=== PATIENT | female | born 1990 | race Caucasian/White ===

== ENCOUNTER 2016-09-23 11:33 | Outpatient (CLI) | payer MEDICAID ==
[~2016-09-23 11:33] MED LIST: AMOXICOT500 MG PO; ASPIRIN 81MG TA81 MG PO; CIPRO 500MG TA500 MG PO; COUMADIN7.5 MG PO; LORTAB 5/500 501 TAB PO; MEDROL 4MG. DOSE4 MG PO; NAPROSYN 375MG375 MG PO; PREMIERPRO SC; TESSALON PERLE100 MG PO; TYLENOL W/CODEI1 TAB PO; VICODIN 5/500 T1 TAB PO
[2016-09-26] MEDS ORDERED: COUMADIN2.5 MG PO (14:55)
[2016-12-08] MEDS ORDERED: PRENATAL PLUS1 TA1 PO (16:58)
[2016-12-08] MEDS ORDERED: TAMIFLU 75MG CA75 MG PO (17:23)
== END 2016-09-23 14:24 ==
LOC: ACC 11:33
DX: Z95.2 Presence of prosthetic heart valve (principal); Z79.01 Long term (current) use of anticoagulants; Z51.81 Encounter for therapeutic drug level monitoring
CPT/HCPCS: G0463

== ENCOUNTER 2016-11-06 18:20 | Emergency (ER) | payer MEDICAID ==
[~2016-11-06] VITALS: Ht 160 cm; Wt 85.7 kg
[~2016-11-06 18:20] MED LIST changes: +COUMADIN2.5 MG PO
[2016-11-06] MEDS ORDERED: IRON TABLETS325 MG PO (18:38)
[2016-11-06 19:05] VITALS: BP 121/69
--- NOTE | 2016-11-06 19:07 | Urgent Treatment Center Report ---
History of Present Issue Date/Time Seen by Provider 11/06/16 1845 Visit Reason Pt arrived:Walked Presenting Problem:c/o cough, congestion, runny nose, drained feeling x 4 days Location if Accident: Onset of symptoms date/time:/ or onset unknown for:MEDICAL HX UNKNOWN Have you (or family members/close friends) recently traveled outside the [place]? N If Yes, where/when: Have you had exposure to infectious disease within the past month? TB? Other? Specify: Patient states that she has been exposed to several people with the flu and other viruses states for 3-4 days she had had cough runny nose, nasal congestion and just feels tired. States that she was afraid she might have the flu so she came to get checked ALLERGIES Coded Allergies: Sulfa (Sulfonamide Antibiotics) (Mild, I-RASH 03/06/16) Home Medications Reported Medications ASPIRIN (Aspirin) 81 MG PO DAILY Warfarin Sodium (Coumadin) 2.5 MG PO DAILY Ferrous Sulfate (Iron Tablet) 325 MG PO DAILY History Medical History General CAD? Yes Angina: No ME: No Hypertension? No Hyperlipidemia? No CHF? No DVT? Yes PE? No COPD? No Asthma? No Anemia? No GERD? No Gastric ulcers? No GI Bleed? No Hernia? No Thyroid Problems? No Hypothyroidism? No CVA? No Seizures? No Diabetes? No Renal Insuffiency? No UTI? Yes Stones? No BPH? No GB Disease: No Nephritic Syndrome? No Asplenia? No Hepatitis? No Sickle Cell Disease? No Arthritis? No Migraines? No Cataracts? No Glaucoma? No MRSA? No HIV? No TB? No Anxiety? No Depression? No Cancer? No More? 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 Respiratory cough Physical Exam Vital Signs Vital Signs Date Time Temp Pulse Resp B/P Pulse O2 O2 Flow FiO2 Ox Delivery Rate 11/06 1835 97.9 95 24 121/69 98 General Appearance normal appearance Ear, Nose, Throat sinus pain/drainage, throat slightly red, irritated, Bilateral ears clear, TM landmarks easily visible Respiratory Status Yes: trachea midline, chest symmetrical, non tender chest. No: respiratory distress. Cardiovascular normal exam, no peripheral edema, no gallop, no JVD Neurologic alert, normal exam, no motor/sensory deficits Medical Decision Making LABS/Meds/Orders Pt receiving controlled substance in ED? No Results/Orders Laboratory Tests 11/06/161902: Influenza Type A Ag NOT DETECTED, Influenza Type B Ag NOT DETECTED Orders Procedure Date/time Status [facility] FLU A,B 11/06 1902 Complete Departure Departure Time of Disposition 1903 Disposition DC Home or Self Care(routine) Clinical Impression Primary Impression: Viral upper respiratory illness Condition STABLE Patient Instructions Common Cold, DI for Viral Upper Respiratory Infection-Child Additional Instructions Drink plenty of fluids Over the counter Motrin/Tylenol as needed for fever Return to [facility] if needed Follow up family doctor Discharge Counseling Counseled pt/family regarding diagnosis, test results, home care, follow up needs at 1906
--- NOTE | 2016-11-06 19:07 | Urgent Treatment Center Report ---
History of Present Issue Date/Time Seen by Provider 11/06/16 1845 Visit Reason Pt arrived:Walked Presenting Problem:c/o cough, congestion, runny nose, drained feeling x 4 days Location if Accident: Onset of symptoms date/time:/ or onset unknown for:MEDICAL HX UNKNOWN Have you (or family members/close friends) recently traveled outside the [place]? N If Yes, where/when: Have you had exposure to infectious disease within the past month? TB? Other? Specify: Patient states that she has been exposed to several people with the flu and other viruses states for 3-4 days she had had cough runny nose, nasal congestion and just feels tired. States that she was afraid she might have the flu so she came to get checked ALLERGIES Coded Allergies: Sulfa (Sulfonamide Antibiotics) (Mild, I-RASH 03/06/16) Home Medications Reported Medications ASPIRIN (Aspirin) 81 MG PO DAILY Warfarin Sodium (Coumadin) 2.5 MG PO DAILY Ferrous Sulfate (Iron Tablet) 325 MG PO DAILY History Medical History General CAD? Yes Angina: No GA: No Hypertension? No Hyperlipidemia? No CHF? No DVT? Yes PE? No COPD? No Asthma? No Anemia? No GERD? No Gastric ulcers? No GI Bleed? No Hernia? No Thyroid Problems? No Hypothyroidism? No CVA? No Seizures? No Diabetes? No Renal Insuffiency? No UTI? Yes Stones? No BPH? No GB Disease: No Nephritic Syndrome? No Asplenia? No Hepatitis? No Sickle Cell Disease? No Arthritis? No Migraines? No Cataracts? No Glaucoma? No MRSA? No HIV? No TB? No Anxiety? No Depression? No Cancer? No More? 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 Respiratory cough Physical Exam Vital Signs Vital Signs Date Time Temp Pulse Resp B/P Pulse O2 O2 Flow FiO2 Ox Delivery Rate 11/06 1835 97.9 95 24 121/69 98 General Appearance normal appearance Ear, Nose, Throat sinus pain/drainage, throat slightly red, irritated, Bilateral ears clear, TM landmarks easily visible Respiratory Status Yes: trachea midline, chest symmetrical, non tender chest. No: respiratory distress. Cardiovascular normal exam, no peripheral edema, no gallop, no JVD Neurologic alert, normal exam, no motor/sensory deficits Medical Decision Making LABS/Meds/Orders Pt receiving controlled substance in ED? No Results/Orders Laboratory Tests 11/06/161902: Influenza Type A Ag NOT DETECTED, Influenza Type B Ag NOT DETECTED Orders Procedure Date/time Status [facility] FLU A,B 11/06 1902 Complete Departure Departure Time of Disposition 1903 Disposition DC Home or Self Care(routine) Clinical Impression Primary Impression: Viral upper respiratory illness Condition STABLE Patient Instructions Common Cold, DI for Viral Upper Respiratory Infection-Child Additional Instructions Drink plenty of fluids Over the counter Motrin/Tylenol as needed for fever Return to [facility] if needed Follow up family doctor Discharge Counseling Counseled pt/family regarding diagnosis, test results, home care, follow up needs at 1906
[2016-12-08] MEDS ORDERED: PRENATAL PLUS1 TA1 PO (16:58)
[2016-12-08] MEDS ORDERED: TAMIFLU 75MG CA75 MG PO (17:23)
== END 2016-11-06 19:10 | disposition home or self-care (01) ==
LOC: UTC 18:20
DX: J06.9 Acute upper respiratory infection, unspecified (principal); I25.10 Atherosclerotic heart disease of native coronary artery without angina pectoris; Z72.0 Tobacco use

== ENCOUNTER 2017-01-11 01:52 | Inpatient (IN) | payer MEDICAID ==
[~2017-01-11] VITALS: Ht 160 cm; Wt 84.8 kg
[~2017-01-11 01:52] MED LIST changes: +IRON TABLETS325 MG PO; +PRENATAL PLUS1 TA1 PO; +TAMIFLU 75MG CA75 MG PO
[2017-01-11 04:31] VITALS: BP 113/76
[2017-01-11 05:13] LABS: HEMOGLOBIN 12.9 g/dL (12.2-16.2); LYMPH % 25.2 % (10-50.0)
[2017-01-11 06:39] LABS: ABO BLOOD TYPE B; RH BLOOD TYPE POSITIVE
--- NOTE | 2017-01-11 07:20 | LABOR NOTE ---
Laboring Subjective Subjective Date 01/11/17 Time 0719 Subjective: Pt is having regular contractions Laboring Objective Objective NST: Reactive Contractions: q 2-3 minutes Cervical dilation: 2 Effacement: 50% Station: -2 Membranes are: Artificially ruptured (with clear fluid) Fetus monitoring? Yes Type: Internal and External Comment: [facility] INSERTED Laboring Assessment Assessment Progressing? Yes Cephalopelvic disproportion? No Problem List: 1. Mechanical heart valve present Laboring Plan Plan Anethesia for epidural? No Continue to labor down? Yes Plan for ? No Continue to monitor? Yes Start pushing? No at 0720
--- NOTE | 2017-01-11 07:20 | LABOR NOTE ---
Laboring Subjective Subjective Date 01/11/17 Time 0719 Subjective: Pt is having regular contractions Laboring Objective Objective NST: Reactive Contractions: q 2-3 minutes Cervical dilation: 2 Effacement: 50% Station: -2 Membranes are: Artificially ruptured (with clear fluid) Fetus monitoring? Yes Type: Internal and External Comment: [facility] INSERTED Laboring Assessment Assessment Progressing? Yes Cephalopelvic disproportion? No Problem List: 1. Mechanical heart valve present Laboring Plan Plan Anethesia for epidural? No Continue to labor down? Yes Plan for ? No Continue to monitor? Yes Start pushing? No at 0720
[2017-01-11 08:06] VITALS: BP 106/60
--- NOTE | 2017-01-11 10:47 | LABOR NOTE ---
Laboring Subjective Subjective Date 01/11/17 Time 1046 Subjective: Pt is having regular contractions Laboring Objective Objective NST: Reactive Contractions: q 2-3 minutes Cervical dilation: 4 Effacement: 75% Station: -2 Membranes are: Artificially ruptured (with clear fluid) Fetus monitoring? Yes Type: Internal and External Laboring Assessment Assessment Progressing? Yes Cephalopelvic disproportion? No Problem List: 1. 2. Mechanical heart valve present Laboring Plan Plan Anethesia for epidural? Yes Continue to labor down? Yes Plan for ? No Continue to monitor? Yes Start pushing? No at 1049
[2017-01-11] MEDS ORDERED: ENOXAPARIN80 MG/0.8 SC (11:00)
--- NOTE | 2017-01-11 13:40 | LABOR NOTE ---
Laboring Subjective Subjective Date 01/11/17 Time 1339 Subjective: Pt is having regular contractions Laboring Objective Objective NST: Reactive Contractions: q 2-3 minutes Cervical dilation: 4-5 Effacement: 75% Station: -1 Membranes are: Artificially ruptured Fetus monitoring? Yes Type: Internal Laboring Assessment Assessment Progressing? Yes Cephalopelvic disproportion? No Problem List: 1. 2. Mechanical heart valve present Laboring Plan Plan Anethesia for epidural? Yes Continue to labor down? Yes Plan for ? No Continue to monitor? Yes Start pushing? No at 1340
--- NOTE | 2017-01-11 15:51 | LABOR NOTE ---
Laboring Subjective Subjective Date 01/11/17 Time 1550 Subjective: Pt is having regular contractions Laboring Objective Objective NST: Reactive Contractions: q 2-3 minutes Cervical dilation: 6 Effacement: 80% Station: -1 Membranes are: Artificially ruptured Fetus monitoring? Yes Type: Internal Laboring Assessment Assessment Progressing? Yes Cephalopelvic disproportion? No Problem List: 1. Mechanical heart valve present 2. Laboring Plan Plan Anethesia for epidural? Yes Continue to labor down? Yes Plan for ? No Continue to monitor? Yes Start pushing? No at 1551
--- NOTE | 2017-01-11 17:59 | Delivery Note ---
Delivery note Delivery date: 01/11/17 Delivery time: 1743 Anesthesia: Epidural, Lázaro Rooney Was labor medically induced? Yes Method for inducing labor: Oxytocin Gestational age in weeks: 38 weeks Delivery prior to 39 weeks? Yes Sex: female score at one minute: 8 at 5 minutes: 9 Type of suction: bulb AF: Clear fluid LAC or MLE: LAC (none) Delivery procedure: Normal Delivery Delivery of placenta: spontaneous Clinical note She is a 26-year-old 2 para 1 who is had a surgically placed a mechanical heart valve. She has been on Coumadin throughout the and more recently Lovenox. She has been in in consultation at [facility]. It was recommended that she deliver at 38 weeks and be off her Coumadin and Lovenox. As result of that we stop her Lovenox partially 3 days ago and elected to induce her labor today. She was started on IV oxytocin had her membranes ruptured. Under labor epidural she progressed to full dilation and delivered spontaneously a liveborn female child at 5:44 PM in the afternoon of January 11, 2017. On delivery the head it was noted that there was a loose nuchal cord which was easily reduced this was followed by the anterior shoulder and the rest of the 's body atraumatically. We allowed the cord to continue pulsating for about a minute. The baby cried spontaneously and was bulb suctioned. The cord was clamped and cut and the infant was then placed on the mother's abdomen for further care. The nurses assigned Apgars of 8 at 1 minute and 9 at 5 minutes. We then obtained cord blood as well as cord pH. The pH was 7.37. Using gentle traction on the cord and countertraction the fundus I was able to easily deliver the placenta intact. It had a normal three-vessel cord. The vagina was inspected and there were no perineal or vaginal lacerations. She has B positive blood, she is rubella immune and was group B streptococcus negative. She plans to bottlefeed. Her equipment operator is Dr. gonzalez. Estimated blood loss was approximately 400 mL. at 8628
[2017-01-11 19:54] VITALS: BP 123/73
[2017-01-12 07:20] VITALS: BP 103/66
[2017-01-12 07:24] LABS: HEMOGLOBIN 10.4 g/dL (12.2-16.2)
--- NOTE | 2017-01-12 10:41 | Anesthesia Record ---
Anesthesia Record Part I Total IV fluids: 1300 EBL (ml): 10 Urine Output: 0 Units of blood given: 0 B/P: 103/76 % SaO2: 94 Pulse: 76 Resps: 16 Temp: 98.3 Patient is: Drowsy, Nasal O2, Stable Stable to PACU at: 1035 at 1041
--- NOTE | 2017-01-12 10:41 | Operative Note ---
Procedure/Operative Record Procedure Date of procedure: 01/12/17 Pre-Op Dx: Desire for sterilization Post-Op Dx: Desire for sterilization Procedure performed: bilateral tubal ligation Surgeon: Dr. Rafael Lorenzana Polishing Machine Operator Helper(s): None Anesthesia: Judy Guzmán EBL (ml): 25 Clinical note: She is a 26-year-old 2 para 2 who was 24 hours postdelivery. She is breast desire for sterilization. The risks and benefits as well as the irreversibility of tubal ligation were discussed with the patient prior to surgery. Operative findings: She had a normal uterus. The tubes were visualized and followed to their fimbriated ends they appeared normal. The ovaries were not visualized. Operative note: She was taken the operating room where LMA anesthesia was found be adequate. She was prepped and draped in normal sterile fashion in supine position. I injected approximately 10 mL of 0.5 percent ropivacaine subcutaneously. A small subumbilical incision was made with knife and carried through to the underlying layer of fascia with cautery the fascia was opened midline with Metzenbaum scissors and extended superior and inferiorly. The peritoneum was identified tented up and entered sharply with Metzenbaum scissors. I then identified the RIGHT tube and grasped with a Brian. It was followed to its fimbriated end. I then applied 2 Filshie clips across each tube. This was performed on the patient's LEFT side. The peritoneum was then grasped with hemostats and closed using running 2-0 Vicryl suture. The fascia was closed with 0 Vicryl suture. The subcutaneous tissues were then closed in the opposite direction using running 2-0 Vicryl suture. The skin was closed with running subcu care 4-0 Monocryl suture. Sterile dressings were applied. The patient tolerated the procedure well and was taken to the recovery room in excellent condition. All sponge instrument and needle counts were correct. Estimate a blood loss was approximately 25 mL. Conplications: None Specimens: None at 6290
--- NOTE | 2017-01-12 10:42 | Anesthesia Record ---
Anesthesia Record Part II Discharge time: 1105 Destination: OB PACU nurse assessment review? Yes Patient is: Awake, Stable Anesthesia complications? Yes at 1047
--- NOTE | 2017-01-12 15:04 | ACUTE CARE PROGRESS NOTE (QUA) ---
Progress Notes Subjective Date 01/12/17 Time 1502 Note She is doing very well. She has a tubal plan for today. She is eating and drinking and ambulating. Her lochia is normal. Her pain is well-controlled. Patient/family reports: feeling better, no complaints Objective Findings Laboratory Tests 01/12/17 0610: Hgb 10.4 L, Hct 30.2 L 01/11/17 1754: Cord Blood pH 7.37 Last VS-Temp:98.3 B/P:103/76 Pulse:76 Resp:18 SaO2:94 Last weight lbs:187 oz:0 [id number].823 Method:Stated Exam General appearance: normal appearance, alert, awake, no acute distress Reviewed: vital signs, lab results Assessment/Plan Problem List 1. 2. Mechanical heart valve present Patient condition Improving, Stable Plan: continue current care This inpt stay is expected to cross 2 MNs from start of care Yes Comments: She is doing very well. We will plan to start her Lovenox again tomorrow. We will plan to send her home tomorrow. at 1503
[2017-01-12 19:52] VITALS: BP 98/63
--- NOTE | 2017-01-13 07:55 | ACUTE CARE PROGRESS NOTE (QUA) ---
Progress Notes Subjective Date 01/13/17 Time 0754 Note She is doing well this morning. She is eating and drinking and ambulating. She is bottlefeeding. Her lochia is normal. Her pain is reasonably well-controlled. Patient/family reports: feeling better, no complaints Objective Findings Last VS-Temp:97.9 B/P:98/63 Pulse:67 Resp:18 SaO2:94 Last weight lbs:187 oz:0 K.823 Method:Stated Laboratory Tests 01/12/17 0610: Hgb 10.4 L, Hct 30.2 L 01/11/17 1754: Cord Blood pH 7.37 01/11/17 0415: MCH 34.5 H 01/11/17 0415: PT 10.0, INR 0.93, APTT 28.7, WBC 12.0 H, RBC 3.75 L, Hgb 12.9, Hct 37.3, MCV 99.4 H, RDW 12.8, Plt Count 237, MPV 7.7, Gran % 68.8, Gran # 8.3 H, Lymphocytes % 25.2, Monocytes % 4.4, Eosinophils % 1.3, Basophils % 0.3, Lymphocytes # 3.0, Monocytes # 0.5, Eosinophils # 0.2, Basophils # 0.0, PUBS MCHC 34.7, Antibody Screen NEGATIVE, Miscellaneous Test POSITIVE Exam General appearance: normal appearance, alert, awake, no acute distress Reviewed: vital signs, lab results Assessment/Plan Problem List 1. 2. Mechanical heart valve present Patient condition Improving, Stable Plan: continue current care, initiate discharge plan This inpt stay is expected to cross 2 MNs from start of care Yes Comments: She is doing very well post surgery. We will plan to send her home this morning. at 0755
--- NOTE | 2017-01-13 07:59 | Discharge Summary ---
Discharge Summary Admission date: 01/11/17 Discharge date: 01/13/17 Discharge diagnoses: Term , maternal mechanical heart valve, desire for sterilization Clinical note: She is a 26-year-old 2 now para 2 who was 38 weeks gestational age. She has had a history of a cardiac mechanical heart valve replacement and was followed by both or and high-risk in [place]. They suggested that she stops her Lovenox a few days before admission and we deliver her at 38 weeks before she goes into labor. As result of that she stopped her Lovenox a couple of days before admission and was brought in for delivery. She also expressed desire for sterilization and she underwent a tubal ligation on her first postoperative day. Course in hospital: Laboratory Tests 01/12/17 0610: Hgb 10.4 L, Hct 30.2 L 01/11/17 1754: Cord Blood pH 7.37 01/11/17 0415: MCH 34.5 H 01/11/17 0415: PT 10.0, INR 0.93, APTT 28.7, WBC 12.0 H, RBC 3.75 L, Hgb 12.9, Hct 37.3, MCV 99.4 H, RDW 12.8, Plt Count 237, MPV 7.7, Gran % 68.8, Gran # 8.3 H, Lymphocytes % 25.2, Monocytes % 4.4, Eosinophils % 1.3, Basophils % 0.3, Lymphocytes # 3.0, Monocytes # 0.5, Eosinophils # 0.2, Basophils # 0.0, PUBS MCHC 34.7, Antibody Screen NEGATIVE, Miscellaneous Test POSITIVE She was started on IV oxytocin and had her membranes ruptured. Under labor epidural she progressed to full dilation and delivered spontaneously a liveborn female child at 5:44 PM in the afternoon of January 11, 2017. The baby was 7 lbs. 1 oz. and size 18 a half inches long and had Apgars of 8 at 1 minute and 9 at 5 minutes. There were no perineal or vaginal lacerations. She has done well and has remained afebrile throughout her hospitalization. She is eating and drinking and ambulating. She has B positive blood, she is rubella immune and was group B streptococcus negative. She is bottlefeeding. On her first day she underwent a tubal ligation through a small subumbilical incision. She is doing well post surgery. Plans for ongoing care: She is discharged home to follow-up with me in approximately 2 weeks' time. Discharge medications She'll continue with her vitamins and iron. She was given a prescription for Percocet 5/325, 30 tablets. DC/follow-up instructions She was given the usual instructions with respect to limiting her activity, driving and sexual activity. She was given instructions with respect to wound care. Condition at discharge Stable and improved at 8243
[2017-01-13 08:00] VITALS: BP 116/61
[2017-01-13] MEDS ORDERED: PERCOCET 5/3251 EACH PO (08:01)
== END 2017-01-13 10:15 | disposition home or self-care (01) | DRG 767 ==
LOC: OB 01:52
PROVIDERS: Nurse Practitioner Obstetrics & Gynecology
PROC: 10E0XZZ Delivery of Products of Conception, External Approach (ICD-10-PCS; principal; 2017-01-11)
PROC: 0UL70CZ Occlusion of Bilateral Fallopian Tubes with Extraluminal Device, Open Approach (ICD-10-PCS; 2017-01-11)
DX: O69.81X0 Labor and delivery complicated by cord around neck, without compression, not applicable or unspecified (principal); Z30.2 Encounter for sterilization; Z3A.38 38 weeks gestation of pregnancy; Z37.0 Single live birth; Z95.2 Presence of prosthetic heart valve; Z79.01 Long term (current) use of anticoagulants
CPT/HCPCS: J2405

== ENCOUNTER 2017-01-20 10:20 | Outpatient (CLI) | payer MEDICAID ==
[~2017-01-20 10:20] MED LIST changes: +ENOXAPARIN80 MG/0.8 SC; +PERCOCET 5/3251 EACH PO
== END 2017-01-20 13:47 ==
LOC: ACC 10:20
DX: Z95.2 Presence of prosthetic heart valve (principal); Z79.01 Long term (current) use of anticoagulants; Z51.81 Encounter for therapeutic drug level monitoring
CPT/HCPCS: G0463

== ENCOUNTER 2017-01-28 19:45 | Emergency (ER) | payer MEDICAID ==
[~2017-01-28] VITALS: Ht 160 cm; Wt 77.1 kg
[2017-01-28] MEDS ORDERED: WARFARIN SOD5 M1 PO (19:58)
--- NOTE | 2017-01-28 19:59 | Urgent Treatment Center Report ---
History of Present Issue Date/Time Seen by Provider 01/28/171957 Visit Reason Pt arrived: Presenting Problem: Location if Accident: Onset of symptoms date/time:/ or onset unknown for: Have you (or family members/close friends) recently traveled outside the [place]? If Yes, where/when: Have you had exposure to infectious disease within the past month? TB? Other? Specify: Source patient, RN notes reviewed, family Exam Limitations no limitations Comment Bilateral ear pain and fullness, sinus pressure, sore throat x 2 weeks. Patient is 3 weeks post and is breast feeding. Low -grade fever. Is on Coumadin for mechanical heart valve. ALLERGIES Coded Allergies: Sulfa (Sulfonamide Antibiotics) (Mild, I-RASH 01/12/17) Home Medications Active Scripts Oxycodone 5MG/[id number] (Oxycodone-Acetaminophen 5-325) 1-2 TAB PO Q4HP PRN MODERATE TO SEVERE PAIN #30 TAB Prov: 01/13/17 Reported Medications ASPIRIN (Aspirin) 81 MG PO DAILY Ferrous Sulfate (Iron Tablet) 325 MG PO DAILY MULTIVIT-MIN W/FE-FA ( Multivitamin Tablet) 1 TAB PO DAILY Warfarin Sodium 2.5 MG PO DAILY #30 History Medical History General CAD? Yes Angina: No MA: No Hypertension? No Hyperlipidemia? No CHF? No DVT? Yes PE? No COPD? No Asthma? No Anemia? No GERD? No Gastric ulcers? No GI Bleed? No Hernia? No Thyroid Problems? No Hypothyroidism? No CVA? No Seizures? No Diabetes? No Renal Insuffiency? No UTI? Yes Stones? No BPH? No GB Disease: No Nephritic Syndrome? No Asplenia? No Hepatitis? No Sickle Cell Disease? No Arthritis? No Migraines? No Cataracts? No Glaucoma? No MRSA? No HIV? No TB? No Anxiety? No Depression? No Cancer? No More? 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 Physical Exam Vital Signs Vital Signs Date Time Temp Pulse Resp B/P Pulse O2 O2 Flow FiO2 Ox Delivery Rate 01/28 1955 98.7 82 18 113/71 95 General Appearance normal appearance, no apparent distress Ear, Nose, Throat hearing grossly normal, abnormal TM (R), abnormal TM (L), sinus pain/drainage Respiratory Status No: respiratory distress, trachea midline, chest symmetrical. Lung Sounds bilateral: normal breath sounds, lungs clear. Cardiovascular normal exam, regular rate/rhythm, no peripheral edema, no gallop, no JVD, no murmur, no rub Extremities non-tender, normal range of motion, normal inspection, normal capillary refill Neurologic alert, normal exam, oriented x 3 Medical Decision Making LABS/Meds/Orders Pt receiving controlled substance in ED? No Departure Departure Time of Disposition 2009 Disposition DC Home or Self Care(routine) Clinical Impression Primary Impression: Sinusitis Qualifiers: Sinusitis location: maxillary Chronicity: acute Recurrence: recurrent Qualified Code: J01.01 - Acute recurrent maxillary sinusitis Condition STABLE Patient Instructions DI for Sinusitis Discharge Counseling Counseled pt/family regarding diagnosis, medications/RX, home care, follow up needs Prescriptions Current Visit Scripts AMOXICILLIN (Amoxicillin 875MG Tab) 875 MG PO BID #20 TAB Prednisone (Prednisone 20MG) 20 MG PO BID #10 TAB Fluticasone Propionate (Flonase 50 Mcg Nasal [place]) 1 SPRAY NA BID #1 BOT at 2015
--- NOTE | 2017-01-28 19:59 | [facility] Report ---
History of Present Issue Date/Time Seen by Provider 01/28/171957 Visit Reason Pt arrived: Presenting Problem: Location if Accident: Onset of symptoms date/time:/ or onset unknown for: Have you (or family members/close friends) recently traveled outside the [place]? If Yes, where/when: Have you had exposure to infectious disease within the past month? TB? Other? Specify: Source patient, RN notes reviewed, family Exam Limitations no limitations Comment Bilateral ear pain and fullness, sinus pressure, sore throat x 2 weeks. Patient is 3 weeks post and is breast feeding. Low -grade fever. Is on Coumadin for mechanical heart valve. ALLERGIES Coded Allergies: Sulfa (Sulfonamide Antibiotics) (Mild, I-RASH 01/12/17) Home Medications Active Scripts Oxycodone 5MG/[id number] (Oxycodone-Acetaminophen 5-325) 1-2 TAB PO Q4HP PRN MODERATE TO SEVERE PAIN #30 TAB Prov: 01/13/17 Reported Medications ASPIRIN (Aspirin) 81 MG PO DAILY Ferrous Sulfate (Iron Tablet) 325 MG PO DAILY MULTIVIT-MIN W/FE-FA ( Multivitamin Tablet) 1 TAB PO DAILY Warfarin Sodium 2.5 MG PO DAILY #30 History Medical History General CAD? Yes Angina: No [place]: No Hypertension? No Hyperlipidemia? No CHF? No DVT? Yes PE? No COPD? No Asthma? No Anemia? No GERD? No Gastric ulcers? No GI Bleed? No Hernia? No Thyroid Problems? No Hypothyroidism? No CVA? No Seizures? No Diabetes? No Renal Insuffiency? No UTI? Yes Stones? No BPH? No GB Disease: No Nephritic Syndrome? No Asplenia? No Hepatitis? No Sickle Cell Disease? No Arthritis? No Migraines? No Cataracts? No Glaucoma? No MRSA? No HIV? No TB? No Anxiety? No Depression? No Cancer? No More? 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 Physical Exam Vital Signs Vital Signs Date Time Temp Pulse Resp B/P Pulse O2 O2 Flow FiO2 Ox Delivery Rate 01/28 1955 98.7 82 18 113/71 95 General Appearance normal appearance, no apparent distress Ear, Nose, Throat hearing grossly normal, abnormal TM (R), abnormal TM (L), sinus pain/drainage Respiratory Status No: respiratory distress, trachea midline, chest symmetrical. Lung Sounds bilateral: normal breath sounds, lungs clear. Cardiovascular normal exam, regular rate/rhythm, no peripheral edema, no gallop, no JVD, no murmur, no rub Extremities non-tender, normal range of motion, normal inspection, normal capillary refill Neurologic alert, normal exam, oriented x 3 Medical Decision Making LABS/Meds/Orders Pt receiving controlled substance in ED? No Departure Departure Time of Disposition 2009 Disposition DC Home or Self Care(routine) Clinical Impression Primary Impression: Sinusitis Qualifiers: Sinusitis location: maxillary Chronicity: acute Recurrence: recurrent Qualified Code: J01.01 - Acute recurrent maxillary sinusitis Condition STABLE Patient Instructions DI for Sinusitis Discharge Counseling Counseled pt/family regarding diagnosis, medications/RX, home care, follow up needs Prescriptions Current Visit Scripts AMOXICILLIN (Amoxicillin 875MG Tab) 875 MG PO BID #20 TAB Prednisone (Prednisone 20MG) 20 MG PO BID #10 TAB Fluticasone Propionate (Flonase 50 Mcg Nasal [place]) 1 SPRAY NA BID #1 BOT at 2015
--- OUTSIDE RECORDS SUMMARY | 2017-01-28 20:00 | External Medical Summary Rpt ---
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 Name Role Phone PRUDENCE JEANETTE, PRUDENCE Unavailable Unavailable JEANETTE [facility] Unavailable Unavailable PHYSICIANS, [facility] KAROLINA BISHOP, Unavailable Unavailable KAROLINA BISHOP ARNOLD MAURICE, ARNOLD Unavailable Unavailable MAURICE ARNOLD MAURICE, ARNOLD Unavailable Unavailable MAURCIE MARIAM VIERA W, Unavailable Unavailable MARIAM VIERA W [facility] Unavailable Unavailable [facility] Unavailable Unavailable MEDICAL GROUP, [facility] Unavailable SERVICE, [facility] BESSON OLIVIER, BESSON Unavailable Unavailable OLIVIER [facility] Unavailable Unavailable [facility]ORATORIES, [facility] Unavailable Unavailable LABORATORIES, [facility] STANTON ALL, STANTON ALL Unavailable Unavailable BRENYO MAR, BRENYO Unavailable Unavailable MAR BARROSO JAM, BARROSO JAM Unavailable Unavailable BUCKHALTER ANS, Unavailable Unavailable BUCKHALTER ANS AN CAR, AN Unavailable Unavailable CAR NINA RAL, Unavailable Unavailable Natalio MANCUSO JR, V, Unavailable Unavailable Natalio HURT JR [facility] Unavailable Unavailable [facility], [facility] Unavailable Unavailable PHYSICIAN PRA, BRAEDEN [facility] PHYSICIAN PRA MEHDI HARDING Unavailable Unavailable MEHDI BARRON, MEDHI Unavailable Unavailable REVA DURON, Unavailable Unavailable [facility] Unavailable Un[facility], Unavailable Unavailable [facility] COLON-ALEJANDRO JAYJAY, Unavailable Unavailable COLON-ALEJANDRO JAYJAY [facility] Unavailable Unavailable LAB, [facility] RUBI STEVEN, Unavailable Unavailable RUBI STEVEN LAUROJanae CAMACHO, LAUROJanae CAMACHO Unavailable Unavailable [facility] Un[place] [place] CARMELO NIELSEN, Unavailable Unavailable CARMELO NIELSEN GRAY NAN, GRAY Unavailable Unavailable NAN ELIESER REG, ELIESER Unavailable Unavailable REG NICHO QUIANA, NICHO Unavailable Unavailable QUIANA NGUYEN TORRE, Unavailable Unavailable NICHO, NGUYEN S SIERRA MAURICE, SIERRA MAURICE Unavailable Unavailable DREW RHO, DREW Unavailable Unavailable RHO KRAMER ATU, KRAMER ATU Unavailable Unavailable HARPEL SHARMILA, HARPEL Unavailable Unavailable SHARMILA HARPEL, JOSH R, Unavailable Unavailable HARPEL, JOSH R SUTTON JEFF, SUTTON Unavailable Unavailable JEFF [facility] Unavailable Unavailable CENTER, [facility] Unavailable Unavailable INC, [facility] Unavailable [facility]available HOSPITAL P, [facility], [facility]available Unavailable [facility], [facility]available Unavailable [facility], [facility], [facility] MERARI AVELINA, MERARI AVELINA Unavailable Unavailable ATKINSON DOUG, ATKINSON D[facility] Unavailable Unavailable [facility] Unavailable [facility], [facility] LANDY BENITEZ, Unavailable Unavailable LANDY BENITEZ GREGORY C, Unavailable Unavailable ETHEL BROWN [facility] Unavailable Unavailable IMAGING ASS, [facility] Unavailable Unavailable MEDICAL G, [facility] KOSTELIC JENNIFER, Unavailable Unavailable KOSTELIC JENNIFER [facility] Un[facility] LEHNERT RAY, LEHNERT Unavailable Unavailable RAY PATRICIAOLAF BLANKENSHIPNDA L, Unavailable Unavailable OLAF PATRICIANDA L JOE JOHN, JOE JOHN Unavailable Unavailable JOE JR DWI, JOE Unavailable Unavailable JR DWI DIANE FAYETTE URBAN Unavailable Unavailable COGOVT, DIANE FAYETTE URBAN COGOVT [facility] Unavailable Unavailable LABORATORY, [facility] RULA OLIVIER, RULA OLIVIER Unavailable Unavailable [facility] Unavailable Unavailable SERVICES, [facility] ANDRE PRESLEY, Unavailable Unavailable SINA RIVERA JR Unavailable Unavailable Chano, SINA NEWMAN JR MERHAR GAR, MERHAR Unavailable Unavailable GAR HARVEY KYL, HARVEY Unavailable Unavailable KYL DELMA DELMA Unavailable Unavailable DELMA CHRISTIAN, Unavailable Unavailable DELMA CHRISTIAN JEFERSON CHAU, Unavailable Unavailable JEFERSON CHAU WILLIAM F, Unavailable Unavailable SINA CHRISTINA [facility] Unavailable Unavailable [facility], [facility] MASCORRO, MASCORRO Unavailable Unavailable MASCORRO AKSHAT, MASCORRO Unavailable Unavailable WALDO TRUONG, Unavailable Unavailable WALDO REYNA EDW, LEXIE Unavailable Unavailable EDW DELGADO NOW, DELGADO Unavailable Unavailable NOW [facility] Unavailable Unavailable [facility], [facility] Unavailable Unavailable [facility]SC, [facility] NICKELS CATRACHITO, NICKELS Unavailable Unavailable CATRACHITO O' REEL, O' REEL Unavailable Unavailable OVERALL PHI, OVERALL Unavailable Unavailable PHI GREG ANIRUDH, GREG ANIRUDH Unavailable Unavailable [facility], Unavailable Unavailable [facility], [facility] Unavailable Unavailable LAB, [facility] Unavailable Unavailable LAB, [facility] MARK GIMENEZ, Unavailable Unavailable MARK GIMENEZ FRANCISCO, III, LYN Unavailable Unavailable P, FRANCISCO, III, LYN P DAUGHERTY RODRIGO, DAUGHERTY Unavailable Unavailable RODRIGO RAINS ALL, RAINS ALL Unavailable Unavailable CONCHA, DILLAN, Unavailable Unavailable CONCHA, DILLAN RAVISANKAR PUN, Unavailable Unavailable RAVISANKAR PUN REKHRAJ MICHELET, REKHRAJ Unavailable Unavailable MICHELET RIDDLE MASHA, RIDDLE Unavailable Unavailable MASHA NATHAN DACIA, NATHAN DACIA Unavailable Unavailable [facility] Unavailable Unavailable [facility], [facility] Unavailable Unavailable ARINA SANTROCK JEANETTE, Unavailable Unavailable SANTROCK JEANETTE [facility] MAX[facility], Unavailable Unavailable [facility] MAX[facility] MAX[facility], Unavailable Unavailable [facility] CARITO ELENA, CARITO Unavailable Unavailable ELENA IVORY MICHELET, IVORY Unavailable Unavailable MICHELET [facility], [facility] Unavailable Unavailable EMERGENCY PHYSI, [facility] Unavailable Unavailable EMERGENCY SERV, [facility] Unavailable Unavailable MEDIC, [facility] Unavailable Unavailable RADIOLOG, [facility] Unavailable Unavailable EMERGENCY, [facility], Unavailable Unavailable [facility] Unavailable Unavailable [facility] Unavailable Unavailable TASHI GRIMM, Unavailable Unavailable TASHI MOROCHO III MASHA, Unavailable Unavailable JAMES III SHAHBAZ INTERIANO Unavailable Unavailable [facility], Unavailable Unavailable [facility] ANTONIA GUILLERMO CHA Unavailable Unavailable [facility] Unavailable Unavailable #[id number], [id number] Unavailable Unavailable #591, [facility] # Unavailable Unavailable [id number], [facility] # [id number] LARISSA NGUYENTMAN Unavailable Unavailable JENNIFER PHAM, W, VERO, W Unavailable Unavailable LOPEZ ROCKY, LOPEZ Unavailable Unavailable ROCKY [facility] Unavailable Unavailable DEPT [facility], [facility] DEPT [facility] Unavailable Unavailable DEPT [facility], [facility] DEPT [facility] Unavailable Unavailable [facility], [facility] Unavailable Unavailable MICHELLE IV ALL, Unavailable Unavailable MICHELEL IV ALL WILHELMUS MASHA, Unavailable Unavailable WILHELMUS MASHA DAILY OLIVIER, Unavailable Unavailable DAILY OLIVIER [facility] Unavailable Unavailable [facility], [facility] EVANGELINA, Li Sykes, HUTCHINSON, Unavailable Unavailable A C YOUNG JR JOHN, YOUNG Unavailable Unavailable JR JOHN GARSIA MAT, Unavailable Unavailable GARSIA MAT ANGELICA MAT, ANGELICA MAT Unavailable Unavailable Purpose Continuity of Care Document - 06-24-2008 through 2016 Problems Code Diagnosis DOS Provider Status Z3480 ENC 12-21-2016 [facility] SUPERVISION PHYSICIANS OTH NORMAL GROUP PREG UNS TRIMESTER O4703 FALSE LABOR 12-19-2016 [facility] BEFORE 37 PHYSICIANS CMPLETE GROUP WEEKS GEST 3RD TRI O6003 12-19-2016 [facility] LABOR [facility] WITHOUT INC DELIVERY THIRD TRIMESTER Z3A34 34 WEEKS 12-19-2016 [facility] GESTATION [facility] OF INC Z5181 ENCOUNTER 12-14-2016 [place] FOR [facility] THERAPEUTIC INC DRUG LEVEL MONITORING Z7901 ALF 12-14-2016 [place] CURRENT USE MEM HOSP OF INC ANTICOAGULA NTS Z952 PRESENCE OF 12-14-2016 [place] PROSTHETIC MEM [facility] HEART INC VALVE J09X2 INFLUENZA 12-08-2016 [facility] D/T ID [facility] H[facility] NOVEL FLU INC VIRUS OTH RESP MANIF Z3A33 33 WEEKS 12-08-2016 [facility] GESTATION [facility] OF INC [id number] MATERNAL 12-01-2016 [facility] HEALTH MEDICAL ABNORMALITY GROUP DAMGE NA/UNS G12350 DISEASES 12-01-2016 [facility] SYS COMP MEDICAL GROUP UNS TRI Q211 ATRIAL 12-01-2016 [facility] SEPTAL HEALTH DEFECT MEDICAL G 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 DEPT RESPIRATORY BLANK TUBERCULOSI S I2510 ASHD GRAYLING 11-06-2016 [place] CORONARY MEM H[facility] ARTERY W/O INC ANGINA PECTORIS J069 ACUTE UPPER 11-06-2016 [facility] HOSP RESPIRATORY INC INFECTION UNSPECIFIED Z720 TOBACCO USE 11-06-2016 [facility] HOSP INC S14497 ABNORMAL 10-24-2016 [facility] GLUCOSE PHYSICIANS COMPLICATIN GROUP G Z3A18 18 WEEKS 10-11-2016 [facility] GESTATION HEALTH OF MEDICAL G G17732 OTHER LONG 10-11-2016 [facility] TERM HEALTH CURRENT MEDICAL G DRUG THERAPY Z23 ENCOUNTER 09-30-2016 [facility] DEPT N BLANK [id number] DECREASED 09-26-2016 [place] [place] [facility] MOVEMENTS INC SECOND TRI NA/UNS Z3A22 22 WEEKS 09-26-2016 [facility] MEM HOSP OF INC B97236 SUPERVISION 09-22-2016 [facility] [place] HIGH HEALTH RISK PREG MEDICAL THIRD GROUP TRIMESTER [id number] MATERNAL 09-22-2016 [facility] HEREDITARY MEDICAL DISEASE IN GROUP FETUS NA/UNS Z8774 PERSONAL HX 09-22-2016 [facility] MALFORM MEDICAL HEART & GROUP CIRC SYSTEM O71899 SUPERVISION 08-25-2016 [facility] [place] H[facility] HEALTH RISK PREG MEDICAL SECOND GROUP TRIMESTER [id number] MATERNAL 08-25-2016 [facility] HEALTH [place] ABNORMALITY DAMAGE FET 1 O9989 OT DZ & 08-25-2016 [facility] COMP HEALTH PREG MEDICAL CHILDBIRTH GROUP PUERPERIUM O2692 08-12-2016 [facility], CONDITIONS PLLC UNS 2ND TRIMESTER R079 CHEST PAIN 08-12-2016 [facility] UNSPECIFIED PHYSICIANS, PLLC Z3A17 17 WEEKS 08-12-2016 [facility] P R5383 OTHER 07-11-2016 [facility] HEALTH MEDICAL G Z3A11 11 WEEKS 07-11-2016 [facility] GESTATION HEALTH OF MEDICAL G [id number] MATERNAL 06-30-2016 [facility] DAMAGE HEALTH TO FETUS MEDICAL BY DRUGS GROUP NA/UNS Z0379 ENCOUNTER 06-30-2016 [facility] [place] SUSPECT HEALTH MATRN [place] COND RULED OUT Z3A10 10 WEEKS 06-30-2016 [facility] OF MEDICAL GROUP O2311 INFECTIONS 06-10-2016 [facility] BLADDER IN [facility] INC FIRST TRIMESTER B40916 OTHER SPEC 06-10-2016 [facility] COND 1ST TRIMESTER R1032 LEFT LOWER 06-10-2016 [facility] ASS Z91316 UTERINE 06-08-2016 [facility] SIZE-DATE [facility] H[facility] DISCREPANCY INC FIRST TRIMESTER Z3491 ENC 06-08-2016 [facility] MEDICAL NORMAL IMAGING ASS UNS 1 TRIMESTER Z3A01 LESS THAN 8 06-08-2016 [place] [facility] MEDICAL GESTATION IMAGING ASS OF Z3201 ENCOUNTER 05-31-2016 [facility] GROUP TEST RESULT POSITIVE R002 PALPITATION 05-16-2016 [facility] P N8320 UNSPECIFIED 03-24-2016 [facility] OVARIAN N EMERGENCY CYSTS PHYSI R109 UNSPECIFIED 03-24-2016 [facility] ABDOMINAL [facility]Y PAIN N949 UNS COND 03-10-2016 [facility] ASSOC W/FE PHYSICIANS GENIT ORGN GROUP & MENSTRUAL CYCL R102 PELVIC AND 03-10-2016 [facility] PERINEAL PHYSICIANS PAIN GROUP B89261 ENCOUNTER 03-10-2016 [facility] WAREHOUSE INCENTIVE SELECTOR EXAM PHYSICIANS GENERAL RTN GROUP W/ABNORMAL FIND L56402 ENCOUNTER 03-10-2016 [facility] INCENTIVE SELECTOR EXAM REFERNCE GENERAL RTN LABORATORIE W/O S ABNORMAL FIND N8329 OTHER 03-06-2016 [facility]ANS, CYSTS PLLC R791 ABNORMAL 03-06-2016 [place] COAGULATION [facility] PROFILE INC K6389 OTHER 01-29-2016 [facility] [place] SPECIFIED RAD[facility]OLOGY DISEASES OF INTESTINE D12382 PAIN IN 01-29-2016 [facility] RIGHT LEG N EMERGENCY SERV R0602 SHORTNESS 01-20-2016 [facility] MEDICAL G P79203 PAIN IN 01-12-2016 [facility] [id number] FALL ON 01-12-2016 [place] [facility] FROM [facility]TH SERV [facility]IRS [facility] STEPS INITIAL ENCOUNTER J9811 ATELECTASIS 01-07-2016 [facility] M5412 RADICULOPAT 01-07-2016 [facility] HY CERVICAL N EMERGENCY REGION SERV R0789 OTHER CHEST 01-07-2016 [facility] PAIN N EMERGENCY SERV R200 ANESTHESIA 01-07-2016 [facility] [place] OF SKIN RADIOLOGY R202 PARESTHESIA 01-07-2016 [facility] OF SKIN N EMERGENCY SERV J40 BRONCHITIS 12-16-2015 [facility] SPECIFIED ACUTE OR CHRONIC E876 HYPOKALEMIA 12-09-2015 [facility] I498 OTHER 12-09-2015 [place] MEDICAL SPECIFIED SERV CARDIAC FOUNDATION ARRHYTHMIAS R072 PRECORDIAL 12-09-2015 [facility] M545 LOW BACK 11-16-2015 [facility] PAIN N EMERGENCY PHYSI M549 DORSALGIA 11-16-2015 [facility] R0781 PLEURODYNIA 11-16-2015 [facility] N EMERGENCY PHYSI B349 VIRAL 11-08-2015 [place]FE[place] U[facility]PECIFIED [facility]INIC PSC J029 ACUTE 11-08-2015 NEW PHARYNGITIS [place] [place] [facility] PSC UNSPECIFIED R05 COUGH 11-08-2015 [facility] [place] [facility] PSC R509 FEVER 11-08-2015 [facility] UNSPECIFIED [place] [facility] PSC K567 ILEUS 10-24-2015 [facility] R011 CARDIAC 10-22-2015 [facility] UNSPECIFIED MEDICAL G K5900 CONSTIPATIO 10-16-2015 [facility] [place] N [facility] UNSPECIFIED R1031 RIGHT LOWER 10-15-2015 [facility] PA[facility] PHYSICIANS N280 ISCHEMIA 10-06-2015 [facility] AND HEALTH INFARCTION MEDICAL G OF KIDNEY Z9114 PATIENTS 10-06-2015 [facility] NONCOMPLIAN MEDICAL G CE W/MEDICATIO N REGIMEN 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 [place] [facility] C PULMONARY SERV VALVE FOUNDATION INSUFFICIEN CY Z049 ENCOUNTER 10-05-2015 [place] [facility] EXAMINATION SERV &OBSERVATIO FOUNDATION N FOR UNS REASON F10344 PAIN IN 10-03-2015 [place] [facility] LEFT LEG SERV [facility]OUNDATION N289 DISORDER OF 10-03-2015 [place] [facility] [place] [facility] SERV URETER FOUNDATION UNSPECIFIED 85611 CHEST PAIN 06-12-2015 [facility] [place] UNSPECIFIED RADIOLOGY 4279 UNSPECIFIED 06-11-2015 NEW CARDIAC [place] [facility]THMIA [facility]INIC PSC 4660 ACUTE 06-11-2015 [facility] BRONCHITIS N EMERGENCY PHYS 7336 TIETZES 06-11-2015 [facility] DISEASE N EMERGENCY PHYS 48710 PRECORDIAL 06-11-2015 [facility] PAIN N EMERGENCY PHYS 31899 OTHER CHEST 06-08-2015 [facility] PAIN HEALTH MEDICAL G V433 HEART VALVE 06-08-2015 [facility] REPLACED HEALTH BY OTHER MEDICAL G MEANS V5861 LONG-TERM 06-08-2015 [facility] (CURRENT) HEALTH USE OF MEDICAL G ANTICOAGULA NTS V5883 ENCOUNTER 06-08-2015 [facility] THERAPEUTIC MEDICAL G DRUG MONITORING 5531 UMB HERNIA 02-22-2015 [place] [facility] WITHOUT SERV MENTION FOUNDATION OBSTRUCTION /GANGRENE 51996 ABDOMINAL 02-22-2015 [facility] RIGHT [facility]OSPITAL LOWER [facility] 36783 ATRIAL 02-16-2015 [facility] FIBRILLATIO REGIONAL N MEDIC 0340 STREPTOCOCC 12-06-2014 [facility] HAINES SORE REGIONAL THROAT PHYSICIAN PRA 35739 FEVER 12-06-2014 [facility] UNSPECIFIED REGIONAL PHYSICIAN PRA 7862 COUGH 11-23-2014 [facility] [place] [facility] 490 BRONCHITIS 11-22-2014 [facility] NOT N EMERGENCY SPECIFIED PHYS ACUTE OR CHRONIC 95428 SHORTNESS 11-22-2014 [facility] OF BREATH N EMERGENCY PHYS 26698 PAINFUL 11-20-2014 [facility] RESPIRATION N EMERGENCY PHYS 4611 ACUTE 11-19-2014 [facility] FRONTAL CLINIC, SINUSITIS PLLC 486 PNEUMONIA, 11-19-2014 [facility] ORGANISM CLINIC, UNSPECIFIED PLLC 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 09-18-2014 [facility] AORTOCORONA DAVID RY BYPASS STATUS V5789 OTHER 09-18-2014 [facility] REHABILITAT DAVID ION PROCEDURE OTHER 53835 OTHER 08-21-2014 [facility] SPECIFIED REGIONAL CONGENITAL MEDICAL ANOMALY CENTE HEART OTHER 5119 UNSPECIFIED 07-18-2014 [facility] [place] PLEURAL RADIOLOGY EFFUSION 5180 PULMONARY 07-18-2014 [facility] [place] COLLAPSE RADIOLOGY 05589 OTHER 07-16-2014 [facility] [place] NONSPECIFIC RADIOLOGY ABNORMAL FINDING OF LUNG FIELD 2875 UNSPECIFIED 07-14-2014 [facility] THROMBOCYTO PENIA 4241 AORTIC 07-14-2014 [facility] [place] DISORDERS [facility]INIC PSC 4280 CONGESTIVE 07-14-2014 [facility] HEART [facility] FAILURE UNSPECIFIED 82060 CHRONIC 07-14-2014 [facility] HEART FAILURE 4429 OTHER 07-14-2014 [facility] ASSOC[facility]ATES UNSPECIFIED SITE 7454 VENTRICULAR 07-14-2014 [facility] SEPTAL [facility] DEFECT 7850 UNSPECIFIED 07-14-2014 [facility] TACHYCARDIA [facility]OC[facility] 28838 OTHER 07-14-2014 [facility] RESPIRATORY [facility] [address] COR 07-11-2014 [facility] [place] ATHEROSLERO RADIOLOGY UNSPEC TYPE VESSEL GRAYLING/YVON T V140 PERSONAL 07-10-2014 [facility] [place] [facility] PENICILLIN V142 PERSONAL 07-10-2014 [facility] [place] [facility] SULFONAMIDE S V145 PERSONAL 07-10-2014 [facility] [place] [facility] NARCOTIC AGENT V5869 LONG-TERM 07-10-2014 [facility] (CURRENT[facility] [place] USE OF DAVID OTHER MEDICATIONS 29770 OTH 07-01-2014 [facility] PULMONARY MEDICAL G ART PULMONARY CIRC 7852 UNDIAGNOSED 06-24-2014 [facility] CARDIAC REGIONAL [place] MEDIC 90158 OTHER 06-24-2014 [facility] DYSPNEA AND REGIONAL MEDIC RESPIRATORY ABNORMALITI ES V452 PRESENCE OF 06-24-2014 [facility] CEREBROSPIN MEDIC AL FLUID DRAINAGE DEVICE 19087 ENDOCARDITI 06-23-2014 [facility] S VALVE REGIONAL UNSPECIFIED EMERGENCY UNSPECIFIED CAUSE 7821 RASH AND 06-23-2014 [facility] OTHER MEDICAL NONSPECIFIC SPECIALISTS SKIN ERUPTION 0539 HERPES 06-20-2014 [facility] ZOSTER REGIONAL WITHOUT EMERGENCY MENTION OF COMPLICATIO N 4168 OTHER 06-20-2014 [facility] CHRONIC MEDICAL PULMONARY SPECIALISTS HEART DISEASES 4293 CARDIOMEGAL 06-20-2014 [facility] Y REGIONAL RADIOLOG 514 PULMONARY 06-20-2014 [facility] CONGESTION REGIONAL AND RADIOLOG HYPOSTASIS 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 08021 PULMONARY 06-20-2014 [facility] ARTERY REGIONAL COARCTATION EMERGENCY AND ATRESIA 6160 CERVICITIS 06-18-2014 [facility] AND REGIONAL ENDOCERVICI MEDIC TIS V4551 PRESENCE OF 06-18-[facility] INTRAUTERIN MEDIC E CONTRACEPTI VE DEVICE 5990 URINARY 08-20-2010 [facility] SITE NOT SPECIFIED 7048 OTHER 07-05-2010 [facility] MAURICE SPECIFIED DISEASE OF HAIR&HAIR FOLLICLES 7242 LUMBAGO 06-24-2010 MAXIMILIANO MAURICE V7231 ROUTINE 05-05-2010 [facility] CLIN[facility] OF EXAMINATION ALIYAH V745 SCREENING 05-05-2010 PATHOLOGY & EXAMINATION CYTOLOGY FOR LAB VENEREAL DISEASE 64748 CLOSED 05-01-2010 MAXIMILIANO RICHARDS FRACTURE UNSPEC PHALANX/PHA LANGES HAND 83527 VOMITING 04-01-2010 [facility] MAXIMINO 14966 DIARRHEA 04-01-2010 [facility] MAXIMINO 5409 ACUTE 03-27-2010 [facility]ENDIC[facility] WITHOUT INC MENTION PERITONITIS 541 APPENDICITI 03-27-2010 Home VIERA RICHARD W UNQUALIFIED 32866 ABDOMINAL 03-24-2010 [facility], [facility] 5258 OTHER SPEC 02-16-2010 THE IMPLANT DISORDERS & ORAL TEETH&[facility] STRUCTURES 5206 DISTURBANCE 01-05-2010 THE IMPLANT S IN TOOTH & ORAL [facility]ION [facility] 3829 UNSPECIFIED 12-07-2009 [facility] MEDIA 7880 RENAL COLIC 12-07-2009 MARIAM VIERA 85818 CALCU 11-03-2009 [place] [facility] W/OTH LABORATORY CHOLECYST W/O MENTION OBST 55100 CALCU 11-03-2009 [facility] [place] W/O MENTION CLINIC PSC CHOLECYST/O BST 71097 CHOLECYSTIT 11-03-2009 ANESTHESIA IS, RADHA, UNSPECIFIED PSC 24809 ABDOMINAL 10-05-2009 [facility] RIGHT EMERGENCY UPPER SERVICES [facility] 7851 PALPITATION 04-14-2009 [facility] PROF SERV V251 ENCOUNTER 04-07-2009 [facility] INSERT/[facility] VE DEVICE [facility] V242 ROUTINE 03-31-2009 [facility] 591 HYDRONEPHRO 03-10-2009 [facility] UROLOG[facility] PSC 650 NORMAL 02-11-2009 WOMEN'S DELIVERY [facility]ALTH CLIN[facility] 70785 FIRST-DEGRE 02-11-2009 WOMEN'S E PERINEAL HEALTH L[facility]ATION CLINIC OF WITH [place] DELIVERY [facility] V270 OUTCOME OF 02-11-2009 WOMEN'S DELIVERY [facility]ALTH [facility] V3000 SINGLE 02-11-2009 [facility] W/O 61368 OTHER 02-06-2009 WOMEN'S THREATENED HEALTH LABOR, [facility] V220 SUPERVISION 02-06-2009 WOMEN'S OF NORMAL HEALTH [facility] 28606 OTHER 02-02-2009 [facility] SPECIFED [facility] COMPLICATIO INC N ANTEPARTUM 51304 THREATENED 01-18-2009 WOMEN'S PREMATURE HEALTH LABOR CLINIC OF [facility] 63810 HEMATURIA 01-06-2009 [facility] UNSPECIFIED [facility] INC 4720 CHRONIC 12-15-2008 [facility] RHINITIS JR, J V 4739 UNSPECIFIED 12-15-2008 [facility] SINUSITIS JR, J V V741 SCREENING 12-04-2008 [facility] EXAMINATION [facility] ACCT TUBERCULOSI S 79763 DECR 12-02-2008 [facility]S [facility] MGMT MOTH INC ANTPRTM COND/COMP 34092 ABN MAT 11-28-2008 [facility] GLUCOSE [facility] TOLERANCE INC COMPL PG CB/PP UNS EOC V221 SUPERVISION 11-21-2008 [facility] 5920 CALCULUS OF 11-11-2008 [facility] 5921 CALCULUS OF 11-11-2008 [facility] [place] [facility] [address] OT CURRENT 11-11-2008 [facility] CLASS[facility] E ELSW ANTPRTM 7245 UNSPECIFIED 11-04-2008 [facility] PSC V283 ENCOUNTER 10-23-2008 [facility] [place] [facility] ULTRASONIC 11990 OTHER 10-20-2008 [place] SPECIFIED [facility] V222 10-20-2008 [facility] 6259 UNSPEC 08-28-2008 [facility] W/[facility] ORGANS 85401 TOB USE D/O 08-28-2008 [facility] /[facility] V7242 06-24-2008 [facility]/CO EXAMINATION HEALTH OR TEST CENTRAL POSITIVE BANK ACCT RESULT Medications Na ND Rx Da Fi Fi Am Da Di Ph RX Ph St me C No te ll ll ou ys ag ar # ys at rm s nt no ma ic us Or Da si cy ia de te s n re d OS 47 03 04 10 5 00 CL Ac EL 78 -2 -2 .0 00 IN ti TA 10 3- 8- 00 00 IC ve ND 47 20 20 42 01 17 17 61 PH R 3 55 AR PH MA OS CY 75 MG CA PS UL E PN 44 03 04 30 30 00 CL Ac V 94 -2 -2 .0 00 IN ti GA 61 0- 1- 00 00 IC ve EN 04 20 20 41 AT 50 17 17 78 PH AL [address] CY US MU LT IV IT TA B FE 57 03 04 30 30 00 CL Ac RR 66 -2 -2 .0 00 IN ti OU 40 0- 1- 00 00 IC ve S 07 20 20 41 ROBERTSON 11 17 17 78 PH LF 0 98 AR AT REBEKA E CY 32 5 MG TA BL ET WA 00 03 04 30 30 00 CL Ac RF 09 -2 -2 .0 00 IN ti AR 31 0- 1- 00 00 IC ve IN 72 20 20 41 10 17 17 57 PH SO 1 63 AR DI MA UM CY 5 MG TA BL ET FE 57 02 03 30 30 00 CL Ac RR 66 -0 -1 .0 00 IN ti OU 40 2- 0- 00 00 IC ve S 07 20 20 41 ROBERTSON 11 17 17 78 PH LF 0 98 AR AT REBEKA E CY 32 5 MG TA BL ET PN 44 02 03 30 30 00 CL Ac V 94 -0 -1 .0 00 IN ti GA 61 2- 0- 00 00 IC ve EN 04 20 20 41 AT 50 17 17 78 PH AL [address] CY US MU LT IV IT TA B 01 02 30 30 00 CL Ac RF 09 -2 -2 .0 00 IN ti AR 31 5- 4- 00 00 IC ve IN 72 20 20 41 10 17 17 57 PH SO 1 63 AR DI MA UM CY 5 MG TA BL ET FE 57 01 02 30 30 00 CL Ac RR 66 -0 -0 .0 00 IN ti OU 40 3- 3- 00 00 IC ve S 07 20 20 41 ROBERTSON 11 17 17 78 PH LF 0 98 AR AT REBEKA E CY 32 5 MG TA BL ET PN 44 01 02 30 30 00 CL Ac V 94 -0 -0 .0 00 IN ti GA 61 3- 3- 00 00 IC ve EN 04 20 20 41 AT 50 17 17 78 PH AL [address] CY US MU LT IV IT TA B 12 01 30 30 00 CL Ac RF 09 -0 -1 .0 00 IN ti AR 31 8- 3- 00 00 IC ve IN 72 20 20 41 10 16 17 57 PH SO 1 63 AR DI MA UM CY 5 MG TA BL ET CI 00 12 12 0 14 7 WA 70 GA Ac GA 37 -0 -0 .0 L- 97 IN ti OF 87 8- 8- 00 MA 62 EY ve LO 09 20 20 RT 6 XA 80 10 10 ND CI 1 PH CH N AR AE HC MA L L CY S 50 # 0 MG 10 05 TA 91 B CE 68 10 10 1 30 8 WA 70 AR Ac PH 18 -1 -1 .0 L- 90 NO ti AL 00 8- 8- 00 MA 75 LD ve EX 12 20 20 RT 6 IN 20 10 10 RI 1 PH CH 50 AR AR 0 MA D MG CY W # CA PS 10 UL 05 E 91 00 10 10 1 40 10 WA 70 AR Ac 55 -0 -0 .0 L- 89 NO ti 50 7- 7- 00 MA 39 LD ve 58 20 20 RT 5 50 10 10 RI 2 PH CH AR AR MA D CY W # 10 05 91 IB 68 08 08 5 10 25 WA 70 AR Ac UP 64 -1 -1 0. L- 82 NO ti RO 50 4- 4- 00 MA 14 LD ve FE 22 20 20 0 RT 9 N 15 10 10 RI 60 9 PH CH 0 AR AR MG MA D CY W TA # BL ET 10 05 91 OX 00 06 06 0 30 2 WA 22 PE Ac YC 40 -0 -0 .0 L- 18 TE ti OD 60 1- 1- 00 MA 04 RS ve ON 51 20 20 RT 4 ON E- 20 10 10 , AC 1 PH II ET AR I AM MA GI IN CY LM OP # AN HE P N 10 5- 05 32 91 5 IB 68 06 06 0 30 7 WA 70 PE Ac UP 64 -0 -0 .0 L- 72 TE ti RO 50 1- 1- 00 MA 78 RS ve FE 22 20 20 RT 1 ON N 15 10 10 , 60 9 PH II 0 AR I MG MA GI CY LM TA # AN BL P ET 10 05 91 OX 00 04 04 0 40 5 WA 22 PE Ac YC 40 -2 -2 .0 L- 17 TE ti OD 60 3- 3- 00 MA 81 RS ve ON 51 20 20 RT 6 ON E- 20 10 10 , AC 1 PH II ET AR I AM MA GI IN CY LM OP # AN HE P N 10 5- 05 32 91 5 AM 00 04 04 0 21 7 WA 70 PE Ac OX 78 -2 -2 .0 L- 67 TE ti IC 12 3- 3- 00 MA 85 RS ve IL 61 20 20 RT 7 ON LI 30 10 10 , N 5 PH II 50 AR I 0 MA GI MG CY LM # AN CA P PS 10 UL 05 E 91 IB 68 04 04 0 30 7 WA 70 PE Ac UP 64 -2 -2 .0 L- 67 TE ti RO 50 0- 0- 00 MA 38 RS ve FE 22 20 20 RT 5 ON N 15 10 10 , 60 9 PH II 0 AR I MG MA GI CY LM TA # AN BL P ET 10 05 91 00 01 02 00 30 7 EA 16 MO Ac 40 -2 -[address] 15 SE ti 62 8- 1- 00 SI 24 S ve [address] 11 10 10 EP 0 PH HE AR N MA A CY OF CY NT HI AN A NA 00 07 07 00 60 30 WA 70 CL Ac GA 09 -2 -3 .0 L- 29 AR ti OX 30 1- 0- 00 MA 25 KE ve EN 14 20 20 RT 5 91 09 09 DE 50 0 PH RE 0 AR K MG MA J CY TA BL #5 ET 91 53 05 07 01 40 6 WA 70 CL Ac 74 -3 -0 .0 L- 22 AR ti 60 0- 2- 00 MA 58 KE ve 13 20 20 RT 5 10 09 09 DE 5 PH RE AR K MA J CY #5 91 NI 00 06 07 00 14 7 WA 70 AD Ac TR 37 -2 -0 .0 L- 25 KI ti OF 83 3- 2- 00 MA 74 NS ve UR 42 20 20 RT 1 AN 20 09 09 TI TO 1 PH MO IN AR TH MA Y MO CY D NO -M #5 CR 91 10 0 MG 00 06 07 00 15 3 WA 44 RU Ac 40 -1 -0 .0 L- 77 SH ti 60 5- 2- 00 MA 45 ve 35 20 20 RT 1 NE 70 09 09 IL 5 PH C AR MA CY #5 91 ND 59 06 06 00 20 5 WA 70 CL Ac SO 76 -0 -1 .0 L- 22 AR ti GA 25 2- 8- 00 MA 99 KE ve OS 00 20 20 RT 6 TO 70 09 09 DE L 1 PH RE 10 AR K 0 MA J MC CY G TA #5 BL 91 ET 53 05 06 00 40 6 WA 70 CL Ac 74 -3 -1 .0 L- 22 AR ti 60 0- 8- 00 MA 58 KE ve 13 20 20 RT 5 10 09 09 DE 5 PH RE AR K MA J CY #5 91 00 05 05 00 20 5 CL 19 CL Ac 59 -0 -2 .0 IN 30 AR ti 10 4- 1- 00 IC 63 KE ve 38 20 20 50 09 09 PH DE 5 AR RE MA K CY J 00 04 05 01 12 5 WA 44 CL Ac 47 -0 -0 0. L- 75 AR ti 21 6- 7- 00 MA 69 KE ve 62 20 20 0 RT 8 71 09 09 DE 6 PH RE AR K REBEKA Lance CY #5 91 00 04 05 00 20 5 WA 44 CL Ac 40 -2 -0 .0 L- 76 AR ti 60 7- 7- 00 MA 22 KE ve 35 20 20 RT 2 80 09 09 DE 1 PH RE AR K REBEKA Lance CY #5 91 00 04 05 00 20 5 WA 44 CL Ac 40 -2 -0 .0 L- 76 AR ti 60 0- 7- 00 MA 05 KE ve 35 20 20 RT 0 80 09 09 DE 1 PH RE AR K REBEKA Lance CY #5 91 NI 00 04 05 00 30 30 WA 70 CL Ac TR 37 -2 -0 .0 L- 18 AR ti OF 83 7- 7- 00 MA 13 KE ve UR 42 20 20 RT 1 AN 20 09 09 DE TO 1 PH RE IN AR K REBEKA CRUMP CY NO -M #5 CR 91 10 0 MG NI 00 04 04 00 20 10 WA 70 CL Ac TR 37 -0 -2 .0 L- 15 AR ti OF 83 6- 3- 00 MA 26 KE ve UR 42 20 20 RT 2 AN 20 09 09 DE TO 1 PH RE IN AR K REBEKA CRUMP CY NO -M #5 CR 91 10 0 MG 00 04 04 00 20 5 WA 44 CL Ac 40 -0 -2 .0 L- 75 AR ti 60 9- 3- 00 MA 80 KE ve 35 20 20 RT 2 80 09 09 DE 1 PH RE AR K REBEKA Lance CY #5 91 00 04 04 00 12 5 WA 44 CL Ac 47 -0 -2 0. L- 75 AR ti 21 6- 3- 00 MA 69 KE ve 62 20 20 0 RT 8 71 09 09 DE 6 PH RE AR K REBEKA Lance CY #5 91 00 04 04 01 20 5 WA 44 CL Ac 40 -0 -2 .0 L- 75 AR ti 60 9- 3- 00 MA 80 KE ve 35 20 20 RT 2 80 09 09 DE 1 PH RE AR K REBEKA Lance CY #5 91 AM 00 04 04 00 20 5 WA 70 ALVAREZ Ac PI 78 -0 -2 .0 L- 15 RP ti CI 12 5- 3- 00 MA 17 EL ve LL 14 20 20 RT 0 IN 50 09 09 GE 1 PH RA 50 AR LD 0 MA R MG CY CA #5 PS 91 UL E PH 65 04 04 00 30 30 WA 70 CL Ac EN 16 -0 -2 .0 L- 15 AR ti AZ 20 8- 3- 00 MA 59 KE ve OP 51 20 20 RT 5 YR 71 09 09 DE ID 0 PH RE IN AR K E MA J 10 CY 0 MG #5 91 TA B 00 04 04 00 20 2 WA 44 ALVAREZ Ac 40 -0 -2 .0 L- 75 RP ti 60 5- 3- 00 MA 67 EL ve 35 20 20 RT 8 70 09 09 GE 5 PH RA AR LD MA R CY #5 91 NA 00 03 04 00 17 30 WA 70 CA Ac SO 08 -3 -0 .0 L- 14 ST ti NE 51 0- 9- 00 MA 50 IL ve X 28 20 20 RT 2 LO 50 80 09 09 1 PH JR MC AR J G MA V NA CY SA L #5 SP 91 RA Y 59 11 12 00 30 30 WA 70 CL Ac 63 -1 -0 .0 L- 84 AR ti 00 8- 4- 00 MA 23 KE ve 41 20 20 RT 5 43 08 08 DE 5 PH RE AR K MA J CY #1 14 0 Immunization Name Date Route CVX Reacti Commen Provid Is Given on t er Refuse d IIV4 [facility] No VACC [address] VIRUS HLTH 0.5 ML DEPT DOS BLANK FOR IM USE Results Labs Lab Lab Date Result Refere Interp Status Commen Order Detail nces retati t Range on UPT (06-23-2014 23:25) UPT NEGATIV NEGATIV complet 014 E E ed 23:25 D-DIMER (06-23-2014 21:40) D-DIMER 320 0-500 complet 014 ng/mLFE ed 21:40 U BASIC METABOLIC PANEL (06-23-2014 21:20) Anion 13 8-16 complet Gap 014 ed 21:20 Carbon 23 22-29 complet Dioxide 014 mmol/L ed Level 21:20 Potassi 4.3 3.5-5.1 complet um 014 mmol/L ed Level 21:20 Sodium 137 136-145 complet Level 014 mmol/L ed 21:20 Chlorid 101.3 98-107 complet e Level 014 mmol/L ed 21:20 Calcium 9.1 8.4-10. complet Level 014 mg/dL 2 ed 21:20 Calcula 275 275-295 complet bert 014 mOsm/L ed Osmolal 21:20 ity Glucose 83 70-100 complet Level 014 mg/dL ed 21:20 BUN/Cre 24.9 7.0-25. complet atinine 014 0 ed Ratio 21:20 Creatin >*59 complet ine w 014 mL/min/ ed Estimat 21:20 1 ed GFR Comment: An eGFR of <60 mL/min/1.73 m2 for three months or more is Comment: indicative of chronic kidney disease. Patients with eGFR Comment: values > or = 60 mL/min/1.73 m2 may have chronic kidney Comment: disease if evidence of persistent proteinuria is present. Comment: Reference: [email or web address] Comment: *Units are mL/min/1.73m2 Creatin 0.8 0.5-0.9 complet ine 014 mg/dL ed 21:20 Blood 19.9 6-20 complet Urea 014 mg/dL ed Nitroge 21:20 n Troponin I (06-23-2014 21:20) Troponi <*0.30 0.00-0. complet n I 014 ng/mL 30 ed 21:20 Comment: TNI Interpretive Text: <=0.3ng/mL is considered negative for Comment: Acute Myocardial Infarction (AMI). CBC WITH AUTO DIFF REFLEX (06-23-2014 21:20) Basophi 0.0 X 0.0-0.2 complet ls # 014 10 3 ed (Auto) 21:20 Comment: If a manual differential is indicated, submit order within Comment: 48 hours" Hemoglo 13.5 12.0-16 complet bin 014 g/dL .0 ed 21:20 Red 3.92 X 4.20-5. complet Blood 014 10 6 40 ed Count 21:20 White 7.8 X 4.8-10. complet Blood 014 10 3 8 ed Count 21:20 Mean 34.5 pg 27-31 complet Corpusc 014 ed ular 21:20 Hemoglo bin Mean 99.5 fL 81-99 complet Corpusc 014 ed ular 21:20 Volume Neutrop 06-23-2 61.6 % 43.1-74 complet hils 014 .8 ed (%) 21:20 (Auto) Eosinop --2 0.2 X 0.0-0.5 complet hils # 014 10 3 ed (Auto) 21:20 Monocyt 06-23-2 0.6 X 0.3-0.9 complet es # 014 10 3 ed (Auto) 21:20 Mean 7.6 fL 6.0-10. complet Platele 014 0 ed t 21:20 Volume Platele 203 x10 130-400 complet t Count 014 3 ed 21:20 Red 12.6 % 11.5-14 complet Cell 014 .5 ed Distrib 21:20 ution Width Mean 34.7 32-36 complet Corpusc 014 g/dL ed ular 21:20 Hemoglo bin Concent Lymphoc 25.9 % 17.6-40 complet ytes 014 .8 ed (%) 21:20 (Auto) Lymphoc 06-23-2 2.0 X 1.0-3.3 complet ytes # 014 10 3 ed (Auto) 21:20 Hematoc 06-23-2 39.0 % 37.0-47 complet rit 014 .0 ed 21:20 Neutrop 06-23-2 4.8 X 1.8-7.0 complet hils # 014 10 3 ed (Auto) 21:20 Basophi 2 0.4 % 0-1.6 complet ls (%) 014 ed (Auto) 21:20 Eosinop 06-23-2 2.3 % 0.0-5.8 complet hils 014 ed (%) 21:20 (Auto) Monocyt 06-23-2 7.9 % 4.4-11. complet es (%) 014 0 ed (Auto) 21:20 BLOOD CULTURE (06-23-2014 11:45) Comment: Source Name: BLOOD\\E\\.br\\E\\ Comment: RIGHT AC BLOOD NO complet CULTURE 014 GROWTH ed 11:45 AFTER 5 DAYS CBC WITH AUTO DIFF REFLEX (06-20-2014 23:32) Monocyt 10-03-2 7.2 % 4.4-11. complet es (%) 014 0 ed (Auto) 23:32 Lymphoc 10-03-2 25.0 % 17.6-40 complet ytes 014 .8 ed (%) 23:32 (Auto) Neutrop 10-03-2 63.8 % 43.1-74 complet hils 014 .8 ed (%) 23:32 (Auto) Mean 10-03-2 7.2 fL 6.0-10. complet Platele 014 0 ed t 23:32 Volume Platele 10-03-2 211 x10 130-400 complet t Count 014 3 ed 23:32 Red 10-03-2 12.6 % 11.5-14 complet Cell 014 .5 ed Distrib 23:32 ution Width Mean 03-2 33.8 32-36 complet Corpusc 014 g/dL ed ular 23:32 Hemoglo bin Concent Mean 06-20-2 33.1 pg 27-31 complet Corpusc 014 ed ular 23:32 Hemoglo bin Mean 03-2 98.1 fL 81-99 complet Corpusc 014 ed ular 23:32 Volume Hematoc 1003-2 38.8 % 37.0-47 complet rit 014 .0 ed 23:32 Hemoglo -03-2 13.1 12.0-16 complet bin 014 g/dL .0 ed 23:32 Red 10-03-2 3.96 X 4.20-5. complet Blood 014 10 6 40 ed Count 23:32 White 10-03-2 8.4 X 4.8-10. complet Blood 014 10 3 8 ed Count 23:32 Basophi 10-03-2 0.0 X 0.0-0.2 complet ls # 014 10 3 ed (Auto) 23:32 Comment: If a manual differential is indicated, submit order within Comment: 48 hours" Eosinop 10-03-2 0.1 X 0.0-0.5 complet hils # 014 10 3 ed (Auto) 23:32 Monocyt 10-03-2 0.6 X 0.3-0.9 complet es # 014 10 3 ed (Auto) 23:32 Lymphoc 10-03-2 2.1 X 1.0-3.3 complet ytes # 014 10 3 ed (Auto) 23:32 Basophi 06-20-2 0.3 % 0-1.6 complet ls (%) 014 ed (Auto) 23:32 Eosinop -03-2 1.5 % 0.0-5.8 complet hils 014 ed (%) 23:32 (Auto) Neutrop 03-2 5.4 X 1.8-7.0 complet hils # 014 10 3 ed (Auto) 23:32 Comprehensive Metabolic Panel (06-20-2014 23:32) Alkalin 50 IU/L 35-105 complet e 014 ed Phospha 23:32 tase Albumin 1.5 1.1-1.8 complet /Globul 014 ed in 23:32 Ratio Globuli 06-20-2 3.1 1.5-3.8 complet n 014 gm/dL ed 23:32 Albumin 4.6 3.5-5.2 complet 014 g/dL ed 23:32 Total 7.7 6.4-8.3 complet Protein 014 g/dL ed 23:32 Alanine 15 IU/L 0-33 complet 014 ed Aminotr 23:32 ansfera se (ALT/SG PT) Asparta 19 IU/L 0-32 complet te 014 ed Amino 23:32 Transf (AST/SG OT) Total 0.4 0.0-1.2 complet Bilirub 014 mg/dL ed in 23:32 Calcium 10.0 8.4-10. complet Level 014 mg/dL 2 ed 23:32 Calcula 285 275-295 complet bert 014 mOsm/L ed Osmolal 23:32 ity Glucose 97 70-100 complet Level 014 mg/dL ed 23:32 BUN/Cre 20.3 7.0-25. complet atinine 014 0 ed Ratio 23:32 Creatin >*59 complet ine w 014 mL/min/ ed Estimat 23:32 1 ed GFR Comment: An eGFR of <60 mL/min/1.73 m2 for three months or more is Comment: indicative of chronic kidney disease. Patients with eGFR Comment: values > or = 60 mL/min/1.73 m2 may have chronic kidney Comment: disease if evidence of persistent proteinuria is present. Comment: Reference: [email or web address] Comment: *Units are mL/min/1.73m2 Creatin 1.0 0.5-0.9 complet ine 014 mg/dL ed 23:32 Blood 19.3 6-20 complet Urea 014 mg/dL ed Nitroge 23:32 n Anion 15 8-16 complet Gap 014 ed 23:32 Carbon 24 22-29 complet Dioxide 014 mmol/L ed Level 23:32 Chlorid 103.5 98-107 complet e Level 014 mmol/L ed 23:32 Potassi 4.1 3.5-5.1 complet um 014 mmol/L ed Level 23:32 Sodium 142 136-145 complet Level 014 mmol/L ed 23:32 Procedures Procedure DOS Code Location Performer Comment HANDLG&/O [id number] [facility] MEHDI R CONVEY 7 PHYSICIAN OF SPEC S GROUP FOR TR OFFICE TO LAB PARTICLE 98546 MARCIA KENNEDY AGGLUTINA 7 [facility] TION INC INC SCREEN EACH ANTIBODY PARTICLE 94021 MARCIA KENNEDY AGGLUTINA 7 [facility] [place] [address] MARCIA KENNEDY INFUSION 7 [facility] THERAPY/P INC INC ROPHYLAXI S /DX 1ST TO 1 HR [address] [facility] MEHDI NONSTRESS 7 PHYSICIAN TEST S GROUP DRUG TEST 76150 MARCIA KENNEDY PRSMV 7 [facility] QUAL DIR INC INC OPTICAL OBS PER DAY FTL 82960 MARCIA KENNEDY FIBRONECT 7 [facility] IN INC INC CERVICOVA G SECRETION S SEMI-DELMA PROTHROMB 27982 MARCIA KENNEDY IN TIME 7 [facility] INC INC IAADIADOO 27603 MARCIA KENNEDY 7 [facility] INFLUENZA INC INC ECG 93178 [facility] ROUTINE 7 [place] [facility] ECG MEDICAL W/LEAST G 12 LDS W/I&R US PREG 67344 YARSANISM YARSANISM UTERUS 7 [facility] REAL TIME [facility] F/U TRNSABDL PER FETUS PROTHROMB 32194 MARCIA KENNEDY IN TIME 7 [facility] INC INC IAADIADOO 24440 MARCIA KENNEDY 7 [facility] INFLUENZA INC INC COLLECTIO 50382 [facility] HARDING N 7 PHYSICIAN CAPILLARY S GROUP BLOOD SPECIMEN GLUCOSE 09533 [facility] 7 PHYSICIAN PHYSICIAN GLUCOSE S GROUP S GROUP DOSE PROTHROMB 53657 MARCIA KENNEDY IN TIME 7 [facility] INC INC ECG 84235 [facility] ROUTINE 7 [facility] ECG MEDICAL W/LEAST G 12 LDS W/I&R IIV4 VACC 13345 [facility] S[facility] VIRUS 0.5 HLTH DEPT HLTH DEPT ML DOS BLANK BLANK FOR IM USE 15680 [facility] HARDING NONSTRESS 7 PHYSICIAN TEST S GROUP PROTHROMB 64519 MARCIA KENNEDY IN TIME 7 [facility] INC INC US PREG 66998 YARSANISM DELMA UTERUS 7 HEALTH REAL TIME MEDICAL F/U GROUP TRNSABDL PER FETUS ECHO 04829 YARSANISMJune NGUYỄN 7 [facility] CARDIOVAS MEDICAL C W/WO GROUP M-MODE RECORDING DOP 74170 VINNY NGUYỄN ECHOCARD 7 [facility] COLOR MEDICAL FLOW GROUP VELOCITY MAPPING PROTHROMB 92191 MARCIA KENNEDY IN TIME 6 [facility] INC INC PROTHROMB 13910 MARCIA KENNEDY IN TIME 6 [facility] INC INC COLLECTIO 29049 MARCIA KENNEDY N VENOUS 6 [facility] BLOOD INC INC VENIPUNCT URE PROTHROMB 05751 MARCIA KENNEDY IN TIME 6 [facility] INC INC PROTHROMB 70405 MARCIA KENNEDY IN TIME 6 [facility] INC INC US PREG 40904 YARSANISM YARSANISM UTERUS 6 [facility] W/DETAIL [facility] UNRULY 1ST GESTATION ECG 75188 DESMOND MASCORRO ROUTINE 6 [facility] AKSHAT ECG MEDICAL W/LEAST G 12 LDS W/I&R ECG 04340 MARCIA MARCIA ROUTINE 6 [facility] ECG INC INC W/LEAST 12 LDS TRCG ONLY W/O I&R RADIOLOGI 63193 MARCIA KENNEDY C EXAM 6 [facility] CHEST 2 INC INC VIEWS FRONTAL&L ATERAL ECG 51994 MARCIA DIAZ JR ROUTINE 6 [facility] ECG HOSPITAL W/LEAST P 12 LDS I&R ONLY CREATINE 34038 MARCIA KENNEDY KINASE 6 [facility] TOTAL INC INC BLOOD 36980 MARCIA KENNEDY COUNT 6 [facility] COMPLETE INC INC AUTO&[place] [address] MARCIA KENNEDY TROPONIN 6 [facility] QUANTITAT INC INC WAYNE CREATINE 51489 MARCIA KENNEDY KINASE MB 6 [facility] FRACTION INC INC ONLY COMPREHEN 00758 MARCIA KENNEDY SIVE 6 [facility] METABOLIC INC INC PANEL ECG 56879 DESMOND MASCORRO ROUTINE 6 [facility] ECG MEDICAL W/LEAST G 12 LDS W/I&[place] [address] YARSANISM YARSANISM 6 [facility] UTERUS 14 [facility] TRANSABDL GESTAT CULTURE 07906 MARCIA KENNEDY BACTERIAL 6 [facility] INC INC QUANTTATI VE COLONY COUNT URINE BLOOD 08876 MARCIA KENNEDY COUNT 6 [facility] COMPLETE INC INC AUTO&[place] [address] [place] [facility] TRANSVAGI 6 MEDICAL NAL IMAGING ASS GONADOTRO 05221 MARCIA KENNEDY PIN 6 [facility] CHORIONIC INC INC QUANTITAT WAYNE COMPREHEN 05708 MARCIA KENNEDY SIVE 6 [facility] METABOLIC INC INC PANEL URINE 73892 MARCIA KENNEDY 6 [facility] TEST INC INC VISUAL COLOR CMPRSN METHS URNLS DIP 53332 MARCIA KENNEDY 6 [facility] STICK/TAB INC INC LET REAGENT AUTO MICROSCOP [place] PREG 90951 MARCIA KENNEDY UTERUS 6 [facility] REAL TIME INC INC W/IMAGE DCMTN TRANSVAG DRUG TST G0477 [facility] PRESUMP;C 6 PHYSICIAN ANDERSON PBL BEING S GROUP READ DC OPT OBV ONLY URINE 64760 [facility] MEHDI 6 PHYSICIAN ANDERSON TEST S GROUP VISUAL COLOR CMPRSN METHS XTRNL ECG 25857 MARCIA ARAIZASON 6 [facility] S RHYTHM P W/I&R UP TO 48 HRS XTRNL ECG 12326 MARCIA KENNEDY & 48 HR 6 [facility] RECORDING INC INC EXTERNAL 36025 MARCIA KENNEDY ECG 6 [facility] SCANNING INC INC ANALYSIS REPORT PROTHROMB 34767 MARCIA KENNEDY IN TIME 6 [facility] INC INC PROTHROMB 34782 MARCIA KENNEDY IN TIME 6 [facility] INC INC PROTHROMB 00174 MARCIA KENNEDY IN TIME 6 [facility] INC INC COLLECTIO 10964 MARCIA KENNEDY N VENOUS 6 [facility] [place] [address] [place] EUCEDA TRANSVAGI 6 RADIOLOGY RAY NAL THERAPEUT 01395 [facility] HARPEL IC 6 PHYSICIAN SHARMILA PROPHYLAC S GROUP TIC/DX INJECTION SUBQ/IM CULTURE 52252 [facility] CHLAMYDIA 6 PHYSICIAN SHARMILA ANY S GROUP SOURCE IADNA 89681 BIO BIO TRICHOMON 6 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 VAGINALIS IES IES AMPLIFIED PROBE TECH COLLECTIO 61286 MARCIA KENNEDY N VENOUS 6 [facility] BLOOD INC INC VENIPUNCT URE CYTP C/V 79557 BIO BIO AUTO THIN 6 REFERNCE REFERNCE LYR LABORATOR LABORATOR PREPJ SCR IES IES MNL RESCR PHYS IMMUNOASS 76784 MARCIA KENNEDY AY TUMOR 6 [facility] ANTIGEN INC INC QUANTITAT WAYNE IADNA 40867 [facility] HAR[facility] NEISSERIA 6 PHYSICIAN SHARMILA S GROUP GONORRHOE AE DIRECT PROBE TQ IADNA 29042 BIO BIO NEISSERIA 6 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 GONORRHOE IES IES AE AMPLIFIED PROBE TQ IADNA NOS 88009 BIO BIO 6 REFERNCE REFERNCE AMPLIFIED LABORATOR LABORATOR PROBE TQ IES IES EACH ORGANISM INJECTION J2675 [facility] HMH 6 PHYSICIAN PHYSICIAN PROGESTER S GROUP S GROUP ONE PER 50 MG URINLS 91919 [facility] HARPEL DIP 6 PHYSICIAN SHARMILA STICK/TAB S GROUP LET REAGNT NON-AUTO MICRSCPY IADNA 77964 BIO BIO CHLAMYDIA 6 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 TRACHOMAT IES [place] [address] MARCIA KENNEDY LIPASE 6 [facility] INC INC THROMBOPL 32361 MARCIA KENNEDY ASTIN 6 [facility] TIME INC INC PARTIAL PLASMA/WH OLE BLOOD PROTHROMB 16574 MARCIA KENNEDY IN TIME 6 [facility] INC INC BLOOD 94910 MARCIA KENNEDY COUNT 6 [facility] COMPLETE INC INC AUTO&[place] [address] MARCIA KENNEDY TRANSVAGI 6 [place] [address] MARCIA KENNEDY ABDOMEN & 6 [facility] PELVIS [place] [address] MARCIA [facility]ENNEDY INFUSION 6 [facility] THERAPY/P INC INC ROPHYLAXI S /DX 1ST TO 1 HR THERAPEUT 73025 MARCIA [facility]ENNED[facility] IC 6 [facility] INJECTION INC INC IV PUSH EACH NEW DRUG COMPREHEN 92670 MARCIA KENNEDY SIVE 6 [facility] [place] [address] MARCIA [facility] AMYLASE 6 [facility] INC INC URINE 92599 MARCIA KENNEDY 6 [facility] TEST INC INC VISUAL COLOR CMPRSN METHS URNLS DIP 55007 MARCIA [facility] 6 [facility] STICK/TAB INC INC LET REAGENT AUTO MICROSCOP Y CT ANGIO 56820 [facility] [place] ABD&PLVIS 6 RADIOLOGY JEANETTE [facility]TRL W/WO [facility] IMG PROTHROMB 70753 DESMOND MANTILLA IN TIME 6 [facility] L4350 [facility] CONTROL 6 [facility] STIRRUP STYL RIGID PREFAB RADEX 92979 [facility] ANKLE 6 Y Y [facility]TE [facility]ITAL MINIMUM 3 VIEWS RADEX 18515 [facility] FOOT 6 Y Y COMPLETE [facility] [place] [place] [address] [facility] JAI COMER CERVICAL 6 RADIOLOGY SPINE W/O CONTRAST MATERIAL ECG 34045 [facility] ROUTINE 6 [facility] CLINIC W/LEAST PSC 12 LDS [place] [address] [facility] JAI COMER HEAD/BRAI 6 RADIOLOGY N W/O CONTRAST MATERIAL RADIOLOGI 26411 [facility] [place] C 6 RADIOLOGY JEANETTE EXAMINATI ON CHEST SINGLE VIEW FRONTAL PROTHROMB 92477 D[facility] IVORY IN TIME 6 [facility] PROTHROMB 38714 [facility] IN TIME 6 [place] [address] [facility] TROPONIN 6 Y Y QUANTITAT [facility] WAYNE BLOOD 62082 [facility] COUNT 6 Y Y COMPLETE HOSPITAL [facility] AUTOMATED PREDNISON J7512 [facility] RLSE/HERO YED RLSE ORAL 1 MG BASIC 25954 [facility] METABOLIC 6 Y Y PANEL [facility]OSP[facility] CALCIUM TOTAL THROMBOPL 14700 [facility] ASTIN 6 Y Y TIME HOSPITAL HOSPITAL PARTIAL PLASMA/WH OLE BLOOD ECG 94773 JAI GRAY ROUTINE 6 MEDICAL NAN ECG SERV W/LEAST FOUNDATIO 12 LDS N I&R ONLY RADIOLOGI 95231 [facility] EX[facility] 6 Y Y CHEST 2 [facility] VIEWS FRONTAL&L ATERAL ECG 42327 [facility] ROUTINE 6 Y Y ECG HOSPITAL HOSPITAL W/LEAST 12 LDS TRCG ONLY W/O I&R ECG 47298 JAI QUAN ROUTINE 6 MEDICAL ECG SERV W/LEAST FOUNDATIO 12 LDS N I&R ONLY AMB [id number] DIANE DIANE SERVICE 6 [facility] COGOVT TRANSPORT LEVEL 1 ECG 98218 [facility] ROUTINE 6 Y Y ECG HOSPITAL HOSPITAL W/LEAST 12 LDS TRCG ONLY W/O I&R THROMBOPL 85397 [facility] ASTIN 6 Y Y TIME HOSPITAL HOSPITAL PARTIAL PLASMA/WH OLE BLOOD RADIOLOGI 74836 JAI GARZA ANIRUDH C 6 MEDICAL EXAMINATI SERV ON CHEST FOUNDATIO SINGLE N VIEW FRONTAL THER 74452 [facility] PROPH/DX 6 Y Y NJX IV HOSPITAL HOSPITAL PUSH SINGLE/1S T SBST/[place] [address] [facility] TROPONIN 6 Y Y QUANTITAT [facility] WAYNE GROUND [id number] DIANE DIANE MILEAGE 6 FAYETTE FAYETTE PER URBAN URBAN STATUTE COGOVT COGOVT MILE BLOOD 58127 [facility] UNIVERS COUNT 6 Y Y COMPLETE HOSPITAL HOSPITAL AUTOMATED PROTHROMB 63141 [facility] IN TIME 6 Y Y HOSPITAL HOSPITAL FIBRIN 65746 [facility] 6 Y Y PRODUCTS HOSPITAL HOSPITAL D-DIMER QUANTITAT WAYNE NATRIURET 14746 [facility] IC 6 Y [facility] COMPREHEN 80080 [facility] 6 Y Y METABOLIC HOSPITAL HOSPITAL PANEL INJECTION J1650 [facility] 6 Y Y ENOXAPARI [facility] N SODIUM 10 MG URNLS DIP 30627 [facility] 6 Y Y STICK/TAB HOSPITAL HOSPITAL LET REAGENT AUTO MICROSCOP Y PROTHROMB 53828 [facility] IN TIME 6 Y Y HOSPITAL HOSPITAL FIBRIN 62563 [facility] 6 Y Y PRODUCTS HOSPITAL HOSPITAL D-DIMER QUANTITAT WAYNE BLOOD 34461 [facility] UNIVERS COUNT 6 Y Y COMPLETE [place] [address] [facility] TROPONIN 6 Y Y QUANTITAT [facility] WAYNE THERAPEUT 65556 [facility] IC 6 Y Y PROPHYLAC HOSPITAL [facility] TIC/DX INJECTION SUBQ/IM BASIC 00727 [facility] METABOLIC 6 Y Y PANEL [facility] CALCIUM TOTAL THROMBOPL 63700 [facility] ASTIN 6 Y Y TIME HOSPITAL [facility] PARTIAL PLASMA/WH OLE BLOOD ECG 84519 JAI JESUS CHI ROUTINE 6 MEDICAL ECG SERV W/LEAST FOUNDATIO 12 LDS N I&R ONLY RADIOLOGI 63841 JAI GUILLERMO C EXAM 6 MEDICAL MOOSE CHEST 2 SERV VIEWS FOUNDATIO FRONTAL&L N ATERAL ECG 01510 [facility] ROUTINE 6 Y Y ECG [facility] W/LEAST 12 LDS TRCG ONLY W/O I&R SVC PRV 38655 [facility] OFFICE 6 [facility] CLINIC CLINIC SCHEDD PSC PSC EVN WKEND/HOL IDAY HRS BLOOD 15338 [facility] COUNT 6 Y Y COMPLETE [facility] AUTOMATED THER 38718 [facility] PROPH/DX 6 Y Y NJX IV [facility] HOSPITAL PUSH SINGLE/1S T SBST/DRUG THERAPEUT 99207 [facility] IC 6 Y Y INJECTION [facility] [place] [address] JAI GUILLERMO ABDOMEN & 6 MEDICAL MOOSE PELVIS SERV W/CONTRAS FOUNDATIO T N MATERIAL PROTHROMB 44521 [facility] IN TIME 6 [place] [address] [facility] LIPASE 6 Y Y HOSPITAL HOSPITAL INFUSION J7030 [facility] NORMAL 6 Y Y SALINE [facility] SOLUTION 1000 CC URNLS DIP 77571 [facility] 6 Y Y STICK/TAB [facility] LET REAGENT AUTO MICROSCOP Y INJECTION J2405 [facility] 6 [facility] H[facility] PER 1 MG COMPREHEN 32235 [facility] SIVE 6 Y Y METABOLIC [facility] PANEL URINE 64363 [facility] 6 Y Y TEST [facility] VISUAL COLOR CMPRSN METHS LOCM Q9967 [facility] [id number] 6 Y Y MG/ML HOSPITAL HOSPITAL IODINE CONCENTRA TION PER ML PROTHROMB 07810 DESMOND RAMIREZ IN TIME [facility] [place] [address] [place] ABDOMEN & 6 RADIOLOGY JEANETTE PELVIS W/CONTRAS T MATERIAL PROTHROMB 77009 DESMOND RAMIREZ IN TIME 6 [facility] III [facility] G ECG 56301 DESMOND RAMIREZ ROUTINE 6 [facility] III [facility] ECG MEDICAL W/LEAST G 12 LDS W/I&R ECG 50249 [place] NATHAN DACIA ROUTINE 6 MEDICAL ECG SERV W/LEAST FOUNDATIO 12 LDS N I&R ONLY INITIAL 42148 S CARITO INPATIENT 6 NURSE ELENA CONSULT PRACTITIO NEW/ESTAB NER GR PT 55 MIN ECHO 64400 JAI LEANA GRE TTHRC R-T 6 MEDICAL 2D SERV W/WOM-MOD FOUNDATIO E COMPL N SPEC&COLR D DUP-SCAN 11615 JAI SIERRA MAURICE XTR VEINS 6 MEDICAL SERV UNILATERA FOUNDATIO L/[place] [address] [place] FLORES ABDOMEN & 6 MEDICAL PERNELL PELVIS SERV [place] [address] JAI ANTONIA JOINER RETROPERI 6 MEDICAL MOOSE TONEAL SERV REAL TIME FOUNDATIO W/IMAGE N COMPLETE PROTHROMB 32736 DESMOND HORTA OLIVIER IN TIME 5 [facility] MEDICAL G ECHO 53614 DESMOND HORTA OLIVIER TTHRC R-T 5 [facility] 2D W/WO MEDICAL M-MODE G COMPLETE REST&ST RADIOLOGI 47092 [facility] [place] C 5 RADIOLOGY JEFF EXAMINATI ON CHEST SINGLE VIEW FRONTAL RADIOLOGI 89589 [facility] ATKINSON DOUG C 5 NALLELY EXAMINATI EMERGENCY ON CHEST PHYS SINGLE VIEW FRONTAL ECG 06343 JERMAN ANDREWSGARSIA ROUTINE 5 [facility] ECG CLINIC W/LEAST PSC 12 LDS I&R ONLY ECG 89036 DESMOND RAMIREZ ROUTINE 5 [facility] III [facility] ECG MEDICAL W/LEAST G 12 LDS W/I&R PROTHROMB 45586 DESMOND RAMIREZ IN TIME 5 [facility] III [facility] G PROTHROMB 34587 DESMOND MANTILLA IN TIME [address] [place] [address] [place] MERHAR ABDOMEN & 5 MEDICAL GAR PELVIS SERV [place] [address] [place] NICKEL[place] TRANSVAGI 5 MEDICAL CATRACHITO NAL SERV FOUNDATIO N DUP-SCAN 36550 [place] NICKEL[place] ARTL YONNY 5 MEDICAL CATRACHITO ABDL/PEL/ SERV SCROT&/RP FOUNDATIO R ORGN N COM PROTHROMB [address] [facility] IN TIME 5 [facility] MEDIC PROTHROMB [address] [facility] IN TIME 5 [facility]IC MEDIC PROTHROMB [address] [facility]RI[facility] IN TIME 5 [facility] REGIONAL MEDIC MEDIC IAADIADOO 85424 [facility] STREPTOCO PHYSICIAN CCUS PRA GROUP A PROTHROMB [address] ADRIA IN TIME 5 [facility] MEDIC MEDIC RADIOLOGI 87305 [place] KOSTELIC C EXAM 5 RADIOLOGY JENNIFER CHEST 2 VIEWS FRONTAL&L ATERAL RADIOLOGI 94114 [place] DREW C EXAM 5 RADIOLOGY RHO CHEST 2 VIEWS FRONTAL&L ATERAL ECG 02233 [facility] ROUTINE 5 NALLELY REG ECG EMERGENCY W/LEAST PHYS 12 LDS I&R ONLY OUTPATIEN [address] FLAQUITA T CARDIAC 5 [facility] W/CONT ECG MONITORIN G OUTPATIEN [address] FLAQUITA T CARDIAC 5 [facility] W/CONT ECG MONITORIN G ECHO 65879 MYLES DELGADO TTHRC R-T 5 MEDICAL NOW 2D SPECIALIS W/WOM-MOD TS E COMPL SPEC&COLR D PROTHROMB [address] [facility]RI[facility] IN TIME 5 [facility]IC MEDIC PROTHROMB [address] [facility] IN TIME 5 [facility] MEDIC PROTHROMB [address] [facility] IN TIME 4 [facility]IC MEDIC PROTHROMB [address] [facility] IN TIME 4 REG[facility] MEDIC MEDIC PROTHROMB 85045 BRAEDEN DERAS IN TIME 4 [facility] [place] [address] [facility] TROPONIN 4 REGIONAL REGIONAL QUANTITAT MEDICAL MEDICAL WAY[facility]ENT[facility] CENTE THER 09398 [facility] D[facility] PROPH/DX 4 REGIONAL REGIONAL NJX IV MEDICAL MEDICAL PUSH CENTE CENTE SINGLE/1S T SBST/DRUG THROMBOPL 82537 [facility] ASTIN 4 REGIONAL REGIONAL TIME MEDICAL MEDICAL PARTIAL CENTE CENTE PLASMA/WH OLE BLOOD RADIOLOGI 60422 FOUNDATIO KRAMER ATU C EXAM 4 N CHEST 2 RADIOLOGY VIEWS GROUP P FRONTAL&L ATERAL ECG 08764 [facility] ROUTINE 4 NALLELY ECG EMERGENCY W/LEAST PHYS 12 LDS I&R ONLY ECG 38514 [facility] DERAS ROUTINE 4 REGIONAL REGIONAL ECG MEDICAL MEDICAL W/LEAST CENTE CENTE 12 LDS TRCG ONLY W/O I&R BASIC 21614 [facility] DER[facility] METABOLIC 4 REGIONAL REGIONAL PANEL MEDICAL MEDICAL [place] [address] [facility] D[facility] TROPONIN 4 REGIONAL REGIONAL QUANTITAT MEDICAL MEDICAL WAYNE CENTE CENTE BLOOD 28498 [facility]RAEDEN DERAS COUNT 4 REGIONAL REGIONAL COMPLETE MEDICAL MEDICAL AUTO&AUTO CENTE CENTE DIFRNTL WBC PROTHROMB 45965 [facility] IN TIME 4 [facility] RADIOLOGI 69412 [place] KOSTELIC C EXAM 4 RADIOLOGY JENNIFER CHEST 2 VIEWS FRONTAL&L ATERAL PROTHROMB 87106 [facility] IN TIME 4 [facility] PROTHROMB 46312 [facility] IN TIME 4 [facility] PROTHROMB 14009 [facility] IN TIME 4 [facility] RADIOLOGI 70306 [facility] KOSTELIC C 4 RADIOLOGY JENNIFER EXAMINATI ON CHEST SINGLE VIEW FRONTAL RADIOLOGI 90615 [facility] [place] WESTERFI[place] C 4 RADIOLOGY LD IV ALL EXAMINATI ON CHEST SINGLE VIEW FRONTAL RADIOLOGI 43403 [place] [place] WESTER[place] C 4 RADIOLOGY LD IV ALL EXAMINATI ON CHEST SINGLE VIEW FRONTAL RADIOLOGI 14436 [facility] KOSTELIC C 4 RADIOLOGY JENNIFER EXAMINATI ON CHEST SINGLE VIEW FRONTAL RADIOLOGI 51827 [facility] [place] WESTER[place] C 4 RADIOLOGY LD IV ALL EXAMINATI ON CHEST SINGLE VIEW FRONTAL RADIOLOGI 94266 [facility] WESTER[place] C 4 RADIOLOGY LD IV ALL EXAMINATI ON CHEST SINGLE VIEW FRONTAL RADIOLOGI 06338 [place] AN C 4 RADIOLOGY CAR EXAMINATI ON CHEST SINGLE VIEW FRONTAL DOPPLER 77784 ANESTHESI [facility] ECHOCARD 4 A JEANETTE PULSE ASSOCIATE WAVE S PSC W/SPECTRA L DISPLAY INSERTION 47343 [facility] FLOW 4 [facility] DIRECTED MEDICAL MEDICAL CATHETER G G FOR MONITORIN G RADIOLOGI 68399 [facility] [place] KOSTELIC C 4 RADIOLOGY JENNIFER EXAMINATI ON CHEST SINGLE VIEW FRONTAL ECHO 32420 ANESTHESI [facility] TRANSESOP 4 A JEANETTE HAG ASSOCIATE CONGEN S PSC PROBE PLCMT IMGNG I&R ANES HRT 91644 ANESTHESI [facility] PERICRD 4 A JEANETTE SAC&GRT ASSOCIATE VSLS S PSC W/GRAPHIC ARTS INSTRUCTOR OXTJ >1MO PO DOP 49944 ANESTHESI [facility] ECHOCARD 4 A EJANETTE COLOR ASSOCIATE FLOW S PSC VELOCITY MAPPING ECG 66685 [facility] ROUTINE 4 MEDICINE RAL ECG ASSOCIATE W/LEAST S 12 LDS I&R ONLY RPLCMT 62046 [facility] PROST 4 NE [facility] ARINA AORTIC MEDICAL VALVE G OPEN XCP HOMOGRF/S TENT LEVEL III 09972 [facility] WILHELMUS SURG 4 [facility] PATHOLOGY CLINIC PSC GROSS&[place] [address] [facility] WILHELM[place] SURG [address] [place] [address] PATHOLOGY CLINIC PSC GROSS&QUIANA ROSCOPIC EXAM INSJ 08418 ANESTHESI [facility] NON-TUNNE 4 A JEANETTE LED ASSOCIATE CENTRAL S PSC VENOUS CATH AGE 3 YR/> ARTL 89947 [facility] CATHJ/CAN 4 [facility] MEDICAL MNTR/CASTANO G G SFUSION SPX PRQ RPR SINUS 74120 [facility] EVELYN VALSALVA 4 [facility] ARINA FISTULA MEDICAL W/RPR G V-SEPTAL DEFECT OPEN AND 3522 [facility] OTHER [address] [place] [address] REPLACEME NT OF AORTIC VALVE PULMONARY 8964 [facility] ARTERY [address] [place] [address] WEDGE MONITORIN G EXCISION 3732 [facility] OF [address] [place] [address] ANEURYSM OF HEART ARTERIAL 3891 [facility] CATHETERI [address] [place] [address] ZATION OTHER&UNS [address] REPAIR VENTRICUL AR SEPTAL DEFECT SPMTRY 20614 [facility] COLON-CAR W/VC 4 [facility]ALTH RERAS JAYJAY EXPIRATOR MEDICAL Y YONNY G W/WO MXML VOL VNTJ RADIOLOGI 11671 [place] ANGELICA [facility] C EXAM 4 RADIOLOGY CHEST 2 VIEWS FRONTAL&L ATERAL ECG 73660 [facility] ROUTINE 4 NALLELY EDW ECG EMERGENCY W/LEAST PHYS 12 LDS I&R ONLY ECG 28917 [facility] ROUTINE 4 [place] ECG DAVID DAVID W/LEAST 12 LDS TRCG ONLY W/O I&R CREATINE 03800 [facility] KINASE 4 [place] TOTAL DAVID DAVID CRITICAL 67769 [facility] CARE 4 NALLELY EDW ILL/INJUR EMERGENCY ED PHYS PATIENT INIT 30-74 MIN URINE 11214 [facility] 4 [place] TEST DAVID DAVID VISUAL COLOR CMPRSN METHS RADIOLOGI 61382 [facility] C 4 [place] EXAMINATI DAVID DAVID ON CHEST SINGLE VIEW FRONTAL BLOOD 46592 [facility] COUNT 4 [place] COMPLETE DAVID DAVID AUTO&[place] [address] [facility] TROPONIN 4 [place] QUANTITAT DAVID DAVID WAYNE THER 55077 [facility] PROPH/DX 4 [facility] NJX IV DAVID DAVID PUSH SINGLE/1S T SBST/DRUG COMPREHEN 75550 [facility] SIVE 4 [facility] METABOLIC DAVID DAVID PANEL INJECTION J2270 [facility] MORPHINE 4 [facility] SULFATE DAVID DAVID UP TO 10 MG URNLS DIP 71095 [facility] 4 [facility] STICK/TAB DAVID DAVID LET REAGENT AUTO MICROSCOP Y CREATINE 15844 [facility] KINASE MB 4 [facility] FRACTION DAVID DAVID ONLY ECHO 88158 MYLES DELGADO TRANSESOP 4 MEDICAL NOW HAG R-T SPECIALIS 2D W/PRB TS IMG ACQUISJ I&R AMB A0427 BATH CO BATH CO SERVICE 4 AMBULANCE AMBULANCE ALS SERVICE SERVICE EMERGENCY TRANSPORT LEVEL 1 RADIOLOGI 07288 ADRIA LOPEZ C EXAM 4 REGIONAL CHEST 2 RADIOLOG VIEWS FRONTAL&L ATERAL ALS A0398 BATH CO BATH CO ROUTINE 4 AMBULANCE AMBULANCE DISPOSABL SERVICE SERVICE E SUPPLIES GROUND A0425 BATH CO BATH CO MILEAGE 4 AMBULANCE AMBULANCE PER SERVICE SERVICE STATUTE MILE RADIOLOGI 74214 ST ADRIA Sykes EXAM 4 REGIONAL OLIVIER CHEST 2 RADIOLOG VIEWS FRONTAL&L ATERAL ECHO 08964 MYLES DELGADO TTHRC R-T 4 MEDICAL NOW 2D SPECIALIS W/WOM-MOD TS E COMPL SPEC&COLR D SCR G0123 [facility] CYTOPATH 4 REGIONAL REGIONAL CERV/VAG MEDIC MEDIC SCR CYTOTECH UND PHYS SUPV BASIC 03635 MARCIA KENNEDY METABOLIC 0 [facility] PANEL INC INC CALCIUM TOTAL CULTURE 00388 MARCIA KENNEDY BACTERIAL 0 [facility] INC INC QUANTTATI VE COLONY COUNT URINE CULTURE 44590 MARCIA KENNEDY BCT 0 [facility] ISOL&PRSM INC INC PTV ID ISOLATE EA URINE BLOOD 84704 MARCIA KENNEDY COUNT 0 [facility]OS[facility] COMPLETE INC INC AUTO&AUTO DIFRNTL WBC SUSCEPTIB 40046 MARCIA KENNEDY LTY STDY 0 [facility] ANTIMICRB INC INC IAL MICRO/AGA R DILUTJ URINE 96816 MARCIA KENNEDY 0 [facility] TEST INC INC VISUAL COLOR CMPRSN METHS URNLS DIP 36334 MARCIA FERREIRAON 0 [facility] STICK/TAB INC INC LET REAGENT AUTO MICROSCOP Y IADNA 54460 PATHOLOGY PATHOLOGY CHLAMYDIA 0 & & CYTOLOGY CYTOLOGY TRACHOMAT LAB LAB IS AMPLIFIED PROBE TQ CYTP C/V 38794 PATHOLOGY PATHOLOGY AUTO THIN 0 & & LYR CYTOLOGY CYTOLOGY PREPJ SCR LAB LAB MNL RESCR PHYS IADNA 46882 PATHOLOGY PATHOLOGY NEISSERIA 0 & & CYTOLOGY CYTOLOGY GONORRHOE LAB LAB AE AMPLIFIED PROBE TQ BLOOD 49105 MARCIA KENNEDY COUNT 0 MEM [facility]OS[facility] COMPLETE INC INC AUTO&AUTO DIFRNTL WBC BLOOD 11168 MARCIA KENNEDY COUNT 0 [facility]OS[facility] COMPLETE INC INC AUTO&AUTO DIFRNTL WBC 3D 95861 DESMOND STEVEN, RENDERING 0 MEDICAL RUBI IMAGING W/INTERP& ASSOCIATE POSTPROC S DIFF WORK STATION SUSCEPTIB 67407 MARCIA KENNEDY LTY STDY 0 [facility] ANTIMICRB INC INC IAL MICRO/[place] [address] MARCIA KENNEDY ABDOMEN 0 [facility] W/O INC INC CONTRAST MATERIAL URINE 06458 MARCIA MARCIA 0 [facility] TEST INC INC VISUAL COLOR CMPRSN METHS CT PELVIS 26291 DESMOND STEVEN, W/O 0 MEDICAL RUBI CONTRAST IMAGING MATERIAL ASSOCIATE S CULTURE 82918 MARCIA KENNEDY BCT 0 [facility] ISOL&PRSM INC INC PTV ID ISOLATE EA URINE CULTURE 62620 MARCIA KENNEDY BACTERIAL 0 [facility] INC INC QUANTTATI VE COLONY COUNT URINE URNLS DIP 39486 MARCIA KENNEDY 0 [facility] STICK/TAB INC INC LET REAGENT AUTO MICROSCOP Y COMPREHEN 06668 MARCIA MARCIA SIVE 0 [facility] METABOLIC INC INC PANEL DEEP D9220 THE FR[facility], SEDATION/ 0 IMPLANT & III, GENERAL ORAL LYN P ANESTHESI SURGERY A-1ST 30 CENTER MINUTES [facility] ALVEOLECT 56364 THE [facility] ISRRAEL 0 IMPLANT & III, W/CURTG ORAL LYN P OSTEITIS/ SURGERY SEQUESTRE CENTER [employer] DEEP D9220 [facility] SEDATION/ 0 IMPLANT & III, GENERAL ORAL LYN P ANESTHESI SURGERY A-1ST 30 CENTER MINUTES [facility] ORTHOPANT 59312 THE [facility] OGRAM 0 IMPLANT & III, ORAL LYN P SURGERY CENTER [facility] ANES 21236 ANESTHESI ELI, INTRAPERI 0 A LANDY Lance TONEAL ASSOCIATE UPPER S, PSC ABDOMEN W/LAPS NOS LEVEL III 44770 [facility] SURG 0 CLINIC CLINIC PATHOLOGY LABORATOR LABORATOR Y Y GROSS&QUIANA ROSCOPIC EXAM LAPS SURG 32833 [facility] PHAM, W 0 [place] CHOLECYST CLINIC ECTOMY [facility] W/CHOLANG IOGRAPHY [facility] 20919 [facility] BAILEE XTRNL MID 0 ANESTH TASHI A & INNER OF THE EAR W/BX BLUEGRASS TYMPANOTO MY ECHO 78428 MARCIA KENNEDY TTHRC R-T 9 [facility] 2D INC INC W/WOM-MOD E COMPL SPEC&COLR D INSERTION 53652 [facility], 9 [facility] INTRAUTER CLINIC OF INE DEVICE [place] IUD PLLC URINE 76564 [facility], 9 [facility] TEST CLINIC OF VISUAL COLOR [place] CMPRSN PLLC METHS LEVONORGE J7302 [facility], STREL-RLS 9 [facility] E CLINIC OF INTRAUTER N [place] CNTRACPT PLLC 52 MG CYTP C/V 72576 PATHOLOGY PATHOLOGY AUTO THIN 9 & & LYR CYTOLOGY CYTOLOGY PREPJ SCR LAB LAB MNL RESCR PHYS CYSTO 25902 MARCIA KENNEDY W/SIMPLE 9 [facility] REMOVAL INC INC STONE & STENT REMOVAL 9762 MARCIA KENNEDY OF 9 [facility] URETEROST INC INC [place]EL TUBE&[facility]T [facility] 48847 FAMILY MULBERRY, DISCHARGE 9 CARE WALDO T DAY ASSOCIATE MANAGEMEN S T 30 MIN/< SUBQ 25121 [facility] 9 CARE WALDO T CARE PER ASSOCIATE DAY E/M S NORMAL SUBQ 94489 [facility] 9 CARE WALDO T CARE PER ASSOCIATE DAY E/M S NORMAL NEURAXIAL 19707 [facility] PATRICIA, LABOR 9 ANESTH SHIRIN L ANALG/ANE OF THE S PLND [place] VAGINAL DELIVERY VAGINAL 03254 [facility], DELIVERY 9 [facility] W/POSTPAR [facility]ON[facility] 1ST 70665 [facility], HOSP/MANASA 9 CARE [facility] ASSOCIATE CENTER S CARE PER DAY NML NB REPAIR OF 7569 MARCIA KENNEDY OTHER 9 [facility] CURRENT INC INC OBSTETRIC LACERATIO N 24863 [facility], NONSTRESS 9 [facility] TEST CLINIC OF [facility] 84403 MARCIA KENNEDY NONSTRESS 9 [facility] TEST INC INC CUL BACT 66785 COMBINED COMBINED XCPT 9 PHYSICIAN PHYSICIAN URINE S LAB S LAB BLOOD/STO OL AEROBIC ISOL 63435 [facility], NONSTRESS 9 [facility] TEST [facility] 31590 MARCIA KENNEDY NONSTRESS 9 [facility] TEST INC INC THERAPEUT 33370 MARCIA KENNEDY IC 9 [facility] PROPHYLAC INC INC TIC/DX INJECTION SUBQ/IM CULTURE 32854 MARCIA KENNEDY BACTERIAL 9 [facility] INC INC QUANTTATI VE COLONY COUNT URINE URNLS DIP 99264 MARCIA KENNEDY 9 [facility] STICK/TAB INC INC LET REAGENT AUTO MICROSCOP Y 43579 [facility], NONSTRESS 9 [facility] TEST [facility] 12259 MARCIA MARCIA NONSTRESS 9 [facility] TEST INC INC OBSERVATI 58734 JOSH ALFARO, ON/INPATI 9 ANGELINA Joseph [facility]ITAL CARE 55 MINUTES CULTURE 92280 MARCIA KENNEDY BACTERIAL 9 [facility] INC INC QUANTTATI VE COLONY COUNT URINE URNLS DIP 14775 MARCIA MARCIA 9 [facility] STICK/TAB INC INC LET REAGENT AUTO MICROSCOP Y FTL 58428 MARCIA KENNEDY FIBRONECT 9 [facility] IN INC INC [place] [address] [place] MIGEL CHAUI 9 MEDICAL JEFERSON [place] TONEAL IMAGING REAL TIME ASSOCIATE W/IMAGE S COMPLETE 00315 [facility], NONSTRESS 9 [facility] TEST [facility] 79035 MARCIA KENNEDY NONSTRESS 9 [facility] TEST INC INC OBSERVATI 49816 JOSH ALFARO, ON/INPATI 9 ANGELINA YOON [facility] HOSPITAL CARE 55 MINUTES BLOOD 16950 MARCIA KENNEDY COUNT 9 [facility] COMPLETE INC INC AUTO&AUTO DIFRNTL WBC CULTURE 15110 MARCIA KENNEDY BACTERIAL 9 [facility] INC INC QUANTTATI VE COLONY COUNT URINE FTL 88703 MARCIA KENNEDY FIBRONECT 9 [facility] IN INC INC CERVICOVA G SECRETION S SEMI-DELMA URNLS DIP 19219 MARCIA FERREIRAON 9 [facility] STICK/TAB INC INC LET REAGENT AUTO MICROSCOP Y 08804 WOMEN'S HARDING, NONSTRESS 9 [facility] SKIN TEST 51877 DHS/CO MARCIA 9 [facility] SIS BANK ACCT INTRADERM AL GLUCOSE 57391 MARCIA KENNEDY TOLERANCE 9 [facility] TEST GTT INC INC 3 SPECIMENS GLUCOSE 21892 MARCIA FERREIRAON TOLERANCE 9 [facility] EA ADDL INC INC BEYOND 3 SPECIMENS URNLS DIP 95263 MARCIA MARCIA 9 [facility] STICK/TAB INC INC LET RGNT NON-AUTO W/O MICRSCP GLUCOSE 52588 WOMEN'S HARDING, POST 9 [facility] GLUCOSE CLINIC OF DOSE [facility] GLUCOSE 12818 WOMEN'S MEHDI, TOLERANCE 9 [facility] TEST GTT CLINIC OF 3 SPECIMENS [facility] CULTURE 30207 COMBINED COMBINED BACTERIAL 9 PHYSICIAN PHYSICIAN S LAB S LAB QUANTTATI VE COLONY COUNT URINE COLLECTIO 50585 WOMEN'S MEHDI, N 9 [facility] CAPILLARY CLINIC OF BLOOD SPECIMEN [facility] INTRO 26364 MARCIA KENNEDY URETERAL 9 [facility] CATH/STEN INC INC T PRQ RS&I ANES 25876 [facility] JAIR CHRISTINAURET 9 ANESTH SINA SKY OF THE W/[facility]THRO [facility] CYSTOSCOP Y NOS CYSTO 13605 MARCIA KENNEDY W/URTROSC 9 [facility] OPY&/PYEL INC INC OSCOPY DX URETEROSC 5631 MARCIA KENNEDY OPY 9 [facility] INC INC URETERAL 598 MARCIA KENNEDY CATHETERI 9 [facility] ZATION INC INC CULTURE 09703 COMBINED COMBINED BACTERIAL 9 PHYSICIAN PHYSICIAN S LAB S LAB QUANTTATI VE [place] COUNT URINE [place] PREG 48321 WOMEN'S MEHDI, UTERUS 9 [facility] AFTER 1ST CLINIC OF [facility] [place] [facility] UROGRAPHY [address]6435 [facility] ACOSTATENISHA, IV W/WO 9 MEDICAL RUBI KUB W/WO [place] [address] [place] [facility], RETROPERI 9 MEDICAL JEFERSON [place] TONEAL IMAGING REAL TIME ASSOCIATE W/IMAGE S COMPLETE SUSCEPTIB 47879 MARCIA KENNEDY LTY STDY 9 [facility] ANTIMICRB INC INC IAL MICRO/AGA R DILUTJ 53206 WOMEN'S MEHDI, NONSTRESS 9 [facility] TEST CLIN[facility] OF [facility] CULTURE 40956 MARCIA KENNEDY BACTERIAL 9 [facility] INC INC QUANTTATI VE COLONY COUNT URINE CULTURE 24289 MARCIA KENNEDY BCT 9 [facility] ISOL&PRSM INC INC PTV ID ISOLATE EA URINE URNLS DIP 84916 MARCIA MARCIA 9 [facility] STICK/TAB INC INC LET REAGENT [place] PREG 16920 CONCHA CONCHA, UTERUS 9 AND DILLAN W/DETAIL DAILY PSC UNRULY 1ST GESTATION BLOOD [phone] COMPLETE [facility] AUTO&AUTO [facility] WBC GONADOTRO 07033 [facility] PIN 8 [facility] WAYNE COLLECTIO 88957 [facility] N VENOUS 8 [facility] BLOOD [facility] U[facility] D[facility] [address] STICK/TAB [facility] LET [facility] [place] P[place] 42324 WOMEN'S HARDING, UTERUS 8 HEALTH REVA J REAL TIME CLINIC OF W/IMAGE [facility] [place] [facility] ANTIBODY 62604 COMBINED COMBINED CHLAMYDIA 8 PHYSICIAN PHYSICIAN S LAB S LAB CUL BACT 62982 COMBINED COMBINED XCPT 8 PHYSICIAN PHYSICIAN URINE S LAB S LAB BLOOD/STO OL AEROBIC ISOL URINE 84775 DHS/CO MARCIA 8 HEALTH CO HEALTH TEST [facility] V[facility] ACCT COLOR CMPRSN METHS Encounters Encounter Start End Date Code Location Performer Type Date OFFICE 76615 [facility] MEHDI SILVA 7 7 PHYSICIAN T VISIT S GROUP 15 MINUTES [facility] MARCIA - 7 7 [facility] MARCIA - 7 7 [facility]IEN INC T OFFICE 64785 [facility] SILVA 7 7 [facility] T VISIT 5 INC MINUTES [facility] - 7 7 [facility]PATIEN INC T OFFICE 46159 [facility] MEHDI SILVA 7 7 PHYSICIAN T VISIT S GROUP 15 MINUTES [facility] - 7 7 [facility]IEN INC T OFFICE 82938 [facility] OUTPATIEN 7 7 [facility] T VISIT 5 INC MINUTES [facility] YARSANISM - 7 7 [facility]ALTH OUTPATIEN [place] T OFFICE 00368 DESMOND MASCORRO OUTPATIEN 7 7 [facility] T VISIT MEDICAL 15 G MINUTES OFFICE 73451 [facility] HARDING OUTPATIEN 7 7 PHYSICIAN T VISIT S GROUP 15 MINUTES OFFICE 69079 [facility] OUTPATIEN 7 7 PHYSICIAN T VISIT S GROUP 15 MINUTES OFFICE 41017 [facility] OUTPATIEN 7 7 [facility] T VISIT 5 INC MINUTES [facility] - 7 7 [facility] T OFFICE 72217 [facility] 7 7 [facility] T [facility] 20 HLTH DEPT HL DEPT MINUTES [facility] OFFICE 13968 MARCIA OUTPATIEN 7 7 [facility] T VISIT 5 INC MINUTES [facility]OSPITAL MARCIA - 7 7 [facility] OUTPATIEN INC T OFFICE 03989 [facility] OUTPATIEN 7 7 PHYSICIAN T VISIT S GROUP 15 MINUTES OFFICE 94589 [facility] OUTPATIEN 7 7 PHYSICIAN T VISIT S GROUP 15 MINUTES [facility]OSPITAL [facility] - 7 7 [facility] OUTPATIEN INC T OFFICE 95354 [facility] OUTPATIEN 7 7 [facility] T VISIT 5 INC MINUTES OFFICE 41699 DESMOND MASCORRO OUTPATIEN 7 7 [facility] T VISIT MEDICAL 15 G MINUTES [facility]OSP[facility] - 7 7 [facility] OUTPATIEN INC T OFFICE 39606 [facility] OUTPATIEN 7 7 [facility] T VISIT 5 INC MINUTES [facility]OSPITAL MARC[facility] - 7 7 [facility] OUTPATIEN INC T OFFICE 30664 [facility] OUTPATIEN 7 7 PHYSICIAN T VISIT S GROUP 15 MINUTES HOSPITAL [facility] - 6 6 [facility] OUTPATIEN INC T OFFICE 09366 [facility] OUTPATIEN 6 6 [facility] T VISIT 5 INC MINUTES [facility]OSPITAL MARCIA - 6 6 [facility]PATIEN INC T [facility]OSPITAL MARCIA - 6 6 [facility] OUTPATIEN INC T OFFICE 48711 [facility] OUTPATIEN 6 6 [facility] T VISIT 5 INC MINUTES OFFICE 41565 [facility] OUTPATIEN 6 6 [facility] T VISIT 5 INC MINUTES [facility] MARCIA - 6 6 [facility] OUTPATIEN INC T OFFICE 09713 [facility] OUTPATIEN 6 6 [facility] AKSHAT T VISIT MEDICAL 25 G MINUTES HOSPITAL YARSANISM - 6 6 HEALTH OUTPATIEN [place] T OFFICE 37042 [facility] OUTPATIEN 6 6 PHYSICIAN T VISIT S GROUP 15 MINUTES HOSPITAL MARCIA - 6 6 [facility] OUTPATIEN INC T EMERGENCY 77374 MAGGI TORRE DEPT 6 6 PHYSICIAN QUIANA VISIT S, PLLC HIGH SEVERITY& THREAT FUNJ EMERGENCY 17476 [facility]ARCIA 6 6 [facility] DEPARTMEN INC T VISIT LOW/MODER SEVERITY OFFICE 79947 [facility] OUTPATIEN 6 6 PHYSICIAN ANDERSON T VISIT S GROUP 15 MINUTES OFFICE 49930 DESMOND CORDOBAON OUTPATIEN 6 6 NE [facility]ALTH AKSHAT T VISIT MEDICAL 25 G MINUTES OFFICE 41183 [facility] OUTPATIEN 6 6 PHYSICIAN ANDERSON T VISIT S GROUP 15 MINUTES OFFICE 13023 VINNY NGUYỄN CONSULTAT 6 6 HEALTH CHRISTIAN ION MEDICAL NEW/ESTAB GROUP PATIENT 15 MIN HOSPITAL YARSANISM - 6 6 HEALTH OUTPATIEN [place] T EMERGENCY 74452 MARCIA 6 6 [facility] DEPARTMEN INC T VISIT LOW/MODER SEVERITY HOSPITAL MARCIA - 6 6 [facility] OUTPATIEN [facility] T HOSPITAL MARCIA - 6 6 [facility] OUTPATIEN [facility] OFFICE 54814 [facility]ARD[facility] OUTPATIEN 6 6 PHYSICIAN ANDERSON T NEW 45 S GROUP [facility] MARCIA [facility] 6 6 [facility] OUTPATIEN [facility] OFFICE 60262 MARCIA OUTPATIEN 6 6 [facility] T VISIT 5 INC [facility] MARCIA - 6 6 [facility]PATIEN [facility] OFFICE 41619 MARCIA OUTPATIEN 6 6 [facility] T VISIT 5 [facility] MARCIA - 6 6 [facility] OUTPATIEN [facility] T EMERGENCY 22989 [facility] LOPEZ DEPT 6 6 NALLELY [place] VISIT EMERGENCY HIGH PHYSI SEVERITY& THREAT FUNCJ INITIAL 88109 [facility] HARPEL PREVENTIV 6 6 PHYSICIAN [facility] E [facility] MEDICINE NEW PT AGE 18-39YRS [facility] MARCIA - 6 6 [facility] OUTPATIEN [facility] HOSPITAL MARCIA - 6 6 [facility] OUTPATIEN [facility] T EMERGENCY 15263 MARCIA 6 6 [facility] T VISIT MODERATE SEVERITY EMERGENCY 02779 MAGGI TORRE 6 6 PHYSICIAN [facility] T VISIT HIGH/URGE NT SEVERITY EMERGENCY 92745 [facility] JUAN JOSE 6 6 NALLELY [facility] EMERGENCY T VISIT SERV HIGH/URGE NT SEVERITY EMERGENCY 69980 UNIVERSIT 6 6 Y DEPARTMEN HOSPITAL T VISIT HIGH/URGE NT SEVERITY HOSPITAL UNIVERSIT - 6 6 Y IRA [facility] HOSPITAL T EMERGENCY 67108 [place] 6 6 MEDICAL DEPARTMEN SERV T VISIT FOUNDATIO MODERATE N SEVERITY EMERGENCY 29494 [facility] 6 6 NALLELY R ANS VISIT EMERGENCY HIGH SERV SEVERITY& THREAT [facility] UNIVERSIT - 6 6 Y IRA [facility] HOSPITAL T EMERGENCY 02028 UNIVERSIT 6 6 Y [facility] T VISIT HIGH/URGE NT SEVERITY EMERGENCY 52686 [place] RAINS ALL 6 6 MEDICAL [facility] SERV T VISIT FOUNDATIO HIGH/URGE N NT SEVERITY HOSPITAL UNIVERSIT - 6 6 Y [facility] T EMERGENCY 78291 UNIVERSIT 6 6 Y [facility] T VISIT HIGH/URGE NT SEVERITY EMERGENCY 80135 [facility] DEPT 6 6 NALLELY MASHA VISIT EMERGENCY HIGH PHYSI SEVERITY& THREAT [facility] UNIVERSIT - 6 6 Y [facility] T EMERGENCY 36859 UNIVERSIT 6 6 Y [facility] T VISIT HIGH/URGE NT SEVERITY EMERGENCY 17438 [facility] Tom' RANDY DEPT 6 6 NALLELY VISIT EMERGENCY HIGH SERVI SEVERITY& THREAT [facility] UNIVERSIT - 6 6 Y [facility] T EMERGENCY 63067 [facility] DEPT 6 6 [facility]IMARY [facility] VISIT CARE HIGH PHYSICIAN SEVERITY& S THREAT [facility] OFFICE 71615 DESMOND RAMIREZ IRA [facility] 6 6 [facility] III [facility] T VISIT MEDICAL 15 G MINUTES EMERGENCY 75181 JAI BUCIO JR DEPT 6 6 MEDICAL JOHN VISIT SERV HIGH FOUNDATIO SEVERITY& N THREAT FUN EMERGENCY 79293 [facility] 5 5 NALLELY VISIT EMERGENCY HIGH PHYS SEVERITY& THREAT FUNJ OFFICE 73950 DESMOND RAMIREZ OUTPATIEN 5 5 [facility] III MASHA T NEW 45 MEDICAL MINUTES G EMERGENCY 60141 UNIVERSIT 5 5 Y DEPARTMEN HOSPITAL T VISIT HIGH/URGE NT SEVERITY HOSPITAL UNIVERSIT - 5 5 Y OUTPATIEN HOSPITAL T OFFICE 66160 [facility] OUTPATIEN 5 5 URGENT FERNANDEZ T VISIT CARE [address] [facility] 5 5 [facility] OUTPATIEN MEDIC T OFFICE [facility]3260 [facility] 5 5 REGIONAL T VISIT [address] [facility] - 5 5 [facility] OUTPATIEN MEDIC T OFFICE 07046 [facility] 5 5 REGIONAL T VISIT 5 MEDIC MINUTES OFFICE 66453 [facility] 5 5 REGIONAL T VISIT [address] [facility] - 5 5 REGIONAL OUTPATIEN MEDIC T OFFICE 44186 [facility] OUTPATIEN 5 5 REGIONAL T NEW 20 PHYSICIAN MINUTES PRA OFFICE 34609 [facility] 5 5 REGIONAL T VISIT [address] [facility] - 5 5 REGIONAL OUTPATIEN MEDIC T EMERGENCY 63125 [facility] 5 5 NALLELY KYL DEPARTMEN EMERGENCY T VISIT PHYS HIGH/URGE NT SEVERITY EMERGENCY 94417 [facility] 5 5 NALLELY REG DEPARTMEN EMERGENCY T VISIT PHYS HIGH/URGE NT SEVERITY OFFICE 67911 [facility] OUTPATIEN 5 5 FAMILY RODRIGO T NEW CLINIC, MINUTES [facility] - 5 5 REGIONAL OUTPATIEN MEDIC T OFFICE [facility]19 [facility] 5 5 REGIONAL T VISIT 5 MEDIC MINUTES OFFICE 81710 [facility] 5 5 REGIONAL T VISIT 5 MEDIC [facility] 5 5 [facility] - 5 5 [facility] OFF[facility] [facility] 4 4 REGIONAL T VISIT [address] [facility] - 4 4 REGIONAL OUTPATI MEDIC T OFFICE 02146 [facility] 4 4 REGIONAL T VISIT [address] [facility] - 4 4 [facility]ER[facility] 41778 [facility] DEPT 4 4 NALLELY VISIT EMERGENCY HIGH PHYS SEVERITY& THREAT [facility] BRAEDEN - 4 [address] [facility] [address] FLAQU[facility] 4 4 [facility] - 4 4 [facility] - 4 4 [facility] - 4 4 [facility] - 4 4 [facility] - 4 4 HOSPITAL INPATIENT EMERGENCY 19020 [facility] DEPT 4 4 [facility] VISIT BOURG HIGH SEVERITY& THREAT [facility] ST F[facility]QU[facility] - 4 4 [facility] OFFICE 48702 [facility] 4 4 [place] [address] [facility] - 4 4 [facility] T OFFICE [facility] 4 4 REGIONAL T VISIT 5 MEDIC MINUTES OFFICE 40965 MYLES GUAJARDOA OUTPATIEN 4 4 MEDICAL NOW T VISIT SPECIALIS 25 TS MINUTES EMERGENCY 45449 [facility] SHAHBAZ DEPT 4 4 REGIONAL CATRACHITO VISIT HIGH EMERGENCY SEVERITY& THREAT FUNCJ OFFICE 98250 MYLES GUAJARDOA OUTPATIEN 4 4 MEDICAL NOW T NEW 45 SPECIALIS MINUTES TS EMERGENCY 77775 [facility] OVERALL DEPT 4 4 REGIONAL PHI VISIT HIGH EMERGENCY SEVERITY& THREAT FUNCJ EMERGENCY 97041 [facility] RAVISAN 4 4 REGIONAL R PUN DEPARTMEN T VISIT EMERGENCY HIGH/URGE NT SEVERITY [facility]OSPITAL [facility] - 4 4 REGIONAL OUTPATIEN MEDIC T EMERGENCY 36487 MRACIA 0 0 [facility] DEPARTMEN INC T VISIT MODERATE SEVERITY EMERGENCY 57690 DU TORRE 0 0 EMERGENCY QUIANA DEPARTMEN SERVICES T VISIT HIGH/URGE NT SEVERITY HOSPITAL MARCIA - 0 0 [facility] OUTPATIEN INC T OFFICE 52424 MAXIMILIANO GIBBONSPATIEN 0 0 MAURICE MAURICE T VISIT 15 MINUTES OFFICE 51983 MAXIMILIANO VIERA OUTPATIEN 0 0 MAURICE MAURICE T VISIT 15 MINUTES [facility] 59095 [facility] 0 0 HEALTH ANDERSON E MED EST CLINIC OF PATIENT ALIYAH 18-39 YRS OFFICE 65828 MAXIMILIANO GIBBONSPATIEN 0 0 MAURICE MAURICE T VISIT 15 MINUTES OFFICE 51304 GABY GRIFFIN CONSULTAT 0 0 MAXIMINO MAXIMINO ION NEW/ESTAB PATIENT 60 MIN HOSPITAL [facility] - 0 0 [facility] OUTPATIEN INC T OFFICE 97327 MAXIMILIANO VIERA OUTPATIEN 0 0 MARIAM Blair T VISIT 15 MINUTES HOSPITAL [facility]IA - 0 0 [facility] OUTPATIEN INC T EMERGENCY 63110 DU TORRE, DEPT 0 0 EMERGENCY NGUYEN S VISIT SERVICES HIGH SEVERITY& ASSOCIATE THREAT S [facility] 60660 MARCIA 0 0 [facility] DEPARTMEN INC T VISIT MODERATE SEVERITY OFFICE 67168 MAXIMILIANO VIERA, OUTPATIEN 0 0 MARIAM Blair T VISIT 15 MINUTES OFFICE 20866 JERMAN VERO Johnnie OUTPATIEN 0 0 HILARY T NEW 30 CLINIC MINUTES PSC OFFICE 57198 Li BOYLE OUTPATIEN 0 0 EVANGELINA Sykes T VISIT PSC 25 MINUTES EMERGENCY 94483 DU TORRE, DEPT 0 0 EMERGENCY NGUYEN S VISIT SERVICES HIGH SEVERITY& ASSOCIATE THREAT S [facility] MARCIA - 9 9 [facility] OUTPATIEN INC T OFFICE 72774 [facility] CESARIOULORI, CONSULTMARCUS 9 9 PHYSICIAN CARMELO Bhat GROUP NEW/ESTAB PATIENT 60 MIN OFFICE 58488 [facility], [facility] 9 9 HEALTH REVA J T VISIT CLINIC OF 25 MINUTES [facility] MARCIA - 9 9 [facility] OUTPATIEN INC T OFFICE 87132 LIZA BISHOP OUTPATIEN 9 9 [facility] KAROLINA Rodríguez T VISIT UROLOGY 15 PSC MINUTES OFFICE 17423 [facility] OUT[facility]EN 9 9 HEALTH REVA J T VISIT CLINIC OF 15 MINUTES [facility] MARCIA - 9 9 [facility] INPATIENT INC OFFICE 16359 [facility], OUT[facility] 9 9 HEALTH REVA J T VISIT CLINIC OF 15 MINUTES [facility] OFFICE 20654 [facility], OUT[facility]EN 9 9 HEALTH REVA J T VISIT CLINIC OF 15 MINUTES [facility] MARCIA - 9 9 [facility] OUTPATIEN [facility] OFFICE 18382 [facility], OUT[facility]EN 9 9 HEALTH REVA J T VISIT CLINIC OF 15 MINUTES [facility] OFFICE 08060 [facility], OUTPATIEN 9 9 HEALTH REVA J T VISIT CLINIC OF 15 MINUTES [facility] MARCIA - 9 9 [facility] OUTPATIEN [facility] T OFFICE 27028 [facility], OUT[facility]EN 9 9 HEALTH REVA J T VISIT CLINIC OF 15 MINUTES [facility] MARCIA - 9 9 [facility] OUTPATIEN [facility] HOSPITAL MARCIA - 9 9 [facility] OUTPATIEN [facility] T OFFICE 37532 [facility], OUT[facility]EN 9 9 HEALTH REVA J T VISIT CLINIC OF 15 MINUTES [facility] OFFICE 18272 [facility], OUTPATIEN 9 9 HEALTH REVA J T VISIT CLINIC OF 15 MINUTES [facility] MARCIA - 9 9 [facility] OUTPATIEN [facility] T OFFICE 40667 LIZA BISHOP, OUTPATIEN 9 9 [facility] KAROLINA Rodríguez T VISIT UROLOGY 15 PSC MINUTES OFFICE 78964 [facility] OUTPATIEN 9 9 JR, J V JR, J V T VISIT 15 MINUTES OFFICE 33528 [facility], [facility]EN 9 9 HEALTH REVA J T VISIT CLINIC OF 15 MINUTES [facility] OFFICE 39193 [facility] OUTPATIEN 9 9 [facility]ALTH [facility] T VISIT 5 [facility] MINUTES [facility] ACCT OFFICE 93029 [facility] MARCIA OUTPATIEN 9 9 HEALTH [facility] T VISIT [facility] 10 BANK ACCT MINUTES OFFICE 35225 [facility], OUT[facility]EN 9 9 HEALTH REVA J T VISIT CLINIC OF 15 MINUTES [facility] MARCIA - 9 9 [facility] OUTPATIEN [facility] HOSPITAL MARCIA - 9 9 [facility] OUTPATIEN [facility] OFFICE 20124 [facility] OUT[facility]EN 9 9 HEALTH REVA J T VISIT CLINIC OF 15 MINUTES [facility] OFFICE 47385 [facility], OUTPATIEN 9 9 HEALTH REVA J T VISIT 5 CLINIC OF MINUTES [facility] OFFICE 17546 [facility], OUT[facility]IEN 9 9 HEALTH REVA J T VISIT CLINIC OF 15 MINUTES [facility] MARCIA - 9 9 [facility] OUTPATIEN [facility] OFFICE 22678 COMMONWEA BISHOP, OUTPATIEN 9 9 [facility] KAROLINA D T VISIT UROLOGY 25 PSC MINUTES OFFICE 49074 [facility], OUT[facility]EN 9 9 HEALTH REVA J T VISIT CLINIC OF 15 MINUTES [facility] OFFICE 81084 LIZA BISHOP, CONSULTAT 9 9 [facility] KAROLINA D ION UROLOGY NEW/ESTAB PSC PATIENT 40 MIN OFFICE 99061 [facility], OUT[facility]EN 9 9 HEALTH REVA J T VISIT CLINIC OF 15 MINUTES [facility] OFFICE 61270 [facility], OUTPATIEN 9 9 HEALTH REVA J T VISIT CLINIC OF 15 MINUTES [facility] MARCIA - 9 9 [facility] OUTPATIEN [facility] T OFFICE 45129 [facility] OUTPAT[facility]EN 9 9 HEALTH REVA J T VISIT CLINIC OF 15 MINUTES [facility] MARCIA - 9 9 [facility] OUTPATIEN [facility] HOSPITAL MARCIA - 9 9 [facility] OUTPATIEN [facility] 8 8 [facility] EMERGENCY 81364 [facility] 8 8 [facility] VISIT BOURG LOW/MODER HOSPITAL SEVERITY EMERGENCY 99172 LILIAN BROWN, 8 8 NALLELY Sykes [facility] T VISIT [facility] INC HIGH/URGE NT SEVERITY OFFICE 44169 SHIRA ORELLANA 8 8 AND DILLAN June STOLL 30 DAILY MINUTES [facility] OFFICE 04040 [facility] 8 8 HEALTH REVA J T VISIT CLINIC OF 15 MINUT[facility] OFFICE 13500 [facility] MARCIA SILVA 8 8 HEALTH CO HEALTH T VISIT [facility] 15 BANK ACCT MINUTES
--- OUTSIDE RECORDS SUMMARY | 2017-01-28 20:00 | External Medical Summary Rpt ---
Author Author , Organization [employer] Address Unknown Phone Unavailable Care Team Providers Care Marketing Project Coordinator Name Role Phone PRUDENCE JEANETTE, PRUDENCE Unavailable Unavailable JEANETTE [facility] Unavailable Unavailable PH[facility]ICIANS, [facility] KAROLINA BISHOP, Unavailable Unavailable KAROLINA BISHOP ARNOLD MAURICE, ARNOLD Unavailable Unavailable MAURICE ARNOLD MAURICE, ARNOLD Unavailable Unavailable MAURICE MARIAM VIERA W, Unavailable Unavailable MARIAM VIERA W [facility] Unavailable Unavailable [facility] Unavailable Unavailable [facility] GROUP, [facility] Unavailable Unavailable [...] JR, V, Unavailable Unavailable Natalio HURT JR [facility] Unavailable Unavailable [facility], [facility] Unavailable Unavailable PHYSICIAN PRA, BRAEDEN [facility] PHYSICIAN PRA MEHDI HARDING Unavailable Unavailable MEHDI BARRON, MEHDI Unavailable Unavailable REVA DURON, Unavailable Unavailable REVA HARDING [facility], Unavailable Unavailable [facility] COLON-ALEJANDRO JAYJAY, Unavailable Unavailable [facility] Unavailable Unavailable LAB, [facility] RUBI STEVEN, Unavailable Unavailable RUBI STEVEN LAUROJanae CAMACHO, LAUROJanae CAMACHO Unavailable Unavailable [facility] [place] [place] CARMELO NIELSEN, Unavailable Unavailable CARMELO [...] R SUTTON JEFF, SUTTON Unavailable Unavailable JEFF [facility] Unavailable Unavailable [facility], [facility] Unavailable Unavailable INC, [facility] Unavailable Unavailable HOSPITAL P, [facility], Unavailable Unavailable [facility], [facility]available Unavailable [facility], [facility], [facility] MERARI AVELINA, MERARI AVELINA Unavailable Unavailable ATKINSON DOUG, ATKINSON DOUG Unavailable Unavailable [facility]available [facility], [facility] LANDY BENITEZ, Unavailable Unavailable LANDY BENITEZ GREGORY C, Unavailable Unavailable ETHEL BROWN [facility] Unavailable Unavailable IMAGING ASS, [facility] Unavailable Unavailable MEDICAL G, [facility] KOSTELIC JENNIFER, Unavailable Unavailable KOSTELIC JENNIFER [facility] Un[facility] LEHNERT RAY, LEHNERT Unavailable Unavailable RAY PATRICIAOLAF BLANKENSHIPNDA L, Unavailable Unavailable OLAF PATRICIANDA L JOE JOHN, JOE JOHN Unavailable Unavailable JOE JR DWI, JOE Unavailable Unavailable JR DWI DIANE FAYETTE URBAN Unavailable Unavailable COGOVT, DIANE FAYETTE URBAN COGOVT [facility] Unavailable Unavailable LABORATORY, [facility] RULA OLIVIER, RULA OLIVIER Unavailable Unavailable [facility] Unavailable Unavailable SERVICES, [facility] ANDRE PRESLEY, Unavailable Unavailable SINA RIVERA JR Unavailable Unavailable Chano, SINA NEWMAN JR MERHAR GAR, MERHAR Unavailable Unavailable GAR HARVEY KYL, HARVEY Unavailable Unavailable KYL DELMA DELMA Unavailable Unavailable DELMA CHRISTIAN, Unavailable Unavailable DELMA CHRISTIAN JEFERSON CHAU, Unavailable Unavailable JEFERSON CHAU WILLIAM F, Unavailable Unavailable SINA CHRISTINA [facility] Unavailable Unavailable [facility], [facility] MASCORRO, MASCORRO Unavailable Unavailable MASCORRO AKSHAT, MASCORRO Unavailable Unavailable WALDO TRUONG, Unavailable Unavailable WALDO REYNA EDW, LEXIE Unavailable Unavailable EDW DELGADO NOW, DELGADO Unavailable Unavailable [facility] Unavailable Unavailable [facility] Unavailable Unavailable [facility], [facility] NICKELS CATRACHITO, NICKELS Unavailable Unavailable [...] MASHA NATHAN DACIA, NATHAN DACIA Unavailable Unavailable [facility] Unavailable Unavailable [facility], [facility] EVELYN SANTA EVELYN Unavailable Unavailable ARINA SANTROCK JEANETTE, Unavailable Unavailable [facility]TR[facility] JEANETTE [facility], Unavailable Unavailable [facility], Unavailable Unavailable [facility] CARITO ELENA, CARITO Unavailable Unavailable ELENA IVORY MICHELET, IVORY Unavailable Unavailable [facility], [facility] Unavailable Unavailable [facility]GENCY [facility], [facility] Unavailable Unavailable [facility]GENCY SERV, [facility] Unavailable Unavailable MEDIC, [facility] Unavailable Unavailable RADIOLOG, [facility] Unavailable Unavailable EMERGENCY, [facility], Unavailable Unavailable [facility] Unavailable Unavailable [facility] EUCEDA ALEXANDRIA [facility] Unavailable Unavailable TASHI GRIMM, Unavailable Unavailable TASHI MOROCHO III MASHA, Unavailable Unavailable JAMES III SHAHBAZ INTERIANO Unavailable Unavailable [facility], Unavailable Unavailable [facility] ANTONIA GUILLERMO CHA Unavailable Unavailable [facility] Unavailable Unavailable #[id number], [facility] Unavailable Unavailable #591, [facility] # Unavailable Unavailable [id number], [facility] # [id number] LARISSA NGUYENTMAN Unavailable Unavailable JENNIFER PHAM, W, VERO, W Unavailable Unavailable LOPEZ ROCKY, LOPEZ Unavailable Unavailable [facility] Unavailable Unavailable DE[facility], [facility] Unavailable Unavailable [facility], [facility], [facility] Unavailable Unavailable [facility] DAMI[facility], [facility] Unavailable Unavailable MICHELLE IV ALL, Unavailable Unavailable MICHELLE IV ALL WILHELMUS MASHA, Unavailable Unavailable WILHELMUS [...] Diagnosis DOS Provider Status [id number] ENC 12-21-2016 [facility] SUPERVISION PHYSICIANS OTH NORMAL GROUP PREG UNS TRIMESTER O4703 FALSE LABOR 12-19-2016 [facility] BEFORE 37 PHYSICIANS CMPLETE GROUP WEEKS GEST 3RD TRI O6003 12-19-2016 [facility] LABOR [facility] WITHOUT INC DELIVERY THIRD TRIMESTER Z3A34 34 WEEKS 12-19-2016 [facility] GESTATION [facility] OF INC Z5181 ENCOUNTER 12-14-2016 [facility] THERAPEUTIC INC DRUG LEVEL MONITORING Z7901 [facility] 12-14-2016 [facility] CURRENT USE [facility] OF INC ANTICOAGULA NTS Z952 PRESENCE OF 12-14-2016 [facility] PROSTHETIC [facility] HEART INC VALVE J09X2 INFLUENZA 12-08-2016 [facility] D/T ID [facility] NOVEL FLU INC VIRUS OTH RESP MANIF Z3A33 33 WEEKS 12-08-2016 [facility] GESTATION [facility] OF INC [id number] MATERNAL 12-01-2016 [facility] HEALTH MEDICAL ABNORMALITY GROUP DAMGE NA/UNS [id number] DISEASES 12-01-2016 [facility] COMP MEDICAL GROUP UNS TRI Q211 ATRIAL 12-01-2016 [facility] SEPTAL HEALTH DEFECT MEDICAL G 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 12-01-2016 [facility] INCIDENTAL MEDICAL G Z3A32 32 WEEKS 12-01-2016 [facility] GESTATION HEALTH OF MEDICAL G Z111 ENCOUNTER 11-09-2016 [facility] DEPT RESPIRATORY BLANK TUBERCULOSI S I2510 [facility]SHD [place] 11-06-2016 [facility] CORONARY [facility] ARTERY W/O INC ANGINA PECTORIS J069 ACUTE UPPER 11-06-2016 [facility] HOSP RESPIRATORY INC INFECTION UNSPECIFIED Z720 TOBACCO USE 11-06-2016 [facility] HOSP INC [id number] ABNORMAL 10-24-2016 [facility] GLUCOSE PHYSICIANS COMPLICATIN GROUP G Z3A18 18 WEEKS 10-11-2016 [facility] GE[facility]ATION HEALTH OF MEDICAL G [id number] OTHER LONG 10-11-2016 [facility] TERM HEALTH CURRENT MEDICAL G DRUG THERAPY Z23 ENCOUNTER 09-30-2016 [facility]MMUN[facility]ATIO [facility] DEPT N BLANK [id number] DECREASED 09-26-2016 [facility] MOVEMENTS INC SECOND TRI NA/UNS Z3A22 22 WEEKS 09-26-2016 [facility]OS[facility] OF INC N75821 SUPERVISION 09-22-2016 [facility] HIGH HEALTH RISK PREG MEDICAL THIRD GROUP TRIMESTER [id number] MATERNAL 09-22-2016 [facility] HEREDITARY MEDICAL DISEASE IN GROUP FETUS NA/UNS Z8774 PERSONAL HX 09-22-2016 [facility] MALFORM MEDICAL HEART & GROUP CIRC SYSTEM [id number] SUPERVISION 08-25-2016 [facility] HIGH HEALTH RISK PREG MEDICAL SECOND GROUP TRIMESTER [id number] MATERNAL 08-25-2016 [facility]ALTH [place] ABNORMALITY DAMAGE FET 1 O9989 OT DZ & 08-25-2016 [facility] COND COMP HEALTH PREG MEDICAL CHILDBIRTH GROUP PUERPERIUM O2692 08-12-2016 [facility], CONDITIONS PLLC UNS 2ND TRIMESTER R079 CHEST PAIN 08-12-2016 [facility] UNSPECIFIED PHYSICIANS, PLLC Z3A17 17 WEEKS 08-12-2016 [facility] P R5383 OTHER 07-11-2016 [facility] MEDICAL G Z3A11 11 WEEKS 07-11-2016 [facility] GESTATION HEALTH OF MEDICAL G [id number] MATERNAL 06-30-2016 [facility] DAMAGE HEALTH TO FETUS MEDICAL BY DRUGS GROUP NA/UNS Z0379 ENCOUNTER 06-30-2016 [facility] SUSPECT HEALTH MATRN [place] COND RULED OUT Z3A10 10 WEEKS 06-30-2016 [facility] OF MEDICAL GROUP O2311 INFECTIONS 06-10-2016 [facility] BLADDER IN [facility] INC FIRST TRIMESTER D70387 OTHER SPEC 06-10-2016 [facility] COND 1ST TRIMESTER R1032 LEFT LOWER 06-10-2016 [facility]IN IM[facility]ING ASS U00081 UTERINE 06-08-2016 [facility] SIZE-DATE [facility] DISCREPANCY INC FIRST TRIMESTER Z3491 ENC 06-08-2016 [facility] MEDICAL NORMAL IMAGING ASS UNS 1 TRIMESTER Z3A01 LESS THAN 8 06-08-2016 [facility] W[facility]KS MEDICAL GESTATION IMAGING ASS OF Z3201 ENCOUNTER 05-31-2016 [facility] FOR PH[facility]IANS GROUP TEST RESULT POSITIVE R002 PALPITATION 05-16-2016 [facility] P N8320 UNSPECIFIED 03-24-2016 [facility] OVARIAN N EMERGENCY CYSTS PHYSI R109 UNSPECIFIED 03-24-2016 [facility] [place] ABDOMINAL [facility]Y PAIN N949 UNS COND 03-10-2016 [facility] ASSOC W/FE PHYSICIANS GENIT ORGN GROUP & MENSTRUAL CYCL R102 PELVIC AND 03-10-2016 [facility] PERINEAL PHYSICIANS PAIN GROUP E35542 ENCOUNTER 03-10-2016 [facility] POWER HAIR CLIPPER EXAM PHYSICIANS GENERAL RTN GROUP W/ABNORMAL FIND W03966 ENCOUNTER 03-10-2016 [facility] CLIPPER EXAM REFERNCE GENERAL RTN LABORATORIE W/O S ABNORMAL FIND N8329 OTHER 03-06-2016 [facility] O[facility]IAN PHYSICIANS, CYSTS PLLC R791 ABNORMAL 03-06-2016 [facility] COAGULATION [facility] PROFILE INC K6389 OTHER 01-29-2016 [facility] [place] SPECIFIED RADIOLOGY DISEASES OF INTESTINE P46438 PAIN IN 01-29-2016 [facility] RIGHT LEG N EMERGENCY SERV R0602 SHORTNESS 01-20-2016 [facility] MEDICAL G W24616 PAIN IN 01-12-2016 [facility] [id number] FALL ON 01-12-2016 [place] [facility] FROM OTH SERV STAIRS [facility] STEPS INITIAL ENCOUNTER J9811 ATELECTASIS 01-07-2016 [facility] M5412 RADICULOPAT 01-07-2016 [facility] HY CERVICAL N EMERGENCY REGION SERV R0789 OTHER CHEST 01-07-2016 [facility] PAIN N EMERGENCY SERV R200 ANESTHESIA 01-07-2016 [facility] [place] OF SKIN RADIOLOGY R202 PARESTHESIA 01-07-2016 [facility] OF SKIN N EMERGENCY SERV J40 BRONCHITIS 12-16-2015 [facility] SPECIFIED ACUTE OR CHRONIC E876 HYPOKALEMIA 12-09-2015 [facility] I498 OTHER 12-09-2015 [facility] SPECIFIED SERV CARDIAC FOUNDATION ARRHYTHMIAS R072 PRECORDIAL 12-09-2015 [facility] M545 LOW BACK 11-16-2015 [facility] PAIN N EMERGENCY PHYSI M549 DORSALGIA 11-16-2015 [facility] R0781 PLEURODYNIA 11-16-2015 [facility] N EMERGENCY PHYSI B349 VIRAL 11-08-2015 [facility] INFE[facility] U[facility]PECIFIED [facility]INIC PSC J029 ACUTE 11-08-2015 NEW PHARYNGITIS [facility] PSC UNSPECIFIED R05 COUGH 11-08-2015 [facility] P[facility] R509 FEVER 11-08-2015 [facility] UNSPECIFIED [facility] PSC K567 ILEUS 10-24-2015 [facility] R011 CARDIAC 10-22-2015 [facility] UNSPECIFIED MEDICAL G K5900 CONSTIPATIO 10-16-2015 [facility] [place] [facility] UNSPECIFIED R1031 RIGHT LOWER 10-15-2015 [facility] PAIN PHYSICIANS N280 ISCHEMIA 10-06-2015 [facility] INFARCTION MEDICAL G OF KIDNEY Z9114 PATIENTS 10-06-2015 [facility] NONCOMPLIAN MEDICAL G CE W/MEDICATIO N REGIMEN 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 CY Z049 ENCOUNTER 10-05-2015 [facility] EXAMINATION SERV &OBSERVATIO FOUNDATION N FOR UNS REASON L23774 PAIN IN 10-03-2015 [facility] LEFT LEG SERV FOUNDATION N289 DISORDER OF 10-03-2015 [facility] AND SERV URETER FOUNDATION UNSPECIFIED 51018 CHEST PAIN 06-12-2015 [facility] [place] UNSPECIFIED RADIOLOGY 4279 UNSPECIFIED 06-11-2015 NEW CARDIAC [facility] DYSRHYTHMIA CLINIC PSC 4660 ACUTE 06-11-2015 [facility] BRONCHITIS N EMERGENCY PHYS 7336 TIETZES 06-11-2015 [facility] DISEASE N EMERGENCY PHYS 13331 PRECORDIAL 06-11-2015 [facility] PAIN N EMERGENCY PHYS 09205 OTHER CHEST 06-08-2015 [facility] PAIN HEALTH MEDICAL G V433 HEART VALVE 06-08-2015 [facility] REPLACED HEALTH BY OTHER MEDICAL G MEANS V5861 LONG-TERM 06-08-2015 [facility] (CURRENT) HEALTH USE OF MEDICAL G ANTICOAGULA NTS V5883 ENCOUNTER 06-08-2015 [facility] THERAPEUTIC MEDICAL G DRUG MONITORING 5531 UMB HERNIA 02-22-2015 [place] [facility] WITHOUT SERV MENTION FOUNDATION OBSTRUCTION /GANGRENE 52422 ABDOMINAL 02-22-2015 [facility] RIGHT HOSPITAL LOWER [facility] 92327 ATRIAL 02-16-2015 [facility] FIBRILLATIO REGIONAL N MEDIC 0340 STREPTOCOCC 12-06-2014 [facility] HAINES SORE REGIONAL THROAT PHYSICIAN PRA 98115 FEVER 12-06-2014 [facility] UNSPECIFIED REGIONAL PHYSICIAN PRA 7862 COUGH 11-23-2014 [facility] 490 BRONCHITIS 11-22-2014 [facility] NOT N EMERGENCY SPECIFIED PHYS ACUTE OR CHRONIC 78030 SHORTNESS 11-22-2014 [facility] OF BREATH N EMERGENCY PHYS 80238 PAINFUL 11-20-2014 [facility] RESPIRATION N EMERGENCY PHYS 4611 ACUTE 11-19-2014 [facility] FRONTAL CLINIC, SINUSITIS PLLC 486 PNEUMONIA, 11-19-2014 [facility] ORGANISM CLINIC, UNSPECIFIED PLLC 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 AORTA OTHER 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 09-18-2014 [facility] AORTOCORONA DAVID RY BYPASS STATUS V5789 OTHER 09-18-2014 [facility] DAV[facility] ION PROCEDURE OTHER 77430 OTHER 08-21-2014 [facility] SPECIFIED REGIONAL CONGENITAL MEDICAL ANOMALY CENTE HEART OTHER 5119 UNSPECIFIED 07-18-2014 [facility] PLEURAL RADIOLOGY EFFUSION 5180 PULMONARY 07-18-2014 [facility] [place] COLLAPSE RADIOLOGY 23917 OTHER 07-16-2014 [facility] [place] NONSPECIFIC RADIOLOGY ABNORMAL FINDING OF LUNG FIELD 2875 UNSPECIFIED 07-14-2014 [facility] THROMBOCYTO PENIA 4241 AORTIC 07-14-2014 [facility] [place] DISORDERS CLINIC PSC 4280 CONGESTIVE 07-14-2014 [facility] HEART [facility] FAILURE UNSPECIFIED 87449 CHRONIC 07-14-2014 [facility] HEART FAILURE 4429 OTHER 07-14-2014 [facility]IC[facility] ASSOC[facility] UNSPECIFIED SITE 7454 VENTRICULAR 07-14-2014 [facility] SEPTAL [facility] DEFECT 7850 UNSPECIFIED 07-14-2014 [facility] TACHYCARDIA [facility]OCI[facility] 29733 OTHER 07-14-2014 [facility] RESPIRATORY [place] [address] COR 07-11-2014 [facility] [place] ATHEROSLERO RADIOLOGY UNSPEC TYPE VESSEL [place]/YVON T V140 PERSONAL 07-10-2014 [facility] [place] [place] TO DAVID PENICILLIN V142 PERSONAL 07-10-2014 [facility] SULFONAMIDE S V145 PERSONAL 07-10-2014 [facility] NARCOTIC AGENT V5869 LONG-TERM 07-10-2014 [facility] (CURRENT[facility] USE OF DAVID OTHER MEDICATIONS 12479 OTH 07-01-2014 [facility] PULMONARY MEDICAL G ART PULMONARY CIRC 7852 UNDIAGNOSED 06-24-2014 [facility] CARDIAC REGIONAL [place] MEDIC 75412 OTHER 06-24-2014 [facility] DYSPNEA AND REGIONAL MEDIC RESPIRATORY ABNORMALITI ES V452 PRESENCE OF 06-24-2014 [facility]IONAL CEREBROSPIN MEDIC AL FLUID DRAINAGE DEVICE 62193 ENDOCARDITI 06-23-2014 [facility] S VALVE REGIONAL UNSPECIFIED EMERGENCY UNSPECIFIED CAUSE 7821 RASH AND 06-23-2014 [facility] OTHER MEDICAL NONSPECIFIC SPECIALISTS SKIN ERUPTION 0539 HERPES 06-20-2014 [facility] ZOSTER REGIONAL WITHOUT EMERGENCY MENTION OF COMPLICATIO N 4168 OTHER 06-20-2014 [facility] CHRONIC MEDICAL PULMONARY SPECIALISTS HEART DISEASES 4293 CARDIOMEGAL 06-20-2014 [facility] Y REGIONAL RADIOLOG 514 PULMONARY 06-20-2014 [facility] CONGESTION REGIONAL AND RADIOLOG HYPOSTASIS 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 94112 PULMONARY 06-20-2014 [facility] ARTERY REGIONAL COARCTATION EMERGENCY AND ATRESIA 6160 CERVICITIS 06-18-2014 [facility] AND REGIONAL ENDOCERVICI MEDIC TIS V4551 PRESENCE OF 06-18-2014 [facility]IONAL INTRAUTERIN MEDIC E CONTRACEPTI VE DEVICE 5990 URINARY 08-20-2010 [facility] INFECTION SERVICES SITE NOT SPECIFIED 7048 OTHER 07-05-2010 MAXIMILIANO MAURICE SPECIFIED DISEASE OF HAIR&HAIR FOLLICLES 7242 LUMBAGO 06-24-2010 MAXIMIL[facility]O MAURICE V7231 ROUTINE 05-05-2010 [facility] GYNECOLOGIC HE[facility] AL CLINIC OF EXAMINATION ALIYAH V745 SCREENING 05-05-2010 PATHOLOGY & EXAMINATION CYTOLOGY FOR LAB VENEREAL DISEASE 69128 CLOSED 05-01-2010 MAXIMILIANO RICHARDS FRACTURE UNSPEC PHALANX/PHA LANGES HAND 56295 VOMITING 04-01-2010 [facility] MAXIMINO 85604 DIARRHEA 04-01-2010 [facility] MAX[facility]INO 5409 ACUTE 03-27-2010 [facility] APPENDICITI [facility] WITHOUT INC MENTION PERITONITIS 541 APPENDICITI 03-27-2010 Home VIERA RICHARD W UNQUALIFIED 73433 ABDOMINAL 03-24-2010 [facility], [facility]Y [facility] 5258 OTHER SPEC 02-16-2010 THE IMPLANT DISORDERS & ORAL TEETH&[facility] STRUCTURES 5206 DISTURBANCE 01-05-2010 THE IMPLANT S IN TOOTH & ORAL ERUPTION [facility] 3829 UNSPECIFIED 12-07-2009 [facility] MEDIA 7880 RENAL COLIC 12-07-2009 MARIAM VIERA 57356 CALCU 11-03-2009 [facility] W/OTH LABORATORY CHOLECYST W/O MENTION OBST 10568 CALCU 11-03-2009 [facility] [place] W/O MENTION CLINIC PSC CHOLECYST/O BST 65088 CHOLECYSTIT 11-03-2009 ANESTHESIA IS, RADHA, UNSPECIFIED PSC 11373 ABDOMINAL 10-05-2009 [facility] RIGHT EMERGENCY UPPER SERVICES [facility] 7851 PALPITATION 04-14-2009 [facility] PROF SERV V251 ENCOUNTER 04-07-2009 [facility] INSERT/[facility] IU CLINIC OF CONTRACEPTI ALIYAHHARLEY VE DEVICE [facility] V242 ROUTINE 03-31-2009 WOMEN'S HEALTH FOLLOW-UP CLINIC [facility] 591 HYDRONEPHRO 03-10-2009 [facility]END[facility] TO [facility]SC 650 NORMAL 02-11-2009 WOMEN'S DELIVERY HEALTH CLINIC [facility] 80543 FIRST-DEGRE 02-11-2009 WOMEN'S E PERINEAL HEALTH LACERATION CLINIC OF WITH [place] DELIVERY [facility] V270 OUTCOME OF 02-11-2009 WOMEN'S DELIVERY HEALTH SINGLE CLINIC OF [facility] V3000 SINGLE 02-11-2009 [facility] W/O 33676 OTHER 02-06-2009 WOMEN'S THREATENED HEALTH LABOR, CLINIC OF ANTEPARTUM [facility] V220 SUPERVISION 02-06-2009 WOMEN'S OF NORMAL HEALTH FIRST CLINIC OF [facility] 69217 OTHER 02-02-2009 [facility] SPECIFED [facility] HOS[facility] COMPLICATIO INC N ANTEPARTUM 94358 THREATENED 01-18-2009 WOMEN'S PREMATURE HEALTH LABOR CLINIC OF ANTEPARTUM [facility] 35853 HEMATURIA 01-06-2009 [facility] UNSPECIFIED [facility] INC 4720 CHRONIC 12-15-2008 [facility] RHINITIS JR, J V 4739 UNSPECIFIED 12-15-2008 [facility] SINUSITIS JR, J V V741 SCREENING 12-04-2008 [facility] EXAMINATION HEALTH FOR CENTRAL PULMONARY BANK ACCT TUBERCULOSI S 72618 DECR 12-02-2008 [facility] MOVMNTS [facility] MGMT MOTH INC ANTPRTM COND/COMP 61824 ABN MAT 11-28-2008 [facility] GLUCOSE [facility] TOLERANCE INC COMPL PG CB/PP UNS EOC V221 SUPERVISION 11-21-2008 [facility]OMEN'S OF OTHER HEALTH NORMAL [facility]INIC OF [place] PLL[facility] 5920 CALCULUS OF 11-11-2008 [facility] 5921 CALCULUS OF 11-11-2008 [facility] URETER ANESTH OF [facility] 54019 OT CURRENT 11-11-2008 [facility] MAT CONDS [facility] H[facility] CLASSIFIABL INC E ELSW ANTPRTM 7245 UNSPECIFIED 11-04-2008 [facility] PSC V283 ENCOUNTER 10-23-2008 WOMEN'S ROUTINE HEALTH SCREEN CLINIC OF MALFORMATIO [place] N PLLC ULTRASONIC 34214 OTHER 10-20-2008 [facility] SPECIFIED MEDICAL DISORDER OF IMAGING [facility] URETER V222 10-20-2008 [facility] 6259 UNSPEC 08-28-2008 [facility] W/[facility] ORGANS 93201 TOB USE D/O 08-28-2008 [facility] /PP [facility] [id number] 06-24-2008 [facility]/CO EXAMINATION HEALTH OR [...] 10 3- 8- 00 00 IC ve MN 47 20 20 42 01 17 17 61 PH R 3 55 AR PH MA OS CY 75 MG CA PS UL E PN 44 03 04 30 30 00 CL Ac V 94 -2 -2 .0 00 IN ti CO 61 0- 1- 00 00 IC ve [...] 94 -0 -1 .0 00 IN ti CO 61 2- 0- 00 00 IC ve [...] 94 -0 -0 .0 00 IN ti CO 61 3- 3- 00 00 IC ve [...] 0 14 7 WA 70 GA Ac CO 37 -0 -0 .0 L- 97 IN ti OF 87 8- 8- 00 MA 62 EY ve LO 09 20 20 RT 6 XA 80 10 10 MN CI 1 PH CH N AR AE [...] 00 60 30 WA 70 CL Ac CO 09 -2 -3 .0 L- 29 AR [...] PH C AR MA CY #5 91 MN 59 06 06 00 20 5 WA 70 CL Ac SO 76 -0 -1 .0 L- 22 AR ti CO 25 2- 8- 00 MA 99 KE [...] Procedure DOS Code Location Performer Comment HANDLG&/O 84995 [facility] MEHDI R CONVEY 7 PHYSICIAN OF SPEC S GROUP FOR TR OFFICE TO LAB PARTICLE 70665 MARCIA KENNEDY AGGLUTINA 7 [facility] TION INC INC SCREEN EACH ANTIBODY PARTICLE 34603 MARCIA KENNEDY AGGLUTINA 7 [facility] [place] [place] [address] MARCIA KENNEDY INFUSION 7 [facility] THERAPY/P INC INC ROPHYLAXI S /DX 1ST TO 1 [place] [address] [facility] MEHDI NONSTRESS 7 PHYSICIAN TEST S GROUP DRUG TEST 09779 MARCIA KENNEDY PRSMV 7 [facility] QUAL DIR INC INC OPTICAL OBS PER DAY FTL 84152 MARCIA KENNEDY FIBRONECT 7 [facility] IN INC INC CERVICOVA G SECRETION S SEMI-DELMA PROTHROMB 41443 MARCIA KENNEDY IN TIME 7 [facility] INC INC IAADIADOO 12338 MARCIA KENNEDY 7 [facility] INFLUENZA INC INC ECG 24249 [facility] ROUTINE 7 [facility] ECG MEDICAL W/LEAST G 12 LDS W/I&R US PREG 30456 BUDDHISM BUDDHISM UTERUS 7 [facility] REAL TIME [facility] F/U TRNSABDL PER FETUS PROTHROMB 60069 MARCIA KENNEDY IN TIME 7 [facility] INC INC IAADIADOO 18429 MARCIA KENNEDY 7 [facility] INFLUENZA INC INC COLLECTIO 76004 [facility] HARDING N 7 PHYSICIAN CAPILLARY S GROUP BLOOD SPECIMEN GLUCOSE 46912 [facility] POST 7 PHYSICIAN PHYSICIAN GLUCOSE S GROUP S GROUP DOSE PROTHROMB 72554 MARCIA KENNEDY IN TIME 7 [facility] INC ECG 04628 [facility] ROUTINE 7 [facility] ECG MEDICAL W/LEAST G 12 LDS W/I&R IIV4 VACC 48595 [facility] SPLIT 7 [facility] DISTRICT VIRUS 0.5 HLTH DEPT HLTH DEPT ML DOS BLANK BLANK FOR IM USE 39223 [facility] HARDING NONSTRESS 7 PHYSICIAN TEST S GROUP PROTHROMB 13950 MARCIA KENNEDY IN TIME 7 [facility] INC US PREG 24771 BUD[facility]ISM DELMA UTERUS 7 HEALTH REAL TIME MEDICAL F/U GROUP TRNSABDL PER FETUS ECHO 87098 BUDDHISMJune NGUYỄN 7 [facility] CARDIOVAS MEDICAL C W/WO GROUP M-MODE RECORDING DOP 64828 VINNY NGUYỄN ECHOCARD 7 [facility] COLOR MEDICAL FLOW GROUP VELOCITY MAPPING PROTHROMB 85308 MARCIA KENNEDY IN TIME 6 [facility] INC PROTHROMB 32357 MARCIA KENNEDY IN TIME 6 [facility] INC INC COLLECTIO 48164 MARCIA KENNEDY N VENOUS 6 [facility] BLOOD INC INC VENIPUNCT URE PROTHROMB 82236 MARCIA KENNEDY IN TIME 6 [facility] INC INC PROTHROMB 85024 MARCIA KENNEDY IN TIME 6 [facility] INC INC US PREG 12532 BUDDHISM BUDDHISM UTERUS 6 [facility]ALTH W/DETAIL [facility] 1ST GESTATION ECG 03745 DESMOND MASCORRO ROUTINE 6 [facility] AKSHAT ECG MEDICAL W/LEAST G 12 LDS W/I&R ECG 18604 MARCIA MARCIA ROUTINE 6 [facility] ECG INC INC W/LEAST 12 LDS TRCG ONLY W/O I&R RADIOLOGI 53355 MARCIA KENNEDY C EXAM 6 [facility] CHEST 2 INC INC VIEWS FRONTAL&L ATERAL ECG 00414 MARCIA DIAZ JR ROUTINE 6 [facility] ECG HOSPITAL W/LEAST P 12 LDS I&R ONLY CREATINE 28562 MARCIA KENNEDY KINASE 6 [facility] TOTAL INC INC BLOOD 05567 MARCIA KENNEDY COUNT 6 [facility] COMPLETE INC INC AUTO&[place] [address] MARCIA KENNEDY TROPONIN 6 [facility] QUANTITAT INC INC WAYNE CREATINE 95494 MARCIA KENNEDY KINASE MB 6 [facility] FRACTION INC INC ONLY COMPREHEN 92769 MARCIA KENNEDY SIVE 6 [facility] METABOLIC INC INC PANEL ECG 43007 DESMOND MASCORRO ROUTINE 6 [facility] ECG MEDICAL W/LEAST G 12 LDS W/[place] [address] BUDDHISM BUDDHISM 6 [facility] UTERUS 14 [facility] TRANSABDL GESTAT CULTURE 18696 MARCIA KENNEDY BACTERIAL 6 [facility] INC INC QUANTTATI VE COLONY COUNT URINE BLOOD 27087 MARCIA KENNEDY COUNT 6 [facility] COMPLETE INC INC AUTO&[place] [address] [facility] ALL TRANSVAGI 6 MEDICAL NAL IMAGING ASS GONADOTRO 81359 MARCIA KENNEDY PIN 6 [facility] CHORIONIC INC INC QUANTITAT WAYNE COMPREHEN 23158 MARCIA KENNEDY SIVE 6 [facility] METABOLIC INC INC PANEL URINE 00011 MARCIA KENNEDY 6 [facility] TEST INC INC VISUAL COLOR CMPRSN METHS URNLS DIP 92064 MARCIA KENNEDY 6 [facility] STICK/TAB INC INC LET REAGENT AUTO MICROSCOP Y US PREG 73705 MARCIA KENNEDY UTERUS 6 [facility] REAL TIME INC INC W/IMAGE DCMTN TRANSVAG DRUG TST G0477 [facility] MEHDI PRESUMP;C 6 PHYSICIAN ANDERSON PBL BEING S GROUP READ DC OPT OBV ONLY URINE 52391 [facility] MEHDI 6 PHYSICIAN ANDERSON TEST S GROUP VISUAL COLOR CMPRSN METHS XTRNL ECG 86030 MARCIA ARAIZASON 6 [facility] S RHYTHM P W/I&R UP TO 48 HRS XTRNL ECG 50741 MARCIA KENNEDY & 48 HR 6 [facility] RECORDING INC INC EXTERNAL 95547 MARCIA KENNEDY ECG 6 [facility] SCANNING INC INC ANALYSIS REPORT PROTHROMB 70955 MARCIA KENNEDY IN TIME 6 [facility] INC INC PROTHROMB 26760 MARCIA KENNEDY IN TIME 6 [facility] INC INC PROTHROMB 88425 MARCIA KENNEDY IN TIME 6 [facility] INC INC COLLECTIO 65345 MARCIA KENNEDY N VENOUS 6 [facility] [place] [address] [place] EUCEDA TRANSVAGI 6 RADIOLOGY RAY NAL THERAPEUT 95194 [facility] HARPEL IC 6 PHYSICIAN SHARMILA PROPHYLAC S GROUP TIC/DX INJECTION SUBQ/IM CULTURE 02730 [facility] HARPEL CHLAMYDIA 6 PHYSICIAN SHARMILA ANY S GROUP SOURCE IADNA 87473 BIO BIO TRICHOMON 6 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 VAGINALIS IES IES AMPLIFIED PROBE TECH COLLECTIO 06420 MARCIA KENENDY N VENOUS 6 [facility] BLOOD INC INC VENIPUNCT URE CYTP C/V 62725 BIO BIO AUTO THIN 6 REFERNCE REFERNCE LYR LABORATOR LABORATOR PREPJ SCR IES IES MNL RESCR PHYS IMMUNOASS 83595 MARCIA KENNEDY AY TUMOR 6 [facility] ANTIGEN INC INC QUANTITAT WAYNE IADNA 48743 [facility] HARPEL NEISSERIA 6 PHYSICIAN SHARMILA S GROUP GONORRHOE AE DIRECT PROBE TQ IADNA 45016 BIO BIO NEISSERIA 6 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 GONORRHOE IES IES AE AMPLIFIED PROBE TQ IADNA NOS 21430 BIO BIO 6 REFERNCE REFERNCE AMPLIFIED LABORATOR LABORATOR PROBE TQ IES IES EACH ORGANISM INJECTION J2675 [facility] HMH 6 PHYSICIAN PHYSICIAN PROGESTER S GROUP S GROUP ONE PER 50 MG URINLS 84322 [facility] HARPEL DIP 6 PHYSICIAN SHARMILA STICK/TAB S GROUP LET REAGNT NON-AUTO MICRSCPY IADNA 68494 BIO BIO CHLAMYDIA 6 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 TRACHOMAT IES [place] [address] MARCIA KENNEDY LIPASE 6 [facility] INC INC THROMBOPL 00674 MARCIA KENNEDY ASTIN 6 [facility] TIME INC INC PARTIAL PLASMA/WH OLE BLOOD PROTHROMB 75536 MARCIA KENNEDY IN TIME 6 [facility] INC INC BLOOD 63654 MARCIA KENNEDY COUNT 6 [facility] COMPLETE INC INC AUTO&[place] [address] MARCIA KENNEDY TRANSVAGI 6 [place] [address] MARCIA KENNEDY ABDOMEN & 6 [facility] PELVIS [place] [address] MARCIA KENNEDY INFUSION 6 [facility] THERAPY/P INC INC ROPHYLAXI S /DX 1ST TO 1 HR THERAPEUT 52512 MARCIA KENNEDY IC 6 [facility] INJECTION INC INC IV PUSH EACH NEW DRUG COMPREHEN 45404 MARCIA KENNEDY SIVE 6 [facility] [place] [address] MARCIA KENNEDY AMYLASE 6 [facility] INC INC URINE 89667 MARCIA KENNEDY 6 [facility] TEST INC INC VISUAL COLOR CMPRSN METHS URNLS DIP 00254 MARCIA KENNEDY 6 [facility] STICK/TAB INC INC LET REAGENT AUTO MICROSCOP Y CT ANGIO 80591 [place] ABD&PLVIS 6 RADIOLOGY JEANETTE CNTRST MTRL W/WO CNTRST IMG PROTHROMB 72288 DESMOND MANTILLA IN TIME 6 [facility] JENNIFER MEDICAL G ANKLE L4350 [facility] CONTROL 6 [facility] STIRRUP STYL RIGID PREFAB RADEX 77210 [facility] ANKLE 6 Y Y COMPLETE HOSPITAL HOSPITAL MINIMUM 3 VIEWS RADEX 37519 [facility] FOOT 6 Y Y COMPLETE [facility] MIN[address] [place] [address] [facility] JAI OCMER CERVICAL 6 RADIOLOGY SPINE W/O CONTRAST MATERIAL ECG 32499 [facility] ROUTINE 6 [facility] CLINIC W/LEAST PSC 12 LDS I&[place] [address] [facility] JAI COMER HEAD/BRAI 6 RADIOLOGY N W/O CONTRAST MATERIAL RADIOLOGI 68135 [place] [place] C 6 RADIOLOGY JEANETTE EXAMINATI ON CHEST SINGLE VIEW FRONTAL PROTHROMB 43323 DESMOND IVORY IN TIME 6 [facility] MEDICAL G PROTHROMB 00436 [facility] IN TIME 6 [place] [address] [facility] TROPONIN 6 Y Y QUANTITAT [facility] HOSPITAL WAYNE BLOOD 47766 [facility] COUNT 6 Y Y COMPLETE HOSPITAL [facility] AUTOMATED PREDNISON J7512 [facility] 6 Y [facility] HOSPITAL RLSE/HERO YED RLSE ORAL 1 MG BASIC 02987 [facility] METABOLIC 6 Y Y PANEL HOSPITAL [facility] CALCIUM TOTAL THROMBOPL 64529 [facility] ASTIN 6 Y Y TIME HOSPITAL HOSPITAL PARTIAL PLASMA/WH OLE BLOOD ECG 48042 JAI GRAY ROUTINE 6 MEDICAL NAN ECG SERV W/LEAST FOUNDATIO 12 LDS N I&R ONLY RADIOLOGI 90808 [facility] EX[facility] 6 Y Y CHEST 2 [facility] VIEWS FRONTAL&L ATERAL ECG 60209 [facility] ROUTINE 6 Y Y ECG HOSPITAL HOSPITAL W/LEAST 12 LDS TRCG ONLY W/O I&R ECG 45191 JAI QUAN ROUTINE 6 MEDICAL ECG SERV W/LEAST FOUNDATIO 12 LDS N I&R ONLY AMB A0427 DIANE DIANE SERVICE 6 FAYETTE FAYETTE ALS [facility] COGOVT COGOVT TRANSPORT LEVEL 1 ECG 45659 [facility] ROUTINE 6 Y Y ECG HOSPITAL HOSPITAL W/LEAST 12 LDS TRCG ONLY W/O I&R THROMBOPL 20874 [facility] ASTIN 6 Y Y TIME HOSPITAL HOSPITAL PARTIAL PLASMA/WH OLE BLOOD RADIOLOGI 64033 JAI GARZA ANIRUDH C 6 MEDICAL EXAMINATI SERV ON CHEST FOUNDATIO SINGLE N VIEW FRONTAL THER 00283 [facility] PROPH/DX 6 Y Y NJX IV HOSPITAL HOSPITAL PUSH SINGLE/1S T SBST/[place] [address] [facility] TROPONIN 6 Y Y QUANTITAT [facility] WAYNE GROUND A0425 DIANE DIANE MILEAGE 6 FAYETTE FAYETTE PER URBAN URBAN STATUTE COGOVT COGOVT MILE BLOOD 68283 [facility] COUNT 6 Y Y COMPLETE HOSPITAL HOSPITAL AUTOMATED PROTHROMB 17901 [facility] IN TIME 6 Y Y HOSPITAL HOSPITAL FIBRIN 71492 [facility] 6 Y Y PRODUCTS HOSPITAL HOSPITAL D-DIMER QUANTITAT WAYNE NATRIURET 17225 [facility] IC 6 Y Y PEPTIDE HOSPITAL HOSPITAL COMPREHEN 79066 [facility] 6 Y Y METABOLIC HOSPITAL HOSPITAL PANEL INJECTION J1650 [facility] 6 Y Y ENOXAPARI [facility] N SODIUM 10 MG URNLS DIP 86954 [facility] 6 Y Y STICK/TAB HOSPITAL HOSPITAL LET REAGENT AUTO MICROSCOP Y PROTHROMB 80491 [facility] IN TIME 6 Y Y HOSPITAL HOSPITAL FIBRIN 26443 [facility] 6 Y Y PRODUCTS HOSPITAL HOSPITAL D-DIMER QUANTITAT WAYNE BLOOD 21304 [facility] COUNT 6 Y Y COMPLETE [place] [address] [facility] 6 Y Y QUANTITAT [facility] WAYNE THERAPEUT 57788 [facility] IC 6 Y Y PROPHYLAC HOSPITAL [facility] TIC/DX INJECTION SUBQ/IM BASIC 56216 [facility] METABOLIC 6 Y Y PANEL [facility] CALCIUM TOTAL THROMBOPL 51271 [facility] ASTIN 6 Y Y TIME HOSPITAL [facility] PARTIAL PLASMA/WH OLE BLOOD ECG 58493 JAI JESUS CHI ROUTINE 6 MEDICAL ECG SERV W/LEAST FOUNDATIO 12 LDS N I&R ONLY RADIOLOGI 62999 JAI GUILLERMO C EXAM 6 MEDICAL MOOSE CHEST 2 SERV VIEWS FOUNDATIO FRONTAL&L N ATERAL ECG 94733 [facility] ROUTINE 6 Y Y ECG [facility] W/LEAST 12 LDS TRCG ONLY W/O I&R SVC PRV 79901 [facility] OFFICE 6 [facility] CLINIC CLINIC SCHEDD PSC PSC EVN WKEND/HOL IDAY HRS BLOOD 36329 [facility] COUNT 6 Y Y COMPLETE [facility] AUTOMATED THER 90311 [facility] PROPH/DX 6 Y Y NJX IV [facility] HOSPITAL PUSH SINGLE/1S T SBST/DRUG THERAPEUT 55425 [facility] IC 6 Y Y INJECTION [facility] [place] [address] JAI GUILLERMO ABDOMEN & 6 MEDICAL MOOSE PELVIS SERV W/CONTRAS FOUNDATIO T N MATERIAL PROTHROMB 21395 [facility] IN TIME 6 [place] [address] [facility] LIPASE 6 Y Y HOSPITAL HOSPITAL INFUSION J7030 [facility] NORMAL 6 Y Y SALINE [facility] SOLUTION 1000 CC URNLS DIP 15856 [facility] 6 Y Y STICK/TAB [facility] LET REAGENT AUTO MICROSCOP Y INJECTION J2405 [facility] 6 Y Y [facility] [place] ON HCL PER 1 MG COMPREHEN 21213 [facility] SIVE 6 Y Y METABOLIC [facility] PANEL URINE 85925 [facility] 6 Y Y TEST [facility] VISUAL COLOR CMPRSN METHS LOCM Q9967 [facility] 300399 6 Y Y MG/ML HOSPITAL HOSPITAL IODINE CONCENTRA TION PER ML PROTHROMB 42650 DESMOND RAMIREZ IN TIME 6 [place] [address] [place] ABDOMEN & 6 RADIOLOGY JEANETTE PELVIS W/CONTRAS T MATERIAL PROTHROMB 95325 DESMOND RAMIREZ IN TIME 6 [facility] III [facility]ICAL G ECG 34468 DESMOND RAMIREZ ROUTINE 6 [facility] III [facility] ECG MEDICAL W/LEAST G 12 LDS W/I&R ECG 56146 [place] NATHAN DACIA ROUTINE 6 MEDICAL ECG SERV W/LEAST FOUNDATIO 12 LDS N I&R ONLY INITIAL 50146 S CARITO INPATIENT 6 NURSE ELENA CONSULT PRACTITIO NEW/ESTAB NER GR PT 55 MIN ECHO 95630 JAI LEANA GRE TTHRC R-T 6 MEDICAL 2D SERV W/WOM-MOD FOUNDATIO E COMPL N SPEC&COLR D DUP-SCAN 54334 JAI SIERRA MAURICE XTR VEINS 6 MEDICAL SERV UNILATERA FOUNDATIO L/[place] [address] [place] FLORES ABDOMEN & 6 MEDICAL PERNELL PELVIS SERV [place] [address] JAI ANTONIA JOINER RETROPERI 6 MEDICAL MOOSE TONEAL SERV REAL TIME FOUNDATIO W/IMAGE N COMPLETE PROTHROMB 51643 DESMOND HORTA OLIVIER IN TIME 5 [facility] MEDICAL G ECHO 43985 DESMOND HORTA OLIVIER TTHRC R-T 5 [facility] 2D W/WO MEDICAL M-MODE G COMPLETE REST&ST RADIOLOGI 45619 [facility] [place] SUTTON C 5 RADIOLOGY JEFF EXAMINATI ON CHEST SINGLE VIEW FRONTAL RADIOLOGI 08377 [facility] C 5 NALLELY EXAMINATI EMERGENCY ON CHEST PHYS SINGLE VIEW FRONTAL ECG 67695 JERMAN ANDREWSGARSIA ROUTINE 5 [facility] ECG CLINIC W/LEAST PSC 12 LDS I&R ONLY ECG 87092 DESMOND RAMIREZ ROUTINE 5 [facility] III [facility] ECG MEDICAL W/LEAST G 12 LDS W/I&R PROTHROMB 81385 DESMOND RAMIREZ IN TIME 5 [facility] III [facility] MEDICAL G PROTHROMB 87447 DESMOND MANTILLA IN TIME [facility] [place] [address] [place] MERHAR ABDOMEN & 5 MEDICAL GAR PELVIS SERV [place] [address] [place] NICKEL[place] TRANSVAGI 5 MEDICAL CATRACHITO NAL SERV FOUNDATIO N DUP-SCAN 65256 [place] NICKELS ARTL YONNY 5 MEDICAL CATRACHITO ABDL/PEL/ SERV SCROT&/RP FOUNDATIO R ORGN N COM PROTHROMB [address] [facility] IN TIME 5 [facility] PROTHROMB [address] [facility] IN TIME 5 [facility] PROTHROMB [address] [facility] IN TIME 5 [facility] REGIONAL MEDIC MEDIC IAADIADOO 88670 [facility] STREPTOCO PHYSICIAN CCUS PRA GROUP A PROTHROMB [address] [facility]RI[facility] IN TIME 5 [facility]IC RADIOLOGI 70470 [place] KOSTELIC C EXAM 5 RADIOLOGY JENNIFER CHEST 2 VIEWS FRONTAL&L ATERAL RADIOLOGI 58366 [place] [place] DREW C EXAM 5 RADIOLOGY RHO CHEST 2 VIEWS FRONTAL&L ATERAL ECG 13604 [facility] [place] ROUTINE 5 NALLELY REG ECG EMERGENCY W/LEAST PHYS 12 LDS I&R ONLY OUTPATIEN [address] [facility] T CARDIAC 5 [facility] W/CONT ECG MONITORIN G OUTPATIEN [address] FLAQUITA T CARDIAC 5 [facility] W/CONT ECG MONITORIN G ECHO 47858 MYLES DELGADO TTHRC R-T 5 MEDICAL NOW 2D SPECIALIS W/WOM-MOD TS E COMPL SPEC&COLR D PROTHROMB [address] [facility] IN TIME 5 [facility] PROTHROMB [address] [facility] IN TIME 5 [facility] PROTHROMB [address] [facility] IN TIME 4 [facility] PROTHROMB [address] [facility] IN TIME 4 [facility] MEDIC PROTHROMB 53255 BRAEDEN DERAS IN TIME 4 [facility] [place] [address] [facility]RAED[facility] DERAS TROPONIN 4 REG[facility] QUANTITAT MEDICAL MEDICAL WAYNE CENTE CENTE THER 19942 BRAED[facility] DERAS PROPH/DX 4 REG[facility]AL REGIONAL NJX IV MEDICAL MEDICAL PUSH CENTE CENTE SINGLE/1S T SBST/DRUG THROMBOPL 24329 BRAED[facility] DERAS ASTIN 4 [facility] REGIONAL TIME MEDICAL MEDICAL PARTIAL CENTE CENTE PLASMA/WH OLE BLOOD RADIOLOGI 88688 FOUNDATIO KRAMER ATU C EXAM 4 N CHEST 2 RADIOLOGY VIEWS GROUP P FRONTAL&L ATERAL [facility] ROUTINE 4 NALLELY ECG EMERGENCY W/LEAST PHYS 12 LDS I&R ONLY ECG 25154 BRAEDEN DERAS ROUTINE 4 [facility] ECG MEDICAL MEDICAL W/LEAST CENTE CENTE 12 LDS TRCG ONLY W/O I&R BASIC 42054 BRAEDEN DERAS METABOLIC 4 [facility] PANEL MEDICAL MEDICAL [place] [address] [facility] DER[facility] TROPONIN 4 REGIONAL REGIONAL QUANTITAT MEDICAL MEDICAL WAYNE CENTE CENTE BLOOD 45728 BRAEDEN DERSA COUNT 4 REG[facility]AL [facility]AL COMPLETE MEDICAL MEDICAL AUTO&AUTO CENTE CENTE DIFRNTL WBC PROTHROMB 48676 [facility] IN TIME 4 [facility] RADIOLOGI 78835 [place] KOSTELIC C EXAM 4 RADIOLOGY JENNIFER CHEST 2 VIEWS FRONTAL&L ATERAL PROTHROMB 38826 [facility] IN TIME 4 [facility] PROTHROMB 83989 [facility] IN TIME 4 [facility] PROTHROMB 30056 [facility] IN TIME 4 [facility] RADIOLOGI 06382 [place] KOSTELIC C 4 RADIOLOGY JENNIFER EXAMINATI ON CHEST SINGLE VIEW FRONTAL RADIOLOGI 15320 [facility] [place] WESTERFIE C 4 RADIOLOGY LD IV ALL EXAMINATI ON CHEST SINGLE VIEW FRONTAL RADIOLOGI 58577 [facility] [place] WESTERFIE C 4 RADIOLOGY LD IV ALL EXAMINATI ON CHEST SINGLE VIEW FRONTAL RADIOLOGI 02693 [facility] [place] KOSTELIC C 4 RADIOLOGY JENNIFER EXAMINATI ON CHEST SINGLE VIEW FRONTAL RADIOLOGI 80514 [facility] WESTERFIE C 4 RADIOLOGY LD IV ALL EXAMINATI ON CHEST SINGLE VIEW FRONTAL RADIOLOGI 56384 [facility] WESTERFIE C 4 RADIOLOGY LD IV ALL EXAMINATI ON CHEST SINGLE VIEW FRONTAL RADIOLOGI 00993 [place] AN C 4 RADIOLOGY CAR EXAMINATI ON CHEST SINGLE VIEW FRONTAL DOPPLER 60795 [facility]HESI [facility] ECHOCARD 4 A JEANETTE PULSE ASSOCIATE WAVE S PSC W/SPECTRA L DISPLAY INSERTION 30795 [facility] FLOW 4 [facility] NE [facility] DIRECTED MEDICAL MEDICAL CATHETER G G FOR MONITORIN G RADIOLOGI 26808 [facility] [place] KOSTELIC C 4 RADIOLOGY JENNIFER EXAMINATI ON CHEST SINGLE VIEW FRONTAL ECHO 41723 ANESTHESI [facility] TRANSESOP 4 A JEANETTE HAG ASSOCIATE CONGEN S PSC PROBE PLCMT IMGNG I&R ANES HRT 40219 [facility] PERICRD 4 A JEANETTE SAC&GRT ASSOCIATE VSLS S PSC W/ASSEMBLY MACHINE TOOL SETTER OXTJ >1MO PO DOP 40933 [facility] ECHOCARD 4 A JEANETTE COLOR ASSOCIATE FLOW S PSC VELOCITY MAPPING ECG 38413 [facility] ROUTINE 4 MEDICINE RAL ECG ASSOCIATE W/LEAST S 12 LDS I&R ONLY RPLCMT 46248 [facility] PROST 4 [facility] ARINA AORTIC MEDICAL VALVE G OPEN XCP HOMOGRF/S TENT LEVEL III 46274 [facility] SURG 4 [facility] PATHOLOGY CLINIC PSC GROSS&[place] [address] [facility] SURG [address] [place] [address] PATHOLOGY CLINIC PSC GROSS&QUIANA ROSCOPIC EXAM INSJ 53179 ANESTHESI [facility] NON-TUNNE 4 A JEANETTE LED ASSOCIATE CENTRAL S PSC VENOUS CATH AGE 3 YR/> ARTL 57447 [facility] CATHJ/CAN 4 [facility]ALTH NULJ MEDICAL MEDICAL MNTR/CASTANO G G SFUSION SPX PRQ RPR SINUS 00616 [facility] EVELYN VALSALVA 4 [facility] ARINA FISTULA MEDICAL W/RPR G V-SEPTAL DEFECT OPEN AND 3522 [facility] OTHER [address] [place] [address] REPLACEME NT OF AORTIC VALVE PULMONARY 8964 [facility] ARTERY [address] [place] [address] WEDGE MONITORIN G EXCISION 3732 [facility] OF [address] [place] [address] ANEURYSM OF HEART ARTERIAL 389[address] [facility] CATHETERI [address] [place] [address] ZATION OTHER&UNS [address] REPAIR VENTRICUL AR SEPTAL DEFECT SPMTRY 92330 [facility] COLON-CAR W/VC 4 [facility] RERAS JAYJAY EXPIRATOR MEDICAL Y YONNY G W/WO MXML VOL VNTJ RADIOLOGI [address]3024 [facility] [place] [facility] C EXAM 4 RADIOLOGY CHEST 2 VIEWS FRONTAL&L ATERAL ECG 50565 [facility] ROUTINE 4 NALLELY EDW ECG EMERGENCY W/LEAST PHYS 12 LDS I&R ONLY ECG 56135 [facility] ROUTINE 4 [place] ECG DAVID DAVID W/LEAST 12 LDS TRCG ONLY W/O I&R CREATINE 82693 [facility] KINASE 4 [place] TOTAL DAVID DAVID CRITICAL 72230 [facility] CARE 4 NALLELY EDW ILL/INJUR EMERGENCY ED PHYS PATIENT INIT 30-[address] [facility] 4 [place] TEST DAVID DAVID VISUAL COLOR CMPRSN METHS RADIOLOGI 10055 [facility] C 4 [place] EXAMINATI DAVID DAVID ON CHEST SINGLE VIEW FRONTAL BLOOD 64796 [facility] COUNT 4 [place] COMPLETE DAVID DAVID AUTO&[place] [address] [facility] TROPONIN 4 [place] QUANTITAT DAVID DAVID WAYNE THER 82510 [facility] PROPH/DX 4 [facility] NJX IV DAVID DAVID PUSH SINGLE/1S T SBST/DRUG COMPREHEN 20271 [facility] SIVE 4 [facility] METABOLIC DAVID DAVID PANEL INJECTION [id number] [facility] MORPHINE 4 [facility] SULFATE DAVID DAVID UP TO [address] D[address] [facility] 4 [facility] STICK/TAB DAVID DAVID LET REAGENT AUTO MICROSCOP Y CREATINE 28058 [facility] KINASE MB 4 [facility] FRACTION DAVID DAVID ONLY ECHO 53486 MYLES DELGADO TRANSESOP 4 MEDICAL NOW HAG R-T SPECIALIS 2D W/PRB TS IMG ACQUISJ I&R AMB A0427 BATH CO BATH CO SERVICE 4 [facility] ALS SERVICE SERVICE EMERGENCY TRANSPORT LEVEL 1 RADIOLOGI 16832 ADRIA LOPEZ C EXAM 4 REGIONAL CHEST 2 RADIOLOG VIEWS FRONTAL&L ATERAL ALS [id number] BATH CO BATH CO ROUTINE 4 AMBULANCE AMBULANCE DISPOSABL SERVICE SERVICE E SUPPLIES GROUND A0425 BATH CO BATH CO MILEAGE 4 [facility] AMBULANCE PER SERVICE SERVICE STATUTE MILE RADIOLOGI 82685 ST ADRIA Sykes EXAM 4 REGIONAL OLIVIER CHEST 2 RADIOLOG VIEWS FRONTAL&L ATERAL ECHO 90945 MYLES DELGADO TTHRC R-T 4 MEDICAL NOW 2D SPECIALIS W/WOM-MOD TS E COMPL SPEC&COLR D SCR G0123 [facility] CYTOPATH 4 REGIONAL REGIONAL CERV/VAG MEDIC MEDIC SCR CYTOTECH UND PHYS SUPV BASIC 88550 MARC[facility] KENNEDY METABOLIC 0 [facility] PANEL INC INC CALCIUM TOTAL CULTURE 35384 [facility] BACTERIAL 0 [facility] INC INC QUANTTATI VE COLONY COUNT URINE CULTURE 37075 [facility]ENN[facility] BCT 0 [facility] ISOL&PRSM INC INC PTV ID ISOLATE EA URINE BLOOD 92241 [facility]ENN[facility] COUNT 0 [facility] COMPLETE INC INC AUTO&AUTO DIFRNTL WBC SUSCEPTIB 79862 [facility]ENN[facility] LTY STDY 0 [facility] ANTIMICRB INC INC IAL MICRO/AGA R DILUTJ URINE 24923 [facility] 0 [facility] TEST INC INC VISUAL COLOR CMPRSN METHS URNLS DIP 60679 [facility] FERREIRAON 0 [facility] STICK/TAB INC INC LET REAGENT AUTO MICROSCOP Y IADNA 27202 PATHOLOGY PATHOLOGY CHLAMYDIA 0 & & CYTOLOGY CYTOLOGY TRACHOMAT LAB LAB IS AMPLIFIED PROBE TQ CYTP C/V 69305 PATHOLOGY PATHOLOGY AUTO THIN 0 & & LYR CYTOLOGY CYTOLOGY PREPJ SCR LAB LAB MNL RESCR PHYS IADNA 21528 PATHOLOGY PATHOLOGY NEISSERIA 0 & & CYTOLOGY CYTOLOGY GONORRHOE LAB LAB AE AMPLIFIED PROBE TQ BLOOD 10175 [facility] KENNED[facility] COUNT 0 [facility] COMPLETE INC INC AUTO&AUTO DIFRNTL WBC BLOOD 13839 [facility] KENNEDY COUNT 0 [facility] COMPLETE INC INC AUTO&AUTO DIFRNTL WBC 3D 95986 DESMOND STEVEN, RENDERING 0 MEDICAL RUIB IMAGING W/INTERP& ASSOCIATE POSTPROC S DIFF WORK STATION SUSCEPTIB 09646 M[facility] KENNEDY LTY STDY 0 [facility] ANTIMICRB INC INC IAL MICRO/[place] [address] [facility] KENN[facility] ABDOMEN 0 [facility] W/O INC INC CONTRAST MATERIAL URINE 06238 [facility]IA MARCIA 0 [facility] TEST INC INC VISUAL COLOR CMPRSN METHS CT PELVIS 43824 DESMOND STEVEN, W/O 0 MEDICAL RUBI CONTRAST IMAGING MATERIAL ASSOCIATE S CULTURE 88523 MARCIA KENNEDY BCT 0 [facility] ISOL&PRSM INC INC PTV ID ISOLATE EA URINE CULTURE 31323 MARCIA KENNEDY BACTERIAL 0 [facility] INC INC QUANTTATI VE COLONY COUNT URINE URNLS DIP 29143 MARCIA KENNEDY 0 [facility] STICK/TAB INC INC LET REAGENT AUTO MICROSCOP Y COMPREHEN 38154 MARCIA MARCIA SIVE 0 [facility] METABOLIC INC INC PANEL DEEP D9220 THE FRANCISCO, SEDATION/ 0 IMPLANT & III, GENERAL ORAL LYN P ANESTHESI SURGERY A-1ST 30 CENTER MINUTES [facility] ALVEOLECT 53360 THE NOLAN ISRRAEL 0 IMPLANT & III, W/CURTG ORAL LYN P OSTEITIS/ SURGERY SEQUESTRE CENTER [employer] DEEP D9220 THE NOLAN SEDATION/ 0 IMPLANT & III, GENERAL ORAL LYN P ANESTHESI SURGERY A-1ST 30 CENTER MINUTES [facility] ORTHOPANT 18355 THE [facility]AN OGRAM 0 IMPLANT & III, ORAL LYN P SURGERY CENTER [facility] ANES 88736 ANESTHESI ELI, INTRAPERI 0 A LANDY Lance TONEAL ASSOCIATE UPPER S, PSC ABDOMEN W/LAPS NOS LEVEL III 71716 [facility] SURG 0 CLINIC CLINIC PATHOLOGY LABORATOR LABORATOR Y Y GROSS&QUIANA ROSCOPIC EXAM LAPS SURG 86647 [facility] PHAM, W 0 SEANOR CHOLECYST CLINIC ECTOMY [facility] W/CHOLANG IOGRAPHY [facility] 89069 [facility] BAILEE XTRNL MID 0 ANESTH TASHI A & INNER OF THE EAR W/BX BLUEGRASS TYMPANOTO MY ECHO 00848 MARCIA KENNEDY TTHRC R-T 9 [facility] 2D INC INC W/WOM-MOD E COMPL SPEC&COLR D INSERTION 82796 [facility], 9 [facility] INTRAUTER CLINIC OF INE DEVICE [place] IUD PLLC URINE 70004 [facility], 9 [facility] TEST CLINIC OF VISUAL COLOR [place] CMPRSN PLLC METHS LEVONORGE J7302 [facility], STREL-RLS 9 [facility] E CLINIC OF INTRAUTER N [place] CNTRACPT PLLC 52 MG CYTP C/V 44570 PATHOLOGY PATHOLOGY AUTO THIN 9 & & LYR CYTOLOGY CYTOLOGY PREPJ SCR LAB LAB MNL RESCR PHYS CYSTO 10151 MARCIA KENNEDY W/SIMPLE 9 [facility] REMOVAL INC INC STONE & STENT REMOVAL 9762 MARCIA KENNEDY OF 9 [facility] URETEROST INC INC ISRRAEL TUBE&URET [facility] 10384 FAMILY MULBERRY, DISCHARGE 9 CARE WALDO T DAY ASSOCIATE MANAGEMEN S T 30 MIN/< SUBQ 48068 [facility] 9 CARE WALDO T CARE PER ASSOCIATE DAY E/M S NORMAL SUBQ 13450 [facility] 9 CARE WALDO T CARE PER ASSOCIATE DAY E/M S NORMAL NEURAXIAL 26591 [facility] PATRICIA, LABOR 9 ANESTH SHIRIN L ANALG/ANE OF THE S PLND BLUEGRASS VAGINAL DELIVERY VAGINAL 03533 [facility], DELIVERY 9 [facility] CLINIC OF W/POSTPAR PONCHO CARE [facility] 1ST 90004 [facility], HOSP/MANASA 9 [facility] ASSOCIATE CENTER S CARE PER DAY NML NB REPAIR OF 7569 MARCIA KENNEDY OTHER 9 [facility] CURRENT INC INC OBSTETRIC LACERATIO N 95110 [facility], NONSTRESS 9 [facility] TEST CLINIC OF [facility] 39236 MARCIA KENNEDY NONSTRESS 9 [facility] TEST INC INC CUL BACT 44057 COMBINED COMBINED XCPT 9 PHYSICIAN PHYSICIAN URINE S LAB S LAB BLOOD/STO OL AEROBIC ISOL 13185 [facility], NONSTRESS 9 [facility] TEST [facility]IN[facility] OF [facility] 65162 MARCIA KENNEDY NONSTRESS 9 [facility] TEST INC INC THERAPEUT 44356 MARCIA KENNEDY IC 9 [facility] PROPHYLAC INC INC TIC/DX INJECTION SUBQ/IM CULTURE 85868 MARCIA KENNEDY BACTERIAL 9 [facility] INC INC QUANTTATI VE COLONY COUNT URINE URNLS DIP 08424 MARCIA KENNEDY 9 [facility] STICK/TAB INC INC LET REAGENT AUTO MICROSCOP Y 75169 [facility], NONSTRESS 9 [facility] TEST [facility]IN[facility] OF [facility] 75760 MARCIA MARCIA NONSTRESS 9 [facility] TEST INC INC OBSERVATI 31241 JOSH ALFARO, ON/INPATI 9 ANGELINA [facility] C[facility] 55 MINUTES CULTURE 72444 MARCIA KENNEDY BACTERIAL 9 [facility] INC INC QUANTTATI VE COLONY COUNT URINE URNLS DIP 74623 MARCIA MARCIA 9 [facility] STICK/TAB INC INC LET REAGENT AUTO MICROSCOP Y FTL 59356 MARCIA KENNEDY FIBRONECT 9 [facility] IN INC INC [place]ERV[place] [address] [place] MIGEL CHAUI 9 MEDICAL JEFERSON [place] TONEAL IMAGING REAL TIME ASSOCIATE W/IMAGE S COMPLETE 12470 [facility], NONSTRESS 9 [facility] TEST [facility] 28872 MARCIA KENNEDY NONSTRESS 9 [facility] TEST INC INC OBSERVATI 75017 JOSH ALFARO, ON/INPATI 9 ANGELINA YOON [facility] CARE 55 MINUTES BLOOD 67549 MARCIA KENNEDY COUNT 9 [facility] COMPLETE INC INC AUTO&AUTO DIFRNTL WBC CULTURE 10741 MARCIA KENNEDY BACTERIAL 9 [facility] INC INC QUANTTATI VE COLONY COUNT URINE FTL 39673 MARCIA KENNEDY FIBRONECT 9 [facility] IN INC INC CERVICOVA G SECRETION S SEMI-DELMA URNLS DIP 79294 MARCIA FERREIRAON 9 [facility] STICK/TAB INC INC LET REAGENT AUTO MICROSCOP Y 74053 [facility], NONSTRESS 9 [facility] TEST [facility] SKIN TEST 99362 DHS/CO MARCIA 9 [facility] SIS BANK ACCT INTRADERM AL GLUCOSE 11073 MARCIA KENNEDY TOLERANCE 9 [facility] TEST GTT INC INC 3 SPECIMENS GLUCOSE 34546 MARCIA FERREIRAON TOLERANCE 9 [facility] EA ADDL INC INC BEYOND 3 SPECIMENS URNLS DIP 99742 MARCIA MARCIA 9 [facility] STICK/TAB INC INC LET RGNT NON-AUTO W/O MICRSCP GLUCOSE 04433 [facility], POST 9 [facility] GLUCOSE CLINIC OF DOSE [facility] GLUCOSE 47555 [facility], TOLERANCE 9 [facility] TEST GTT CLINIC OF 3 SPECIMENS [facility] CULTURE 78274 COMBINED COMBINED BACTERIAL 9 PHYSICIAN PHYSICIAN S LAB S LAB QUANTTATI VE COLONY COUNT URINE COLLECTIO 26032 [facility], N 9 [facility] CAPILLARY CLINIC OF BLOOD SPECIMEN [facility] INTRO 99760 MARCIA KENNEDY URETERAL 9 [facility] CATH/STEN INC INC T PRQ RS&I ANES 25241 [facility] JAIR CHRISTINAURET 9 ANESTH SINA SKY OF THE W/URETHRO [facility] CYSTOSCOP Y NOS CYSTO 21588 MARCIA KENNEDY W/URTROSC 9 [facility] OPY&/PYEL INC INC OSCOPY DX URETEROSC 5631 MARCIA KENNEDY OPY 9 [facility] INC INC URETERAL 598 MARCIA KENNEDY CATHETERI 9 [facility] ZATION INC INC CULTURE 39298 COMBINED COMBINED BACTERIAL 9 PHYSICIAN PHYSICIAN S LAB S LAB QUANTTATI VE COLONY COUNT URINE US PREG 01425 [facility], UTERUS 9 [facility] AFTER 1ST CLINIC OF TRIMEST [place] GESTATION [facility] UROGRAPHY 83598 [facility] ACOSTATENISHA, IV W/WO 9 MEDICAL RUBI KUB W/[place] [address] [place] ISAC, RETROPERI 9 MEDICAL JEFERSON [place] TONEAL IMAGING REAL TIME ASSOCIATE W/IMAGE S COMPLETE SUSCEPTIB 96079 MARCIA KENNEDY LTY STDY 9 [facility] ANTIMICRB INC INC IAL MICRO/AGA R DILUTJ 00813 [facility], NONSTRESS 9 [facility] TEST CLINIC OF [facility] CULTURE 98721 MARCIA KENNEDY BACTERIAL 9 [facility] INC INC QUANTTATI VE COLONY COUNT URINE CULTURE 75759 MARCIA KENNEDY BCT 9 [facility] ISOL&PRSM INC INC PTV ID ISOLATE EA URINE URNLS DIP 82554 MARCIA MARCIA 9 [facility] STICK/TAB INC INC LET REAGENT [place] PREG 14892 CONCHA CONCHA, UTERUS 9 AND DILLAN W/DETAIL DAILY PSC UNRULY 1ST GESTATION BLOOD [address] COMPLETE [facility] AUTO&AUTO [facility] WBC GONADOTRO 79584 [facility] PIN 8 [facility] CHORIONIC [facility] SHREVE[facility] WAYNE COLLECTIO 49187 [facility] N VENOUS 8 [facility] BLOOD [facility] URNLS DIP [address] STICK/TAB [facility] LET [facility] AUT[place] P[place] 18256 [facility], UTERUS 8 HEALTH REVA J REAL TIME CLINIC OF W/IMAGE DCMTN [place] TRANSVAG PLL[facility] ANTIBODY 08084 COMBINED COMBINED CHLAMYDIA 8 PHYSICIAN PHYSICIAN S LAB S LAB CUL BACT 96922 COMBINED COMBINED XCPT 8 PHYSICIAN PHYSICIAN URINE S LAB S LAB BLOOD/STO OL AEROBIC ISOL URINE 63465 DHS/CO MARCIA 8 HEALTH CO [facility]ALTH TEST [facility]EN[facility] VISUAL BANK ACCT COLOR CMPRSN METHS Encounters Encounter Start End Date Code Location Performer Type Date OFFICE 13454 [facility] MEHDI SILVA 7 7 PHYSICIAN T VISIT S GROUP 15 MINUTES [facility] MARCIA - 7 7 [facility] OUTPATIEN INC [facility] MARCIA - 7 7 [facility] OUTPATIEN INC T OFFICE 52026 MARCIA SILVA 7 7 [facility] T VISIT 5 INC MINUTES HOSPITAL MARCIA - 7 7 [facility] OUTPATIEN INC T OFFICE 53476 [facility] MEHDI SILVA 7 7 PHYSICIAN T VISIT S GROUP 15 MINUTES HOSPITAL MARCIA - 7 7 [facility] OUTPATIEN INC T OFFICE 60076 MARCIA OUTPATIEN 7 7 [facility] T VISIT 5 INC MINUTES [facility]OSPITAL BUDDHISM - 7 7 HEALTH OUTPATIEN SEANOR T OFFICE 41794 DESMOND MASCORRO OUTPATIEN 7 7 [facility] T VISIT MEDICAL 15 G MINUTES OFFICE 24537 [facility] HARDING OUTPATIEN 7 7 PHYSICIAN T VISIT S GROUP 15 MINUTES OFFICE 56642 [facility] HARDING OUTPATIEN 7 7 PHYSICIAN T VISIT S GROUP 15 MINUTES OFFICE 21854 MARCIA OUTPATIEN 7 7 [facility] T VISIT 5 INC MINUTES HOSPITAL MARCIA - 7 7 [facility] OUTPATIEN INC T OFFICE 91468 [facility] 7 7 [facility] T [facility] 20 HLTH DEPT HL DEPT MINUTES [facility] OFFICE 60691 MARCIA OUTPATIEN 7 7 [facility] T VISIT 5 INC MINUTES HOSPITAL MARCIA - 7 7 [facility] OUTPATIEN INC T OFFICE 09884 [facility] HARDING OUTPATIEN 7 7 PHYSICIAN T VISIT S GROUP 15 MINUTES OFFICE 58755 [facility] HARD[facility] OUTPATIEN 7 7 PHYSICIAN T VISIT S GROUP 15 MINUTES HOSPITAL MARCIA - 7 7 [facility] OUTPATIEN INC T OFFICE 22003 MARCIA OUTPATIEN 7 7 [facility] T VISIT 5 INC MINUTES OFFICE 03034 DESMOND MASCORRO OUTPATIEN 7 7 [facility] T VISIT MEDICAL 15 G MINUTES HOSPITAL MARCIA - 7 7 [facility] OUTPATIEN INC T OFFICE 89009 MARCIA OUTPATIEN 7 7 [facility] T VISIT 5 INC MINUTES HOSPITAL MARCIA - 7 7 [facility] OUTPATIEN INC T OFFICE 21992 [facility] HARDING OUTPATIEN 7 7 PHYSICIAN T VISIT S GROUP 15 MINUTES HOSPITAL MARCIA - 6 6 [facility] OUTPATIEN INC T OFFICE 17644 MARCIA OUTPATIEN 6 6 [facility] T VISIT 5 INC MINUTES HOSPITAL MARCIA - 6 6 [facility] OUTPATIEN INC T HOSPITAL MARCIA - 6 6 [facility] OUTPATIEN INC T OFFICE 13660 MARCIA OUTPATIEN 6 6 [facility] T VISIT 5 INC MINUTES OFFICE 18567 MARCIA OUTPATIEN 6 6 [facility] T VISIT 5 INC MINUTES [facility] MARCIA - 6 6 [facility] OUTPATIEN INC T OFFICE 42585 [facility] OUTPATIEN 6 6 NE [facility]ALTH AKSHAT T VISIT MEDICAL 25 G MINUTES HOSPITAL BUDDHISM - 6 6 HEALTH OUTPATIEN SEANOR T OFFICE 47077 [facility] HARDING OUTPATIEN 6 6 PHYSICIAN T VISIT S GROUP 15 MINUTES HOSPITAL MARCIA - 6 6 [facility] OUTPATIEN INC T EMERGENCY 17363 MAGGI TORRE DEPT 6 6 PHYSICIAN QUIANA VISIT S, PLLC HIGH SEVERITY& THREAT FUNJ EMERGENCY 24588 MARCIA 6 6 [facility] DEPARTMEN INC T VISIT LOW/MODER SEVERITY OFFICE 65159 [facility] HARDING OUTPATIEN 6 6 PHYSICIAN ANDERSON T VISIT S GROUP 15 MINUTES OFFICE 53100 DESMOND CORDOBAON OUTPATIEN 6 6 NE HEALTH AKSHAT T VISIT MEDICAL 25 G MINUTES OFFICE 08025 [facility] HARDING OUTPATIEN 6 6 PHYSICIAN ANDERSON T VISIT S GROUP 15 MINUTES OFFICE 82626 VINNY NGUYỄN CONSULTAT 6 6 HEALTH CHRISTIAN ION MEDICAL NEW/ESTAB GROUP PATIENT 15 MIN HOSPITAL BUDDHISM - 6 6 HEALTH OUTPATIEN [place] T EMERGENCY 10163 MARCIA 6 6 [facility] DEPARTMEN INC T VISIT LOW/MODER SEVERITY HOSPITAL MARCIA - 6 6 [facility] OUTPATIEN [facility] T HOSPITAL MARCIA - 6 6 [facility]PATIEN [facility] OFFICE 93326 [facility] HARDING OUTPATIEN 6 6 PHYSICIAN ANDERSON T NEW 45 S GROUP [facility] MARCIA - 6 6 [facility]PATI[facility] OFFICE 11387 MARCIA OUTPATIEN 6 6 [facility] T VISIT 5 INC [facility] MARCIA - 6 6 [facility]PATI[facility] OFFICE 32545 MARCIA OUTPATIEN 6 6 [facility] T VISIT 5 [facility] MARCIA - 6 6 [facility] OUTPATIEN [facility] T EMERGENCY 41089 [facility] LOPE[facility] DEPT 6 6 NALLELY ROCKY VISIT EMERGENCY HIGH PHYSI SEVERITY& THREAT FUNCJ INITIAL 10524 [facility] HARPEL PREVENTIV 6 6 PHYSICIAN SHARMILA E S [facility] MEDICINE NEW PT AGE 18-39YRS [facility] MARCIA - 6 6 [facility] OUTPATIEN [facility] MARCIA - 6 6 [facility] OUTPATIEN [facility] T EMERGENCY 95044 MARCIA 6 6 [facility] T VISIT MODERATE SEVERITY EMERGENCY 66180 MAGGI TORRE 6 6 PHYSICIAN [facility] T VISIT HIGH/URGE NT SEVERITY EMERGENCY 05002 [facility] JUAN JOSE 6 6 NALLELY MAR [facility] EMERGENCY T VISIT SERV HIGH/URGE NT SEVERITY EMERGENCY 30811 UNIVERSIT 6 6 Y DEPARTMEN HOSPITAL T VISIT HIGH/URGE NT SEVERITY HOSPITAL UNIVERSIT - 6 6 Y [facility] T EMERGENCY 91079 [place] 6 6 MEDICAL DEPARTMEN SERV T VISIT FOUNDATIO MODERATE N SEVERITY EMERGENCY 65833 [facility] DEPT 6 6 NALLELY R ANS VISIT EMERGENCY HIGH SERV SEVERITY& THREAT [facility] UNIVERSIT - 6 6 Y [facility] T EMERGENCY 90371 UNIVERSIT 6 6 Y [facility] T VISIT HIGH/URGE NT SEVERITY EMERGENCY 54969 [place] RAINS ALL 6 6 MEDICAL [facility] SERV T VISIT FOUNDATIO HIGH/URGE N NT SEVERITY HOSPITAL UNIVERSIT - 6 6 Y [facility] T EMERGENCY 54115 UNIVERSIT 6 6 Y [facility] T VISIT HIGH/URGE NT SEVERITY EMERGENCY 70733 [facility] DEPT 6 6 NALLELY MASHA VISIT EMERGENCY HIGH PHYSI SEVERITY& THREAT [facility] UNIVERSIT - 6 6 Y [facility] T EMERGENCY 26578 UNIVERSIT 6 6 Y [facility] T VISIT HIGH/URGE NT SEVERITY EMERGENCY 89961 [facility] Tom' RANDY DEPT 6 6 NALLELY VISIT EMERGENCY HIGH SERVI SEVERITY& THREAT [facility] UNIVERSIT - 6 6 Y [facility] T EMERGENCY 53175 [facility] DEPT 6 6 [facility] VISIT CARE HIGH PHYSICIAN SEVERITY& S THREAT [facility] OFFICE 26368 DESMOND RAMIREZ [facility] 6 6 [facility] T VISIT MEDICAL 15 G MINUTES EMERGENCY 40199 JAI BUCIO JR DEPT 6 6 MEDICAL JOHN VISIT SERV HIGH FOUNDATIO SEVERITY& N THREAT FUN EMERGENCY 57451 [facility] 5 NALLELY VISIT EMERGENCY HIGH PHYS SEVERITY& THREAT FUNJ OFFICE 42595 DESMOND RAMIREZ OUTPATIEN 5 5 [facility] III MASHA T NEW 45 MEDICAL MINUTES G EMERGENCY 40106 UNIVERSIT 5 5 Y [facility]PARTMEN [facility]PITAL T VISIT HIGH/URGE NT SEVERITY HOSPITAL UNIVERSIT - 5 5 Y OUTPATIEN HOSPITAL T OFFICE 51674 [facility] OUTPATIEN 5 5 URGENT FERNANDEZ T VISIT CARE [address] [facility] - 5 5 REGIONAL OUTPATIEN MEDIC T OFFICE [address] [facility]PATIEN 5 5 REGIONAL T VISIT [address] [facility] - 5 5 REGIONAL OUTPATIEN MEDIC T OFFICE 78217 [facility] 5 5 REGIONAL T VISIT 5 MEDIC MINUTES OFFICE [facility] [facility] 5 5 REGIONAL T VISIT [address] [facility] - 5 5 REGIONAL OUTPATIEN MEDIC T OFFICE 21696 [facility] OUT[facility] 5 5 REGIONAL T NEW 20 PHYSICIAN MINUTES PRA OFFICE [address] [facility] OUTPATIEN 5 5 REGIONAL T VISIT [address] [facility] - 5 5 REGIONAL OUTPATIEN MEDIC T EMERGENCY 20772 [facility] 5 5 NALLELY KYL DEPARTMEN EMERGENCY T VISIT PHYS HIGH/URGE NT SEVERITY EMERGENCY 52713 [facility] [place] 5 5 NALLELY REG DEPARTMEN EMERGENCY T VISIT PHYS HIGH/URGE NT SEVERITY OFFICE 56091 [facility] OUTPATIEN 5 5 FAMILY RODRIGO T NEW CLINIC, MINUTES [facility] - 5 5 REGIONAL OUTPATIEN MEDIC T OFFICE [facility] [facility] 5 5 REGIONAL T VISIT 5 MEDIC MINUTES OFFICE [facility]72 [facility] OUTPAT[facility]EN 5 5 REGIONAL T VISIT 5 MEDIC [facility] - 5 5 [facility] OUT[facility] FLAQUITA - 5 5 [facility] [address] [facility] OUTPAT[facility] 4 4 REGIONAL T VISIT [address] [facility] - 4 4 REGIONAL OUTPATI MEDIC T OFFICE 91801 [facility] 4 4 REGIONAL T VISIT [address] [facility] - 4 4 [facility] EMERGENC[facility] 68393 [facility] DEPT 4 4 NALLELY VISIT EMERGENCY HIGH PHYS SEVERITY& THREAT [facility] - 4 [address] [facility] [address] [facility] [address] [facility] - 4 [address] [facility] - 4 [address] [facility] - 4 [address] [facility] - [address] [facility] [address] [facility] - 4 4 HOSPITAL INPATIENT EMERGENCY 79217 [facility] DEPT 4 4 [facility] VISIT [place] HIGH SEVERITY& THREAT [facility] ST FLAQU[facility] - 4 4 [facility] OFFICE 11410 [facility] 4 4 [place] [address] MEDICAL [facility] - 4 4 [facility] T OFFICE [facility]240 [facility] OUTPATIEN 4 4 REGIONAL T VISIT 5 MEDIC MINUTES OFFICE 07253 MYLES GUAJARDOA OUTPATIEN 4 4 MEDICAL NOW T VISIT SPECIALIS 25 TS MINUTES EMERGENCY 50549 [facility] SHAHBAZ DEPT 4 4 REGIONAL CATRACHITO VISIT HIGH EMERGENCY SEVERITY& THREAT FUNCJ OFFICE 15125 MYLES GUAJARDOA OUTPATIEN 4 4 MEDICAL NOW T NEW 45 SPECIALIS MINUTES TS EMERGENCY 04031 [facility] OVERALL DEPT 4 4 REGIONAL PHI VISIT HIGH EMERGENCY SEVERITY& THREAT FUNCJ EMERGENCY 89460 [facility] RAVISAN 4 4 REGIONAL R PUN DEPARTMEN T VISIT EMERGENCY HIGH/URGE NT SEVERITY HOSPITAL [facility] - 4 4 REGIONAL OUTPATIEN MEDIC T EMERGENCY 67501 MARCIA 0 0 [facility] DEPARTMEN INC T VISIT MODERATE SEVERITY EMERGENCY 77938 DU TORRE 0 0 EMERGENCY QUIANA DEPARTMEN SERVICES T VISIT HIGH/URGE NT SEVERITY HOSPITAL MARCIA - 0 0 [facility] OUTPATIEN INC T OFFICE 14266 MAXIMILIANO GIBBONSPATIEN 0 0 MAURICE MAURICE T VISIT 15 MINUTES OFFICE 63457 MAXIMILIANO VIERA OUTPATIEN 0 0 MAURICE MAURICE T VISIT 15 MINUTES [facility] 94798 [facility] PREVENTIV 0 0 HEALTH ANDERSON E MED EST CLINIC OF PATIENT ALIYAH 18-39 YRS OFFICE 45825 MAXIMILIANO GIBBONSPATIEN 0 0 MAURICE MAURICE T VISIT 15 MINUTES OFFICE 68313 GABY GRIFFIN CONSULTAT 0 0 MAXIMINO MAXIMINO ION NEW/ESTAB PATIENT 60 MIN HOSPITAL MARCIA - 0 0 [facility] OUTPATIEN INC T OFFICE 59266 MAXIMILIANO VIERA OUTPATIEN 0 0 MARIAM Blair T VISIT 15 MINUTES HOSPITAL MARCIA - 0 0 [facility] OUTPATIEN INC T EMERGENCY 95084 DU TORRE, DEPT 0 0 EMERGENCY NGUYEN S VISIT SERVICES HIGH SEVERITY& ASSOCIATE THREAT S [facility] EMERGENCY 40059 MARCIA 0 0 [facility] DEPARTMEN INC T VISIT MODERATE SEVERITY OFFICE 53685 MAXIMILIANO VIERA, OUTPATIEN 0 0 MARIAM Blair T VISIT 15 MINUTES OFFICE 86444 JERMAN VERO Johnnie OUTPATIEN 0 0 HILARY T NEW 30 CLINIC MINUTES PSC OFFICE 73857 Li BOYLE OUTPATIEN 0 0 EVANGELINA Sykes T VISIT PSC 25 MINUTES EMERGENCY 05598 [facility] T[facility]RE, DEPT 0 0 EMERGENCY NGUYEN S VISIT SERVICES HIGH SEVERITY& ASSOCIATE THREAT S [facility] MARCIA - 9 9 [facility] OUTPATIEN INC T OFFICE 33297 [facility] CESARIOULORI, CONSULTMARCUS 9 9 PHYSICIAN CARMELO Bhat GROUP NEW/ESTAB PATIENT 60 MIN OFFICE 13211 [facility], OUTPATIEN 9 9 HEALTH REVA J T VISIT CLINIC OF 25 MINUTES [facility] MARCIA - 9 9 [facility] OUTPATIEN INC T OFFICE 57976 LIZA BISHOP OUTPATIEN 9 9 [facility] KAROLINA Rodríguez T VISIT UROLOGY 15 PSC MINUTES OFFICE 88438 [facility], OUTPATIEN 9 9 HEALTH REVA J T VISIT CLINIC OF 15 MINUTES [facility] MARCIA - 9 9 [facility] INPATIENT INC OFFICE 71931 [facility], OUTPATIEN 9 9 HEALTH REVA J T VISIT CLINIC OF 15 MINUTES [facility] OFFICE 90720 [facility], OUTPATIEN 9 9 HEALTH REVA J T VISIT CLINIC OF 15 MINUTES [facility] MARCIA - 9 9 [facility] OUTPATIEN [facility] OFFICE 93639 [facility], OUTPATIEN 9 9 HEALTH REVA J T VISIT CLINIC OF 15 MINUTES [facility] OFFICE 48709 [facility], OUTPATIEN 9 9 HEALTH REVA J T VISIT CLINIC OF 15 MINUTES [facility] MARCIA - 9 9 [facility] OUTPATIEN [facility] T OFFICE 11514 [facility], OUTPATIEN 9 9 HEALTH REVA J T VISIT CLINIC OF 15 MINUTES [facility] MARCIA - 9 9 [facility]EN [facility] MARCIA - 9 9 [facility] T OFFICE 12562 [facility], OUTPATIEN 9 9 HEALTH REVA J T VISIT CLINIC OF 15 MINUTES [facility] OFFICE 72023 [facility], OUTPATIEN 9 9 HEALTH REVA J T VISIT CLINIC OF 15 MINUTES [facility] MARCIA - 9 9 [facility] OUTPATIEN [facility] T OFFICE 85180 LIZA BISHOP, OUTPATIEN 9 9 [facility] KAROLINA Rodríguez T VISIT UROLOGY 15 PSC MINUTES OFFICE 64130 [facility] OUTPATIEN 9 9 JR, J V JR, J V T VISIT 15 MINUTES OFFICE 29452 [facility], OUTPATIEN 9 9 HEALTH REVA J T VISIT CLINIC OF 15 MINUTES [facility] OFFICE 80950 [facility] MARC[facility] OUTPATIEN 9 9 [facility] T VISIT [facility] MINUTES [facility] ACCT OFFICE 16909 [facility] OUTPATIEN 9 9 [facility] T VISIT [facility] 10 BANK ACCT MINUTES OFFICE 72164 [facility], OUTPATIEN 9 9 HEALTH REVA J T VISIT CLINIC OF 15 MINUTES [facility] MARCIA - 9 9 [facility] MARCIA - 9 9 [facility] OFFICE 66998 [facility], OUTPATIEN 9 9 HEALTH REVA J T VISIT CLINIC OF 15 MINUTES [facility] OFFICE 69284 [facility], OUTPATIEN 9 9 HEALTH REVA J T VISIT 5 CLINIC OF MINUTES [facility] OFFICE 25716 [facility], OUTPATIEN 9 9 HEALTH REVA J T VISIT CLINIC OF 15 MINUTES [facility] MARCIA - 9 9 [facility] OFFICE 53321 COMMONWEA BISHOP[facility] OUTPATIEN 9 9 [facility] KAROLINA D T VISIT UROLOGY 25 PSC MINUTES OFFICE 33409 [facility], OUTPATIEN 9 9 HEALTH REVA J T VISIT CLINIC OF 15 MINUTES [facility] OFFICE 70880 LIZA BISHOP, CONSULTAT 9 9 [facility] KAROLINA D ION UROLOGY NEW/ESTAB PSC PATIENT 40 MIN OFFICE 30589 [facility], OUTPATIEN 9 9 HEALTH REVA J T VISIT CLINIC OF 15 MINUTES [facility] OFFICE 49451 [facility], OUTPATIEN 9 9 HEALTH REVA J T VISIT CLINIC OF 15 MINUTES [facility] MARCIA - 9 9 [facility] T OFFICE 04357 [facility], OUTPATIEN 9 9 HEALTH REVA J T VISIT CLINIC OF 15 MINUTES [facility] MARCIA - 9 9 [facility] 9 9 [facility] OUT[facility]EN [facility] - 8 8 [facility] EMERGENCY [id number] [facility] 8 8 [place] [facility] SEVERITY EMERGENCY [id number] LILIAN BROWN, 8 8 NALLELY Sykes [facility] T VISIT [facility] HIGH/URGE NT SEVERITY OFFICE [id number] SHIRA ORELLANA 8 8 AND DILLAN June STOLL 30 DAILY MINUTES [facility] OFFICE [id number] [facility] 8 8 HEALTH [facility] J T VISIT CLINIC OF 15 MINUT[facility] OFFICE 83341 [facility] MARCIA SILVA 8 8 HEALTH CO [facility]ALTH T VISIT [facility] 15 BANK ACCT MINUTES
--- OUTSIDE RECORDS SUMMARY | 2017-01-28 20:09 | External Medical Summary Rpt ---
Author Author , Organization [employer] Address Unknown Phone Unavailable Care Team Providers Care Cdl [employer] Driver Name Role Phone PRUDENCE JEANETTE, PRUDENCE Unavailable Unavailable JEANETTE [facility] Unavailable Unavailable [facility], [facility] KAROLINA BISHOP, Unavailable Unavailable KAROLINA BISHOP ARNOLD MAURICE, ARNOLD Unavailable Unavailable MAURICE ARNOLD MAURICE, ARNOLD Unavailable Unavailable MAURICE MAXIMILIANO, MARIAM W, Unavailable Unavailable ARNOLD, MARIAM W [facility] Unavailable Unavailable [facility] Unavailable Unavailable MEDICAL GROUP, [facility] Unavailable SERVICE, [facility] BESSON OLIVIER, BESSON Unavailable Unavailable OLIVIER [facility] Unavailable Unavailable [facility]ATOR[facility], [facility] Unavailable Unavailable [facility]ATORIES, [facility] STANTON ALL, STANTON ALL Unavailable Unavailable BRENYO MAR, BRENYO Unavailable Unavailable MAR DAYDAY JENNIFER, DAYDAY Unavailable Unavailable JENNIFER BARROSO JAM, BARROSO JAM Unavailable Unavailable BUCKHALTER ANS, Unavailable Unavailable BUCKHALTER ANS AN CAR, AN Unavailable Unavailable CAR NINA RAL, Unavailable Unavailable Natalio MANCUSO JR, V, Unavailable Unavailable Natalio HURT JR [facility] Unavailable Unavailable [facility], [facility] Unavailable Unavailable PHYSICIAN PRA, BRAEDEN [facility] PHYSICIAN PRA MEHDI HARDING Unavailable Unavailable MEHDI BARRON, MEHDI Unavailable Unavailable REVA DURON, Unavailable Unavailable REVA HARDING [facility]available [facility], Unavailable Unavailable [facility] COLON-ALEJANDRO JAYJAY, Unavailable Unavailable COLON-ALEJANDRO JAYJAY [facility] Unavailable Unavailable LAB, [facility] RUBI STEVEN, Unavailable Unavailable RUBI STEVEN LAUROJanae CAMACHO, LAURO CAMACHO Unavailable Unavailable [facility] Un[facility] CARMELO NIELSEN, Unavailable Unavailable CARMELO NIELSEN GRAY NAN, GRAY Unavailable Unavailable NAN [facility] REG, ELIESER Unavailable Unavailable REG NICHO QUIANA, NICHO Unavailable Unavailable QUIANA NICHO, NGUYEN S, Unavailable Unavailable NGUYEN TORRE SIERRA MAURICE, SIERRA MAURICE Unavailable Unavailable DREW RHO, DREW Unavailable Unavailable RHO KRAMER ATU, KRAMER ATU Unavailable Unavailable HARPEL SHARMILA, HARPEL Unavailable Unavailable SHARMILA HARPEL, JOSH R, Unavailable Unavailable HARPEL, JOSH R SUTTON JEFF, SUTTON Unavailable Unavailable JEFF [facility] Unavailable Unavailable CENTER, [facility] Unavailable Unavailable INC, [facility] Un[facility] HOSPITAL P, [facility], Unavailable Unavailable [facility], Unavailable Unavailable PLLC, [facility], [facility] MERARI AVELINA, MERARI AVELINA Unavailable Unavailable ATKINSON DOUG, ATKINSON DOUG Unavailable Unavailable [facility] Unavailable [facility], [facility] LANDY BENITEZ, Unavailable Unavailable LANDY BENITEZ GREGORY C, Unavailable Unavailable [facility] Unavailable Unavailable [facility] Unavailable Unavailable MEDICAL G, [facility] KOSTELIC JENNIFER, Unavailable Unavailable KOSTELIC JENNIFER [facility] Un[facility] LEHNERT RAY, LEHNERT Unavailable Unavailable RAY PATRICIASHIRIN BLANKENSHIP L, Unavailable Unavailable OLAF PATRICIANDA L JOE JOHN, JOE JOHN Unavailable Unavailable JOE JR DWI, JOE Unavailable Unavailable JR DWI DIANE FAYETTE URBAN Unavailable Unavailable COGOVT, IDANE FAYETTE URBAN COGOVT [facility] Unavailable Unavailable LABORATORY, [facility] RULA OLIVIER, RULA OLIVIER Unavailable Unavailable [facility] Unavailable Unavailable SERVICES, [facility] ANDRE PRESLEY, Unavailable Unavailable SINA RIVERA JR Unavailable Unavailable Chano, SINA NEWMAN JR MERHAR GAR, MERHAR Unavailable Unavailable GAR HARVEY KYL, HARVEY Unavailable Unavailable KYL DELMA DELMA Unavailable Unavailable DELMA CHRISTIAN, Unavailable Unavailable DELMA CHRISTIAN JEFERSON CHAU, Unavailable Unavailable JEFERSON CHAU WILLIAM F, Unavailable Unavailable SINA CHRISTINA [facility] Unavailable Unavailable [facility], [facility] MASCORRO, MASCORRO Unavailable Unavailable MASCORRO AKSHAT, MASCORRO Unavailable Unavailable WALDO TRUONG, Unavailable Unavailable WALDO REYNA EDW, LEXIE Unavailable Unavailable EDW DELGADO NOW, DELGADO Unavailable Unavailable NOW [facility] Unavailable Unavailable [facility], [facility] Unavailable Unavailable [facility], [facility] NICKELS CATRACHITO, NICKELS Unavailable Unavailable CATRACHITO O' REEL, O' REEL Unavailable Unavailable OVERALL PHI, OVERALL Unavailable Unavailable PHI GREG ANIRUDH, GREG ANIRUDH Unavailable Unavailable [facility], Unavailable Unavailable PLL[facility], [facility] Unavailable Unavailable LAB, [facility] Unavailable Unavailable LAB, [facility] MARK GIMENZE, Unavailable Unavailable FLORESANU GIMENEZ FRANCISCO, III, LYN Unavailable Unavailable P, FRANCISCO, III, LYN P DAUGHERTY RODRIGO, DAUGHERTY Unavailable Unavailable RODRIGO CONCHA, DILLAN, Unavailable Unavailable CONCHA, DILLAN RAVISANKAR PUN, Unavailable Unavailable RAVISANKAR PUN REKHRAJ MICHELET, REKHRAJ Unavailable Unavailable MICHELET RIDDLE MASHA, RIDDLE Unavailable Unavailable MASHA NATHAN DACIA, NATHAN DACIA Unavailable Unavailable [facility] Unavailable Unavailable [facility], [facility] EVELYN LAZCANO Unavailable Unavailable ARINA SANT JEANETTE, Unavailable Unavailable SANTROCK JEANETTE [facility] MAXIMINO, Unavailable Unavailable [facility] MAXIMINO [facility] MAXIMINO, Unavailable Unavailable [facility] MAXIMINO CARITO ELENA, CARITO Unavailable Unavailable ELENA IVORY MICHELET, IVORY Unavailable Unavailable MICHELET [facility] Unavailable Unavailable [facility]GENCY PH[facility]SI, [facility] Unavailable Unavailable EMERGENCY SERV, [facility] EMERGENCY SERV [facility] Unavailable Unavailable MEDIC, [facility] Unavailable Unavailable RADIOLOG, [facility] RADIOLOG [facility] Unavailable Unavailable EMERGENCY, [facility], Unavailable Unavailable [facility] Unavailable Unavailable [facility] IBRAHIM EUC[facility]A Unavailable Unavailable TASHI GRIMM, Unavailable Unavailable TASHI MOROCHO III MASHA, Unavailable Unavailable JAMES III SHAHBAZ INTERIANO Unavailable Unavailable [facility], Unavailable Unavailable [facility] ANTONIA GUILLERMO CHA Unavailable Unavailable [facility] Unavailable Unavailable #[id number], [id number] Unavailable Unavailable #591, [facility] # Unavailable Unavailable [id number], [facility] # [id number] JOSE RAFAEL NGUYEN Unavailable Unavailable Johnnie ALCALA VERO, W Unavailable Unavailable LOPEZ ROCKY, LOPEZ Unavailable Unavailable [facility] Unavailable Unavailable DEPT [facility] DE[facility] Unavailable Unavailable DEPT [facility] Unavailable Unavailable [facility]LL[facility] DAMIEN, [facility] Unavailable Unavailable MICHELLE IV ALL, Unavailable Unavailable MICHELLE IV ALL WILHELMUS MASHA, Unavailable Unavailable WILHELMUS MASHA DAILY OLIVIER, Unavailable Unavailable DAILY OLIVIER [facility] Unavailable Unavailable [facility], [facility] EVANGELINA, Li Sykes, EVANGELINA, Unavailable Unavailable A C YOUNG JR JOHN, YOUNG Unavailable Unavailable JR JOHN ANGELICA MAT, ANGELICA MAT Unavailable Unavailable Purpose Continuity of Care Document - 06-24-2008 through 2016 Problems Code Diagnosis DOS Provider Status Z3480 ENC 12-21-2016 [facility] SUPERVISION PHYSICIANS OTH NORMAL GROUP PREG UNS TRIMESTER O4703 FALSE LABOR 12-19-2016 [facility] BEFORE 37 PHYSICIANS CMPLETE GROUP WEEKS GEST 3RD TRI O6003 12-19-2016 [facility] WITHOUT INC DELIVERY THIRD TRIMESTER Z3A34 34 WEEKS 12-19-2016 [facility] GESTATION [facility] OF INC Z5181 ENCOUNTER 12-14-2016 [facility] FOR [facility] THERAPEUTIC INC DRUG LEVEL MONITORING 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 [facility] OF INC ANTICOAGULA NTS Z952 PRESENCE OF 12-14-2016 [facility] PROSTHETIC [facility] HEART INC VALVE J09X2 INFLUENZA 12-08-2016 [facility] D/T ID [facility] HOS[facility] NOVEL FLU INC VIRUS OT RESP MANIF Z3A33 33 WEEKS 12-08-2016 [facility]ATION [facility] INC [id number] MATERNAL 12-01-2016 [facility] HEALTH MEDICAL ABNORMALITY GROUP DAMGE NA/UNS U43738 DISEASES 12-01-2016 [facility] CIRCULATORY HEALTH SYS COMP MEDICAL GROUP UNS TRI Q211 ATRIAL 12-01-2016 [facility] SEPTAL HEALTH DEFECT MEDICAL G 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 [facility] N OF HEART MEDICAL UNSPECIFIED GROUP Z331 12-01-2016 [facility] INCIDENTAL MEDICAL G Z3A32 32 WEEKS 12-01-2016 [facility] GESTATION HEALTH OF MEDICAL G Z111 ENCOUNTER 11-09-2016 [facility] DEPT RESPIRATORY BLANK TUBERCULOSI S 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 J069 ACUTE UPPER 11-06-2016 [facility] RESPIRATORY INC INFECTION UNSPECIFIED Z720 TOBACCO USE 11-06-2016 [facility] INC H02092 ABNORMAL 10-24-2016 [facility] GLUCOSE PHYSICIANS COMPLICATIN GROUP G Z3A18 18 WEEKS 10-11-2016 [facility] GESTATION HEALTH OF MEDICAL G Z22311 OTHER LONG 10-11-2016 [facility] TERM HEALTH CURRENT MEDICAL G DRUG THERAPY Z23 ENCOUNTER 09-30-2016 [facility] DEPT N BLANK [id number] DECREASED 09-26-2016 [facility] MOVEMENTS INC SECOND TRI NA/UNS Z3A22 22 WEEKS 09-26-2016 [facility] GESTATION [facility] OF INC Z17163 SUPERVISION 09-22-2016 [facility] HIGH HEALTH RISK PREG MEDICAL THIRD GROUP TRIMESTER U551HR5 MATERNAL 09-22-2016 [facility] HEREDITARY MEDICAL DISEASE IN GROUP FETUS NA/UNS Z8774 PERSONAL HX 09-22-2016 [facility] & GROUP CIRC SYSTEM V90126 SUPERVISION 08-25-2016 [facility] HIGH HEALTH RISK PREG MEDICAL SECOND GROUP TRIMESTER I119DX3 MATERNAL 08-25-2016 [facility] [place] ABNORMALITY DAMAGE FET 1 O9989 [facility] DZ & 08-25-2016 [facility] COMP HEALTH PREG MEDICAL CHILDBIRTH GROUP PUERPERIUM O2692 08-12-2016 [facility] UNS 2ND TRIMESTER R079 CHEST PAIN 08-12-2016 [facility] UNSPECIFIED PHYSICIANS, PLLC Z3A17 17 WEEKS 08-12-2016 [facility] GESTATION [facility] P R5383 OTHER 07-11-2016 [facility] MEDICAL G Z3A11 11 WEEKS 07-11-2016 [facility] GESTATION HEALTH OF MEDICAL G P215WL3 MATERNAL 06-30-2016 [facility] CARE DAMAGE HEALTH TO FETUS MEDICAL BY DRUGS GROUP NA/UNS Z0379 ENCOUNTER 06-30-2016 [facility] SUSPECT HEALTH MATRN [place] COND RULED OUT Z3A10 10 WEEKS 06-30-2016 [facility]STATION HEALTH OF MEDICAL GROUP O2311 INFECTIONS 06-10-2016 [facility] BLADDER IN [facility] HOS[facility] INC FIRST TRIMESTER E46677 OTHER SPEC 06-10-2016 [facility] [place] [facility] ASS COND 1ST TRIMESTER R1032 LEFT LOWER 06-10-2016 [place] [facility] PAIN IMAGING ASS C00938 UTERINE 06-08-2016 [facility] SIZE-DATE MEM HOSP DISCREPANCY INC FIRST TRIMESTER Z3491 ENC 06-08-2016 [facility] NORMAL IMAGING ASS UNS 1 TRIMESTER Z3A01 LESS THAN 8 06-08-2016 [place] WEEKS MEDICAL GESTATION IMAGING ASS OF Z3201 ENCOUNTER 05-31-2016 [facility] FOR PHYSICIANS GROUP TEST RESULT POSITIVE R002 PALPITATION 05-16-2016 [facility] P N8320 UNSPECIFIED 03-24-2016 [facility] OVARIAN N EMERGENCY CYSTS PHYSI R109 UNSPECIFIED 03-24-2016 [facility] ABDOMINAL RADIOLOGY PAIN N949 UNS COND 03-10-2016 [facility] ASSOC W/FE PHYSICIANS GENIT ORGN GROUP & MENSTRUAL CYCL R102 PELVIC AND 03-10-2016 [facility] PERINEAL PHYSICIANS PAIN GROUP T82921 ENCOUNTER 03-10-2016 [facility] 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 EXAM PHYSICIANS GENERAL RTN GROUP W/ABNORMAL FIND F08414 ENCOUNTER 03-10-2016 [facility] 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 MANAGER EXAM REFERNCE GENERAL RTN LABORATORIE W/O S ABNORMAL FIND N8329 OTHER 03-06-2016 [facility]YS[facility]ANS, CYSTS PLLC R791 ABNORMAL 03-06-2016 [facility] COAGULATION [facility]OS[facility] PROFILE INC K6389 OTHER 01-29-2016 [facility] SPECIFIED RADIOLOGY DISEASES OF INTESTINE E55586 PAIN IN 01-29-2016 [facility] RIGHT LEG N EMERGENCY SERV R0602 SHORTNESS 01-20-2016 [facility] MEDICAL G X24156 PAIN IN 01-12-2016 [facility] X010UTE FALL ON 01-12-2016 [place] [facility] FROM OT SERV [facility]IRS [facility] STEPS INITIAL ENCOUNTER J9811 ATELECTASIS 01-07-2016 [facility] M5412 RADICULOPAT 01-07-2016 [facility] HY CERVICAL N EMERGENCY REGION SERV R0789 OTHER CHEST 01-07-2016 [facility] PAIN N EMERGENCY SERV R200 ANESTHESIA 01-07-2016 [facility] [place] OF SKIN RADIOLOGY R202 PARESTHESIA 01-07-2016 [facility] OF SKIN N EMERGENCY SERV J40 BRONCHITIS 12-16-2015 [facility] SPECIFIED ACUTE OR CHRONIC E876 HYPOKALEMIA 12-09-2015 [facility] I498 OTHER 12-09-2015 [place] [facility] SPECIFIED SERV CARDIAC FOUNDATION ARRHYTHMIAS R072 PRECORDIAL 12-09-2015 [facility] M545 LOW BACK 11-16-2015 [facility] PAIN N EMERGENCY PHYSI M549 DORSALGIA 11-16-2015 [facility] R0781 PLEURODYNIA 11-16-2015 [facility] N EMERGENCY PHYSI B349 VIRAL 11-08-2015 NEW INFE[facility] UNSPECIFIED CLINIC PSC J029 ACUTE 11-08-2015 NEW PHARYNGITIS [facility] UNSPECIFIED R05 COUGH 11-08-2015 [facility] R509 FEVER 11-08-2015 NEW UNSPECIFIED [facility] P[facility] K567 ILEUS 10-24-2015 [facility] R011 CARDIAC 10-22-2015 [facility] UNSPECIFIED MEDICAL G K5900 CONSTIPATIO 10-16-2015 [facility] [place] [facility] UNSPECIFIED R1031 RIGHT LOWER 10-15-2015 [facility] PA[facility] PHYSICIANS N280 ISCHEMIA 10-06-2015 [facility] AND HEALTH INFARCTION MEDICAL G OF KIDNEY Z9114 PATIENTS 10-06-2015 [facility] NONCOMPLIAN MEDICAL G CE W/MEDICATIO N REGIMEN 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 Z049 ENCOUNTER 10-05-2015 [facility] EXAMINATION SERV &OBSERVATIO FOUNDATION N FOR UNS REASON T81468 PAIN IN 10-03-2015 [facility] LEFT LEG SERV FOUNDATION N289 DISORDER OF 10-03-2015 [facility] KIDNEY AND SERV URETER FOUNDATION UNSPECIFIED 71307 CHEST PAIN 06-12-2015 [facility] UNSPECIFIED RADIOLOGY 4279 UNSPECIFIED 06-11-2015 NEW CARDIAC [facility] DYSRHYTHMIA CLINIC PSC 4660 ACUTE 06-11-2015 [facility] BRONCHITIS N EMERGENCY PHYS 7336 TIETZES 06-11-2015 [facility] DISEASE N EMERGENCY PHYS 82794 PRECORDIAL 06-11-2015 [facility] PAIN N EMERGENCY PHYS 25865 OTHER CHEST 06-08-2015 [facility] PAIN HEALTH MEDICAL G V433 HEART VALVE 06-08-2015 [facility] REPLACED HEALTH BY OTHER MEDICAL G MEANS V5861 LONG-TERM 06-08-2015 [facility] (CURRENT) HEALTH USE OF MEDICAL G ANTICOAGULA NTS V5883 ENCOUNTER 06-08-2015 [facility] THERAPEUTIC MEDICAL G DRUG MONITORING 5531 [facility] HERNIA 02-22-2015 [place] [facility] WITHOUT SERV MENTION FOUNDATION OBSTRUCTION /GANGRENE 42077 ABDOMINAL 02-22-2015 [facility] L[facility] 89119 ATRIAL 02-16-2015 [facility] FIBRILLATIO REGIONAL N MEDIC 0340 STREPTOCOCC 12-06-2014 [facility] HAINES SORE REGIONAL THROAT PHYSICIAN PRA 47515 FEVER 12-06-2014 [facility] UNSPECIFIED REGIONAL PHYSICIAN PRA 7862 COUGH 11-23-2014 [facility] 490 BRONCHITIS 11-22-2014 [facility] NOT N EMERGENCY SPECIFIED PHYS ACUTE OR CHRONIC 61067 SHORTNESS 11-22-2014 [facility] OF BREATH N EMERGENCY PHYS 92771 PAINFUL 11-20-2014 [facility] RESPIRATION N EMERGENCY PHYS 4611 ACUTE 11-19-2014 [facility] FRONTAL CLINIC, SINUSITIS PLLC 486 PNEUMONIA, 11-19-2014 [facility] ORGANISM CLINIC, UNSPECIFIED PLLC 3970 DISEASES OF 10-14-2014 [facility] TRICUS[facility] REGIONAL VALVE MEDIC 4240 MITRAL 10-14-2014 [place] [facility] DIS[facility] 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 09-18-2014 [facility] AORTOCORONA DAVID RY BYPASS STATUS V5789 OTHER 09-18-2014 [facility] SPECIFIED [facility] REHABILITAT DAVID ION PROCEDURE OTHER 72945 OTHER 08-21-2014 [facility] SPECIFIED REGIONAL CONGENITAL MEDICAL ANOMALY CENTE HEART OTHER 5119 UNSPECIFIED 07-18-2014 [facility] PLEURAL RADIOLOGY EFFUSION 5180 PULMONARY 07-18-2014 [facility] COLLAPSE RADIOLOGY 91476 OTHER 07-16-2014 [facility] [place] NONSPECIFIC RADIOLOGY ABNORMAL FINDING OF LUNG FIELD 2875 UNSPECIFIED 07-14-2014 [facility] THROMBOCYTO PENIA 4241 AORTIC 07-14-2014 [facility] [place] DISORDERS [facility]INIC PSC 4280 CONGESTIVE 07-14-2014 [facility] FAILURE UNSPECIFIED 03207 CHRONIC 07-14-2014 [facility] HEART FAILURE 4429 OTHER 07-14-2014 [facility]URYSM [facility] MEDICINE ASSOCIATES UNSPECIFIED SITE 7454 VENTRICULAR 07-14-2014 [facility] SEPTAL [facility] DEFECT 7850 UNSPECIFIED 07-14-2014 [facility]IC[facility] TACHYCARDIA ASSOCIATES 20458 OTHER 07-14-2014 [facility] RESPIRATORY [place] [place] [address] COR 07-11-2014 [facility] [place] ATHEROSLERO RADIOLOGY UNSPEC TYPE VESSEL [place]/YVON T V140 PERSONAL 07-10-2014 [facility] HISTORY OF [place] TO DAVID PENICILLIN V142 PERSONAL 07-10-2014 [facility] [place] [facility] TO DAVID SULFONAMIDE S V145 PERSONAL 07-10-2014 [facility] HISTORY OF [place] [facility] TO DAVID NARCOTIC AGENT V5869 LONG-TERM 07-10-2014 [facility] (CURRENT[facility] USE OF DAVID OTHER MEDICATIONS 82770 OTH 07-01-2014 [facility] PULMONARY MEDICAL G ART PULMONARY CIRC 7852 UNDIAGNOSED 06-24-2014 [facility] CARDIAC REGIONAL [place] MEDIC 10979 OTHER 06-24-2014 [facility] DYSPNEA AND REGIONAL MEDIC RESPIRATORY ABNORMALITI ES V452 PRESENCE OF 06-24-2014 [facility] CEREBROSPIN MEDIC AL FLUID DRAINAGE DEVICE 37036 ENDOCARDITI 06-23-2014 [facility] S VALVE REGIONAL UNSPECIFIED EMERGENCY UNSPECIFIED CAUSE 7821 RASH AND 06-23-2014 [facility] OTHER MEDICAL NONSPECIFIC SPECIALISTS SKIN ERUPTION 0539 HERPES 06-20-2014 [facility] ZOSTER REGIONAL WITHOUT EMERGENCY MENTION OF COMPLICATIO N 4168 OTHER 06-20-2014 [facility] CHRONIC MEDICAL PULMONARY SPECIALISTS HEART DISEASES 4293 CARDIOMEGAL 06-20-[facility] Y REGIONAL RADIOLOG 514 PULMONARY 06-20-2014 [facility] CONGESTION REGIONAL AND RADIOLOG HYPOSTASIS 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 12052 PULMONARY 06-20-2014 [facility] ARTERY REGIONAL COARCTATION EMERGENCY AND ATRESIA 6160 CERVICITIS 06-18-2014 [facility] AND REGIONAL ENDOCERVICI MEDIC TIS V4551 PRESENCE OF 06-18-2014 [facility] INTRAUTERIN MEDIC E CONTRACEPTI VE DEVICE 5990 URINARY 08-20-2010 [facility] INFECTION SERVICES SITE NOT SPECIFIED 7048 OTHER 07-05-2010 MAXIM[facility]O RICHARDS SPECIFIED DISEASE OF HAIR&HAIR FOLLICLES 7242 LUMBAGO 06-24-2010 MAXIMILIANO RICHARDS V7231 ROUTINE 05-05-2010 [facility] AL CLINIC OF EXAMINATION ALIYAH V745 SCREENING 05-05-2010 PATHOLOGY & EXAMINATION CYTOLOGY FOR LAB VENEREAL DISEASE 11640 CLOSED 05-01-2010 MAXIMILIANO RICHARDS FRACTURE UNSPEC PHALANX/PHA LANGES HAND 46635 VOMITING 04-01-2010 [facility] ALONE MAXIMINO 59775 DIARRHEA 04-01-2010 [facility] MAXIMINO 5409 ACUTE 03-27-2010 [facility] WITHOUT INC MENTION PERITONITIS 541 APPENDICITI 03-27-2010 Home VIERA RICHARD W UNQUALIFIED 92936 ABDOMINAL 03-24-2010 [facility], EMERGENCY [facility] 5258 OTHER SPEC 02-16-2010 THE IMPLANT DISORDERS & ORAL TEETH&[facility] STRUCTURES 5206 DISTURBANCE 01-05-2010 THE IMPLANT S IN TOOTH & ORAL ER[facility]PTION [facility] 3829 UNSPECIFIED 12-07-2009 [facility] MEDIA 7880 RENAL COLIC 12-07-2009 MAR[facility] 41493 CALCU 11-03-2009 [place] [facility] W/OTH LABORATORY CHOLECYST W/O M[place]ION OBST 90671 CALCU 11-03-2009 [facility] [place] W/O MENTION CLINIC PSC CHOLECYST/O BST 81484 CHOLECYSTIT 11-03-2009 ANESTHESIA IS, ASSOCIATES, UNSPECIFIED PSC 56931 ABDOMINAL 10-05-2009 [facility] RIGHT EMERGENCY UPPER SERVICES [facility] 7851 PALPITATION 04-14-2009 [facility] PROF SERV V251 ENCOUNTER 04-07-2009 [facility] INSERT/[facility] VE DEVICE [facility] V242 ROUTINE 03-31-2009 [facility] 591 HYDRONEPHRO 03-10-2009 [facility] UROLOGY PSC 650 NORMAL 02-11-2009 [facility] DELIV[facility] 74942 FIRST-DEGRE 02-11-2009 WOMEN'S E PER[facility] DELIV[facility] V270 OUTCOME OF 02-11-2009 WOMEN'S DELIVERY [facility] [facility] V3000 SINGLE 02-11-2009 [facility] W/O 95596 OTHER 02-06-2009 WOMEN'S THREATENED HEALTH LABOR, CLINIC [facility] ANTEPARTUM [facility] V220 SUPERVISION 02-06-2009 WOMEN'S OF NORMAL HEALTH [facility] [place] [facility] 52045 OTHER 02-02-2009 [facility] SPECIFED [facility] COMPLICATIO INC N ANTEPARTUM 05421 THREATENED 01-18-2009 [facility] PREMATURE HEALTH [facility] 17907 HEMATURIA 01-06-2009 [facility] UNSPECIFIED [facility] INC 4720 CHRONIC 12-15-2008 [facility] RHINITIS JR, J V 4739 UNSPECIFIED 12-15-2008 [facility]URT SINUSITIS JR, J V V741 SCREENING 12-04-2008 [facility] EXAM[facility]ATION [facility] ACCT TUBERCULOSI S 30308 DECR 12-02-2008 [facility] MOVMNTS [facility] MGMT MOTH INC ANTPRTM COND/COMP 94061 ABN MAT 11-28-2008 [facility] GLUCOSE [facility] TOLERANCE INC COMPL PG CB/PP UNS EOC V221 SUPERVISION 11-21-2008 [facility] 5920 CALCULUS OF 11-11-2008 [facility] 5921 CALCULUS OF 11-11-2008 [facility] 47128 OT CURRENT 11-11-2008 [facility] MAT CONDS [facility] CLASSIFIABL INC E ELSW ANTPRTM 7245 UNSPECIFIED 11-04-2008 [facility] BACKACHE H UROLOGY PSC V283 ENCOUNTER 10-23-2008 [facility] [place] [facility] ULTRASONIC 54811 OTHER 10-20-2008 [place] SPEC[facility]IED [facility] DIS[facility] URETER V222 10-20-2008 [facility] 6259 UNSPEC 08-28-2008 [facility] ORGANS 01266 TOB USE D/O 08-28-2008 [facility]PP [facility] V7242 06-24-2008 DHS/CO EXAMINATION HEALTH OR TEST [...] 10 3- 8- 00 00 IC ve GA 47 20 20 42 01 17 17 61 PH R 3 55 AR PH MA OS CY 75 MG CA PS UL E WA 00 03 04 30 30 00 CL Ac RF 09 -2 -2 .0 00 IN ti AR 31 0- 1- 00 00 IC ve IN 72 20 20 41 10 17 17 57 PH SO 1 63 AR DI MA UM CY 5 MG TA BL ET PN 44 03 04 30 30 00 CL Ac V 94 -2 -2 .0 00 IN ti WY 61 0- 1- 00 00 IC ve [...] 78 PH LF 0 98 AR AT MA E CY 32 5 MG TA BL ET FE 57 02 03 30 30 00 CL Ac RR 66 -0 -1 .0 00 IN ti OU 40 2- 0- 00 00 IC ve S 07 20 20 41 ROBERTSON 11 17 17 78 PH LF 0 98 AR AT MA E CY 32 5 MG TA BL ET PN 44 02 03 30 30 00 CL Ac V 94 -0 -1 .0 00 IN ti WY 61 2- 0- 00 00 IC ve EN 04 20 20 41 AT 50 17 17 78 PH AL [address] CY US MU LT IV IT TA B WA 00 01 02 30 30 00 CL Ac [...] 78 PH LF 0 98 AR AT MA E CY 32 5 MG TA BL ET PN 44 01 02 30 30 00 CL Ac V 94 -0 -0 .0 00 IN ti WY 61 3- 3- 00 00 IC ve EN 04 20 20 41 AT 50 17 17 78 PH AL [address] CY US MU LT IV IT TA B WA 00 12 01 30 30 00 CL Ac RF 09 -0 -1 .0 00 IN ti AR 31 8- 3- 00 00 IC ve IN 72 20 20 41 10 16 17 57 PH SO 1 63 AR DI MA UM CY 5 MG TA BL ET CI 00 12 12 0 14 7 70 GA Ac WY 37 -0 -0 .0 L- 97 IN ti OF 87 8- 8- 00 MA 62 EY ve LO 09 20 20 RT 6 XA 80 10 10 GA CI 1 PH CH N AR AE HC MA L L CY S 50 # 0 MG 10 05 TA 91 B CE 68 10 10 1 30 8 70 AR Ac PH 18 -1 -1 [...] 00 60 30 WA 70 CL Ac WY 09 -2 -3 .0 L- 29 AR ti OX 30 1- 0- 00 MA 25 KE ve EN 14 20 20 RT 5 91 09 09 DE 50 0 PH RE 0 AR K MG MA J CY TA BL #5 ET 91 00 06 07 00 15 3 WA 44 RU Ac 40 -1 -0 .0 L- 77 SH ti 60 5- 2- 00 MA 45 ve 35 20 20 RT 1 NE 70 09 09 IL 5 PH C AR MA CY #5 91 53 05 07 01 40 6 [...] -M #5 CR 91 10 0 MG 53 05 06 00 40 6 WA 70 CL Ac 74 -3 -1 .0 L- 22 AR ti 60 0- 8- 00 MA 58 KE ve 13 20 20 RT 5 10 09 09 DE 5 PH RE AR K MA J CY #5 91 GA 59 06 06 00 20 5 WA 70 CL Ac SO 76 -0 -1 .0 L- 22 AR ti WY 25 2- 8- 00 MA 99 KE ve OS 00 20 20 RT 6 TO 70 09 09 DE L 1 PH RE 10 AR K 0 MA J MC CY G TA #5 BL 91 ET 00 05 05 00 20 5 CL 19 CL Ac 59 -0 -2 .0 IN 30 AR ti 10 4- 1- 00 IC 63 KE ve 38 20 20 50 09 09 PH DE 5 AR RE MA K CY J 00 04 05 00 20 5 WA [...] Lance CY #5 91 00 04 05 01 12 5 WA [...] CY #5 91 00 04 04 00 20 2 WA 44 ALVAREZ Ac 40 -0 -2 .0 L- 75 RP ti 60 5- 3- 00 MA 67 EL ve 35 20 20 RT 8 70 09 09 GE 5 PH RA AR LD MA R CY #5 91 NI 00 04 04 00 20 10 WA 70 CL Ac TR 37 -0 -2 .0 L- 15 AR ti OF 83 6- 3- 00 MA 26 KE ve UR 42 20 20 RT 2 AN 20 09 09 DE TO 1 PH RE IN AR K REBEKA CRUMP CY NO -M #5 CR 91 10 0 MG AM 00 04 04 00 20 5 WA 70 ALVAREZ Ac PI 78 -0 -2 .0 L- 15 RP ti CI 12 5- 3- 00 MA 17 EL ve LL 14 20 20 RT 0 IN 50 09 09 GE 1 PH RA 50 AR LD 0 MA R MG CY CA #5 PS 91 UL E 00 04 04 00 12 5 WA 44 CL Ac 47 -0 -2 0. L- 75 AR ti 21 6- 3- 00 MA 69 KE ve 62 20 20 0 RT 8 71 09 09 DE 6 PH RE AR K MA J CY #5 91 PH 65 04 04 00 30 30 WA 70 CL Ac EN 16 -0 -2 .0 L- 15 AR ti AZ 20 8- 3- 00 MA 59 KE ve OP 51 20 20 RT 5 YR 71 09 09 DE ID 0 PH RE IN AR K E MA J 10 CY 0 MG #5 91 TA B NA 00 03 04 00 17 30 [...] ML DEPT DOS BLANK FOR IM USE Procedures Procedure DOS Code Location Performer Comment HANDLG&/O 77424 [facility] MEHDI R CONVEY 7 PHYSICIAN OF SPEC S GROUP FOR TR OFFICE TO LAB PARTICLE 42302 MARCIA KENNEDY AGGLUTINA 7 [facility] TION INC INC SCREEN EACH ANTIBODY FTL 64315 MARCIA KENNEDY FIBRONECT 7 [facility] IN INC INC CERVICOVA G SECRETION S SEMI-DELMA PARTICLE 82910 MARCIA KENNEDY AGGLUTINA 7 [facility] TION INC INC SCREEN EACH ANTIBODY DRUG TEST 01845 MARCIA KENNEDY PRSMV 7 [facility] QUAL DIR INC INC OPTICAL OBS PER DAY 55436 [facility] MEHDI NONSTRESS 7 [place] [address] MARCIA KENNEDY INFUSION 7 [facility] THERAPY/P INC INC ROPHYLAXI S /DX 1ST TO 1 HR PROTHROMB 46349 MARCIA KENNEDY IN TIME 7 [facility] INC INC IAADIADOO 82988 MARCIA KENNEDY 7 [facility] INFLUENZA INC INC US PREG 79327 SIKHISM SIKHISM UTERUS 7 HEALTH HEALTH REAL TIME [facility] F/U TRNSABDL PER FETUS ECG 70535 [facility] MASCORRO ROUTINE 7 NE [facility]ALTH ECG MEDICAL W/LEAST G 12 LDS W/I&R PROTHROMB 63754 MARCIA KENNEDY IN TIME 7 [facility] INC INC IAADIADOO 77990 MARCIA KENNEDY 7 [facility] H[facility] INFLUENZA INC INC GLUCOSE 55693 [facility] POST 7 PHYSICIAN PHYSICIAN GLUCOSE S GROUP S GROUP DOSE COLLECTIO 22571 [facility] HARDING N 7 PHYSICIAN CAPILLARY S GROUP BLOOD SPECIMEN PROTHROMB 45689 MARCIA KENNEDY IN TIME 7 [facility] INC INC ECG 38827 [facility] ROUTINE 7 NE HEALTH ECG MEDICAL W/LEAST G 12 LDS W/I&R IIV4 VACC 78899 [facility] SPLIT 7 [facility] DISTRICT VIRUS 0.5 HLTH DEPT HLTH DEPT ML DOS BLANK BLANK FOR IM USE 54359 MARCIA KENNEDY NONSTRESS 7 [facility] TEST INC INC PROTHROMB 94180 MARCIA KENNEDY IN TIME 7 [facility] INC INC ECHO 06957 VINNY NGUYỄN 7 [facility] CARDIOVAS MEDICAL C W/WO GROUP M-MODE RECORDING DOP 41780 VINNY NGUYỄN ECHOCARD 7 [facility] COLOR MEDICAL FLOW GROUP VELOCITY [place] PREG 26032 VINNY NGUYỄN UTERUS 7 HEALTH REAL TIME MEDICAL F/U GROUP TRNSABDL PER FETUS PROTHROMB 12211 MARCIA KENNEDY IN TIME 6 [facility] INC INC PROTHROMB 56253 MARCIA KENNEDY IN TIME 6 [facility] INC INC COLLECTIO 64177 MARCIA KENNEDY N VENOUS 6 [facility] BLOOD INC INC VENIPUNCT URE PROTHROMB 38453 MARCIA KENNEDY IN TIME 6 [facility] INC INC PROTHROMB 37152 MARCIA KENNEDY IN TIME 6 [facility] INC INC US PREG 45691 SIKHISM SIKHISM UTERUS 6 [facility] W/DETAIL [facility] UNRULY 1ST GESTATION ECG 75931 DESMOND MASCORRO ROUTINE 6 [facility] ECG MEDICAL W/LEAST G 12 LDS W/I&R ECG 71665 MARCIA KENNEDY ROUTINE 6 [facility] ECG INC INC W/LEAST 12 LDS TRCG ONLY W/O I&[place] [address] MARCIA KENNEDY TROPONIN 6 [facility] QUANTITAT INC INC WAYNE ECG 37635 MARCIA DIAZ JR ROUTINE 6 [facility] W/LEAST P 12 LDS I&R ONLY RADIOLOGI 23788 MARCIA KENNEDY C EXAM 6 [facility] CHEST 2 INC INC VIEWS FRONTAL&L ATERAL CREATINE 25787 MARCIA KENNEDY KINASE MB 6 [facility] FRACTION INC INC ONLY COMPREHEN 39618 MARCIA KENNEDY SIVE 6 [facility] METABOLIC INC INC PANEL BLOOD 11437 MARCIA KENNEDY COUNT 6 [facility] COMPLETE INC INC AUTO&AUTO DIFRNTL WBC CREATINE 43747 MARCIA KENNEDY KINASE 6 [facility] TOTAL INC INC ECG 03552 [facility]RO ROUTINE 6 [facility] ECG MEDICAL W/LEAST G 12 LDS W/I&[place] [address] SIKHISM SIKHISM 6 [facility] UTERUS 14 [facility] WK TRANSABDL GESTAT BLOOD 08844 MARCIA KENNEDY COUNT 6 [facility] COMPLETE INC INC AUTO&[place] [address] [place] [facility] TRANSVAGI 6 MEDICAL NAL IMAGING ASS CULTURE 48050 MARCIA KENNEDY BACTERIAL 6 [facility] INC INC QUANTTATI VE COLONY COUNT URINE COMPREHEN 71378 MARCIA KENNEDY SIVE 6 MEM HOS[facility] HOSP METABOLIC INC INC PANEL GONADOTRO 31723 MARCIA KENNEDY PIN 6 [facility] CHORIONIC INC INC QUANTITAT WAYNE URINE 99095 MARCIA KENNDEY 6 [facility] TEST INC INC VISUAL COLOR CMPRSN METHS URNLS DIP 29735 MARCIA FERREIRAON 6 [facility] STICK/TAB INC INC LET REAGENT AUTO MICROSCOP Y US PREG 29318 MARCIA KENNEDY UTERUS 6 [facility] HOSP REAL TIME INC INC W/IMAGE DCMTN TRANSVAG URINE 36639 [facility] HARDING 6 PHYSICIAN ANDESRON TEST S GROUP VISUAL COLOR CMPRSN METHS DRUG TST G0477 [facility] HARDING PRESUMP;C 6 PHYSICIAN ANDERSON PBL BEING S GROUP READ DC OPT OBV ONLY PROTHROMB 36811 MARCIA KENNEDY IN TIME 6 [facility] INC INC XTRNL ECG 73717 MARCIA SEGURA 6 [facility] S RHYTHM P W/I&R UP TO 48 HRS XTRNL ECG 04681 MARCIA KENNEDY & 48 HR 6 [facility]OSP RECORDING INC INC EXTERNAL 64901 MARCIA KENNEDY ECG 6 [facility] SCANNING INC INC ANALYSIS REPORT PROTHROMB 45252 MARCIA KENNEDY IN TIME 6 [facility]OS[facility] INC INC PROTHROMB 17579 MARCIA KENNEDY IN TIME 6 [facility] INC INC COLLECTIO 03776 MARCIA KENNEDY N VENOUS 6 [facility] [place] [address] [place] EUCEDA TRANSVAGI 6 RADIOLOGY RAY NAL THERAPEUT 85913 [facility] HARPEL IC 6 PHYSICIAN SHARMILA PROPHYLAC S GROUP TIC/DX INJECTION SUBQ/IM IADNA 22551 BIO BIO TRICHOMON 6 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 VAGINALIS IES IES AMPLIFIED PROBE TECH URINLS 31140 [facility] HARPEL DIP 6 PHYSICIAN SHARMILA STICK/TAB S GROUP LET REAGNT NON-AUTO MICRSCPY IADNA 90672 BIO BIO CHLAMYDIA 6 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 TRACHOMAT IES IES IS AMPLIFIED PROBE TQ IADNA 95155 BIO BIO NEISSERIA 6 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 GONORRHOE IES IES AE AMPLIFIED PROBE TQ IADNA NOS 86994 BIO BIO 6 REFERNCE REFERNCE AMPLIFIED LABORATOR LABORATOR PROBE TQ IES IES EACH ORGANISM IADNA 73546 [facility] HARPEL NEISSERIA 6 PHYSICIAN SHARMILA S GROUP GONORRHOE AE DIRECT PROBE TQ IMMUNOASS 78993 MARCIA KENNEDY AY TUMOR 6 [facility] ANTIGEN INC INC QUANTITAT WAYNE INJECTION J2675 [facility] 6 PHYSICIAN PHYSICIAN PROGESTER S GROUP S GROUP ONE PER 50 MG COLLECTIO 71814 MARCIA KENNEDY N VENOUS 6 [facility] BLOOD INC INC VENIPUNCT URE CULTURE 16824 [facility] HARPEL CHLAMYDIA 6 PHYSICIAN SHARMILA ANY S GROUP SOURCE CYTP C/V 99994 BIO BIO AUTO THIN 6 REFERNCE REFERNCE LYR LABORATOR LABORATOR PREPJ [place] [address] MARCIA KENNEDY LIPASE 6 [facility] INC INC PROTHROMB 10155 MARCIA KENNEDY IN TIME 6 [facility] INC INC BLOOD 54411 MARCIA KENNEDY COUNT 6 [facility] COMPLETE INC INC AUTO&[place] [address] MARCIA KENNEDY ABDOMEN & 6 [facility] PELVIS [place] [address] MARCIA KENNEDY INFUSION 6 [facility] THERAPY/P INC INC ROPHYLAXI S /DX 1ST TO 1 HR THERAPEUT 45895 MARCIA KENNEDY IC 6 [facility] INJECTION INC INC IV PUSH EACH NEW DRUG URNLS DIP 28745 MARCIA KENNEDY 6 [facility] STICK/TAB INC INC LET REAGENT AUTO MICROSCOP Y URINE 24489 MARCIA KENNEDY 6 [facility] TEST INC INC VISUAL COLOR CMPRSN METHS COMPREHEN 74812 MARCIA KENNEDY SIVE 6 [facility] [address] MARCIA KENNEDY AMYLASE 6 [facility] [place] [address] MARCIA KENNEDY TRANSVAGI 6 [facility] NAL INC INC THROMBOPL 86255 MARCIA KENNEDY ASTIN 6 [facility] TIME INC INC PARTIAL PLASMA/WH OLE BLOOD CT ANGIO 89485 [place] ABD&PLVIS 6 RADIOLOGY JEANETTE CNTRST MTRL W/WO CNTRST IMG PROTHROMB 93239 DESMOND MANTILLA IN TIME 6 [facility] JENNIFER MEDICAL G ANKLE L4350 [facility] CONTROL 6 Y Y ORTHOSIS [facility] STYL RIGID PREFAB RADEX 40748 [facility] ANKLE 6 Y Y COMPLETE [facility] MINIMUM 3 VIEWS RADEX 38126 [facility] FOOT 6 Y Y COMPLETE [facility] [place] [address] [place] [address] [place] CHIO COMER CERVICAL 6 RADIOLOGY SPINE W/O CONTRAST MATERIAL ECG 73061 [facility] ROUTINE 6 LORANGER [place] ECG CLINIC W/LEAST PSC 12 LDS I&[place] [address] [place] CH[place] COM[place] HEAD/BRAI 6 RADIOLOGY N W/O CONTRAST MATERIAL RADIOLOGI 21242 [place] PRUD[place] C 6 RADIOLOGY JEANETTE EXAMINATI ON CHEST SINGLE VIEW FRONTAL PROTHROMB 24397 DESMOND IVORY IN TIME 6 [facility] [place] MEDICAL G PROTHROMB 49255 [facility] IN TIME 6 Y Y HOSPITAL HOSPITAL RADIOLOGI 54450 [facility] C EXAM 6 Y Y CHEST 2 [facility] VIEWS FRONTAL&L ATERAL ECG 74037 [place] ROUTINE 6 MEDICAL NAN ECG SERV W/LEAST FOUNDATIO 12 LDS N I&R ONLY PREDNISON J7512 [facility] E 6 Y Y [facility] RLSE/HERO BOX RLSE ORAL 1 [place] [address] [facility] TROPONIN 6 Y Y QUANTITAT HOSPITAL HOSPITAL WAYNE ECG 63782 [facility] ROUTINE 6 Y Y ECG HOSPITAL HOSPITAL W/LEAST 12 LDS TRCG ONLY W/O I&R THROMBOPL 23038 [facility] ASTIN 6 Y Y TIME HOSPITAL HOSPITAL PARTIAL PLASMA/WH OLE BLOOD BASIC 83283 [facility] METABOLIC 6 Y Y PANEL HOSPITAL HOSPITAL CALCIUM TOTAL BLOOD 93240 [facility] UNIVERS COUNT 6 Y Y COMPLETE HOSPITAL HOSPITAL AUTOMATED BLOOD 14890 [facility] COUNT 6 Y Y COMPLETE HOSPITAL HOSPITAL AUTOMATED THROMBOPL 98564 [facility] ASTHI 6 Y Y TIME HOSPITAL HOSPITAL PARTIAL PLASMA/WH OLE BLOOD AMB A0427 DIANE DIANE SERVICE 6 [place] ALS [facility]ERG[facility] COGOVT COGOVT TRANSPORT LEVEL 1 THER 42821 [facility] PROPH/DX 6 Y Y NJX IV HOSPITAL HOSPITAL PUSH SINGLE/1S T SBST/DRUG COMPREHEN 26471 [facility] 6 Y Y METABOLIC HOSPITAL HOSPITAL PANEL FIBRIN 58416 [facility] DGRADJ 6 Y Y PRODUCTS HOSPITAL HOSPITAL D-DIMER QUANTITAT WAYNE NATRIURET 51471 [facility] IC 6 Y Y PEPTIDE HOSPITAL HOSPITAL ECG 93990 [facility] UNIVERS ROUTINE 6 Y Y ECG HOSPITAL HOSPITAL W/LEAST 12 LDS TRCG ONLY W/O I&[place] [address] [facility] TROPONIN 6 Y Y QUANTITAT [facility] WAYNE GROUND A0425 DIANE DIANE MILEAGE 6 [place]AY[place] FAY[place] PER URBAN URBAN STATUTE COGOVT COGOVT MILE ECG 95693 JAI QUAN ROUTINE 6 MEDICAL ECG SERV W/LEAST FOUNDATIO 12 LDS N I&R ONLY RADIOLOGI 50101 [place] GREG MINS C 6 MEDICAL EXAMINATI SERV ON CHEST FOUNDATIO SINGLE N VIEW FRONTAL PROTHROMB 87924 [facility] IN TIME 6 Y Y HOSPITAL HOSPITAL PROTHROMB 14582 [facility] IN TIME 6 Y Y HOSPITAL HOSPITAL RADIOLOGI 88069 [facility] C EXAM 6 Y Y CHEST 2 HOSPITAL HOSPITAL VIEWS FRONTAL&L ATERAL ECG 17305 JAI LEE CHI ROUTINE 6 MEDICAL ECG SERV W/LEAST FOUNDATIO 12 LDS N I&R ONLY INJECTION J1650 [facility] 6 Y Y ENOXAPARI [facility] N SODIUM [address] [place] [address] [facility] TROPONIN 6 Y Y QUANTITAT [facility] WAYNE ECG 33820 [facility] ROUTINE 6 Y Y ECG [facility] W/LEAST 12 LDS TRCG ONLY W/O I&R URNLS DIP 71846 [facility] 6 Y Y STICK/TAB [facility] LET REAGENT AUTO MICROSCOP Y FIBRIN 65827 [facility] DGRADJ 6 Y Y PRODUCTS [facility] D-DIMER QUANTITAT WAY[place] THERAPEUT 52379 [facility] 6 Y Y PROPHYLAC [facility] TIC/DX INJECTION SUBQ/IM THROMBOPL 91604 [facility] ASTIN 6 Y Y TIME [facility] PARTIAL PLASMA/WH OLE BLOOD BLOOD 89595 [facility] COUNT 6 Y Y COMPLETE [facility] AUTOMATED BASIC 15087 [facility] METABOLIC 6 Y Y PANEL [facility] CALCIUM TOTAL SVC PRV 96640 NEW NEW OFFICE 6 [facility] CL[facility] SCHEDD PSC PSC EVN WKEND/[place] [address] [facility] ABDOMEN & 6 Y Y PELVIS [facility] W/CONTRAS T MATERIAL INFUSION J7030 [facility] NORMAL 6 Y Y SALINE [facility] SOLUTION 1000 CC THERAPEUT 25240 [facility] IC 6 Y Y INJECTION [facility] IV PUSH EACH NEW DRUG INJECTION J2405 [facility] 6 [facility] PER 1 MG BLOOD 59273 [facility] UNIVERS COUNT 6 Y Y COMPLETE [facility] AUTOMATED THER 92774 [facility] PROPH/DX 6 Y Y NJX IV HOSPITAL HOSPITAL PUSH SINGLE/1S T SBST/DRUG COMPREHEN 63333 [facility] SIVE 6 Y Y [facility]ABOLIC HOSPITAL [facility] PANEL URNLS DIP 62638 [facility] UNIVERS 6 Y Y STICK/TAB [facility] LET REAGENT AUTO MICROSCOP Y LOCM Q9967 [facility] [phone] 6 Y Y MG/ML HOSPITAL HOSPITAL IODINE CONCENTRA TION PER ML URINE 65943 [facility] 6 Y Y TEST HOSPITAL HOSPITAL VISUAL COLOR CMPRSN METHS PROTHROMB 63761 [facility] IN TIME 6 [place] [address] [facility] LIPASE 6 Y Y HOSPITAL HOSPITAL PROTHROMB 57495 DESMOND RAMIREZ IN TIME 6 [place] [address] [place] ABDOMEN & 6 RADIOLOGY JEANETTE PELVIS W/CONTRAS T MATERIAL PROTHROMB 21382 DESMOND RAMIREZ IN TIME 6 [facility] III [facility] MEDICAL G ECG 97106 DESMOND RAMIREZ ROUTINE 6 [facility] III [facility] ECG MEDICAL W/LEAST G 12 LDS W/I&R ECHO 20975 JAI DUEÑAS MELO TTHRC R-T 6 MEDICAL 2D SERV W/WOM-MOD FOUNDATIO E COMPL N SPEC&COLR D ECG 39417 JAI NATHAN DACIA ROUTINE 6 MEDICAL ECG SERV W/LEAST FOUNDATIO 12 LDS N I&R ONLY INITIAL 96828 S CARITO INPATIENT 6 NURSE ELENA CONSULT PRACTITIO NEW/ESTAB NER GR [place] [address] [place] [address] [place] ABDOMEN & 6 MEDICAL PERNELL PELVIS SERV W/CONTRAS FOUNDATIO T N MATERIAL DUP-SCAN 67650 JAI SIERRA MAURICE XTR VEINS 6 MEDICAL SERV UNILATERA FOUNDATIO L/LIMITED N STUDY 72264 JAI ANTONIA JOINER RETROPERI 6 MEDICAL MOOSE TONEAL SERV REAL TIME FOUNDATIO W/IMAGE N COMPLETE PROTHROMB 27601 DESMOND HORTA OLIVIER IN TIME 5 [facility] MEDICAL G ECHO 67565 DESMOND HORTA OLIVIER TTHRC R-T 5 [facility] 2D W/WO MEDICAL M-MODE G COMPLETE REST&ST RADIOLOGI 66758 [facility] JAI SUTTON C 5 RADIOLOGY JEFF EXAMINATI ON CHEST SINGLE VIEW FRONTAL RADIOLOGI 47443 [facility] NALLELY EXAMINATI EMERGENCY ON CHEST PHYS SINGLE VIEW FRONTAL ECG [address] [facility] ROUTINE 5 NALLELY ECG EMERGENCY W/LEAST PHYS 12 LDS I&R ONLY ECG 74136 DESMOND RAMIREZ ROUTINE 5 [facility] III [place] ECG MEDICAL W/LEAST G 12 LDS W/I&R PROTHROMB 04153 DESMOND RAMIREZ IN TIME 5 [facility] III [place] MEDICAL G PROTHROMB 77559 DESMOND MANTILLA IN TIME 5 [place] [address] [place] MERHAR ABDOMEN & 5 MEDICAL GAR PELVIS SERV W/CONTRAS FOUNDATIO T N MATERIAL DUP-SCAN 08777 [place]ICK[place] ARTL YONNY 5 MEDICAL CATRACHITO ABDL/PEL/ SERV SCROT&/[place] [address] [place] TRANSVAGI 5 MEDICAL CATRACHITO NAL SERV FOUNDATIO N PROTHROMB [address] [facility] IN TIME 5 [facility] PROTHROMB [address] [facility] IN TIME 5 [facility] PROTHROMB [address] [facility] IN TIME 5 [facility] MEDIC IAADIADOO 83058 [facility] DUEÑAS DAMIEN 5 REGIONAL STREPTOCO PHYSICIAN CCUS PRA GROUP A PROTHROMB [address] [facility] IN TIME 5 [facility]IC RADIOLOGI 49725 [facility] [place] C EXAM 5 RADIOLOGY JENNIFER CHEST 2 VIEWS FRONTAL&L ATERAL RADIOLOGI 09158 [facility] [place] D[place] C EXAM 5 RADIOLOGY RHO CHEST 2 VIEWS FRONTAL&L ATERAL ECG [address] [facility] ROUTINE 5 NALLELY REG ECG EMERGENCY W/LEAST PHYS 12 LDS I&R ONLY OUTPATIEN [address] [facility] [address] [facility] T CARDIAC 5 [facility] W/CONT ECG MONITORIN G OUTPATIEN 72007 [facility] T CARDIAC 5 [facility] W/CONT ECG MONITORIN G ECHO [address] [facility] TTHR R-T 5 REGIONAL REGIONAL 2D MEDIC MEDIC W/WOM-MOD E COMPL SPEC&COLR D PROTHROMB [address] [facility] IN TIME 5 [facility] MEDIC PROTHROMB [address] [facility] IN TIME 5 [facility]IC PROTHROMB [address] [facility] IN TIME 4 [facility]IC MEDIC PROTHROMB [address] [facility] IN TIME 4 [facility]AL [facility]AL MEDIC MEDIC PROTHROMB 84961 [facility] IN TIME 4 [facility]AL [facility] MEDICAL MEDICAL CENTE CENTE RADIOLOGI 53364 F[facility] KRAMER ATU C EXAM 4 N CHEST 2 RADIOLOGY VIEWS GROUP P FRONTAL&[place] [address] [facility] TROPONIN 4 REGIONAL REGIONAL QUANTITAT MEDICAL MEDICAL [place] CENTE THER 79982 [facility] D[facility] PROPH/DX 4 REGIONAL REGIONAL NJX IV MEDICAL MEDICAL PUSH CENTE CENTE SINGLE/1S T SBST/DRUG THROMBOPL 02368 [facility] ASTIN 4 REGIONAL REGIONAL TIME MEDICAL MEDICAL PARTIAL CENTE CENTE PLASMA/WH OLE BLOOD BASIC 80250 [facility] METABOLIC 4 REGIONAL REGIONAL PANEL MEDICAL MEDICAL [place] [address] [facility] D[facility] TROPONIN 4 REGIONAL REGIONAL QUANTITAT MEDICAL MEDICAL WAYNE CENTE CENTE BLOOD 18888 [facility] COUNT 4 REGIONAL REGIONAL COMPLETE MEDICAL MEDICAL AUTO&AUTO CENTE CENTE DIFRNTL WBC ECG 66355 [facility] ROUTINE 4 REGIONAL REGIONAL ECG MEDICAL MEDICAL W/LEAST CENTE CENTE 12 LDS TRCG ONLY W/O I&R ECG 75780 [facility] ROUTINE 4 NALLELY ECG EMERGENCY W/LEAST PHYS 12 LDS I&R ONLY PROTHROMB 66797 ST [facility]QU[facility] FAN IN TIME 4 [facility] RADIOLOGI 57501 [facility] [place] C EXAM 4 RADIOLOGY JENNIFER CHEST 2 VIEWS FRONTAL&L ATERAL PROTHROMB [address] [facility] IN TIME 4 [facility] PROTHROMB [address] [facility] IN TIME 4 [facility] PROTHROMB 90366 [facility] IN TIME 4 [facility] RADIOLOGI 54803 [facility] [place] [facility] C 4 RADIOLOGY JENNIFER EXAMINATI ON CHEST SINGLE VIEW FRONTAL RADIOLOGI 44812 [facility] [place] WESTERFI[place] C 4 RADIOLOGY LD IV ALL EXAMINATI ON CHEST SINGLE VIEW FRONTAL RADIOLOGI 72749 [facility] [place] C 4 RADIOLOGY LD IV ALL EXAMINATI ON CHEST SINGLE VIEW FRONTAL RADIOLOGI 58655 [facility] [place] C 4 RADIOLOGY JENNIFER EXAMINATI ON CHEST SINGLE VIEW FRONTAL RADIOLOGI 33883 [facility] [place] C 4 RADIOLOGY LD IV ALL EXAMINATI ON CHEST SINGLE VIEW FRONTAL RADIOLOGI 31477 [facility] [place] WE[place] C 4 RADIOLOGY LD IV ALL EXAMINATI ON CHEST SINGLE VIEW FRONTAL RADIOLOGI 10755 [facility] [place] AN C 4 RADIOLOGY CAR EXAMINATI [place]ST [place] [address] [facility] PERICRD 4 A JEANETTE SAC&GRT ASSOCIATE VSLS S PSC W/CIVIL ENGINEERING DRAFTER OXTJ >1MO PO RADIOLOGI 90972 [facility] [place] C 4 RADIOLOGY JENNIFER EXAMINATI ON CHEST SINGLE VIEW FRONTAL INSJ 00121 [facility] NON-TUNNE 4 A JEANETTE LED ASSOCIATE CENTRAL S PSC VENOUS CATH AGE 3 YR/> ARTL 05724 [facility] CATHJ/CAN 4 A JEANETTE NULJ ASSOCIATE MNTR/CASTANO S PSC SFUSION SPX PRQ ECG 42708 INTERNAL CALDRONEY ROUTINE 4 MEDICINE RAL ECG ASSOCIATE W/LEAST S 12 LDS I&R ONLY DOPPLER 16648 ANESTHESI [facility] ECHOCARD 4 A JEANETTE PULSE ASSOCIATE WAVE S PSC W/SPECTRA L DISPLAY INSERTION 58898 [facility] FLOW 4 [facility] DIRECTED MEDICAL MEDICAL CATHETER G G FOR MONITORIN G ECHO 29273 ANESTHESI [facility] TRANSESOP 4 A JEANETTE HAG ASSOCIATE CONGEN S PSC PROBE PLCMT IMGNG I&R DOP 53393 ANESTHESI [facility] ECHOCARD 4 A JEANETTE COLOR ASSOCIATE FLOW S PSC VELOCITY MAPPING RPR SINUS 33626 [facility] VALSALVA 4 [facility] FISTULA MEDICAL W/RPR G V-SEPTAL DEFECT RPLCMT 30283 D[facility] RIVAS PROST 4 [facility] AORTIC MEDICAL VALVE G OPEN XCP HOMOGRF/S TENT LEVEL III 93558 [facility] SURG 4 [facility] PATHOLOGY CLINIC PSC GROSS&[place] [address] [facility] SURG 4 [facility] CLIN[facility] PSC GROSS&QUIANA ROSCOPIC EXAM OPEN AND [address] REPLACEME NT OF AORTIC VALVE PULMONARY [address] WEDGE MONITORIN G OTHER&UNS [address] REPAIR VENTRICUL AR SEPTAL DEFECT EXCISION [address] ANEURYSM OF HEART ARTERIAL [address] ZATION SPMTRY 52232 [facility] COLON-CAR W/VC 4 [facility] RERAS JAYJAY EXPIRATOR MEDICAL Y YONNY G W/WO MXML VOL VNTJ RADIOLOGI 76212 [facility] [place] ANGELICA MAT C EXAM 4 RADIOLOGY CHEST 2 VIEWS FRONTAL&L ATERAL ECG 46485 [facility] ROUTINE 4 NALLELY EDW ECG EMERGENCY W/LEAST PHYS 12 LDS I&R ONLY RADIOLOGI 44529 [facility] [place] ANGELICA MAT C 4 RADIOLOGY EXAMINATI ON CHEST SINGLE VIEW FRONTAL INJECTION J2270 [facility] MORPHINE 4 [facility] SULFATE DAVID DAVID UP TO [address] [place] [address] [facility] TROPONIN 4 [facility] QUANTITAT DAVID DAVID WAYNE BLOOD 21594 [facility] COUNT 4 [facility] COMPLETE DAVID DAVID AUTO&AUTO DIFRNTL WBC ECG 00134 [facility] ROUTINE 4 [place] [place] ECG DAVID DAVID W/LEAST 12 LDS TRCG ONLY W/O I&R COMPREHEN 64758 [facility] SIVE 4 [facility] METABOLIC DAVID DAVID PANEL CREATINE 03264 [facility] KINASE MB 4 [facility] FRACTION DAVID DAVID ONLY URINE 37131 [facility] 4 [facility] TEST DAVID DAVID VISUAL COLOR CMPRSN METHS URNLS DIP 33110 [facility] 4 [facility] STICK/TAB DAVID DAVID LET REAGENT AUTO MICROSCOP Y CRITICAL [address]32 [place] [address] NALLELY EDW ILL/INJUR EMERGENCY ED PHYS PATIENT INIT 30-74 MIN THER 75953 [facility] PROPH/DX 4 [facility] NJX IV DAVID DAVID PUSH SINGLE/1S T SBST/DRUG CREATINE 49172 [facility] KINASE 4 [facility] TOTAL DAVID DAVID ECHO 70252 MYLES DELGADO TRANSESOP 4 MEDICAL NOW HAG R-T SPECIALIS 2D W/PRB TS IMG ACQUISJ I&R ALS A0398 [facility] BATH CO ROUTINE 4 AMBULANCE AMBULANCE DISPOSABL SERVICE SERVICE E SUPPLIES GROUND A0425 BATH [facility] BATH CO MILEAGE 4 AMBULANCE AMBULANCE PER SERVICE SERVICE STATUTE MILE RADIOLOGI 08326 [facility] C EXAM 4 REGIONAL CHEST 2 RADIOLOG VIEWS FRONTAL&L ATERAL AMB A0427 BATH CO BATH CO SERVICE 4 AMBULANCE AMBULANCE ALS SERVICE SERVICE EMERGENCY TRANSPORT LEVEL [address] [facility] AMBROSIO C EXAM 4 REGIONAL OLIVIER CHEST 2 RADIOLOG VIEWS FRONTAL&L ATERAL ECHO 49959 MYLES DELGADO TTHRC R-T 4 MEDICAL NOW 2D SPECIALIS W/WOM-MOD TS E COMPL SPEC&COLR D SCR G0123 [facility] CYTOPATH 4 REGIONAL REGIONAL CERV/VAG MEDIC MEDIC SCR CYTOTECH UND PHYS SUPV URNLS DIP 26287 [facility]ENN[facility] 0 [facility] STICK/TAB INC INC LET REAGENT AUTO MICROSCOP Y SUSCEPTIB 50484 MARCIA KENNEDY LTY STDY 0 [facility] ANTIMICRB INC INC IAL MICRO/AGA R DILUTJ URINE 34381 MARCIA MARCIA 0 [facility] TEST INC INC VISUAL COLOR CMPRSN METHS BASIC 27913 MARCIA KENNEDY METABOLIC 0 [facility] PANEL INC INC CALCIUM TOTAL CULTURE 10742 MARCIA KENNEDY BACTERIAL 0 [facility] INC INC QUANTTATI VE COLONY COUNT URINE CULTURE 50554 MARCIA KENNEDY BCT 0 [facility] ISOL&PRSM INC INC PTV ID ISOLATE EA URINE BLOOD 26768 MARCIA KENNEDY COUNT 0 [facility] COMPLETE INC INC AUTO&AUTO DIFRNTL WBC IADNA 45944 PATHOLOGY PATHOLOGY CHLAMYDIA 0 & & CYTOLOGY CYTOLOGY TRACHOMAT LAB LAB IS AMPLIFIED PROBE TQ IADNA 74492 PATHOLOGY PATHOLOGY NEISSERIA 0 & & CYTOLOGY CYTOLOGY GONORRHOE LAB LAB AE AMPLIFIED PROBE TQ CYTP C/V 20386 PATHOLOGY PATHOLOGY AUTO THIN 0 & & LYR CYTOLOGY CYTOLOGY PREPJ SCR LAB LAB MNL RESCR PHYS BLOOD 07331 MARCIA KENNEDY COUNT 0 [facility] COMPLETE INC INC AUTO&AUTO DIFRNTL WBC BLOOD 19699 MARCIA KENNEDY COUNT 0 [facility] COMPLETE INC INC AUTO&[place] [address] [place] [facility], ABDOMEN 0 MEDICAL RUBI W/O IMAGING CONTRAST ASSOCIATE MATERIAL S 3D 42953 [place] [facility], RENDERING 0 MEDICAL RUBI IMAGING W/INTERP& ASSOCIATE POSTPROC S DIFF WORK STATION CT PELVIS 09195 [place] [facility], W/O 0 MEDICAL RUBI CONTRAST IMAGING MATERIAL ASSOCIATE S COMPREHEN 44815 MARCIA KENNEDY SIVE 0 [facility] METABOLIC INC INC PANEL CULTURE 00028 MARCIA KENNEDY BCT 0 [facility] ISOL&PRSM INC INC PTV ID ISOLATE EA URINE URINE 41900 MARCIA KENNEDY 0 [facility] TEST INC INC VISUAL COLOR CMPRSN METHS URNLS DIP 48482 M[facility]IA KENNEDY 0 [facility] STICK/TAB INC INC LET REAGENT AUTO MICROSCOP Y SUSCEPTIB 80154 MARCIA KENNEDY LTY STDY 0 [facility] ANTIMICRB INC INC IAL MICRO/AGA R DILUTJ CULTURE 95569 MARCIA KENNEDY BACTERIAL 0 [facility] INC INC QUANTTATI VE COLONY COUNT URINE DEEP D9220 [facility], SEDATION/ 0 IMPLANT & III, GENERAL ORAL LYN P ANESTHESI SURGERY A-1ST [facility] [employer] ALVEOLECT 50451 [facility] ISRRAEL 0 IMPLANT & III, W/CURTG ORAL LYN P OSTEITIS/ SURGERY SEQUESTRE [facility] [employer] ORTHOPANT 30454 [facility] OGRAM 0 IMPLANT & III, ORAL LYN P [facility] DEEP D9220 [facility], SEDATION/ 0 IMPLANT & III, GENERAL ORAL LYN P ANESTHESI SURGERY A-1ST 30 [employer] [employer] LEVEL III 05389 [facility] SURG 0 CLINIC CLINIC PATHOLOGY LABORATOR LABORATOR Y Y GROSS&QUIANA ROSCOPIC EXAM ANES 78639 ANESTHESI ELI, INTRAPERI 0 A LANDY Lance TONEAL ASSOCIATE UPPER S, PSC ABDOMEN W/LAPS NOS LAPS SURG 67628 NEW NEW 0 [facility] CHOLECYST CLINIC CLINIC ECTOMY PSC PSC W/CHOLANG IOGRAPHY ANES 15048 [facility], XTRNL MID 0 ANESTH TASHI A & INNER OF THE EAR W/BX [facility] TYMPANOTO MY ECHO 59879 MARCIA PATY TTHRC R-T [address] SINA Madden W/WOM-MOD PROF SERV E COMPL SPEC&COLR D LEVONORGE J7302 [facility], STREL-RLS 9 [facility] REVA Lance E CLINIC OF INTRAUTER N [facility] 52 MG INSERTION 28907 [facility], 9 [facility] REVA J INTRAUTER CLINIC OF INE DEVICE [facility]A IUD PLLC URINE 04079 [facility], 9 [facility] REVA TEST CLINIC OF VISUAL COLOR [facility] CMPRSN PLLC METHS CYTP C/V 25162 PATHOLOGY PATHOLOGY AUTO THIN 9 & & LYR CYTOLOGY CYTOLOGY PREPJ SCR LAB LAB MNL RESCR PHYS CYSTO 90144 [facility] EDNA, W/SIMPLE 9 L[facility] KAROLINA D REMOVAL UROLOGY STONE & PSC STENT REMOVAL 9762 MARCIA MARCIA OF 9 [facility] URETEROST INC INC ISRRAEL TUBE&[facility]T [facility] 72709 [facility] MARIBELL, DISCHARGE 9 CARE WALDO T DAY ASSOCIATE MANAGEMEN S T 30 MIN/< SUBQ 11108 [facility] 9 CARE WALDO T CARE PER ASSOCIATE DAY E/M S NORMAL SUBQ 44884 [facility] 9 CARE WALDO T CARE PER ASSOCIATE DAY E/M S NORMAL NEURAXIAL 39414 [facility], LABOR 9 ANESTH SHIRIN L ANALG/ANE OF THE S PLND [facility] VAGINAL DELIVERY 1ST 96051 [facility] DU[facility]AYNOR, HOSP/MANASA 9 CARE WALDO T FITO ASSOCIATE CENTER S CARE PER DAY NML NB VAGINAL 49679 [facility], DELIVERY 9 HEALTH REVA J ONLY CLINIC OF W/POSTPAR [facility] [place] [facility] REPAIR OF 7569 MARCIA KENNEDY OTHER 9 [facility] CURRENT INC INC OBSTETRIC LACERATIO N 42973 [facility], NONSTRESS 9 [facility]ALTH REVA J TEST [facility] [place] [facility] 77045 MARCIA KENNEDY NONSTRESS 9 [facility] TEST INC INC CUL BACT 05742 COMBINED COMBINED XCPT 9 PHYSICIAN PHYSICIAN URINE S LAB S LAB BLOOD/STO OL AEROBIC ISOL 93222 [facility], NONSTRESS 9 [facility]ALTH REVA J [facility] [place] 81149 MARCIA MARCIA NONSTRESS 9 [facility] TEST INC INC CULTURE 39685 MARCIA KENNEDY BACTERIAL 9 [facility] INC INC QUANTTATI VE COLONY COUNT URINE THERAPEUT 90700 MARCIA KENNEDY IC 9 [facility] PROPHYLAC INC INC TIC/DX INJECTION SUBQ/IM URNLS DIP 06936 MARCIA KENNEDY 9 [facility] STICK/TAB INC INC LET REAGENT AUTO MICROSCOP Y 51014 [facility], NONSTRESS 9 [facility]ALTH REVA J [facility] 39327 MARCIA KENNEDY NONSTRESS 9 [facility] TEST INC INC FTL 35349 MARCIA KENNEDY FIBRONECT 9 [facility] IN INC INC CERVICOVA G SECRETION S SEMI-DELMA URNLS DIP 97275 MARCIA KENNEDY 9 [facility] STICK/TAB INC INC LET REAGENT AUTO MICROSCOP Y CULTURE 02864 MARCIA KENNEDY BACTERIAL 9 [facility] INC INC QUANTTATI VE COLONY COUNT URINE OBSERVATI 42090 JOSH ALFARO ON/INPATI 9 ANGELINA YOON [place] Opal [facility] [place] [address] [place] [address] MARCIA KENNEDY RETROPERI 9 [facility] TONEAL INC INC REAL TIME W/IMAGE COMPLETE 29354 [facility], NONSTRESS 9 [facility] TEST [facility] [place] [facility] 33308 MARCIA KENNEDY NONSTRESS 9 [facility] TEST INC INC FTL 42921 MARCIA KENNEDY FIBRONECT 9 [facility] IN INC INC CERVICOVA G SECRETION S SEMI-DELMA CULTURE 80081 MARCIA MARCIA BACTERIAL 9 [facility] INC INC QUANTTATI VE COLONY COUNT URINE URNLS DIP 13567 MARCIA KENNEDY 9 [facility] STICK/TAB INC INC LET REAGENT AUTO MICROSCOP Y OBSERVATI 47358 JOSH ALFARO ON/INPATI 9 ANGELINA Joseph [facility] 55 MINUTES BLOOD 80079 MARCIA KENNEDY COUNT 9 [facility] COMPLETE INC INC AUTO&AUTO DIFRNTL WBC 41683 MARCIA KENNEDY NONSTRESS 9 [facility] TEST INC INC SKIN TEST 15071 DHS/CO MARCIA [address] [facility] [place] [facility] ACCT INTRADERM AL GLUCOSE 01821 MARCIA KENNEDY TOLERANCE 9 [facility] TEST GTT INC INC 3 SPECIMENS URNLS DIP 20078 MARCIA KENNEDY 9 [facility] STICK/TAB INC INC LET RGNT NON-AUTO W/O MICRSCP GLUCOSE 69505 MARCIA EKNNEDY TOLERANCE 9 [facility] EA ADDL INC INC BEYOND 3 SPECIMENS GLUCOSE 05748 [facility], POST 9 [facility] GLUCOSE CLINIC OF DOSE KIKA [facility] CULTURE 81729 COMBINED COMBINED BACTERIAL 9 PHYSICIAN PHYSICIAN S LAB S LAB QUANTTATI VE COLONY COUNT URINE COLLECTIO 77029 [facility], N 9 [facility] CAPILLARY CLINIC OF BLOOD SPECIMEN [facility] GLUCOSE 32650 [facility], TOLERANCE 9 [facility] TEST GTT CLINIC OF 3 SPECIMENS [place] [facility] URETEROSC 5631 MARCIA KENNEDY OPY 9 [facility] INC INC URETERAL 598 MARCIA KENNEDY CATHETERI 9 [facility] ZATION INC INC INTRO 92839 MARCIA KENNEDY URETERAL 9 [facility] CATH/STEN INC INC T PRQ RS&I ANES 30358 [facility], TRANSURET 9 ANESTH SINA Madden HRZAKI OF THE W/URETHRO [facility] CYSTOSCOP Y NOS CYSTO 89654 LIZA BISHOP, W/URTROSC 9 [facility] KAROLINA D OPY&/PYEL UROLOGY OSCOPY DX PSC CULTURE 95799 COMBINED COMBINED BACTERIAL 9 PHYSICIAN PHYSICIAN S LAB S LAB QUANTTATI VE [place] UR[place] PREG 40623 [facility], UTERUS 9 [facility] AFTER 1ST CLINIC OF TRIMEST [place] GESTATION [facility] UROGRAPHY 44517 MARCIA KENNEDY IV W/WO 9 [facility] KUB W/[place] [address] MARCIA KENNEDY RETROPERI 9 [facility] TONEAL INC INC REAL TIME W/IMAGE COMPLETE CULTURE 97013 MARCIA KENNEDY BACTERIAL 9 [facility] INC INC QUANTTATI VE COLONY COUNT URINE CULTURE 58713 MARCIA KENNEDY BCT 9 [facility] ISOL&PRSM INC INC PTV ID ISOLATE EA URINE URNLS DIP 33081 MARCIA KENNEDY 9 [facility] STICK/TAB INC INC LET REAGENT AUTO MICROSCOP Y SUSCEPTIB 77814 MARICA KENNEDY LTY STDY 9 [facility] ANTIMICRB INC INC IAL MICRO/AGA R DILUTJ 56463 [facility], NONSTRESS 9 HEALTH REVA J TEST CLINIC OF KIKA [facility] US PREG 71365 CONCHA CONCHA, UTERUS 9 AND DILLAN W/DETAIL DAILY PSC UNRULY 1ST GESTATION COLLECTIO 31945 [facility] VENOUS [address] [place] [address] BLOOD [facility] VENIPUNCT [facility] BLOOD 60297 [facility] COUNT [address] [place] [address] COMPLETE [facility] AUTO&AUTO [facility] WBC GONADOTRO 07879 [facility] PIN [address] [place] [address] [facility] WAYNE URNLS DIP [address] STICK/TAB [facility] AUTO MICROSCOP Y [place] PREG 79768 [facility], UTERUS 8 HEALTH REVA J REAL TIME CLINIC OF W/IMAGE DCMTN KIKA TRANSVAG [facility] CUL BACT 88964 COMBINED COMBINED XCPT 8 PHYSICIAN PHYSICIAN URINE S LAB S LAB BLOOD/STO OL AEROBIC ISOL ANTIBODY 81705 COMBINED COMBINED CHLAMYDIA 8 PHYSICIAN PHYSICIAN S LAB S LAB URINE 32520 DHS/CO MARCIA 8 HEALTH CO HEALTH TEST [facility] [place] VISUAL BANK ACCT COLOR CMPRSN METHS Encounters Encounter Start End Date Code Location Performer Type Date OFFICE 11659 [facility] MEHDI OUTPATIEN 7 7 PHYSICIAN T VISIT S GROUP 15 MINUTES HOSPITAL MARCIA - 7 7 [facility]PATIEN [facility] MARCIA - 7 7 [facility] OUTPATIEN [facility] T OFFICE 53020 [facility] MEHDI OUTPATIEN 7 7 PHYSICIAN T VISIT S GROUP 15 MINUTES HOSPITAL MARCIA - 7 7 [facility] OUTPATIEN [facility] T OFFICE 80490 MARCIA OUTPATIEN 7 7 [facility] T VISIT 5 INC MINUTES HOSPITAL MARCIA - 7 7 [facility] OUTPATIEN INC T OFFICE 37285 MARCIA OUTPATIEN 7 7 [facility] T VISIT 5 INC MINUTES [facility]ICE 38569 [facility] 7 7 [facility] T VISIT MEDICAL 15 G MINUTES HOSPITAL SIKHISM - 7 7 HEALTH OUTPATIEN [facility]ER T OFFICE 10070 [facility] HARDING OUTPATIEN 7 7 PHYSICIAN T VISIT S GROUP 15 MINUTES OFFICE 23304 [facility] HARDING OUTPATIEN 7 7 PHYSICIAN T VISIT S GROUP 15 MINUTES OFFICE 82710 MARCIA OUTPATIEN 7 7 [facility] T VISIT 5 INC MINUTES HOSPITAL MARCIA - 7 7 [facility] OUTPATIEN INC T OFFICE 72290 [facility] 7 7 [facility] DEPT HLTH DEPT MINUTES [facility] OFFICE 48357 MARCIA OUTPATIEN 7 7 MEM [facility] T VISIT 5 INC MINUTES HOSPITAL MARCIA - 7 7 [facility] OUTPATIEN INC T OFFICE 22329 [facility] HARDING OUTPATIEN 7 7 PHYSICIAN T VISIT S GROUP 15 MINUTES OFFICE 66208 [facility] HARDING OUTPATIEN 7 7 PHYSICIAN T VISIT S GROUP 15 MINUTES HOSPITAL MARCIA - 7 7 [facility] OUTPATIEN INC T OFFICE 40845 MARCIA OUTPATIEN 7 7 [facility] T VISIT 5 INC MINUTES OFFICE 72505 [facility] 7 7 [facility] T VISIT MEDICAL 15 G MINUTES HOSPITAL MARCIA - 7 7 [facility] OUTPATIEN INC T HOSPITAL MARCIA - 7 7 [facility] OUTPATIEN INC T OFFICE 68663 MARCIA OUTPATIEN 7 7 [facility] T VISIT 5 INC MINUTES OFFICE 94554 [facility] OUTPATIEN 7 7 PHYSICIAN T VISIT S GROUP 15 MINUTES OFFICE 24334 MARCIA OUTPATIEN 6 6 [facility] T VISIT 5 INC MINUTES HOSPITAL MARCIA - 6 6 [facility] OUTPATIEN INC [facility] MARCIA - 6 6 [facility] OUTPATIEN INC T OFFICE 42672 MARCIA OUTPATIEN 6 6 [facility] T VISIT 5 INC MINUTES [facility] MARCIA - 6 6 [facility] OUTPATIEN [facility] MARCIA - 6 6 [facility] OUTPATIEN [facility] T OFFICE 33699 MARCIA OUTPATIEN 6 6 [facility] T VISIT 5 INC MINUTES [facility] SIKHISM - 6 6 HEALTH OUTPATIEN [facility] OFFICE 10507 [facility] OUTPATIEN 6 6 [facility] AKSHAT T VISIT MEDICAL 25 G MINUTES OFFICE 41398 [facility] HARD[facility] OUTPATIEN 6 6 PHYSICIAN T VISIT S GROUP 15 MINUTES EMERGENCY 46850 MARCIA 6 6 [facility] DEPARTMEN INC T VISIT LOW/MODER SEVERITY EMERGENCY 24407 [facility] DEPT 6 6 PHYSICIAN QUIANA VISIT S, [facility] HIGH SEVERITY& THREAT [facility] MACRIA - 6 6 [facility] OUTPATIEN INC T OFFICE 51686 [facility] HARDING OUTPATIEN 6 6 PHYSICIAN ANDERSON T VISIT S GROUP 15 MINUTES OFFICE 76803 [facility]RO OUTPATIEN 6 6 NE [facility]ALTH AKSHAT T VISIT MEDICAL 25 G MINUTES OFFICE 75097 [facility] H[facility] OUTPATIEN 6 6 PHYSICIAN ANDERSON T VISIT S GROUP 15 MINUTES HOSPITAL SIKHISM - 6 6 HEALTH OUTPATISAINT ELIZAB[facility] HEBRON T OFFICE 16023 VINNY NGUYỄN CONSULTAT 6 6 HEALTH CHRISTIAN ION MEDICAL NEW/ESTAB GROUP PATIENT 15 MIN EMERGENCY 47206 MARCIA 6 6 [facility] DEPARTMEN INC T VISIT LOW/MODER SEVERITY HOSPITAL MARCIA - 6 6 [facility] OUTPATIEN INC T HOSPITAL MARCIA - 6 6 [facility] OUTPATIEN INC T OFFICE 33230 [facility] HARDING OUTPATIEN 6 6 PHYSICIAN ANDERSON T NEW 45 S GROUP MINUTES HOSPITAL MARCIA - 6 6 [facility] OUTPATIEN [facility] T OFFICE 07846 MARCIA OUTPATIEN 6 6 [facility] T VISIT 5 INC MINUTES OFFICE 05719 MARCIA OUTPATIEN 6 6 [facility] T VISIT 5 INC MINUTES HOSPITAL MARCIA - 6 6 [facility] OUTPATIEN [facility] T HOSPITAL MARCIA - 6 6 [facility] OUTPATIEN INC T EMERGENCY 80785 [facility] DEPT 6 6 NALLELY [place] VISIT EMERGENCY HIGH PHYSI SEVERITY& THREAT [facility] MARCIA - 6 6 [facility] OUTPATIEN INC T INITIAL 53233 [facility] ANGELINA PREVENTIV 6 6 PHYSICIAN SHARMILA E S GROUP MEDICINE NEW PT AGE 18-39YRS EMERGENCY 38748 MARCIA 6 6 [facility] DEPARTMEN INC T VISIT MODERATE SEVERITY HOSPITAL MARCIA - 6 6 [facility] OUTPATIEN INC T EMERGENCY 10193 MAGGI TORRE 6 6 PHYSICIAN [facility], [facility] T VISIT HIGH/URGE NT SEVERITY EMERGENCY 80514 [facility] 6 6 NALLELY MAR DEPARTMEN EMERGENCY T VISIT SERV HIGH/URGE NT SEVERITY EMERGENCY 03370 [facility] 6 6 Y [facility] HOSPITAL T VISIT HIGH/URGE NT SEVERITY EMERGENCY 55535 [facility] 6 6 MEDICAL DEPARTMEN SERV T VISIT FOUNDATIO MODERATE N SEVERITY HOSPITAL UNIVERSIT - 6 6 Y [facility] T EMERGENCY [address] [facility] [facility] DE[facility] 6 6 NALLELY R ANS VISIT EMERGENCY HIGH SERV SEVERITY& THREAT [facility] UNIVERSIT - 6 6 Y [facility] HOSP[facility] T EMERGENCY 66871 UNIVERSIT 6 6 Y [facility] HOSPITAL T VISIT HIGH/URGE NT SEVERITY HOSPITAL UNIVERSIT - 6 6 Y [facility] T EMERGENCY 70131 UNIVERSIT 6 6 Y [facility] HOSPITAL T VISIT HIGH/URGE NT SEVERITY EMERGENCY 94139 [facility] 6 6 NALLELY MASHA VISIT EMERGENCY HIGH PHYSI SEVERITY& THREAT [facility] UNIVERSIT - 6 6 Y [facility] T EMERGENCY 42744 UNIVERSIT 6 6 Y [facility] T VISIT HIGH/URGE NT SEVERITY EMERGENCY 27368 UNIVERSIT 6 6 Y [facility] H[facility]PITAL T VISIT HIGH/URGE NT SEVERITY HOSPITAL UNIVERSIT - 6 6 Y [facility] T EMERGENCY 41423 [facility] DEPT 6 6 NALLELY VISIT EMERGENCY HIGH SERVI SEVERITY& THREAT FUN EMERGENCY 73723 [facility] 6 6 [facility] VISIT CARE HIGH PHYSICIAN SEVERITY& S THREAT FUN OFFICE 66633 DESMOND RAMIREZ [facility] 6 6 [facility] III MASHA T VISIT MEDICAL 15 G MINUTES EMERGENCY 12338 JAI [facility] DEPT 6 6 MEDICAL JOHN VISIT SERV HIGH FOUNDATIO SEVERITY& N THREAT FUNCJ EMERGENCY 19322 [facility] DEPT 5 5 NALLELY VISIT EMERGENCY HIGH PHYS SEVERITY& THREAT FUNCJ OFFICE 55413 DESMOND RAMIREZ OUTPATIEN 5 5 NE [facility] III MASHA T NEW 45 MEDICAL MINUTES G EMERGENCY 73097 JAI NAYLOR 5 5 MEDICAL JENNIFER DEPARTMEN SERV T VISIT FOUNDATIO HIGH/URGE N NT SEVERITY OFFICE 98805 [facility] 5 5 URGENT FERNANDEZ T VISIT CARE 15 MINUTES HOSPITAL UNIVERSIT - 5 [address] [facility] 5 5 [facility] MEDIC T OFFICE [facility] 5 5 REGIONAL T VISIT 5 MEDIC MINUTES OFFICE [facility] [facility] 5 5 REGIONAL T VISIT [address] [facility] - 5 5 [facility] T OFFICE 98072 [facility] 5 5 REGIONAL T VISIT [address] [facility] 5 5 [facility] T OFF[facility] 59493 [facility] 5 5 REGIONAL T NEW 20 PHYSICIAN MINUTES [facility] - 5 5 [facility] [place] T OFFICE [address] 5 5 REGIONAL T VISIT 5 MEDIC MINUTES EMERGENCY 92982 [facility] 5 5 NALLELY KYL DEPARTMEN EMERGENCY T VISIT PHYS HIGH/URGE NT SEVERITY EMERGENCY [address] [facility] 5 5 NALLELY REG DEPARTMEN EMERGENCY T VISIT PHYS HIGH/URGE NT SEVERITY OFFICE 73358 [facility] OUTPATIEN 5 5 FAMILY RODRIGO T NEW 30 CLINIC, MINUTES [facility] OFFICE [address] [facility] 5 5 REGION[facility] T VISIT [address] [facility] - 5 5 REGIONAL OUTPATIEN MEDIC T [facility] - 5 5 REGIONAL OUTPATIEN MEDIC T OFFICE [facility]95 [facility] 5 5 REGIONAL T VISIT [address] [facility] - 5 5 [facility] OFFICE [facility] [facility] 4 4 REGIONAL T VISIT [address] [facility] - 4 4 REGIONAL OUTPATI MEDIC T OFFICE [id number] [facility] 4 4 REGIONAL T VISIT [address] [facility] - 4 4 REGIONAL OUTPATIEN MEDIC T EMERGENCY 51294 [facility] DEPT 4 4 NALLELY VISIT EMERGENCY HIGH PHYS SEVERITY& THREAT [facility] - [address] [facility] [address] [facility] - [address] [facility] [address] [facility] - 4 [address] [facility] - 4 [address] [facility] [address] [facility] - [address] [facility] [address] [facility] [address] [facility] [address] [facility] - 4 [address] [facility] [facility] [address] [facility] - 4 4 [facility] EMERGENCY 46403 [facility] DEPT 4 4 [place] VIS[facility] [place] HIGH SEVERITY& THREAT [facility] [place] OFFICE 43818 [facility] 4 4 [facility] T NEW 45 MEDICAL MINUTES G [facility] - 4 4 REGIONAL OUTPATIEN MEDIC T OFFICE 45228 [facility]O OUTPATIEN 4 4 MEDICAL NOW T VISIT SPECIALIS 25 TS MINUTES OFFICE 25766 [facility] 4 4 REGIONAL T VISIT 5 MEDIC MINUTES OFFICE 50950 MYLES DELGADO OUTPATIEN 4 4 MEDICAL NOW T NEW 45 SPECIALIS MINUTES TS EMERGENCY 36903 [facility] SH[facility] DEPT 4 4 REGIONAL CATRACHITO VISIT HIGH EMERGENCY SEVERITY& THREAT FUN EMERGENCY 07259 [facility] DEPT 4 4 REGIONAL PHI VISIT HIGH EMERGENCY SEVERITY& THREAT FUN EMERGENCY 73307 [facility] INÉSISAJanae 4 4 REGIONAL R PUN DEPARTMEN T VISIT EMERGENCY HIGH/URGE NT SEVERITY [facility]OSP[facility] - 4 4 REGIONAL OUTPATIEN MEDIC T EMERGENCY 91694 [facility] T VISIT MODERATE SEVERITY [facility] T EMERGENCY 04440 DU TORRE 0 0 EMERGENCY QUIANA DEPARTMEN SERVICES T VISIT HIGH/URGE NT SEVERITY OFFICE 08186 MAXIMILIANO VIERA OUTPATIEN 0 0 MAURICE MAURICE T VISIT 15 MINUTES OFFICE 20316 MAXIMILIANO VIERA OUTPATIEN 0 0 MAURICE MAURICE T VISIT 15 MINUTES PERIODIC 55887 [facility] 0 0 [facility] E MED EST CLINIC OF PATIENT ALIYAH 18-39 YRS OFFICE 58157 MAXIMILIANO GIBBONSPATIEN 0 0 MAURICE MAURICE T VISIT 15 MINUTES OFFICE 44402 SCHULSTAD SCHULSTAD CONSULTAT 0 0 MAXIMINO MAXIMINO ION NEW/ESTAB PATIENT 60 MIN OFFICE 17734 MAXIMILIANO VIERA, OUTPATIEN 0 0 MARIAM Blair MARIAM W T VISIT 15 MINUTES HOSP[facility] 0 [facility] INC T EMERGENCY 23404 [facility] 0 0 [facility] DEPARTMEN INC T VISIT MODERATE SEVERITY EMERGENCY 91808 DU TORRE, DEPT 0 0 EMERGENCY NGUYEN S VISIT SERVICES HIGH SEVERITY& ASSOCIATE THREAT S [facility] - 0 0 [facility] OUTPATIEN INC T OFFICE 47461 MAXIMILIANO VIERA OUTPATIEN 0 0 MARIAM Blair T VISIT 15 MINUTES OFFICE 81427 Johnnie SAHU OUTPATIEN 0 0 HILARY T NEW 30 CLINIC MINUTES PSC OFFICE 34440 Li BOYLE OUTPATIEN 0 0 EVANGELINA Sykes T VISIT PSC 25 MINUTES EMERGENCY 80368 DU TORRE, DEPT 0 0 EMERGENCY NGUYEN S VISIT SERVICES HIGH SEVERITY& ASSOCIATE THREAT S [facility] MARCIA - 9 9 [facility] OUTPATIEN INC T OFFICE 55128 [facility] EMANUEL NIELSEN 9 9 PHYSICIAN CARMELO [facility] NEW/[facility] PATIENT 60 MIN OFFICE 87854 [facility] 9 9 [facility]ALTH REVA J T VISIT CLINIC OF 25 MINUT[facility] INC T OFFICE 86898 SHIRA PADILLA 9 9 [facility] KAROLINA Rodríguez T VISIT UROLOGY 15 PSC MINUTES OFFICE 71534 [facility] 9 9 [facility] J T VISIT CLINIC OF 15 MINUTES [facility] INPATIENT INC OFFICE 69747 [facility], OUTPATIEN 9 9 [facility] REVA J T VISIT CLINIC OF 15 MINUTES [facility] OFFICE 96676 [facility], OUTPATIEN 9 9 [facility] REVA J T VISIT CLINIC OF 15 MINUTES [facility] OFFICE 38000 [facility], OUTPATIEN 9 9 HEALTH REVA J T VISIT CLINIC OF 15 MINUTES [facility] OFF[facility] 80549 [facility], OUTPATIEN 9 9 [facility] REVA J T VISIT CLINIC OF 15 MINUTES [facility] T OFFICE 16873 [facility], OUTPATIEN 9 9 HEALTH REVA J T VISIT CLINIC OF 15 MINUTES [facility] MARCIA - 9 9 [facility] T OFFICE 65970 [facility], OUTPATIEN 9 9 HEALTH REVA J T VISIT CLINIC OF 15 MINUTES [facility] OFF[facility] 18018 [facility], OUTPATIEN 9 9 [facility] REVA J T VISIT CLINIC OF 15 MINUTES [facility] INC T OFFICE 92920 COMMONWEA BISHOP, OUTPATIEN 9 9 [facility] KAROLINA Rodríguez T VISIT UROLOGY 15 PSC MINUTES OFFICE 81115 [facility] OUTPATIEN 9 9 JRNatalio JR, J V T VISIT 15 MINUTES OFFICE 75055 [facility], OUTPATIEN 9 9 [facility]ALTH REVA J T VISIT CLINIC OF 15 MINUTES [facility] OFFICE 46638 [facility] OUTPATIEN 9 9 [facility] T [facility] 27451 [facility], OUTPATIEN 9 9 [facility]ALTH REVA J T VISIT CLINIC OF 15 MINUTES [facility] OFF[facility] 73206 [facility] OUTPATIEN 9 9 [facility] T [facility] 10 BANK ACCT MINUTES [facility] - 9 9 [facility] - 9 9 [facility] T OFFICE 76462 [facility], OUTPATIEN 9 9 HEALTH REVA J T VISIT CLINIC OF 15 MINUTES [facility] OFF[facility] 72796 [facility], OUTPATIEN 9 9 HEALTH REVA J T VISIT 5 CLINIC OF MINUTES [facility] OFFICE 11877 [facility], OUTPATIEN 9 9 [facility]ALTH REVA J T VISIT CLINIC OF 15 MINUTES [facility] OFFICE 61732 COMMONWEA BISHOP, OUTPATIEN 9 9 [facility] KAROLINA D T VISIT UROLOGY 25 PSC MINUTES OFFICE 74473 [facility], OUTPATIEN 9 9 HEALTH REVA J T VISIT CLINIC OF 15 MINUTES [facility] OFF[facility] 52519 COMMONKELSYA EDNA, CONSULTAT 9 9 [facility] KAROLINA D ION UROLOGY NEW/ESTAB PSC PATIENT 40 MIN OFFICE 72813 [facility], OUTPATIEN 9 9 [facility]ALTH REVA J T VISIT CLINIC OF 15 MINUTES [facility] T OFFICE 59613 [facility], OUTPATIEN 9 9 HEALTH REVA J T VISIT CLINIC OF 15 MINUTES [facility] OFF[facility] 57870 [facility] 9 9 [facility] VISIT CLINIC OF 15 MINUT[facility] - 9 9 [facility] MARCIA - 9 9 [facility]GENCY 97181 [facility] 8 [facility] 89226 [facility], 8 8 NALLELY Sykes [facility] HIGH/URGE [facility] OFFICE 45643 SHIRA ORELLANA 8 8 AND DILLAN T NEW 30 DAILY MINUT[facility] OFFICE 20470 [facility] 8 8 [facility] VISIT CLINIC OF 15 MINUT[facility] [place] 05805 [facility] OUTPATIEN 8 8 [facility] T [facility]ISIT [facility] 15 BANK ACCT MINUTES
--- OUTSIDE RECORDS SUMMARY | 2017-01-28 20:09 | External Medical Summary Rpt ---
Author Author , Organization [employer] Address Unknown Phone Unavailable Care Team Providers Care Water Taxi Operator Name Role Phone PRUDENCE JEANETTE, PRUDENCE Unavailable Unavailable JEANETTE [facility] Unavailable Unavailable PHYSICIANS, [facility] KAROLINA BISHOP, Unavailable Unavailable KAROLINA BISHOP ARNOLD MAURICE, ARNOLD Unavailable Unavailable MAURICE ARNOLD MAURICE, ARNOLD Unavailable Unavailable MAURICE MAXIMILIANO, MARIAM W, Unavailable Unavailable ARNOLD, MARIAM W [facility] Unavailable Unavailable [facility] Unavailable Unavailable MEDICAL GROUP, [facility] Unavailable Unavailable SERVICE, [...] JR, V, Unavailable Unavailable Natalio HURT JR [facility] Unavailable Unavailable [facility] Unavailable Unavailable PHYSICIAN PRA, BRAEDEN [facility] PHYSICIAN PRA MEHDI HARDING Unavailable Unavailable MEHDI BARRON, MEHDI Unavailable Unavailable REVA DURON, Unavailable Unavailable REVA HARDING [facility], Unavailable Unavailable [facility] COLON-ALEJANDRO JAYJAY, Unavailable Unavailable [facility]ALE[facility] Unavailable Unavailable LAB, [facility] RUBI STEVEN, Unavailable Unavailable RUBI STEVEN LAUROJanae CAMACHO, LAURO CAMACHO Unavailable Unavailable [facility] Unavailable [facility] CARMELO NIELSEN, Unavailable Unavailable [...] SUTTON JEFF, SUTTON Unavailable Unavailable JEFF [facility] Unavailable Unavailable CENTER, [facility] Unavailable Unavailable INC, [facility] Unavailable Unavailable HOSPITAL P, [facility], Unavailable Unavailable [facility], Unavailable Unavailable PLLC, [facility], [facility] MERARI AVELINA, MERARI AVELINA Unavailable Unavailable ATKINSON DOUG, ATKINSON DOUG Unavailable Unavailable [facility] Unavailable [facility], [facility] LANDY BENITEZ, Unavailable Unavailable LANDY BENITEZ GREGORY C, Unavailable Unavailable [facility] Unavailable Unavailable IMAGING ASS, [facility] Unavailable Unavailable MEDICAL G, [facility] MEDICAL G KOSTELIC JENNIFER, Unavailable Unavailable KOSTELIC JENNIFER [facility] Un[facility] LEHNERT RAY, LEHNERT Unavailable Unavailable RAY PATRICIASHIRIN BLANKENSHIP L, Unavailable Unavailable OLAF PATRICIANDA L JOE JOHN, JOE JOHN Unavailable Unavailable JOE JR DWI, JOE Unavailable Unavailable JR DWI DIANE FAYETTE URBAN Unavailable Unavailable COGOVT, DIANE FAYETTE URBAN COGOVT [facility] Unavailable Unavailable LABORATORY, [facility] RULA OLIVIER, RULA OLIVIER Unavailable Unavailable [facility] Unavailable Unavailable SERVICES, [facility] ANDRE PRESLEY, Unavailable Unavailable SINA [...] DELGADO NOW, DELGADO Unavailable Unavailable NOW [facility] Unavailable Unavailable PSC, [facility] Unavailable Unavailable PSC, [facility] NICKELS CATRACHITO, NICKELS Unavailable Unavailable CATRACHITO O' REEL, O' REEL Unavailable Unavailable OVERALL PHI, OVERALL Unavailable Unavailable PHI GREG ANIRUDH, GREG ANIRUDH Unavailable Unavailable [facility], Unavailable Unavailable PLL[facility], [facility] Unavailable Unavailable LAB, [facility] Unavailable Unavailable LAB, [facility] MARK GIMENEZ, Unavailable Unavailable FLORESANU GIMENEZ FRANCISCO, III, LYN Unavailable Unavailable P, FRANCISCO, III, LYN P DAUGHERTY RODRIGO, DAUGHERTY Unavailable Unavailable RODRIGO CONCHA, DILLAN, Unavailable Unavailable CONCHA, DILLAN RAVISANKAR PUN, Unavailable Unavailable RAVISANKAR PUN REKHRAJ MICHELET, REKHRAJ Unavailable Unavailable MICHELET RIDDLE MASHA, RIDDLE Unavailable Unavailable MASHA NATHAN DACIA, NATHAN DACIA Unavailable Unavailable [facility] Unavailable Unavailable [facility], [facility] EVELYN LAZCANO Unavailable Unavailable ARINA SANT JEANETTE, Unavailable Unavailable SANTROCK JEANETTE [facility] MAXIMINO, Unavailable Unavailable [facility] MAXIMINO [facility] MAXIMINO, Unavailable Unavailable [facility] MAX[facility]INO CARITO ELENA, CARITO Unavailable Unavailable ELENA IVORY MICHELET, IVORY Unavailable Unavailable [facility] Unavailable Unavailable [facility]GENCY PH[facility]SI, [facility] Unavailable Unavailable EMERGENCY SERV, [facility] Unavailable Unavailable MEDIC, [facility] Unavailable Unavailable RADIOLOG, [facility] RADIOLOG [facility] Unavailable Unavailable EMERGENCY, [facility], Unavailable Unavailable [facility] Unavailable Unavailable [facility] EUCEDAENS IBRAHIM EUCEDA Unavailable Unavailable TASHI GRIMM, Unavailable Unavailable TASHI MOROCHO III MASHA, Unavailable Unavailable JAMES III SHAHBAZ INTERIANO Unavailable Unavailable [facility], Unavailable Unavailable [facility] ANTONIA GUILLERMO CHA Unavailable Unavailable [facility] Unavailable Unavailable #[id number], [id number] Unavailable Unavailable #591, [facility] # Unavailable Unavailable [id number], [facility] # [id number] JOSE RAFAEL NGUYEN Unavailable Unavailable Johnnie ALCALA VERO, W Unavailable Unavailable LOPEZ ROCKY, LOPEZ Unavailable Unavailable [facility] Unavailable Unavailable [facility] Unavailable [facility]available [facility] DEPT BLANK [facility], [facility] [...] Diagnosis DOS Provider Status [id number] ENC 12-21-2016 [facility] SUPERVISION PHYSICIANS OTH NORMAL GROUP PREG UNS TRIMESTER O4703 FALSE LABOR 12-19-2016 [facility] BEFORE 37 PHYSICIANS CMPLETE GROUP WEEKS GEST 3RD TRI O6003 12-19-2016 [facility] WITHOUT INC DELIVERY THIRD TRIMESTER Z3A34 34 WEEKS 12-19-2016 [facility] GESTATION [facility] OF INC Z5181 ENCOUNTER 12-14-2016 [facility] FOR [facility] THERAPEUTIC INC DRUG LEVEL MONITORING Z7901 DIDACTIC PROGRAM IN DIETETICS DIRECTOR 12-14-2016 [facility] CURRENT USE [facility] OF INC ANTICOAGULA NTS Z952 PRESENCE OF 12-14-2016 [facility] PROSTHETIC [facility]ART INC VALVE J09X2 INFLUENZA 12-08-2016 [facility] D/T ID [facility] NOVEL FLU INC VIRUS OT RESP MANIF Z3A33 33 WEEKS 12-08-2016 [facility] GE[facility]ATION [facility] INC [id number] MATERNAL 12-01-2016 [facility] HEALTH MEDICAL ABNORMALITY GROUP DAMGE NA/UNS [id number] DISEASES 12-01-2016 [facility] CIRCULATORY HEALTH SYS COMP MEDICAL GROUP UNS TRI Q211 ATRIAL 12-01-2016 [facility] SEPTAL HEALTH DEFECT MEDICAL G 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 J069 ACUTE UPPER 11-06-2016 [facility] RESPIRATORY INC INFECTION UNSPECIFIED Z720 TOBACCO USE 11-06-2016 [facility] INC L42863 ABNORMAL 10-24-2016 [facility] GLUCOSE PHYSICIANS COMPLICATIN GROUP G Z3A18 18 WEEKS 10-11-2016 [facility] GESTATION HEALTH OF MEDICAL G M94368 OTHER LONG 10-11-2016 [facility] TERM HEALTH CURRENT MEDICAL G DRUG THERAPY Z23 ENCOUNTER 09-30-2016 [facility] IMMUNIZATIO [facility] DEPT N BLANK [id number] DECREASED 09-26-2016 [facility] MOVEMENTS INC SECOND TRI NA/UNS Z3A22 22 WEEKS 09-26-2016 [facility] GESTATION [facility] OF INC U77926 SUPERVISION 09-22-2016 [facility] HIGH HEALTH RISK PREG MEDICAL THIRD GROUP TRIMESTER [id number] MATERNAL 09-22-2016 [facility] HEREDITARY MEDICAL DISEASE IN GROUP FETUS NA/UNS Z8774 PERSONAL HX 09-22-2016 [facility] MALFORM MEDICAL HEART & GROUP CIRC SYSTEM E58537 SUPERVISION 08-25-2016 [facility] HIGH HEALTH RISK PREG MEDICAL SECOND GROUP TRIMESTER [id number] MATERNAL 08-25-2016 [facility] ABNORMALITY DAMAGE FET 1 O9989 [facility] DZ & 08-25-2016 [facility] COMP HEALTH PREG MEDICAL CHILDBIRTH GROUP PUERPERIUM O2692 08-12-2016 [facility], CONDITIONS [facility] 2ND TRIMESTER R079 CHEST PAIN 08-12-2016 [facility] UNSPECIFIED PHYSICIANS, PLLC Z3A17 17 WEEKS 08-12-2016 [facility] GESTATION [facility] P R5383 OTHER 07-11-2016 [facility] HEALTH MEDICAL G Z3A11 11 WEEKS 07-11-2016 [facility] GESTATION HEALTH OF MEDICAL G [id number] MATERNAL 06-30-2016 [facility] CARE DAMAGE HEALTH TO FETUS MEDICAL BY DRUGS GROUP NA/UNS Z0379 ENCOUNTER 06-30-2016 [facility] SUSPECT HEALTH [facility] [place] COND RULED OUT Z3A10 10 WEEKS 06-30-2016 [facility] GESTATION HEALTH OF MEDICAL GROUP O2311 INFECTIONS 06-10-2016 [facility] BLADDER IN [facility] INC FIRST TRIMESTER F35331 OTHER SPEC 06-10-2016 [place] [place] [facility] RELATED IMAGING ASS COND 1ST TRIMESTER R1032 LEFT LOWER 06-10-2016 [place] [facility] PAIN IMAGING ASS Q36219 UTERINE 06-08-2016 [facility] SIZE-DATE [facility] DISCREPANCY INC FIRST TRIMESTER Z3491 ENC 06-08-2016 [facility] NORMAL IMAGING ASS UNS 1 TRIMESTER Z3A01 LESS THAN 8 06-08-2016 [place] WEEKS MEDICAL GESTATION IMAGING ASS OF Z3201 ENCOUNTER 05-31-2016 [facility] FOR PHYSICIANS GROUP TEST RESULT POSITIVE R002 PALPITATION 05-16-2016 [facility] P N8320 UNSPECIFIED 03-24-2016 [facility] OVARIAN N EMERGENCY CYSTS PHYSI R109 UNSPECIFIED 03-24-2016 [facility] [place] ABDOMINAL RADIOLOGY PAIN N949 UNS COND 03-10-2016 [facility] ASSOC W/FE PHYSICIANS GENIT ORGN GROUP & MENSTRUAL CYCL R102 PELVIC AND 03-10-2016 [facility] PERINEAL PHYSICIANS PAIN GROUP T66142 ENCOUNTER 03-10-2016 [facility] UPHOLSTERY AUTO TRIMMER EXAM PHYSICIANS GENERAL RTN GROUP W/ABNORMAL FIND U42919 ENCOUNTER 03-10-2016 [facility] UPHOLSTERY AUTO TRIMMER EXAM REFERNCE GENERAL RTN LABORATORIE W/O S ABNORMAL FIND N8329 OTHER 03-06-2016 [facility]YS[facility]IANS, CYSTS PLLC R791 ABNORMAL 03-06-2016 [facility] COAGULATION [facility] PROFILE INC K6389 OTHER 01-29-2016 [facility] [place] SPECIFIED RADIOLOGY DISEASES OF INTESTINE N91244 PAIN IN 01-29-2016 [facility] RIGHT LEG N EMERGENCY SERV R0602 SHORTNESS 01-20-2016 [facility] MEDICAL G L49343 PAIN IN 01-12-2016 [facility] L094GII FALL ON 01-12-2016 [place] [facility] FROM OT SERV [facility]IRS [facility] STEPS INITIAL ENCOUNTER J9811 ATELECTASIS 01-07-2016 [facility] M5412 RADICULOPAT 01-07-2016 [facility] HY CERVICAL N EMERGENCY REGION SERV R0789 OTHER CHEST 01-07-2016 [facility] PAIN N EMERGENCY SERV R200 ANESTHESIA 01-07-2016 [facility] [place] OF SKIN RADIOLOGY R202 PARESTHESIA 01-07-2016 [facility] OF SKIN N EMERGENCY SERV J40 BRONCHITIS 12-16-2015 [facility] SPECIFIED ACUTE OR CHRONIC E876 HYPOKALEMIA 12-09-2015 [facility] I498 OTHER 12-09-2015 [place] [facility] SPECIFIED SERV CARDIAC FOUNDATION ARRHYTHMIAS R072 PRECORDIAL 12-09-2015 [facility] M545 LOW BACK 11-16-2015 [facility] PAIN N EMERGENCY PHYSI M549 DORSALGIA 11-16-[address] [facility] R0781 PLEURODYNIA 11-16-2015 [facility] N EMERGENCY PHYSI B349 VIRAL 11-08-2015 NEW INFECTION [facility] UNSPECIFIED [facility]INIC PSC J029 ACUTE 11-08-2015 NEW PHARYNGITIS [facility] P[facility] UNSPECIFIED R05 COUGH 11-08-2015 NEW [facility] PSC R509 FEVER 11-08-2015 NEW UNSPECIFIED [facility] PSC K567 ILEUS 10-24-[address] [facility] 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 CY Z049 ENCOUNTER 10-05-2015 [place] [facility] EXAMINATION SERV &OBSERVATIO FOUNDATION N FOR UNS REASON K06198 PAIN IN 10-03-2015 [place] [facility] LEFT LEG SERV [facility]OUNDATION N289 DISORDER OF 10-03-2015 [place] [facility] KIDNEY AND SERV URETER FOUNDATION UNSPECIFIED 54247 CHEST PAIN 06-12-2015 [facility] [place] UNSPECIFIED RADIOLOGY 4279 UNSPECIFIED 06-11-2015 NEW CARDIAC [facility] DYSRHYTHMIA CLINIC PSC 4660 ACUTE 06-11-2015 [facility] BRONCHITIS N EMERGENCY PHYS 7336 TIETZES 06-11-2015 [facility] DISEASE N EMERGENCY PHYS 18360 PRECORDIAL 06-11-2015 [facility] PAIN N EMERGENCY PHYS 07606 OTHER CHEST 06-08-2015 [facility] PAIN HEALTH MEDICAL G V433 HEART VALVE 06-08-2015 [facility] BY OTHER MEDICAL G MEANS V5861 LONG-TERM 06-08-2015 [facility] (CURRENT) HEALTH USE OF MEDICAL G ANTICOAGULA NTS V5883 ENCOUNTER 06-08-2015 [facility] THERAPEUTIC MEDICAL G DRUG MONITORING 5531 UMB HERNIA 02-22-2015 [place] [facility] WITHOUT SERV MENTION FOUNDATION OBSTRUCTION /GANGRENE 73288 ABDOMINAL 02-22-2015 [facility] 32288 ATRIAL 02-16-2015 [facility] FIBRILLATIO REGIONAL N MEDIC 0340 STREPTOCOCC 12-06-2014 [facility] HAINES SORE REGIONAL THROAT PHYSICIAN PRA 44948 FEVER 12-06-2014 [facility] UNSPECIFIED REGIONAL PHYSICIAN PRA 7862 COUGH 11-23-2014 [facility] 490 BRONCHITIS 11-22-2014 [facility] NOT N EMERGENCY SPECIFIED PHYS ACUTE OR CHRONIC 47432 SHORTNESS 11-22-2014 [facility] OF BREATH N EMERGENCY PHYS 73027 PAINFUL 11-20-2014 [facility] RESPIRATION N EMERGENCY PHYS 4611 ACUTE 11-19-2014 [facility], SINUSITIS PLLC 486 PNEUMONIA, 11-19-2014 [facility] ORGANISM CLINIC, UNSPECIFIED PLLC 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 09-18-2014 [facility] L [facility] AORTOCORONA DAVID RY BYPASS STATUS V5789 OTHER 09-18-2014 [facility] SPECIFIED [facility] REHABIL[facility] DAVID ION PROCEDURE OTHER 39927 OTHER 08-21-2014 [facility] SPECIFIED REGIONAL CONGENITAL MEDICAL ANOMALY CENTE HEART OTHER 5119 UNSPECIFIED 07-18-2014 [facility] PLEURAL RADIOLOGY EFFUSION 5180 PULMONARY 07-18-2014 [facility] [place] COLLAPSE RADIOLOGY 33008 OTHER 07-16-2014 [facility] [place] NONSPECIFIC RADIOLOGY ABNORMAL FINDING OF LUNG FIELD 2875 UNSPECIFIED 07-14-2014 [facility] THROMBOCYTO PENIA 4241 AORTIC 07-14-2014 [facility] [place] DISORDERS [facility]IN[facility] PSC 4280 CONGESTIVE 07-14-2014 [facility] FAILURE UNSPECIFIED 21356 CHRONIC 07-14-2014 [facility] HEART FAILURE 4429 OTHER 07-14-2014 [facility] MEDICINE ASSOCIATES UNSPECIFIED SITE 7454 VENTRICULAR 07-14-2014 [facility] SEPTAL [facility] DEFECT 7850 UNSPECIFIED 07-14-2014 [facility] TACHYCARDIA ASSOC[facility] 05464 OTHER 07-14-2014 [facility] RESPIRATORY [facility] [place] [address] COR 07-11-2014 [facility] [place] ATHEROS[facility]ERO RADIOLOGY UNSPEC TYPE VESSEL MECHOOPDA/YVON T V140 PERSONAL 07-10-2014 [facility] HISTORY OF [place] TO DAVID PENICILLIN V142 PERSONAL 07-10-2014 [facility] [place] [facility] SULFONAMIDE S V145 PERSONAL 07-10-2014 [facility] HISTORY OF [place] [facility] TO DAVID NARCOTIC AGENT V5869 LONG-TERM 07-10-2014 [facility] (CURRENT[facility] M[facility] USE OF DAVID OTHER MEDICATIONS 66329 OTH 07-01-2014 [facility] PULMONARY MEDICAL G ART PULMONARY CIRC 7852 UNDIAGNOSED 06-24-2014 [facility] CARDIAC REGIONAL [place]UR[place] MEDIC 70256 OTHER 06-24-2014 [facility] DYSPNEA AND REGIONAL MEDIC RESPIRATORY ABNORMALITI ES V452 PRESENCE OF 06-24-2014 [facility] CEREBROSPIN MEDIC AL FLUID DRAINAGE DEVICE 91529 ENDOCARDITI 06-23-2014 [facility] S VALVE REGIONAL UNSPECIFIED EMERGENCY UNSPECIFIED CAUSE 7821 RASH AND 06-23-2014 [facility] OTHER MEDICAL NONSPECIFIC SPECIALISTS SKIN ERUPTION 0539 HERPES 06-20-2014 [facility] ZOSTER REGIONAL WITHOUT EMERGENCY MENTION OF COMPLICATIO N 4168 OTHER 06-20-2014 [facility] CHRONIC MEDICAL PULMONARY SPECIALISTS HEART DISEASES 4293 CARDIOMEGAL 06-20-2014 [facility] Y REGIONAL RADIOLOG 514 PULMONARY 06-20-2014 [facility] CONGESTION REGIONAL AND RADIOLOG HYPOSTASIS 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 89445 PULMONARY 06-20-2014 [facility] ARTERY REGIONAL COARCTATION EMERGENCY AND ATRESIA 6160 CERVICITIS 06-18-2014 [facility] AND REGIONAL ENDOCERVICI MEDIC TIS V4551 PRESENCE OF 06-18-2014 [facility] INTRAUTERIN MEDIC E CONTRACEPTI VE DEVICE 5990 URINARY 08-20-2010 [facility] INFECTION SERVICES SITE NOT SPECIFIED 7048 OTHER 07-05-2010 MAXIMILIANO RICHARDS SPECIFIED DISEASE OF HAIR&HAIR FOLLICLES 7242 LUMBAGO 06-24-2010 MAXIMILIANO RICHARDS V7231 ROUTINE 05-05-2010 [facility] GYNEC[facility]IC [facility] AL CLINIC OF EXAMINATION ALIYAH V745 SCREENING 05-05-2010 PATHOLOGY & EXAMINATION CYTOLOGY FOR LAB VENEREAL DISEASE 23862 CLOSED 05-01-2010 MAXIMILIANO RICHARDS FRACTURE UNSPEC PHALANX/PHA LANGES HAND 00953 VOMITING 04-01-2010 [facility] AL[facility] MAXIMINO 54634 DIARRHEA 04-01-2010 [facility] MAXIMINO 5409 ACUTE 03-27-2010 [facility] APPENDICITI [facility] WITHOUT INC MENTION PERITONITIS 541 APPENDICITI 03-27-2010 Home VIERA RICHARD W UNQUALIFIED 81083 ABDOMINAL 03-24-2010 [facility], [facility]ERG[facility]Y [facility]ED [facility] 5258 OTHER SPEC 02-16-2010 THE IMPLANT DISORDERS & ORAL TEETH&[facility]O [facility] STRUCTURES 5206 DISTURBANCE 01-05-2010 THE IMPLANT S IN TOOTH & ORAL ERUPTION [facility] 3829 UNSPECIFIED 12-07-2009 [facility]A MEDIA 7880 RENAL COLIC 12-07-2009 MARIAM VIERA 63544 CALCU 11-03-2009 [place] W/OTH LABORATORY CHOLECYST W/O MENTION OBST 97292 CALCU 11-03-2009 [facility] [place] W/O MENTION CLINIC PSC CHOLECYST/O BST 07953 CHOLECYSTIT 11-03-2009 ANESTHESIA IS, ASSOCIATES, UNSPECIFIED PSC 09279 ABDOMINAL 10-05-2009 [facility] RIGHT EMERGENCY UPPER SERVICES [facility] 7851 PALPITATION 04-14-2009 [facility] PROF SERV V251 ENCOUNTER 04-07-2009 [facility] INSERT/[facility] DEVICE [facility] V242 ROUTINE 03-31-2009 WOMEN'S HEALTH FOLLOW-UP CLINIC [facility] 591 HYDRONEPHRO 03-10-2009 [facility]OLOG[facility] PSC 650 NORMAL 02-11-2009 WOMEN'S DELIVERY HEALTH CLINIC [facility] 55347 FIRST-DEGRE 02-11-2009 WOMEN'S E PERINEAL HEALTH LACERATION CLINIC OF [facility] DEL[facility] V270 OUTCOME OF 02-11-2009 WOMEN'S DELIVERY HEALTH SINGLE CLINIC OF [facility] V3000 SINGLE 02-11-2009 [facility] W/O 15258 OTHER 02-06-2009 WOMEN'S THREATENED HEALTH LABOR, CLINIC OF [facility] V220 SUPERVISION 02-06-2009 WOMEN'S OF NORMAL HEALTH [facility] 56212 OTHER 02-02-2009 [facility] SPECIFED [facility] H[facility]P COMPLICATIO INC N ANTEPARTUM 45384 THREATENED 01-18-2009 WOMEN'S PREMATURE HEALTH LABOR CLINIC OF [facility]TEPARTUM [facility] 85110 HEMATURIA 01-06-2009 [facility] UNSPECIFIED [facility] INC 4720 CHRONIC 12-15-2008 [facility] RHINITIS JR, J V 4739 UNSPECIFIED 12-15-2008 [facility] SINUSITIS JR, J V V741 SCREENING 12-04-2008 [facility] EXAMINATION HEALTH FOR CENTRAL PULMONARY BANK ACCT TUBERCULOSI S 62709 DECR 12-02-2008 [facility] MOVMNTS [facility] MGMT MOTH INC ANTPRTM COND/COMP 71240 ABN MAT 11-28-2008 [facility] GLUCOSE [facility] TOLERANCE INC COMPL PG CB/PP UNS EOC V221 SUPERVISION 11-21-2008 [facility] OF OTHER HEALTH [facility] 5920 CALCULUS OF 11-11-2008 [facility] 5921 CALCULUS OF 11-11-2008 [facility] URETER ANESTH OF THE PSYCHIATRIC 67602 OT CURRENT 11-11-2008 [facility] CLASSIFIABL INC E ELSW ANTPRTM 7245 UNSPECIFIED 11-04-2008 [facility] PSC V283 ENCOUNTER 10-23-2008 [facility] [place] [facility] ULTRASONIC 44806 OTHER 10-20-2008 [place] [facility] URETER V222 10-20-2008 [facility] 6259 UNSPEC 08-28-2008 [facility] ORGANS 72170 TOB USE D/O 08-28-2008 [facility] /PP [facility] V7242 06-24-2008 [facility] EXAMINATION HE[facility] OR [...] 10 3- 8- 00 00 IC ve TN 47 20 20 42 01 17 17 [...] 94 -2 -2 .0 00 IN ti OR 61 0- 1- 00 00 IC ve [...] 94 -0 -1 .0 00 IN ti OR 61 2- 0- 00 00 IC ve [...] 94 -0 -0 .0 00 IN ti OR 61 3- 3- 00 00 IC ve [...] 12 0 14 7 70 GA Ac OR 37 -0 -0 .0 L- 97 IN ti OF 87 8- 8- 00 MA 62 EY ve LO 09 20 20 RT 6 XA 80 10 10 TN CI 1 PH CH N AR AE [...] 00 60 30 WA 70 CL Ac OR 09 -2 -3 .0 L- 29 AR [...] AR K MA J CY #5 91 TN 59 06 06 00 20 5 WA 70 CL Ac SO 76 -0 -1 .0 L- 22 AR ti OR 25 2- 8- 00 MA 99 KE [...] Procedure DOS Code Location Performer Comment HANDLG&/O 79794 [facility] MEHDI R CONVEY 7 PHYSICIAN OF SPEC S GROUP FOR TR OFFICE TO LAB PARTICLE 87348 MARCIA KENNEDY AGGLUTINA 7 [facility] TION INC INC SCREEN EACH ANTIBODY FTL 77372 MARCIA KENNEDY FIBRONECT 7 [facility] IN INC INC CERVICOVA G SECRETION S SEMI-DELMA PARTICLE 18247 MARCIA KENNEDY AGGLUTINA 7 [facility] TION INC INC SCREEN EACH ANTIBODY DRUG TEST 65764 MARCIA KENNEDY PRSMV 7 [facility] QUAL DIR INC INC OPTICAL OBS PER DAY 46329 [facility] MEHDI NONSTRESS 7 [place] [address] MARCIA KENNEDY INFUSION 7 [facility] THERAPY/P INC INC ROPHYLAXI S /DX 1ST TO 1 HR PROTHROMB 37848 MARCIA KENNEDY IN TIME 7 [facility] INC INC IAADIADOO 22659 M[facility]IA KENNEDY 7 [facility] INFLUENZA INC INC US PREG 58731 ZOROASTRIANISM ZOROASTRIANISM UTERUS 7 HEALTH HEALTH REAL TIME [facility] F/U TRNSABDL PER FETUS ECG 22472 [facility] MASCORRO ROUTINE 7 [facility] ECG MEDICAL W/LEAST G 12 LDS W/I&R PROTHROMB 01064 MARCIA KENNEDY IN TIME 7 [facility] INC INC IAADIADOO 43670 MARCIA KENNEDY 7 [facility] INFLUENZA INC INC GLUCOSE 82878 [facility] POST 7 PHYSICIAN PHYSICIAN GLUCOSE S GROUP S GROUP DOSE COLLECTIO 02539 [facility] HARDING N 7 PHYSICIAN CAPILLARY S GROUP BLOOD SPECIMEN PROTHROMB 33185 MARCIA KENNEDY IN TIME 7 [facility] INC INC ECG 52790 [facility] ROUTINE 7 [facility] ECG MEDICAL W/LEAST G 12 LDS W/I&R IIV4 VACC 47816 [facility] SPLIT 7 [facility] VIRUS 0.5 HLTH DEPT HLTH DEPT ML DOS BLANK BLANK FOR IM USE 14238 MARCIA KENNEDY NONSTRESS 7 [facility] TEST INC INC PROTHROMB 09110 MARCIA KENNEDY IN TIME 7 [facility] INC INC ECHO 65800 VINNY NGUYỄN 7 [facility] CARDIOVAS MEDICAL C W/WO GROUP M-MODE RECORDING DOP 01379 VINNY NGUYỄN ECHOCARD 7 [facility] COLOR MEDICAL FLOW GROUP VELOCITY MAPPING US PREG 23584 VINNY NGUYỄN UTERUS 7 HEALTH REAL TIME MEDICAL F/U GROUP TRNSABDL PER FETUS PROTHROMB 16571 MARCIA KENNEDY IN TIME 6 [facility] INC INC PROTHROMB 53248 MARCIA KENNEDY IN TIME 6 [facility] INC INC COLLECTIO 77104 MARCIA KENNEDY N VENOUS 6 [facility] BLOOD INC INC VENIPUNCT URE PROTHROMB 56880 MARCIA KENNEDY IN TIME 6 [facility] INC INC PROTHROMB 62698 MARCIA KENNEDY IN TIME 6 [facility] INC INC [place] PREG 24261 ZOROASTRIANISM ZOROASTRIANISM UTERUS 6 [facility] W/DETAIL [facility] UNRULY 1ST GESTATION ECG 91216 DESMOND MASCORRO ROUTINE 6 [facility] ECG MEDICAL W/LEAST G 12 LDS W/I&R ECG 06485 MARCIA KENNEDY ROUTINE 6 [facility] ECG INC INC W/LEAST 12 LDS TRCG ONLY W/O I&[place] [address] MARCIA KENNEDY TROPONIN 6 [facility] QUANTITAT INC INC WAYNE ECG 85197 MARCIA DIAZ JR ROUTINE 6 [facility] W/LEAST P 12 LDS I&R ONLY RADIOLOGI 53116 MARCIA KENNEDY C EXAM 6 [facility] CHEST 2 INC INC VIEWS FRONTAL&L ATERAL CREATINE 57413 MARCIA EKNNEDY KINASE MB 6 [facility] FRACTION INC INC ONLY COMPREHEN 60824 MARCIA KENNEDY SIVE 6 [facility] METABOLIC INC INC PANEL BLOOD 68077 MARCIA KENNEDY COUNT 6 [facility] COMPLETE INC INC AUTO&AUTO DIFRNTL WBC CREATINE 10365 MARCIA KENNEDY KINASE 6 [facility] TOTAL INC INC ECG 55169 [facility] ROUTINE 6 [facility] ECG MEDICAL W/LEAST G 12 LDS W/[place] [address] ZOROASTRIANISM ZOROASTRIANISM 6 [facility] UTERUS 14 [facility] WK TRANSABDL GESTAT BLOOD 45576 MARCIA KENNEDY COUNT 6 [facility] COMPLETE INC INC AUTO&[place] [address] [facility] [place] TRANSVAGI 6 MEDICAL NAL IMAGING ASS CULTURE 45063 MARCIA KENNEDY BACTERIAL 6 [facility] INC INC QUANTTATI VE COLONY COUNT URINE COMPREHEN 06211 MARCIA KENNEDY SIVE 6 [facility] METABOLIC INC INC PANEL GONADOTRO 41027 MARCIA KENNEDY PIN 6 [facility] CHORIONIC INC INC QUANTITAT WAYNE URINE 37282 MARCIA KENNEDY 6 [facility] TEST INC INC VISUAL COLOR CMPRSN METHS URNLS DIP 20963 MARCIA FERREIRAON 6 [facility] STICK/TAB INC INC LET REAGENT AUTO MICROSCOP Y US PREG 39696 MARCIA KENNEDY UTERUS 6 [facility] REAL TIME INC INC W/IMAGE DCMTN TRANSVAG URINE 13247 [facility] HARDING 6 PHYSICIAN ANDERSON TEST S GROUP VISUAL COLOR CMPRSN METHS DRUG TST G0477 [facility] HARDING PRESUMP;C 6 PHYSICIAN ANDERSON PBL BEING S GROUP READ DC OPT OBV ONLY PROTHROMB 27251 MARCIA KENNEDY IN TIME 6 [facility] INC INC XTRNL ECG 42761 MARCIA SEGURA 6 [facility] S RHYTHM P W/I&R UP TO 48 HRS XTRNL ECG 73773 MARCIA KENNEDY & 48 HR 6 [facility] RECORDING INC INC EXTERNAL 22867 MARCIA KENNEDY ECG 6 [facility] SCANNING INC INC ANALYSIS REPORT PROTHROMB 04510 MARCIA KENNEDY IN TIME 6 [facility] INC INC PROTHROMB 85638 MARCIA KENNEDY IN TIME 6 [facility] INC INC COLLECTIO 57049 MARCIA KENNEDY N VENOUS 6 [facility] [place] [address] [facility] EUCEDA TRANSVAGI 6 RADIOLOGY RAY NAL THERAPEUT 33063 [facility] HARPEL IC 6 PHYSICIAN SHARMILA PROPHYLAC S GROUP TIC/DX INJECTION SUBQ/IM IADNA 68760 BIO BIO TRICHOMON 6 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 VAGINALIS IES IES AMPLIFIED PROBE TECH URINLS 18600 [facility] HARPEL DIP 6 PHYSICIAN SHARMILA STICK/TAB S GROUP LET REAGNT NON-AUTO MICRSCPY IADNA 73962 BIO BIO CHLAMYDIA 6 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 TRACHOMAT IES IES IS AMPLIFIED PROBE TQ IADNA 97519 BIO BIO NEISSERIA 6 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 GONORRHOE IES IES AE AMPLIFIED PROBE TQ IADNA NOS 63528 BIO BIO 6 REFERNCE REFERNCE AMPLIFIED LABORATOR LABORATOR PROBE TQ IES IES EACH ORGANISM IADNA 32582 [facility] HARPEL NEISSERIA 6 PHYSICIAN SHARMILA S GROUP GONORRHOE AE DIRECT PROBE TQ IMMUNOASS 20198 MARCIA KENNEDY AY TUMOR 6 [facility] ANTIGEN INC INC QUANTITAT WAYNE INJECTION J2675 [facility] 6 PHYSICIAN PHYSICIAN PROGESTER S GROUP S GROUP ONE PER 50 MG COLLECTIO 84021 MARCIA KENNEDY N VENOUS 6 [facility] BLOOD INC INC VENIPUNCT URE CULTURE 94036 [facility] HARPEL CHLAMYDIA 6 PHYSICIAN SHARMILA ANY S GROUP SOURCE CYTP C/V 86528 BIO BIO AUTO THIN 6 REFERNCE REFERNCE LYR LABORATOR LABORATOR PREPJ SCR [place] [address] MARCIA KENNEDY LIPASE 6 [facility] INC INC PROTHROMB 34887 MARCIA KENNEDY IN TIME 6 [facility] INC INC BLOOD 07196 MARCIA KENNEDY COUNT 6 [facility] COMPLETE INC INC AUTO&[place] [address] MARCIA KENNEDY ABDOMEN & 6 [facility] PELVIS [place] [address] MARCIA KENNEDY INFUSION 6 [facility] THERAPY/P INC INC ROPHYLAXI S /DX 1ST TO 1 HR THERAPEUT 37985 MARCIA KENNEDY IC 6 [facility] INJECTION INC INC IV PUSH EACH NEW DRUG URNLS DIP 14257 MARCIA KENNEDY 6 [facility] STICK/TAB INC INC LET REAGENT AUTO MICROSCOP Y URINE 45834 MARCIA KENNEDY 6 [facility] TEST INC INC VISUAL COLOR CMPRSN METHS COMPREHEN 85549 MARCIA KENNEDY SIVE 6 [facility] [place] [address] MARCIA KENNEDY AMYLASE 6 [facility] [place] [address] MARCIA KENNEDY TRANSVAGI 6 [facility] NAL INC INC THROMBOPL 59306 MARCIA KENNEDY ASTIN 6 [facility] TIME INC INC PARTIAL PLASMA/WH OLE BLOOD CT ANGIO 99428 [facility] [place] PRUDENCE ABD&PLVIS 6 RADIOLOGY JEANETTE CNTRST MTRL W/WO [facility]ST IMG PROTHROMB 36182 DESMOND MANTILLA IN TIME 6 [facility] MEDICAL G ANKLE L4350 [facility] CONTROL 6 Y Y [facility] STYL RIGID PREFAB RADEX 90449 [facility] ANKLE 6 Y Y [facility]PLETE [facility] MINIMUM 3 VIEWS RADEX 20488 [facility] FOOT 6 Y Y COMPLETE [facility] MIN[address] [place] [address] [facility] [place] CHIO COMER CERVICAL 6 RADIOLOGY SPINE W/O CONTRAST MATERIAL ECG 54292 [facility] ROUTINE 6 [facility] ECG CLINIC W/LEAST PSC 12 LDS I&[place] [address] [facility] [place] CHIO COMER HEAD/BRAI 6 RADIOLOGY N W/O CONTRAST MATERIAL RADIOLOGI 63196 [facility] [place] PRUDENCE C 6 RADIOLOGY JEANETTE EXAMINATI ON CHEST SINGLE VIEW FRONTAL PROTHROMB 77157 DESMOND IVORY IN TIME 6 [facility] MEDICAL G PROTHROMB 04723 [facility] IN TIME 6 Y Y HOSPITAL HOSPITAL RADIOLOGI 74813 [facility] C EXAM 6 Y Y CHEST 2 [facility]OSPITAL VIEWS FRONTAL&L ATERAL ECG 36984 [place] [facility] ROUTINE 6 MEDICAL NAN ECG SERV W/LEAST FOUNDATIO 12 LDS N I&R ONLY PREDNISON J7512 [facility] E 6 Y Y [facility]PITAL RLSE/HERO BOX RLSE ORAL 1 [place] [address] [facility] TROPONIN 6 Y Y QUANTITAT HOSPITAL HOSPITAL WAYNE ECG 04592 [facility] ROUTINE 6 Y Y ECG HOSPITAL HOSPITAL W/LEAST 12 LDS TRCG ONLY W/O I&R THROMBOPL 47517 [facility] ASTIN 6 Y Y TIME HOSPITAL HOSPITAL PARTIAL PLASMA/WH OLE BLOOD BASIC 20861 [facility] METABOLIC 6 Y Y PANEL HOSPITAL HOSPITAL CALCIUM TOTAL BLOOD 53015 [facility] UNIVERS COUNT 6 Y Y COMPLETE HOSPITAL HOSPITAL AUTOMATED BLOOD 37959 [facility] COUNT 6 Y Y COMPLETE HOSPITAL HOSPITAL AUTOMATED THROMBOPL 93550 [facility] ASTFL 6 Y Y TIME HOSPITAL HOSPITAL PARTIAL PLASMA/WH OLE BLOOD AMB A0427 DIANE DIANE SERVICE 6 [facility] [facility] COGOVT COGOVT TRANSPORT LEVEL 1 THER 44583 [facility] PROPH/DX 6 Y Y NJX IV HOSPITAL HOSPITAL PUSH SINGLE/1S T SBST/DRUG COMPREHEN 20779 [facility] 6 Y Y METABOLIC HOSPITAL HOSPITAL PANEL FIBRIN 48454 [facility] DGRADJ 6 Y Y PRODUCTS HOSPITAL HOSPITAL D-DIMER QUANTITAT WAYNE NATRIURET 68927 [facility] IC 6 Y Y [facility] HOSPITAL ECG 73417 [facility] UNIVERS ROUTINE 6 Y Y ECG HOSPITAL HOSPITAL W/LEAST 12 LDS TRCG ONLY W/O I&[place] [address] [facility] TROPONIN 6 Y Y QUANTITAT [facility] WAYNE GROUND A0425 DIANE DIANE MILEAGE 6 [place] FAY[place] PER URBAN URBAN STATUTE COGOVT COGOVT MILE ECG 31752 JAI QUAN ROUTINE 6 MEDICAL ECG SERV W/LEAST FOUNDATIO 12 LDS N I&R ONLY RADIOLOGI 26959 [place] GREG MINS C 6 MEDICAL EXAMINATI SERV ON CHEST FOUNDATIO SINGLE N VIEW FRONTAL PROTHROMB 64037 [facility] IN TIME 6 Y Y HOSPITAL HOSPITAL PROTHROMB 75647 [facility] IN TIME 6 Y Y HOSPITAL HOSPITAL RADIOLOGI 41416 [facility] C EXAM 6 Y Y CHEST 2 HOSPITAL HOSPITAL VIEWS FRONTAL&L ATERAL ECG 02454 JAI LEE CHI ROUTINE 6 MEDICAL ECG SERV W/LEAST FOUNDATIO 12 LDS N I&R ONLY INJECTION J1650 [facility] 6 Y Y ENOXAPARI [facility] N SODIUM [address] [place] [address] [facility] TROPONIN 6 Y Y QUANTITAT [facility] WAYNE ECG 86250 [facility] ROUTINE 6 Y Y ECG [facility] W/LEAST 12 LDS TRCG ONLY W/O I&R URNLS DIP 62680 [facility] 6 Y Y STICK/TAB [facility] LET REAGENT AUTO MICROSCOP Y FIBRIN 39397 [facility] DGRADJ 6 Y Y PRODUCTS [facility] D-DIMER QUANTITAT WAYNE THERAPEUT 31440 [facility] 6 Y Y PROPHYLAC [facility] TIC/DX INJECTION SUBQ/IM THROMBOPL 90992 [facility] ASTIN 6 Y Y TIME [facility] PARTIAL PLASMA/WH OLE BLOOD BLOOD 96472 [facility] COUNT 6 Y Y COMPLETE [facility] AUTOMATED BASIC 55595 [facility] METABOLIC 6 Y Y PANEL [facility] CALCIUM TOTAL SVC PRV 57995 NEW NEW OFFICE 6 [facility] REG CLINIC CLINIC SCHEDD PSC PSC EVN WKEND/[place] [address] [facility] ABDOMEN & 6 Y Y PELVIS [facility] W/CONTRAS T MATERIAL INFUSION J7030 [facility] NORMAL 6 Y Y SALINE [facility] SOLUTION 1000 CC THERAPEUT 84975 [facility] IC 6 Y Y INJECTION [facility] IV PUSH EACH NEW DRUG INJECTION J2405 [facility] 6 [facility] PER 1 MG BLOOD 35357 [facility] UNIVERS COUNT 6 Y Y COMPLETE [facility] AUTOMATED THER 79616 [facility] PROPH/DX 6 Y Y NJX IV HOSPITAL HOSPITAL PUSH SINGLE/1S T SBST/DRUG COMPREHEN 05289 [facility] SIVE 6 Y Y METABOLIC HOSPITAL [facility] PANEL URNLS DIP 93226 [facility] UNIVERS 6 Y Y STICK/TAB [facility] LET REAGENT AUTO MICROSCOP Y LOCM Q9967 [facility] [phone] 6 Y Y MG/ML HOSPITAL HOSPITAL IODINE CONCENTRA TION PER ML URINE 76623 [facility] 6 Y Y TEST HOSPITAL HOSPITAL VISUAL COLOR CMPRSN METHS PROTHROMB 05946 [facility] IN TIME 6 [place] [address] [facility] LIPASE 6 Y Y HOSPITAL HOSPITAL PROTHROMB 93070 DESMOND RAMIREZ IN TIME 6 [place] [address] [facility] ABDOMEN & 6 RADIOLOGY JEANETTE PELVIS W/CONTRAS T MATERIAL PROTHROMB 09468 DESMOND RAMIREZ IN TIME 6 [facility] III [facility] MEDICAL G ECG 27456 DESMOND RAMIREZ ROUTINE 6 [facility] III [facility] ECG MEDICAL W/LEAST G 12 LDS W/I&R ECHO 17442 JAI DUEÑAS MELO TTHRC R-T 6 MEDICAL 2D SERV W/WOM-MOD FOUNDATIO E COMPL N SPEC&COLR D ECG 84871 JAI NATHAN DACIA ROUTINE 6 MEDICAL ECG SERV W/LEAST FOUNDATIO 12 LDS N I&R ONLY INITIAL 23157 S CARITO INPATIENT 6 NURSE ELENA CONSULT PRACTITIO NEW/ESTAB NER GR [place] [address] [place] [address] [place] ABDOMEN & 6 MEDICAL PERNELL PELVIS SERV W/CONTRAS FOUNDATIO T N MATERIAL DUP-SCAN 31764 JAI SIERRA MAURICE XTR VEINS 6 MEDICAL SERV UNILATERA FOUNDATIO L/LIMITED N STUDY 88815 JAI ANTONIA JOINER RETROPERI 6 MEDICAL MOOSE TONEAL SERV REAL TIME FOUNDATIO W/IMAGE N COMPLETE PROTHROMB 36343 DESMOND HORTA OLIVIER IN TIME 5 [facility] MEDICAL G ECHO 96089 DESMOND HORTA OLIVIER TTHRC R-T 5 [facility] 2D W/WO MEDICAL M-MODE G COMPLETE REST&ST RADIOLOGI 05835 [facility] JAI SUTTON C 5 RADIOLOGY JEFF EXAMINATI ON CHEST SINGLE VIEW FRONTAL RADIOLOGI 95951 [facility] NALLELY EXAMINATI EMERGENCY ON CHEST PHYS SINGLE VIEW FRONTAL ECG 76239 [facility] ROUTINE 5 NALLELY ECG EMERGENCY W/LEAST PHYS 12 LDS I&R ONLY ECG 20127 DESMOND RAMIREZ ROUTINE 5 [facility] ECG MEDICAL W/LEAST G 12 LDS W/I&R PROTHROMB 14631 DESMOND RAMIREZ IN TIME 5 [facility] MEDICAL G PROTHROMB 34863 DESMOND MANTILLA IN TIME [facility] [place] [address] [place] MERHAR ABDOMEN & 5 MEDICAL GAR PELVIS SERV W/CONTRAS FOUNDATIO T N MATERIAL DUP-SCAN 29276 [place] NICKELS ARTL YONNY 5 MEDICAL CATRACHITO ABDL/PEL/ SERV SCROT&/[place] [address] [place] TRANSVAGI 5 MEDICAL CATRACHITO NAL SERV FOUNDATIO N PROTHROMB [address] [facility] IN TIME 5 [facility] PROTHROMB [address] [facility] IN TIME 5 [facility] PROTHROMB [address] [facility]RI[facility] IN TIME 5 [facility] MEDIC IAADIADOO 21609 BRAEDEN DUEÑAS DAMIEN 5 REGIONAL STREPTOCO PHYSICIAN CCUS PRA GROUP A PROTHROMB [address] [facility]RIA IN TIME 5 [facility] RADIOLOGI 80010 [facility] [place] KOSTELIC C EXAM 5 RADIOLOGY JENNIFER CHEST 2 VIEWS FRONTAL&L ATERAL RADIOLOGI 56900 [facility] [place] DREW C EXAM 5 RADIOLOGY RHO CHEST 2 VIEWS FRONTAL&L ATERAL ECG 07927 [facility] ROUTINE 5 NALLELY REG ECG EMERGENCY W/LEAST PHYS 12 LDS I&R ONLY OUTPATIEN 78469 [facility] ST FLAQUITA T CARDIAC 5 [facility] W/CONT ECG MONITORIN G OUTPATIEN 25978 [facility] T CARDIAC 5 [facility] W/CONT ECG MONITORIN G ECHO [address] ADRIA TTHR R-T 5 REG[facility]AL REGIONAL 2D MEDIC MEDIC W/WOM-MOD E COMPL SPEC&COLR D PROTHROMB [address] ADRIA IN TIME 5 [facility] MEDIC PROTHROMB [address] [facility]RIA IN TIME 5 [facility] PROTHROMB [address] [facility]RI[facility] IN TIME 4 [facility] MEDIC PROTHROMB [address] ADRIA IN TIME 4 [facility]IC MEDIC PROTHROMB 08244 BRAEDEN DERAS IN TIME 4 [facility] MEDICAL MEDICAL CENTE CENTE RADIOLOGI 58550 FOUNDATIO KRAMER ATU C EXAM 4 N CHEST 2 RADIOLOGY VIEWS GROUP P FRONTAL&[place] [address] [facility] DERAS TROPONIN 4 REGIONAL REGIONAL QUANTITAT MEDICAL MEDICAL WAYNE CENTE CENTE THER 45277 BRAED[facility] DERAS PROPH/DX 4 REGIONAL REGIONAL NJX IV MEDICAL MEDICAL PUSH CENTE CENTE SINGLE/1S T SBST/DRUG THROMBOPL 82000 [facility] ASTIN 4 REGIONAL REGIONAL TIME MEDICAL MEDICAL PARTIAL CENTE CENTE PLASMA/WH OLE BLOOD BASIC 96768 [facility] METABOLIC 4 REG[facility]AL REGIONAL PANEL MEDICAL MEDICAL [place] [address] [facility] TROPONIN 4 REGIONAL REGIONAL QUANTITAT MEDICAL MEDICAL WAYNE CENTE CENTE BLOOD 62375 [facility]ED[facility] DER[facility] COUNT 4 REGIONAL REGIONAL COMPLETE MEDICAL MEDICAL AUTO&AUTO CENTE CENTE DIFRNTL WBC ECG 50218 BRAED[facility] DERAS ROUTINE 4 REGIONAL REGIONAL ECG MEDICAL MEDICAL W/LEAST CENTE CENTE 12 LDS TRCG ONLY W/O I&R ECG 05688 [facility] ROUTINE 4 NALLELY ECG EMERGENCY W/LEAST PHYS 12 LDS I&R ONLY PROTHROMB 92580 ST FLAQUITA FAN IN TIME 4 [facility] RADIOLOGI 08630 [place] [place] KOSTELIC C EXAM 4 RADIOLOGY JENNIFER CHEST 2 VIEWS FRONTAL&L ATERAL PROTHROMB [address] FLAQU[facility] IN TIME 4 [facility] PROTHROMB [address] FLAQU[facility] IN TIME 4 [facility] PROTHROMB 77904 [facility] IN TIME 4 [facility] RADIOLOGI 34533 [place] KOSTELIC C 4 RADIOLOGY JENNIFER EXAMINATI ON CHEST SINGLE VIEW FRONTAL RADIOLOGI 36342 [facility] [place] WESTERFIE C 4 RADIOLOGY LD IV ALL EXAMINATI ON CHEST SINGLE VIEW FRONTAL RADIOLOGI 42784 [facility] [place] WESTERFI[place] C 4 RADIOLOGY LD IV ALL EXAMINATI ON CHEST SINGLE VIEW FRONTAL RADIOLOGI 77505 [facility] [place] KOSTELIC C 4 RADIOLOGY JENNIFER EXAMINATI ON CHEST SINGLE VIEW FRONTAL RADIOLOGI 13227 [facility] [place] WESTERFI[place] C 4 RADIOLOGY LD IV ALL EXAMINATI ON CHEST SINGLE VIEW FRONTAL RADIOLOGI 95421 [facility] [place] WESTER[place] C 4 RADIOLOGY LD IV ALL EXAMINATI ON CHEST SINGLE VIEW FRONTAL RADIOLOGI 46634 [place] [place] AN C 4 RADIOLOGY CAR EXAMINATI ON CHEST SINGLE VIEW FRONTAL ANES HRT 16745 [facility] PERICRD 4 A JEANETTE SAC&GRT ASSOCIATE VSLS S PSC W/CUSTOMER EXPERT OXTJ >1MO PO RADIOLOGI 23992 [facility] [place] KOSTELIC C 4 RADIOLOGY JENNIFER EXAMINATI ON CHEST SINGLE VIEW FRONTAL INSJ 34754 [facility] NON-TUNNE 4 A JEANETTE LED ASSOCIATE CENTRAL S PSC VENOUS CATH AGE 3 YR/> ARTL 81179 [facility] CATHJ/CAN 4 A JEANETTE NULJ ASSOCIATE MNTR/CASTANO S PSC SFUSION SPX PRQ ECG 94552 [facility] ROUTINE 4 MEDICINE RAL ECG ASSOCIATE W/LEAST S 12 LDS I&R ONLY DOPPLER 49822 [facility] ECHOCARD 4 A JEANETTE PULSE ASSOCIATE WAVE S PSC W/SPECTRA L DISPLAY INSERTION 82323 [facility] FLOW [facility] MEDICAL MEDICAL CATHETER G G FOR MONITORIN G ECHO 79429 [facility] TRANSESOP 4 A JEANETTE HAG ASSOCIATE CONGEN S PSC PROBE PLCMT IMGNG I&R DOP 32660 [facility] ECHOCARD 4 A JEANETTE COLOR ASSOCIATE FLOW S PSC VELOCITY MAPPING RPR SINUS 62127 DESMOND RIVAS VALSALVA 4 [facility] FISTULA MEDICAL W/RPR G V-SEPTAL DEFECT RPLCMT 51193 DESMOND RIVAS PROST 4 [facility] AORTIC MEDICAL VALVE G OPEN XCP HOMOGRF/S TENT LEVEL III 70930 [facility] [place] SURG 4 [facility] PSC GROSS&[place] [address] [facility] [place] SURG 4 [facility] PSC GROSS&QUIANA ROSCOPIC EXAM OPEN AND [address] REPLACEME NT OF AORTIC VALVE PULMONARY [address] WEDGE MONITORIN G OTHER&UNS [address] REPAIR VENTRICUL AR SEPTAL DEFECT EXCISION [address] ANEURYSM OF HEART ARTERIAL [address] ZATION SPMTRY [address]65[address] [facility] COLON-CAR W/VC 4 [facility] JAYJAY EXPIRATOR MEDICAL Y YONNY G W/WO MXML VOL VNTJ RADIOLOGI 30904 [facility] [place] ANGELICA MAT C EXAM 4 RADIOLOGY CHEST 2 VIEWS FRONTAL&L ATERAL ECG 74931 [facility] ROUTINE 4 NALLELY EDW ECG EMERGENCY W/LEAST PHYS 12 LDS I&R ONLY RADIOLOGI 11895 [facility] [place] ANGELICA MAT C 4 RADIOLOGY EXAMINATI ON CHEST SINGLE VIEW FRONTAL INJECTION J2270 [facility] MORPHINE 4 [facility] SULFATE DAVID DAVID UP TO [address] [place] [address] [facility] TROPONIN 4 [facility] QUANTITAT DAVID DAVID WAYNE BLOOD 85859 [facility] COUNT 4 [facility] COMPLETE DAVID DAVID AUTO&AUTO DIFRNTL WBC ECG 12767 [facility] ROUTINE 4 [facility] ECG DAVID DAVID W/LEAST 12 LDS TRCG ONLY W/O I&R COMPREHEN 12598 [facility] SIVE 4 [facility] METABOLIC DAVID DAVID PANEL CREATINE 48236 [facility] KINASE MB 4 [facility] FRACTION DAVID DAVID ONLY URINE 38488 [facility] 4 [facility] TEST DAVID DAVID VISUAL COLOR CMPRSN METHS URNLS DIP 50928 [facility] 4 [facility] STICK/TAB DAVID DAVID LET REAGENT AUTO MICROSCOP Y CRITICAL [address] [place] [address] NALLELY EDW ILL/INJUR EMERGENCY ED PHYS PATIENT INIT 30-74 MIN THER 78427 [facility] PROPH/DX 4 [facility] NJX IV DAVID DAVID PUSH SINGLE/1S T SBST/DRUG CREATINE 74465 [facility] KINASE 4 [facility] TOTAL DAVID DAVID ECHO 48096 MYLES DELGADO TRANSESOP 4 MEDICAL NOW HAG R-T SPECIALIS 2D W/PRB TS IMG ACQUISJ I&R ALS A0398 [facility] ROUTINE 4 [facility] AMBULANCE DISPOSABL SERVICE SERVICE E SUPPLIES GROUND A0425 [facility] B[facility] CO MILEAGE 4 [facility] AMBULANCE PER SERVICE SERVICE STATUTE MILE RADIOLOGI 84462 [facility] C EXAM 4 REGIONAL CHEST 2 RADIOLOG VIEWS FRONTAL&L ATERAL AMB A0427 [facility] CO SERVICE 4 [facility]ANCE AMBULANCE ALS SERVICE SERVICE EMERGENCY TRANSPORT LEVEL [address] [facility] C EXAM 4 REGIONAL OLIVIER CHEST 2 RADIOLOG VIEWS FRONTAL&L ATERAL ECHO 81913 MYLES DELGADO TTHRC R-T 4 MEDICAL NOW 2D SPECIALIS W/WOM-MOD TS E COMPL SPEC&COLR D SCR G0123 [facility] CYTOPATH 4 REGIONAL REGIONAL CERV/VAG MEDIC MEDIC SCR CYTOTECH UND PHYS SUPV URNLS DIP 70760 [facility] STICK/TAB INC INC LET REAGENT AUTO MICROSCOP Y SUSCEPTIB 47209 MARCIA KENNEDY LTY STDY 0 [facility] ANTIMICRB INC INC IAL MICRO/AGA R DILUTJ URINE 51661 [facility] MARCIA [facility] TEST INC INC VISUAL COLOR CMPRSN METHS BASIC 90670 MARCIA KENNEDY METABOLIC 0 [facility] PANEL INC INC CALCIUM TOTAL CULTURE 92167 MARC[facility] KENNEDY BACTERIAL 0 [facility] INC INC QUANTTATI VE COLONY COUNT URINE CULTURE 24011 [facility] KENNEDY BCT 0 [facility] ISOL&PRSM INC INC PTV ID ISOLATE EA URINE BLOOD 59078 [facility] KENNEDY COUNT 0 [facility] COMPLETE INC INC AUTO&AUTO DIFRNTL WBC IADNA 74143 PATHOLOGY PATHOLOGY [place]LAMYDIA 0 & & CYTOLOGY CYTOLOGY TRACHOMAT LAB LAB IS AMPLIFIED PROBE TQ IADNA 48438 PATHOLOGY PATHOLOGY [place] 0 & & CYTOLOGY CYTOLOGY GONORRHOE LAB LAB AE AMPLIFIED PROBE TQ CYTP C/V 72057 PATHOLOGY PATHOLOGY AUTO THIN 0 & & LYR CYTOLOGY CYTOLOGY PREPJ SCR LAB LAB MNL RESCR PHYS BLOOD 85565 [facility] KENNEDY COUNT 0 [facility] COMPLETE INC INC AUTO&AUTO DIFRNTL WBC BLOOD 08028 [facility] KENN[facility] COUNT 0 [facility] COMPLETE INC INC AUTO&[place] [address] [place], ABDOMEN 0 MEDICAL RUBI W/O IMAGING CONTRAST ASSOCIATE MATERIAL S 3D 45735 [place], RENDERING 0 MEDICAL [facility] IMAGING W/INTERP& ASSOCIATE POSTPROC S DIFF WORK STATION CT PELVIS 15820 [place] TEN[place], W/O 0 MEDICAL [facility] CONTRAST IMAGING MATERIAL ASSOCIATE S COMPREHEN 75465 MARCIA KENNEDY SIVE 0 [facility] METABOLIC INC INC PANEL CULTURE 03983 MARCIA KENNEDY BCT 0 [facility] ISOL&PRSM INC INC PTV ID ISOLATE EA URINE URINE 27738 MARCIA KENNEDY 0 [facility] TEST INC INC VISUAL COLOR CMPRSN METHS URNLS DIP 06300 MARCIA KENNEDY 0 [facility] STICK/TAB INC INC LET REAGENT AUTO MICROSCOP Y SUSCEPTIB 76772 MARCIA KENNEDY LTY STDY 0 [facility] ANTIMICRB INC INC IAL MICRO/AGA R DILUTJ CULTURE 54263 MARCIA KENNEDY BACTERIAL 0 [facility] INC INC QUANTTATI VE COLONY COUNT URINE DEEP D9220 [facility], SEDATION/ 0 IMPLANT & III, GENERAL ORAL LYN P ANESTHESI SURGERY A-1ST 30 [facility] [employer] ALVEOLECT 28040 [facility] ISRRAEL 0 IMPLANT & III, W/CURTG ORAL LYN P OSTEITIS/ SURGERY SEQUESTRE [facility] [employer] ORTHOPANT 22903 [facility] OGRAM 0 IMPLANT & III, ORAL LYN P [facility] DEEP D9220 [facility], SEDATION/ 0 IMPLANT & III, GENERAL ORAL LYN P ANESTHESI SURGERY A-1ST 30 [facility] [employer] LEVEL III 15085 [facility] SURG 0 CLINIC CLINIC PATHOLOGY LABORATOR LABORATOR Y Y GROSS&QUIANA ROSCOPIC EXAM ANES 17738 ANESTHESI ELI, INTRAPERI 0 A LANDY Lance TONEAL ASSOCIATE UPPER S, PSC ABDOMEN W/LAPS NOS LAPS SURG 22463 NEW NEW 0 [facility] CHOLECYST CLINIC CLINIC ECTOMY PSC PSC W/CHOLANG IOGRAPHY ANES 78505 [facility], XTRNL MID 0 ANESTH TASHI A & INNER OF THE EAR W/BX [facility]ASS TYMPANOTO MY ECHO 91297 MARCIA PATY TTHRC R-T [address] SINA Madden W/WOM-MOD PROF SERV E COMPL SPEC&COLR D LEVONORGE J7302 [facility], STREL-RLS 9 [facility] REVA Lance E CLINIC OF INTRAUTER N [facility] 52 MG INSERTION 98875 [facility], 9 [facility] REVA J INTRAUTER CLINIC OF INE DEVICE [facility] IUD [facility] URINE 60765 [facility], 9 [facility] REVA TEST CLINIC OF VISUAL COLOR [facility] CMPRSN [facility] METHS CYTP C/V 65106 PATHOLOGY PATHOLOGY AUTO THIN 9 & & LYR CYTOLOGY CYTOLOGY PREPJ SCR LAB LAB MNL RESCR PHYS CYSTO 15710 [facility] EDNA, W/SIMPLE 9 LTH KAROLINA D REMOVAL UROLOGY STONE & PSC STENT REMOVAL 9762 MARCIA MARCIA OF 9 [facility] URETEROST INC INC ISRRAEL TUBE&URET ERAL [facility] 34773 [facility] MARIBELL, DISCHARGE 9 CARE WALDO T DAY ASSOCIATE MANAGEMEN S T 30 MIN/< SUBQ 17828 [facility] 9 CARE WALDO T CARE PER ASSOCIATE DAY E/M S NORMAL SUBQ 10532 [facility] 9 CARE WALDO T CARE PER ASSOCIATE DAY E/M S NORMAL NEURAXIAL 87495 [facility] PATRICIA, LABOR 9 ANESTH SHIRIN L ANALG/ANE OF THE S PLND [facility]ASS VAGINAL DELIVERY 1ST 48696 [facility] DUANENEW ALBIN, HOSP/MANASA 9 CARE WALDO T FITO ASSOCIATE CENTER S CARE PER DAY NML NB VAGINAL 30889 [facility], DELIVERY 9 HEALTH REVA J ONLY CLINIC OF W/POSTPAR [facility] REPAIR OF 7569 MARCIA KENNEDY OTHER 9 [facility] CURRENT INC INC OBSTETRIC LACERATIO N 82344 [facility], NONSTRESS 9 [facility]ALTH REVA J TEST [facility] 46525 MARCIA KENNEDY NONSTRESS 9 [facility] TEST INC INC CUL BACT 15350 COMBINED COMBINED XCPT 9 PHYSICIAN PHYSICIAN URINE S LAB S LAB BLOOD/STO OL AEROBIC ISOL 40619 [facility], NONSTRESS 9 [facility]ALTH REVA J TEST [facility] 42693 MARCIA MARCIA NONSTRESS 9 [facility] TEST INC INC CULTURE 85653 MARCIA KENNEDY BACTERIAL 9 [facility] INC INC QUANTTATI VE COLONY COUNT URINE THERAPEUT 82758 MARCIA KENNEDY IC 9 [facility] PROPHYLAC INC INC TIC/DX INJECTION SUBQ/IM URNLS DIP 87301 MARCIA KENNEDY 9 [facility] STICK/TAB INC INC LET REAGENT AUTO MICROSCOP Y 53139 [facility], NONSTRESS 9 [facility]ALTH REVA J TEST [facility] 84605 MARCIA KENNEDY NONSTRESS 9 [facility] TEST INC INC FTL 72957 MARCIA KENNEDY FIBRONECT 9 [facility] IN INC INC CERVICOVA G SECRETION S SEMI-DELMA URNLS DIP 86016 MARCIA KENNEDY 9 [facility] STICK/TAB INC INC LET REAGENT AUTO MICROSCOP Y CULTURE 50365 MARCIA KENNEDY BACTERIAL 9 [facility] INC INC QUANTTATI VE COLONY COUNT URINE OBSERVATI 90623 JOSH ALFARO ON/INPATI 9 ANGELINA [place] Opal [facility] HOSPITAL C[place] [address] [place] [address] MARCIA KENNEDY RETROPERI 9 [facility] TONEAL INC INC REAL TIME W/IMAGE COMPLETE 26161 [facility], NONSTRESS 9 [facility] TEST [facility] 66620 MARCIA KENNEDY NONSTRESS 9 [facility] TEST INC INC FTL 48790 MARCIA KENNEDY FIBRONECT 9 [facility] IN INC INC CERVICOVA G SECRETION S SEMI-DELMA CULTURE 51297 MARCIA MARCIA BACTERIAL 9 [facility] INC INC QUANTTATI VE COLONY COUNT URINE URNLS DIP 90776 MARCIA KENNEDY 9 [facility] STICK/TAB INC INC LET REAGENT AUTO MICROSCOP Y OBSERVATI 09223 JOSH ALFARO ON/INPATI 9 ANGELINA Joseph [facility]OSPITAL CARE 55 MINUTES BLOOD 15491 MARCIA KENNEDY COUNT 9 [facility] COMPLETE INC INC AUTO&AUTO DIFRNTL WBC 45658 MARCIA KENNEDY NONSTRESS 9 [facility] TEST INC INC SKIN TEST 33069 DHS/CO MARCIA 9 [facility] TUBERCULO CENTRAL QUITMAN SIS BANK ACCT INTRADERM AL GLUCOSE 91069 MARCIA KENNEDY TOLERANCE 9 [facility] TEST GTT INC INC 3 SPECIMENS URNLS DIP 95072 MARCIA KENNEDY 9 [facility] STICK/TAB INC INC LET RGNT NON-AUTO W/O MICRSCP GLUCOSE 72636 MARCIA KENNEDY TOLERANCE 9 [facility] EA ADDL INC INC BEYOND 3 SPECIMENS GLUCOSE 88688 [facility], POST 9 [facility] GLUCOSE CLINIC OF DOSE K[facility] CULTURE 12959 COMBINED COMBINED BACTERIAL 9 PHYSICIAN PHYSICIAN S LAB S LAB QUANTTATI VE COLONY COUNT URINE COLLECTIO 30413 [facility], N 9 [facility] CAPILLARY CLINIC OF BLOOD SPECIMEN [facility] GLU[facility]SE 29134 [facility], TOLERANCE 9 [facility] TEST GTT CLINIC OF 3 SPECIMENS [facility] URETEROSC 5631 MARCIA KENNEDY OPY 9 [facility] INC INC URETERAL 598 MARCIA KENNEDY CATHETERI 9 [facility] ZATION INC INC INTRO 51047 MARCIA KENNEDY URETERAL 9 [facility] CATH/STEN INC INC T PRQ RS&I ANES 16740 [facility] CHRISTINA, TRANSURET 9 ANESTH SINA Madden HRZAKI OF THE W/URETHRO PSYCHIATRIC CYSTOSCOP Y NOS CYSTO 21450 LIZA BISHOP, W/URTROSC 9 [facility] KAROLINA D OPY&/PYEL UROLOGY OSCOPY DX PSC CULTURE 39860 COMBINED COMBINED BACTERIAL 9 PHYSICIAN PHYSICIAN S LAB S LAB QUANTTATI VE [place]ONY [place] URINE [place] PREG 38693 [facility], UTERUS 9 [facility] OF [facility] [place] [facility] UROGRAPHY 73929 MARCIA KENNEDY IV W/WO 9 [facility] KUB W/[place] [address] MARCIA KENNEDY RETROPERI 9 [facility] TONEAL INC INC REAL TIME W/IMAGE COMPLETE CULTURE 16010 MARCIA KENNEDY BACTERIAL 9 [facility] INC INC QUANTTATI VE COLONY COUNT URINE CULTURE 24431 MARCIA KENNEDY BCT 9 [facility] ISOL&PRSM INC INC PTV ID ISOLATE EA URINE URNLS DIP 29680 MARCIA KENNEDY 9 [facility] STICK/TAB INC INC LET REAGENT AUTO MICROSCOP Y SUSCEPTIB 95929 MARCIA KENNEDY LTY STDY 9 [facility] ANTIMICRB INC INC IAL MICRO/AGA R DILUTJ 27379 [facility], NONSTRESS 9 HEALTH REVA J TEST CLINIC OF [facility] US PREG 91971 CONCHA CONCHA, UTERUS 9 AND DILLAN W/DETAIL DAILY PSC UNRULY 1ST GESTATION COLLECTIO 28286 [facility] VENOUS [address] [place] [address] BLOOD [facility] VENIPUNCT [facility] BLOOD 71613 [facility] COUNT [address] [place] [address] COMPLETE [facility] AUTO&AUTO [facility] WBC GONADOTRO 48549 [facility] PIN [address] [place] [address] [facility]ORIONIC [facility] WAYNE URNLS DIP [address] STICK/TAB [facility] LET [facility] AUTO MICROSCOP Y [place] PREG 73608 [facility], UTERUS 8 HEALTH REVA J REAL TIME CLINIC OF W/IMAGE DCMTN KIKA [facility]SVAG [facility] CUL BACT 34292 COMBINED COMBINED XCPT 8 PHYSICIAN PHYSICIAN URINE S LAB S LAB BLOOD/STO OL AEROBIC ISOL ANTIBODY 48146 COMBINED COMBINED CHLAMYDIA 8 PHYSICIAN PHYSICIAN S LAB S LAB URINE 52168 DHS/CO MARCIA 8 HEALTH CO HEALTH TEST CENTRAL QUITMAN VISUAL BANK ACCT COLOR CMPRSN METHS Encounters Encounter Start End Date Code Location Performer Type Date OFFICE 71134 [facility] MEHDI OUTPATIEN 7 7 PHYSICIAN T VISIT S GROUP 15 MINUTES HOSPITAL MARCIA - 7 7 [facility] MARCIA - 7 7 [facility] T OFFICE 26289 [facility] MEHDI OUTPATIEN 7 7 PHYSICIAN T VISIT S GROUP 15 MINUTES HOSPITAL MARCIA - 7 7 [facility] OUTPATIEN [facility] T OFFICE 47678 MARCIA OUTPATIEN 7 7 [facility] T VISIT 5 INC MINUTES HOSPITAL MARCIA - 7 7 [facility] OUTPATIEN INC T OFFICE 56060 MARCIA OUTPATIEN 7 7 [facility] T VISIT 5 INC MINUTES [facility] 8[facility]26 [facility] 7 7 [facility] T VISIT MEDICAL 15 G MINUTES HOSPITAL ZOROASTRIANISM - 7 7 HEALTH OUTPATIEN [place] T OFFICE 88588 [facility] HARDING OUTPATIEN 7 7 PHYSICIAN T VISIT S GROUP 15 MINUTES OFFICE 57039 [facility] HARDING OUTPATIEN 7 7 PHYSICIAN T VISIT S GROUP 15 MINUTES OFFICE 80541 MARCIA OUTPATIEN 7 7 [facility] T VISIT 5 INC MINUTES HOSPITAL MARCIA - 7 7 [facility] OUTPATIEN INC T OFFICE 10536 [facility] 7 [facility] DE[facility] DEPT MINUTES [facility] OFFICE 44228 MARCIA OUTPATIEN 7 7 [facility] T VISIT 5 INC MINUTES HOSPITAL MARCIA - 7 7 [facility] OUTPATIEN INC T OFFICE 06570 [facility] HARDING OUTPATIEN 7 7 PHYSICIAN T VISIT S GROUP 15 MINUTES OFFICE 40961 [facility] HARDING OUTPATIEN 7 7 PHYSICIAN T VISIT S GROUP 15 MINUTES HOSPITAL MARCIA - 7 7 [facility] OUTPATIEN INC T OFFICE 57739 MARCIA OUTPATIEN 7 7 [facility] T VISIT 5 INC MINUTES OFFICE 86330 [facility] M[facility]PATI[facility] 7 7 [facility] T VISIT MEDICAL 15 G MINUTES HOSPITAL MARCIA - 7 7 [facility] OUTPATIEN INC T HOSPITAL MARCIA - 7 7 [facility] OUTPATIEN INC T OFFICE 05854 MARCIA OUTPATIEN 7 7 [facility] T VISIT 5 INC MINUTES OFFICE 03046 [facility] HARDING OUTPATIEN 7 7 PHYSICIAN T VISIT S GROUP 15 MINUTES OFFICE 63449 MARCIA OUTPATIEN 6 6 [facility] T VISIT 5 INC MINUTES HOSPITAL MARCIA - 6 6 [facility] OUTPATIEN INC [facility] MARCIA - 6 6 [facility] OUTPATIEN INC T OFFICE 11981 MARCIA OUTPATIEN 6 6 [facility] T VISIT 5 INC MINUTES [facility] MARCIA - 6 6 [facility] MARCIA - 6 6 [facility] OUTPATIEN [facility] T OFFICE 63033 MARCIA OUTPATIEN 6 6 [facility] T VISIT 5 INC MINUTES [facility] ZOROASTRIANISM - 6 6 HEALTH OUTPATIEN [facility] OFFICE 25137 [facility] OUTPATI[facility] 6 6 NE [facility]ALTH AKSHAT T VISIT MEDICAL 25 G MINUTES OFFICE 61269 [facility] HARDING OUTPATIEN 6 6 PHYSICIAN T VISIT S GROUP 15 MINUTES EMERGENCY 26588 MARCIA 6 6 [facility] DEPARTMEN INC T VISIT LOW/MODER SEVERITY EMERGENCY 84574 [facility] DE[facility] 6 6 PHYSICIAN QUIANA VISIT S, [facility] HIGH SEVERITY& THREAT [facility] MARCIA - 6 6 [facility] OUTPATIEN INC T OFFICE 77330 [facility] HARDING OUTPATIEN 6 6 PHYSICIAN ANDERSON T VISIT S GROUP 15 MINUTES OFFICE 20443 KENTJ[facility]O MASCORRO OUTPATIEN 6 6 NE HEALTH AKSHAT T VISIT MEDICAL 25 G MINUTES OFFICE 18936 [facility] HARDING OUTPATIEN 6 6 PHYSICIAN ANDERSON T VISIT S GROUP 15 MINUTES HOSPITAL ZOROASTRIANISM - 6 6 [facility] 84287 VINNY NGUYỄN CONSULTAT 6 6 HEALTH CHRISTIAN ION MEDICAL NEW/ESTAB GROUP PATIENT 15 MIN EMERGENCY 75771 MARCIA 6 6 [facility] DEPARTMEN INC T VISIT LOW/MODER SEVERITY HOSPITAL MARCIA - 6 6 [facility] OUTPATIEN INC T HOSPITAL MARCIA - 6 6 [facility] OUTPATIEN INC T OFFICE 91737 [facility] HARDING OUTPATIEN 6 6 PHYSICIAN ANDERSON T NEW 45 S GROUP MINUTES HOSPITAL MARCIA - 6 6 [facility] OUTPATIEN [facility] T OFFICE 72466 MARCIA OUTPATIEN 6 6 [facility] T VISIT 5 INC MINUTES OFFICE 24725 MARCIA OUTPATIEN 6 6 [facility] T VISIT 5 INC MINUTES HOSPITAL MARCIA - 6 6 [facility] OUTPATIEN [facility] T HOSPITAL MARCIA - 6 6 [facility] OUTPATIEN INC T EMERGENCY 61498 [facility] DEPT 6 6 NALLELY [place] VISIT EMERGENCY HIGH PHYSI SEVERITY& THREAT [facility] MARCIA - 6 6 [facility] OUTPATIEN INC T INITIAL 58305 [facility] ANGELINA PREVENTIV 6 6 PHYSICIAN SHARMILA E S GROUP MEDICINE NEW PT AGE 18-39YRS EMERGENCY 98056 MARCIA 6 6 [facility] DEPARTMEN INC T VISIT MODERATE SEVERITY HOSPITAL MARCIA - 6 6 [facility] OUTPATIEN INC T EMERGENCY 11191 MAGGI TORRE 6 6 [facility]YSICIAN [facility] T VISIT HIGH/URGE NT SEVERITY EMERGENCY 75845 [facility] 6 6 NALLELY MAR DEPARTMEN EMERGENCY T VISIT SERV HIGH/URGE NT SEVERITY EMERGENCY 24535 [facility] 6 6 Y [facility] T VISIT HIGH/URGE NT SEVERITY EMERGENCY 62673 [place] 6 6 MEDICAL DEPARTMEN SERV T VISIT FOUNDATIO MODERATE N SEVERITY HOSPITAL UNIVERSIT - 6 6 Y [facility] T EMERGENCY 89634 [facility] DEPT 6 6 NALLELY R ANS VISIT EMERGENCY HIGH SERV SEVERITY& THREAT [facility] UNIVERSIT - 6 6 Y [facility] T EMERGENCY 88006 UNIVERSIT 6 6 Y [facility] T VISIT HIGH/URGE NT SEVERITY HOSPITAL UNIVERSIT - 6 6 Y [facility] T EMERGENCY 70097 UNIVERSIT 6 6 Y [facility] T VISIT HIGH/URGE NT SEVERITY EMERGENCY 53155 [facility] 6 6 NALLELY MASHA VISIT EMERGENCY HIGH PHYSI SEVERITY& THREAT [facility] UNIVERSIT - 6 6 Y [facility] T EMERGENCY 07346 UNIVERSIT 6 6 Y [facility] T VISIT HIGH/URGE NT SEVERITY EMERGENCY 01393 UNIVERSIT 6 6 Y [facility] T VISIT HIGH/URGE NT SEVERITY HOSPITAL UNIVERSIT - 6 6 Y [facility] T EMERGENCY 07426 [facility] O' REEL DEPT 6 6 NALLELY VISIT EMERGENCY HIGH SERVI SEVERITY& THREAT FUN EMERGENCY 46610 [facility] DEPT 6 6 [facility]IMARY [facility] VISIT CARE HIGH PHYSICIAN SEVERITY& S THREAT FUN OFFICE 66621 [facility] RAM[facility] 6 6 [facility] III MASHA T VISIT MEDICAL 15 G MINUTES EMERGENCY 90855 JAI BUCIO DEPT 6 6 MEDICAL JOHN VISIT SERV HIGH FOUNDATIO SEVERITY& N THREAT FUNCJ EMERGENCY 55464 [facility] 5 5 NALLELY VISIT EMERGENCY HIGH PHYS SEVERITY& THREAT FUNCJ OFFICE 30251 DESMOND RAMIREZ OUTPATIEN 5 5 NE [facility] III MASHA T NEW 45 MEDICAL MINUTES G EMERGENCY 11716 JAI NAYLOR 5 5 MEDICAL JENNIFER DEPARTMEN SERV T VISIT FOUNDATIO HIGH/URGE N NT SEVERITY OFFICE 59183 [facility] OUTPSYCHIATRIC 5 5 URGENT FERNANDEZ T VISIT CARE 15 MINUTES HOSPITAL UNIVERSIT - 5 5 Y [facility] - 5 5 REGIONAL OUTPSYCHIATRIC MEDIC T OFFICE 81579 [facility] 5 5 REGIONAL T VISIT 5 MEDIC MINUTES OFFICE [facility]25 [facility] 5 5 REGIONAL T VISIT [address] [facility] 5 [facility] 5 5 REGIONAL T VISIT [address] [facility] - 5 5 REGIONAL OUTPSYCHIATRIC MEDIC T OFFICE 13061 [facility] OUTPSYCHIATRIC 5 5 REGIONAL T NEW 20 PHYSICIAN MINUTES [facility] - 5 5 [facility] OFFICE [facility]29 [facility] 5 5 REGIONAL T VISIT 5 MEDIC MINUTES EMERGENCY 62893 [facility] 5 5 NALLELY KYL DEPARTMEN EMERGENCY T VISIT PHYS HIGH/URGE NT SEVERITY EMERGENCY 06655 [facility] 5 5 NALLELY REG DEPARTMEN EMERGENCY T VISIT PHYS HIGH/URGE NT SEVERITY OFFICE 66629 [facility] OUTPATIEN 5 5 FAMILY RODRIGO T NEW 30 CLINIC, MINUTES [facility] OFFICE [address] [facility] 5 5 REGIONAL T VISIT [address] [facility] - 5 5 REGIONAL OUTPATIEN MEDIC T [facility] - 5 5 REGIONAL OUTPATIEN MEDIC T OFFICE [address] [facility] 5 5 REGIONAL T VISIT [address] FLAQUITA - 5 5 [facility] OUTPSYCHIATRIC DAVID OFFICE [address] [facility] 4 4 REGIONAL T VISIT [address] [facility] - 4 4 REGIONAL OUTPATI MEDIC T OFFICE 31925 [facility] 4 4 REGIONAL T VISIT [address] [facility] - 4 4 REGIONAL OUTPATIEN MEDIC T EMERGENCY 30634 [facility] DEPT 4 4 NALLELY VISIT EMERGENCY HIGH PHYS SEVERITY& THREAT [facility] BRAEDEN - 4 4 [facility] ST FLAQUITA - 4 [address] [facility] FLAQUITA - 4 4 [facility] - 4 4 [facility]LA[facility] - 4 4 [facility] - 4 4 [facility] - 4 [address] [facility] [facility]PATIENT [facility] [address] [facility] - 4 4 [facility] EMERGENCY 64722 [facility] DEPT 4 4 MOUNT VISIT SPARTA HIGH SEVERITY& THREAT [facility] OFFICE 72293 [facility] 4 4 NE HEALTH ARINA T NEW 45 MEDICAL MINUTES G HOSPITAL [facility] - 4 4 REGIONAL OUTPATIEN MEDIC T OFFICE 97246 MYLES DELGADO OUTPATIEN 4 4 MEDICAL NOW T VISIT SPECIALIS 25 TS MINUTES OFFICE 66685 [facility] OUTPATIEN 4 4 REGIONAL T VISIT 5 MEDIC MINUTES OFFICE 95732 MYLES DELGADO OUTPATIEN 4 4 MEDICAL NOW T NEW 45 SPECIALIS MINUTES TS EMERGENCY 66368 [facility] SHAHBAZ DEPT 4 4 REGIONAL CATRACHITO VISIT HIGH EMERGENCY SEVERITY& THREAT FUN EMERGENCY 51125 [facility] OVERALL DEPT 4 4 REGIONAL PHI VISIT HIGH EMERGENCY SEVERITY& THREAT FUN EMERGENCY 73705 [facility] INÉSISAJanae 4 4 REGIONAL R PUN DEPARTMEN T VISIT EMERGENCY HIGH/URGE NT SEVERITY HOSPITAL [facility] - 4 4 REGIONAL OUTPATIEN MEDIC T EMERGENCY 68767 MARCIA 0 0 [facility] DEPARTMEN INC T VISIT MODERATE SEVERITY HOSPITAL MARCIA - 0 0 [facility] OUTPATIEN INC T EMERGENCY 58954 DU TORRE 0 0 EMERGENCY QUIANA DEPARTMEN SERVICES T VISIT HIGH/URGE NT SEVERITY OFFICE 58202 MAXIMILIANO VIERA OUTPATIEN 0 0 MAURICE MAURICE T VISIT 15 MINUTES OFFICE 48862 MAXIMILIANO VIERA OUTPATIEN 0 0 MAURICE MAURICE T VISIT 15 MINUTES PERIODIC 68228 [facility] PREVENTIV 0 0 HEALTH ANDERSON E MED EST CLINIC OF PATIENT ALIYAH 18-39 YRS OFFICE 57934 MAXIMILIANO GIBBONSPATIEN 0 0 MAURICE MAURICE T VISIT 15 MINUTES OFFICE 77359 SCHULSTAD SCHULSTAD CONSULTAT 0 0 MAXIMINO MAXIMINO ION NEW/ESTAB PATIENT 60 MIN OFFICE 11584 MAXIMILIANO VIERA, OUTPATIEN 0 0 MARIAM Blair MARIAM W T VISIT 15 MINUTES HOSPITAL MARCIA - 0 0 [facility] OUTPATIEN INC T EMERGENCY 80595 MARCIA 0 0 [facility] DEPARTMEN INC T VISIT MODERATE SEVERITY EMERGENCY 71884 DU TORRE, DEPT 0 0 EMERGENCY NGUYEN S VISIT SERVICES HIGH SEVERITY& ASSOCIATE THREAT S [facility] MARCIA - 0 0 [facility] OUTPATIEN INC T OFFICE 22112 MAXIMILIANO VIERA OUTPATIEN 0 0 MARIAM Blair T VISIT 15 MINUTES OFFICE 22257 Johnnie SAHU OUTPATIEN 0 0 HILARY T NEW 30 CLINIC MINUTES PSC OFFICE [id number] Li BOYLE OUTPATIEN 0 0 EVANGELINA Sykes T VISIT PSC 25 MINUTES EMERGENCY 28669 [facility], DEPT 0 0 EMERGENCY NGUYEN S VISIT SERVICES HIGH SEVERITY& ASSOCIATE THREAT S [facility] MARCIA - 9 9 [facility] OUTPATIEN INC T OFFICE 76500 [facility] EMANUEL NIELSEN 9 9 PHYSICIAN CARMELO Bhat [facility] PATIENT 60 MIN OFFICE 02358 [facility] 9 9 [facility]ALTH REVA J T VISIT CLINIC OF 25 MINUTES [facility] MARCIA - 9 9 [facility] OUTPATIEN INC T OFFICE 53464 SHIRA PADILLA 9 9 [facility] KAROLINA Rodríguez T VISIT UROLOGY 15 PSC MINUTES OFFICE 28843 [facility] 9 9 HEALTH REVA J T VISIT CLINIC OF 15 MINUTES [facility] MARCIA - 9 9 [facility] INPATIENT INC OFFICE 22772 [facility], OUTPATIEN 9 9 HEALTH REVA J T VISIT CLINIC OF 15 MINUTES [facility] OFFICE 56415 [facility], OUTPATIEN 9 9 HEALTH REVA J T VISIT CLINIC OF 15 MINUTES [facility] MARCIA - 9 9 [facility] OUTPATIEN [facility] OFFICE 86833 [facility], OUTPATIEN 9 9 HEALTH REVA J T VISIT CLINIC OF 15 MINUTES [facility] OFFICE 64874 [facility], OUTPATIEN 9 9 HEALTH REVA J T VISIT CLINIC OF 15 MINUTES [facility] MARCIA - 9 9 [facility] OUTPATIEN [facility] T OFFICE 52987 [facility], OUTPATIEN 9 9 HEALTH REVA J T VISIT CLINIC OF 15 MINUTES [facility] MARCIA - 9 9 [facility] OUTPATIEN [facility]IA - 9 9 [facility] OUTPATIEN [facility] T OFFICE 88442 [facility], OUTPATIEN 9 9 HEALTH REVA J T VISIT CLINIC OF 15 MINUTES [facility] OFFICE 63092 [facility], OUTPATIEN 9 9 HEALTH REVA J T VISIT CLINIC OF 15 MINUTES [facility] MARCIA - 9 9 [facility] OUTPATIEN INC T OFFICE 77481 [facility], OUTPATIEN 9 9 [facility] KAROLINA Rodríguez T VISIT UROLOGY 15 PSC MINUTES OFFICE 00834 [facility] OUTPATIEN 9 9 JRNatalio JR, J V T VISIT 15 MINUTES OFFICE 23160 [facility], OUT[facility]IEN 9 9 HEALTH REVA J T VISIT CLINIC OF 15 MINUTES [facility] OFFICE 70788 [facility] OUTPATIEN 9 9 [facility] T VISIT [facility] MIN[facility]ES [facility] 13434 [facility], OUTPATIEN 9 9 HEALTH REVA J T VISIT CLINIC OF 15 MINUTES [facility] OFFICE 06324 [facility] OUTPATIEN 9 9 [facility] T VISIT [facility] 10 BANK ACCT MINUTES [facility] - 9 9 [facility]IEN [facility] - 9 9 [facility] OUTPATIEN [facility] T OFFICE 09964 [facility], OUTPATIEN 9 9 HEALTH REVA J T VISIT CLINIC OF 15 MINUTES [facility] OFFICE 50062 [facility], OUTPATIEN 9 9 HEALTH REVA J T VISIT 5 CLINIC OF MINUTES [facility] OFFICE 04792 [facility], OUTPATIEN 9 9 HEALTH REVA J T VISIT CLINIC OF 15 MINUTES [facility] MARCIA - 9 9 [facility] OUTPATIEN [facility] OFFICE 18453 COMMONWEA BISHOP, OUTPATIEN 9 9 [facility] KAROLINA D T VISIT UROLOGY 25 PSC MINUTES OFFICE 13485 [facility], OUTPATIEN 9 9 HEALTH REVA J T VISIT CLINIC OF 15 MINUTES [facility] OFFICE 81345 COMMONKELSYA EDNA, CONSULTAT 9 9 [facility] KAROLINA D ION UROLOGY NEW/ESTAB PSC PATIENT 40 MIN OFFICE 56053 [facility], OUTPATIEN 9 9 HEALTH REVA J T VISIT CLINIC OF 15 MINUTES [facility] MARCIA - 9 9 [facility] OUTPATIEN [facility] T OFFICE 57007 [facility], OUTPATIEN 9 9 HEALTH REVA J T VISIT CLINIC OF 15 MINUTES [facility] OFFICE 62584 [facility] 9 9 [facility] VISIT CLINIC OF 15 MINUT[facility]IA - 9 9 [facility] [facility] - 9 9 [facility] OUT[facility]IEN [facility] EMERGENCY [address] [facility] 8 8 [facility] VISIT [facility] - 8 8 [facility] EMERGENCY [address] [facility], 8 8 NALLELY Sykes [facility] VISIT [facility] HIGH/URGE [facility] OFFICE [address]163 SHIRA ORELLANA 8 8 AND DILLAN T NEW 30 DAILY MINUTES [facility] 61867 [facility] 8 8 [facility] VISIT [facility] 15 MINUTES [facility] OFFICE 51405 [facility] OUTPATIEN 8 8 [facility] VISIT [facility] 15 BANK ACCT MINUTES
--- OUTSIDE RECORDS SUMMARY | 2017-01-28 20:10 | External Medical Summary Rpt ---
Demographics Preferred Language [place] Citizen Marital Status Unknown Restorationism Affiliation Unknown Race Unknown Ethnic Group Unknown Author Author , Organization [employer] Address Unknown Phone Unavailable Purpose Continuity of Care Document - through 2016 Immunization No patient found.
--- OUTSIDE RECORDS SUMMARY | 2017-01-28 20:10 | External Medical Summary Rpt ---
Demographics Preferred Language [place] Marital Status Unknown Hoahaoism Affiliation Unknown Race Unknown Ethnic Group Unknown Author Author , Organization [employer] Address Unknown Phone Unavailable Purpose Continuity of Care Document - through 2016 Immunization No patient found.
--- OUTSIDE RECORDS SUMMARY | 2017-01-28 20:11 | External Medical Summary Rpt ---
Author Author MEENA Sawyer, MEENA [employer] Organization [employer] Address Unknown Phone Unavailable Results DOP2D Observa Value Referen Units Interpr Notes Date tion ce etation Range TEXT \\.br\\Pa No No No No Oct 16 DIAGNOS tient : informa informa informa informa 2014 IS tion in tion in tion in tion in 3:34 PM BATTERY YUKO, source source source source HARRISON data data data data 3 Visit Type : REG CLI\\.br \\ : [phone] Rm/Bed :\\.br\\A ge/Sex : 24/F\\.b r\\\\.br\\ Innain roxi Ellisi an : Valerie Ulloa FAMILY ASSESSMENT WORKER Tech : Alyssa Johnson\\.b r\\Acces tan # : [id number] Time In :\\.br\\C ategory : ECHOCAR DIOGRAP HY Time Out :\\.br\\_ \\.br\\\\. br\\Date : 5\\.br\\\\ .br\\\\.b r\\\\.br\\ EC: ECHO2D WITH DOPPLER (COMPLE TE)\\.br \\\\.br\\I NDICATI ON: Sinus of Valsalv a aneurys m with rupture \\.br\\\\. br\\CARD IAC CHAMBER MEASURE MENTS MEASURE D NORMAL\\ .br\\\\.b r\\RIGHT VENTRIC LE-GRIMES TOLE (0.8 - 2.6 CM)\\.br \\INTERV ENTRICU LAR SEPTAL THICKNE SS 1.2 (0.6 - 1.1 CM)\\.br \\LEFT VENTRIC ULAR-DI ASTOLE 4.6 (3.3 - 5.9 CM)\\.br \\LEFT VENTRIC ULAR-SY STOLE 3.2\\.br \\L.V. POSTERI OR WALL THICKNE SS 0.8 (0.6 - 1.1 CM)\\.br \\FRACTI ONAL SHORTEN ING 32% (24 - 42%)\\.b r\\LEFT ATRIUM 3.1 (1.0 - 4.0 CM)\\.br \\AORTIC ROOT 1.9 (2.0 - 3.7 CM)\\.br \\Ejecti on Fractio n 64%\\.br \\E/e' 5.5\\.br \\E/A 1.7\\.br \\\\.br\\M ITRAL VALVE: Normal mitral valve with mild mitral regurgi tation\\ .br\\\\.b r\\AORTI C VALVE AND ROOT: Mechani vadim prosthe tic valve as well seated with normal hemodyn amics peak gradien t of 13 mmHg and mean gradien t of 9 mmHg.\\. br\\Ther e is trace aortic regurgi tation\\ .br\\\\.b r\\TRICU SPID VALVE: Mild tricusp id regurgi tation right ventric ular systoli c pressur e 37 mmHg\\.b r\\\\.br\\ PULMONI C VALVE: Trace pulmoni c insuffi ciency\\ .br\\\\.b r\\PERIC ARDIAL EFFUSIO N: None\\.b r\\\\.br\\ LEFT VENTRIC ULAR WALL MOTION: Normal left ventric ular systoli c functio n and wall motion ejectio n fractio n 64% of\\.br\\ \\.br\\\\. br\\Echo was perform ed using pulse wave, continu ous wave, and color flow Doppler .\\.br\\\\ .br\\IMP RESSION :\\.br\\\\ .br\\1. Normal left ventric ular systoli c functio n\\.br\\2 . Prosthe tic aortic valve as well seated with normal hemodyn amics\\. br\\3. No pericar dial effusio n\\.br\\4 . Doppler study reveale d:\\.br\\ Trace pulmoni c and aortic regurgi tation\\ .br\\Mil d tricusp id regurgi tation with normal pulmona ry pressur es right ventric ular systoli c pressur e 37 mmHg\\.b r\\Karen l diastol ic functio n pattern \\.br\\\\. br\\Comp ared to the previou s study the patient has since then did have aortic valve and aortic root replace ment and repair of ventric ular septal defect. \\.br\\Th e left to right shunt is no longer seen\\.b r\\\\.br\\ \\.br\\\\. br\\\\.br \\\\.br\\\\ .br\\\\.b r\\\\.br\\ \\.br\\\\. br\\\\.br \\\\.br\\\\ .br\\\\.b r\\Copy to 1: MMS CODING\\ .br\\\\.b r\\PA-C: \\.br\\\\. br\\\\.br \\ DOP2D Observa Value Referen Units Interpr Notes Date tion ce etation Range TEXT \\.br\\Pa No No No No Jun 30 DIAGNOS tient : informa informa informa informa 2013 IS tion in tion in tion in tion in 9:05 AM BATTERY [employer], source source source source HARRISON data data data data 3 Visit Type : DEP ER\\.br\\ : [phone] Rm/Bed :\\.br\\A ge/Sex : 24/F\\.b r\\\\.br\\ Innain roxi Physici an : Donny Lobato Overall Tech : Kelsey Chow \\.br\\Ac cession # : [id number] Time In : 2331\\.b r\\Categ ory: ECHOCAR DIOGRAP HY Time Out :\\.br\\_ \\.br\\\\. br\\Date : 4\\.br\\\\ .br\\\\.b r\\\\.br\\ EC: ECHO2D WITH DOPPLER (COMPLE TE)\\.br \\\\.br\\I NDICATI ON: chest pain, murmur\\ .br\\\\.b r\\CARDI AC CHAMBER MEASURE MENTS MEASURE D NORMAL\\ .br\\\\.b r\\RIGHT VENTRIC LE-GRIMES TOLE 2.6 (0.8 - 2.6 CM)\\.br \\INTERV ENTRICU LAR SEPTAL THICKNE SS 0.8 (0.6 - 1.1 CM)\\.br \\LEFT VENTRIC ULAR-DI ASTOLE 5.5 (3.3 - 5.9 CM)\\.br \\LEFT VENTRIC ULAR-SY STOLE 203.4\\. br\\L.V. POSTERI OR WALL THICKNE SS 1.1 (0.6 - 1.1 CM)\\.br \\FRACTI ONAL SHORTEN ING 38% (24 - 42%)\\.b r\\LEFT ATRIUM 4.3 (1.0 - 4.0 CM)\\.br \\AORTIC ROOT 2.9 (2.0 - 3.7 CM)\\.br \\Ejecti on Fractio n 74%\\.br \\\\.br\\M ITRAL VALVE: Normal mitral valve with mild mitral regurgi tation\\ .br\\\\.b r\\AORTI C VALVE AND ROOT: There is eccentr ic moderat e to severe aortic regurgi tation. 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 This increas ed gradien t\\.br\\a cross the pulmoni c valve probabl y due to increas ed flow\\.b r\\\\.br\\ PERICAR DIAL EFFUSIO N: None\\.b r\\\\.br\\ LEFT VENTRIC ULAR WALL MOTION: Normal left ventric ular systoli c functio n and wall motion there is left atrial enlarge ment.\\. br\\\\.br \\\\.br\\E cho was perform ed using pulse wave, continu ous wave, and color flow Doppler .\\.br\\\\ .br\\IMP RESSION :\\.br\\\\ .br\\1. Left atrial enlarge ment\\.b r\\2. 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 br\\3. Normal left ventric ular systoli c functio n\\.br\\4 . Moderat e to severe aortic regurgi tation\\ .br\\5. No pericar dial effusio n\\.br\\6 . Doppler study reveale d:\\.br\\ Moderat e to severe aortic regurgi tation probabl y due to distort ion of the aortic valve leaflet s from the right sinus of Valsalv a aneurys m and\\.br \\fistul a into the RVOT\\.b r\\trace tricusp id regurgi tation with mild pulmona ry hyperte nsion\\. br\\Incr eased gradien t across the pulmoni c and aortic valve probabl y due to increas ed flow and not due to stenosi s.\\.br\\ \\.br\\\\. br\\\\.br \\\\.br\\\\ .br\\\\.b r\\\\.br\\ \\.br\\\\. br\\\\.br \\\\.br\\\\ .br\\\\.b r\\\\.br\\ Copy to 1: [facility] coding\\ .br\\\\.b r\\PA-C: \\.br\\\\. br\\\\.br \\ GONZALO Observa Value Referen Units Interpr Notes Date tion ce etation Range TEXT \\.br\\Pa No No No No Jun 9 DIAGNOS tient : informa informa informa informa 2013 IS tion in tion in tion in tion in 1:54 PM BATTERY RUEGER, source source source source HARRISON data data data data 3 Visit Type : REG CLI\\.br \\ : [phone] [id number] Rm/Bed :\\.br\\A ge/Sex : 24/F\\.b r\\\\.br\\ Orderin roxi Physici an : Valerie Ulloa FAMILY ASSESSMENT WORKER Tech : Tomás Bhat Daynabridgette e\\.br\\A ccessio n # : [id number] Time In : 747\\.b r\\Categ ory: ECHOCAR DIOGRAP HY Time Out :\\.br\\_ \\.br\\\\. br\\Date : 4\\.br\\\\ .br\\\\.b r\\\\.br\\ EC: TRANSES OPHAGEA L ECHO\\.b r\\\\.br\\ INDICAT ION: VSD (ventri cular septal defect) \\.br\\\\. br\\Proc edure perform ed:\\.br \\Transe sophage al echocar diogram \\.br\\Pr ocedure :\\.br\\A fter informe d consent was obtaine d the [facility] The patient was placed on cardiac rehabilitation specialist . The procedu re\\.br\\ was explain ed. She was given moderat e conscio us sedatio n using Versed and Fentany l. Omnipla ne probe was advance d without difficu lty over the tongue\\ .br\\to the mid esophag us. Standar d transes ophagea l images were obtaine d at past the stomach and standar d images were obtaine d then was turned to the\\.br \\left and pulled back with imaging of the descend ing thoraci c aorta. The patient has no complic ation. The patient was continu ously monitor ed with\\.b r\\pulse oximetr y EKG and intermi ttent blood pressur e measure ment the patient was monitor ed after the procedu re until she retaine d normal level of\\.br\\ conscio usness. \\.br\\\\. br\\Find ings:\\. br\\1. Sinus of Valsalv a aneurys m involvi ng the right coronar y cusp with fistula from the aneurys m into the right ventric ular outflow tract Just below\\. br\\the pulmoni c valve\\. br\\2. Moderat e to severe aortic regurgi tation directe d posteri madison probabl y functio nal be due to the aneurys m.\\.br\\ 3. Normal left ventric ular systoli c functio n\\.br\\4 . Normal cardiac chamber dimensi ons includi ng normal right ventric le right atrial dimensi ons.\\.b r\\5. No pericar dial effusio n\\.br\\6 . Normal descend ing thoraci c aorta and aortic arch\\.b r\\\\.br\\ 7. No signifi cant mitral tricusp id regurgi tation\\ .br\\\\.b r\\8. No evidenc e of left atrial appenda ge or left atrial thrombu s\\.br\\\\ .br\\\\.b r\\\\.br\\ \\.br\\\\. br\\\\.br \\\\.br\\C opy to 1: MMS CODING\\ .br\\\\.b r\\PA-C: \\.br\\\\. br\\\\.br \\ CXR2 Observa Value Referen Units Interpr Notes Date tion ce etation Range TEXT \\.br\\Pa No No No No Jun 7 DIAGNOS tient : informa informa informa informa 2013 IS tion in tion in tion in tion in 7:42 AM BATTERY RUEGER, source source source source HARRISON data data data data 3 Visit Type : DEP ER\\.br\\ : [id number] Rm/Bed :\\.br\\A ge/Sex : 24/F\\.b r\\\\.br\\ Orderin g Physici an : Marcelo Laguerre MD, MD Tech : Elicia Gaston\\. br\\Acce ssion # : [id number] Time In : 2302\\.b r\\Categ ory: X-RAY Time Out :\\.br\\_ \\.br\\\\. br\\Date : 4\\.br\\\\ .br\\\\.b r\\\\.br\\ \\.br\\RA D: CHEST 2 VIEWS\\. br\\\\.br \\INDICA TION: chest pain\\.b r\\\\.br\\ Techniq ue: PA and lateral views of the chest compare d to a prior study of June 20, 2014.\\. br\\\\.br \\Findin gs: There has been no signifi cant interva l change. Mild cardiom egaly is stable with pulmona ry vascula r engorge ment. There are calcifi ed\\.br\\ nodules compati ble with prior granulo matous infecti on. The lateral view shows no pleural effusio ns. There is no evidenc e of pneumot horax.\\ .br\\\\.b r\\Impre ssion: No signifi cant interva l change. \\.br\\\\. br\\\\.br \\\\.br\\\\ .br\\\\.b r\\\\.br\\ \\.br\\\\. br\\\\.br \\\\.br\\\\ .br\\\\.b r\\\\.br\\ Copy to 1:\\.br\\ \\.br\\PA -C: SB\\.br\\ \\.br\\\\. br\\ UPT Observa Value Referen Units Interpr Notes Date tion ce etation Range UPT NEGATIV NEGATIV No Normal No Jun 7 E E informa informa 2013 tion in tion in 8:01 AM source source data data D-DIMER Observa Value Referen Units Interpr Notes Date tion ce etation Range D-DIMER 320 0 - 500 ng/mLFE Normal No Oct 6 U informa 2013 tion in 10:54 source PM data CBC WITH AUTO DIFF REFLEX Observa Value Referen Units Interpr Notes Date tion ce etation Range White 7.8 4.8 - X_10_3 Normal No Oct 6 Blood 10.8 informa 2013 Count tion in 11:14 source PM data Red 3.92 4.20 - X_10_6 Low No Oct 6 Blood 5.40 informa 2013 Count tion in 11:14 source PM data Hemoglo 13.5 12.0 - g/dL Normal No Oct 6 bin 16.0 informa 2013 tion in 11:14 source PM data Hematoc 39.0 37.0 - % Normal No Oct 6 rit 47.0 informa 2013 tion in 11:14 source PM data Mean 99.5 81 - 99 fL High No Oct 6 Corpusc informa 2013 ular tion in 11:14 Volume source PM data Mean 34.5 27 - 31 pg High No Oct 6 Corpusc informa 2013 ular tion in 11:14 Hemoglo source PM bin data Mean 34.7 32 - 36 g/dL Normal No Oct 6 Corpusc informa 2013 ular tion in 11:14 Hemoglo source PM bin data Concent Red 12.6 11.5 - % Normal No Oct 6 Cell 14.5 informa 2013 Distrib tion in 11:14 ution source PM Width data Platele 203 130 - x10_3 Normal No Oct 6 t Count 400 informa 2013 tion in 11:14 source PM data Mean 7.6 6.0 - fL Normal No Oct 6 Platele 10.0 informa 2013 t tion in 11:14 Volume source PM data Neutrop 61.6 43.1 - % Normal No Oct 6 hils 74.8 informa 2013 (%) tion in 11:14 (Auto) source PM data Lymphoc 25.9 17.6 - % Normal No Oct 6 ytes 40.8 informa 2013 (%) tion in 11:14 (Auto) source PM data Monocyt 7.9 4.4 - % Normal No Oct 6 es (%) 11.0 informa 2013 (Auto) tion in 11:14 source PM data Eosinop 2.3 0.0 - % Normal No Oct 6 hils 5.8 informa 2013 (%) tion in 11:14 (Auto) source PM data Basophi 0.4 0 - 1.6 % Normal No Oct 6 ls (%) informa 2013 (Auto) tion in 11:14 source PM data Neutrop 4.8 1.8 - X_10_3 Normal No Oct 6 hils # 7.0 informa 2013 (Auto) tion in 11:14 source PM data Lymphoc 2.0 1.0 - X_10_3 Normal No Oct 6 ytes # 3.3 informa 2013 (Auto) tion in 11:14 source PM data Monocyt 0.6 0.3 - X_10_3 Normal No Oct 6 es # 0.9 informa 2013 (Auto) tion in 11:14 source PM data Eosinop 0.2 0.0 - X_10_3 Normal No Oct 6 hils # 0.5 informa 2013 (Auto) tion in 11:14 source PM data Basophi 0.0 0.0 - X_10_3 Normal If a Oct 6 ls # 0.2 manual 2013 (Auto) differe 11:14 ntial PM is indicat ed, submit order within4 8 hours" BLOOD CULTURE Observa Value Referen Units Interpr Notes Date tion ce etation Range Source Name: BLOOD\\.br\\ LEFT AC BLOOD NO No No No No Oct 12 CULTURE GROWTH informa informa informa informa 2013 AFTER 5 tion in tion in tion in tion in 6:46 AM DAYS source source source source data data data data BLOOD CULTURE Observa Value Referen Units Interpr Notes Date tion ce etation Range Source Name: BLOOD\\.br\\ RIGHT AC BLOOD NO No No No No Oct 12 CULTURE GROWTH informa informa informa informa 2013 AFTER 5 tion in tion in tion in tion in 6:46 AM DAYS source source source source data data data data CXR2 Observa Value Referen Units Interpr Notes Date tion ce etation Range TEXT \\.br\\Pa No No No No Oct 4 DIAGNOS tient : informa informa informa informa 2013 IS tion in tion in tion in tion in 8:06 AM BATTERY YUKO, source source source source HARRISON data data data data 3 Visit Type : DEP ER\\.br\\ : [phone] Rm/Bed :\\.br\\A ge/Sex : 24/F\\.b r\\\\.br\\ Alysia Ellisi an : Donny Souza MD Tech : Marcelo Holcomb \\.br\\Ac cession # : [id number] Time In : 2325\\.b r\\Categ ory: X-RAY Time Out :\\.br\\_ \\.br\\\\. br\\Date : 4\\.br\\\\ .br\\\\.b r\\\\.br\\ \\.br\\RA D: CHEST 2 VIEWS\\. br\\\\.br \\INDICA TION: SOA, chest pain\\.b r\\\\.br\\ Techniq ue: PA and lateral views of the chest were obtaine d\\.br\\\\ .br\\Com parison : None\\.b r\\\\.br\\ Finding s: Cardiom egaly is noted. The mediast inal and hilar structu res are otherwi se unremar kable. The pulmona ry vascula ture is mildly engorge d.\\.br\\ The small right perihil ar calcifi ed granulo ma is noted. The lungs are otherwi se clear. There is no pleural effusio n or pneumot horax. The bony\\.b r\\thora x is unremar kable.\\ .br\\\\.b r\\Impre ssion: Cardiom egaly with pulmona ry vascula r engorge ment.\\. br\\\\.br \\\\.br\\\\ .br\\\\.b r\\\\.br\\ \\.br\\\\. br\\\\.br \\\\.br\\\\ .br\\\\.b r\\\\.br\\ \\.br\\Co py to 1:\\.br\\ \\.br\\PA -C:\\.br \\\\.br\\\\ .br\\ CBC WITH AUTO DIFF REFLEX Observa Value Referen Units Interpr Notes Date tion ce etation Range White 8.4 4.8 - X_10_3 Normal No Oct 3 Blood 10.8 informa 2013 Count tion in 11:37 source PM data Red 3.96 4.20 - X_10_6 Low No Oct 3 Blood 5.40 inform2013 Count tion in 11:37 source PM data Hemoglo 13.1 12.0 - g/dL Normal No Oct 3 bin 16.0 informa 2013 tion in 11:37 source PM data Hematoc 38.8 37.0 - % Normal No Oct 3 rit 47.0 informa 2013 tion in 11:37 source PM data Mean 98.1 81 - 99 fL Normal No Oct 3 Corpusc inform2013 ular tion in 11:37 Volume source PM data Mean 33.1 27 - 31 pg High No Oct 3 Corpusc informa 2013 ular tion in 11:37 Hemoglo source PM bin data Mean 33.8 32 - 36 g/dL Normal No Oct 3 Corpusc informa 2013 ular tion in 11:37 Hemoglo source PM bin data Concent Red 12.6 11.5 - % Normal No Oct 3 Cell 14.5 informa 2013 Distrib tion in 11:37 ution source PM Width data Platele 211 130 - x10_3 Normal No Oct 3 t Count 400 inform2013 tion in 11:37 source PM data Mean 7.2 6.0 - fL Normal No Oct 3 Platele 10.0 inform2013 t tion in 11:37 Volume source PM data Neutrop 63.8 43.1 - % Normal No Oct 3 hils 74.8 inform2013 (%) tion in 11:37 (Auto) source PM data Lymphoc 25.0 17.6 - % Normal No Oct 3 ytes 40.8 inform2013 (%) tion in 11:37 (Auto) source PM data Monocyt 7.2 4.4 - % Normal No Oct 3 es (%) 11.0 inform2013 (Auto) tion in 11:37 source PM data Eosinop 1.5 0.0 - % Normal No Oct 3 hils 5.8 inform2013 (%) tion in 11:37 (Auto) source PM data Basophi 0.3 0 - 1.6 % Normal No Oct 3 ls (%) informa 2013 (Auto) tion in 11:37 source PM data Neutrop 5.4 1.8 - X_10_3 Normal No Oct 3 hils # 7.0 informa 2013 (Auto) tion in 11:37 source PM data Lymphoc 2.1 1.0 - X_10_3 Normal No Oct 3 ytes # 3.3 informa 2013 (Auto) tion in 11:37 source PM data Monocyt 0.6 0.3 - X_10_3 Normal No Oct 3 es # 0.9 informa 2013 (Auto) tion in 11:37 source PM data Eosinop 0.1 0.0 - X_10_3 Normal No Oct 3 hils # 0.5 informa 2013 (Auto) tion in 11:37 source PM data Basophi 0.0 0.0 - X_10_3 Normal If a Oct 3 ls # 0.2 manual 2013 (Auto) differe 11:37 ntial PM is indicat ed, submit order within4 8 hours"
--- OUTSIDE RECORDS SUMMARY | 2017-01-28 20:11 | External Medical Summary Rpt ---
Author Author MEENA Sawyer, MEENA [employer] Organization [employer] Address Unknown Phone Unavailable [...] Type : REG CLI\\.br \\ : [phone] Rm/Bed :\\.br\\A ge/Sex : 24/F\\.b r\\\\.br\\ Innain roxi Ellisi an : Valerie Ulloa SOLAR DESIGNER/INSTALLER Tech : Alyssa Johnson\\.b r\\Acces tan # : [id number] Time In :\\.br\\C ategory : ECHOCAR [...] tion in tion in 9:05 AM BATTERY [email or web address], source source source source HARRISON data data data data 3 Visit Type : DEP ER\\.br\\ : [phone] Rm/Bed :\\.br\\A ge/Sex : 24/F\\.b r\\\\.br\\ Innain roxi Physici an : Donny Lobato Overall Tech : Kelsey Chow \\.br\\Ac cession # : [id number] Time In : 2331\\.b r\\Categ ory: [...] br\\\\.br \\\\.br\\\\ .br\\\\.b r\\\\.br\\ Copy to 1: [facility] coding\\ .br\\\\.b r\\PA-C: \\.br\\\\. br\\\\.br \\ GONZALO [...] Type : REG CLI\\.br \\ : 988 55217 Rm/Bed :\\.br\\A ge/Sex : 24/F\\.b r\\\\.br\\ Orderin roxi Physici an : Valerie Ulloa SOLAR DESIGNER/INSTALLER Tech : Tomás Bhat Daynabridgette e\\.br\\A ccessio n # : [id number] Time In : 747\\.b r\\Categ ory: ECHOCAR DIOGRAP HY Time Out :\\.br\\_ \\.br\\\\. br\\Date : 4\\.br\\\\ .br\\\\.b r\\\\.br\\ EC: TRANSES OPHAGEA L ECHO\\.b r\\\\.br\\ INDICAT ION: VSD (ventri cular septal defect) \\.br\\\\. br\\Proc edure perform ed:\\.br \\Transe sophage al echocar diogram \\.br\\Pr ocedure :\\.br\\A fter informe d consent was obtaine d [facility] The patient was placed on panel monitor . The procedu re\\.br\\ was explain ed. [...] Visit Type : DEP ER\\.br\\ : [phone] Rm/Bed :\\.br\\A ge/Sex : 24/F\\.b r\\\\.br\\ Orderin g Physici an : Marcelo Laguerre MD, MD Tech : Elicia Gaston\\. br\\Acce ssion # : [id number] Time In : 2302\\.b r\\Categ ory: [...] Visit Type : DEP ER\\.br\\ : [phone] [id number] Rm/Bed :\\.br\\A ge/Sex : 24/F\\.b r\\\\.br\\ Alysia Ellisi an : Donny Souza MD Tech : Marcelo Holcomb \\.br\\Ac cession # : [id number] Time In : 2325\\.b r\\Categ ory: [...]
[2017-01-28] MEDS ORDERED: AMOXICILLIN875 MG PO (20:13)
[2017-01-28] MEDS ORDERED: FLONASE 50 MCG16 GM (20:13)
[2017-01-28] MEDS ORDERED: PREDNISONE 20MG20 MG PO (20:13)
[2017-01-28 20:16] VITALS: BP 113/71
== END 2017-01-28 20:16 | disposition home or self-care (01) ==
LOC: UTC 19:45
DX: J01.01 Acute recurrent maxillary sinusitis (principal)

== ENCOUNTER 2017-05-01 11:56 | Outpatient (CLI) | payer MEDICAID ==
[~2017-05-01 11:56] MED LIST changes: +AMOXICILLIN875 MG PO; +FLONASE 50 MCG16 GM; +PREDNISONE 20MG20 MG PO; +WARFARIN SOD5 M1 PO
== END 2017-05-01 15:36 ==
LOC: ACC 11:56
DX: Z95.2 Presence of prosthetic heart valve (principal); Z79.01 Long term (current) use of anticoagulants; Z51.81 Encounter for therapeutic drug level monitoring
CPT/HCPCS: G0463

== ENCOUNTER 2017-06-07 13:25 | Outpatient (CLI) | payer MEDICAID | END 2017-06-07 15:14 | LOC: ACC 13:25 | DX: Z95.2 Presence of prosthetic heart valve (principal); Z79.01 Long term (current) use of anticoagulants; Z51.81 Encounter for therapeutic drug level monitoring | CPT/HCPCS: G0463 ==

== ENCOUNTER → 2017-08-14 | Outpatient (CLI) | payer MEDICAID | LOC: ACC 11:13 | DX: Z95.2 Presence of prosthetic heart valve (principal); Z79.01 Long term (current) use of anticoagulants; Z51.81 Encounter for therapeutic drug level monitoring | CPT/HCPCS: G0463 ==